=== PATIENT | female | born 1955 | race Caucasian/White ===

== ENCOUNTER 2025-04-04 17:44 | Inpatient (IN) | payer MEDICARE, OTHER, SELFPAY ==
[2025-04-04] VITALS (10 sets, daily range): BP systolic 144–166; BP diastolic 78–83; PULSE 52–61; RESP 11–23; TEMP 35.9–36.6; O2SAT 96–100; BMI 27.8; BMI 21.7
[2025-04-04] MEDS: 0.9% Normal Saline (1000mL) 1,000 ML 999 ML IV (18:05)
--- NOTE | 2025-04-04 18:10 | CT_ITS ---
PROCEDURE: CTA CHEST W/WO CONTRAST 04/04/2025 REASON FOR EXAM: SOB, CHEST PAIN TECHNIQUE: CTA CHEST W/WO CONTRAST Multiplanar Sagittal and Coronal images were obtained. CONTRAST: Isovue 370 VOLUME: 100 mL One or more dose reduction techniques were used (e.g., Automated exposure control, adjustment of the mA and/or kV according to patient size, use of iterative reconstruction technique). RADIATION DOSE SUMMARY: CTDlvol: 17 mGy DLP: 207.40 mGycm FINDINGS: Again, scanning has been performed from inferior to superior which is suboptimal. The thoracic aorta exhibits normal caliber without dissection. Mild coronary artery calcification is seen. Examination of the pulmonary arterial tree demonstrates no filling defects to suggest pulmonary embolism. Imaged portions of the upper abdomen are unremarkable. There is no pericardial fluid or mediastinal mass. Although lung windows were not supplied, there is no consolidation, edema or effusion. CT/CTA Chest W/WO Contrast IMPRESSION: Negative study [facility]
[2025-04-04 18:12] LABS: Hematocrit 40.5 % (37-47); Hemoglobin 14.0 g/dL (12.0-15.0); Immature Granulocytes Count 0.010 X10^3/uL (0.0-0.0); Mean Corp Hgb Conc 34.6 g/dL (32-36); Mean Corpuscular Volume 95.3 fL (81-99); Mean Platelet Vol. 10.7 fl (6.2-12.0); NRBC Flagged by Analyzer 0 % (0-5); Platelet Count 178 K/mm3 (150-450); RBC Distribution Width CV 12.9 % (11.6-14.6); RBC Distribution Width SD 45.3 fl (35.1-43.9); Red Blood Count 4.25 M/mm3 (4.2-5.4); White Blood Count 5.6 K/mm3 (4.4-11.0)
[2025-04-04 18:59] LABS: Anion Gap 13 (5-15); BUN 16 mg/dL (4-19); BUN/Creat Ratio 19.3 RATIO (10-20); Calcium,Total 9.9 mg/dL (7.6-11.0); Carbon Dioxide 23.5 mmol/L (21.0-32.0); Chloride 103 mmol/L (98-108); Estimated Creatinine Clearance 64.67 ml/min (50-250); Glucose 136 mg/dL (70-99); Magnesium 1.9 mg/dL (1.5-2.2); Potassium 3.7 mmol/L (3.3-5.1); Pro- Brain NATRIURETIC PEPTIDE 349 pg/mL (<=900); Troponin T High Sensitivity 9 ng/L (<=14)
[2025-04-04 19:21] LABS: Free T3 3.7 pg/mL (2.18-3.98)
--- NOTE | 2025-04-04 19:23 | ED.VIS.CHEST ---
HPI History of Present Illness Chief Complaint: Chest Pain Narrative Narrative: Patient is a 69-year-old female who presents to the emergency department the chief complaint of chest pain, shortness of breath. Patient states that she March 19, 2025 had a stress test obtained in the outpatient setting and was abnormal she was told. She states that she is having worsening fatigue and shortness of breath with exertion and states that she called articulation officer Dr. Obrien office and they advised her to come here given her abnormal stress test. She states that she is to have an appointment with him in April but they did not feel that this could wait any longer and sent her to the emergency department. Patient denies any travel history denies any history of blood clots. States that she has been getting chest pain that will radiate to her left arm as well and gets better with rest. [facility] Medical History Ruptured ovarian cyst Home Medications ?Medication ?Instructions ?Recorded ?Last Taken ?Type NK 04/04/25 Unknown History Allergy/AdvReac Type Severity Reaction Status Date / Time No Known Allergies Allergy Verified 04/04/25 17:46 Surgical History H/O elbow surgery Social History Smoking Status: Former smoker ROS ROS ED ROS Narrative Constitutional: Denies any fevers, chills, headaches Cardiovascular: Complains of chest pain as noted above as well as palpitations Respiratory: Complains of shortness of breath denies coughing Abdomen: Denies abdominal pain nausea vomit diarrhea : Denies urinary symptoms Neurological: Denies any numbness, wheeze, tingling Musculoskeletal: Denies back pain Skin: Denies any rashes or lesions EXAM Physical Exam Narrative Exam Narrative: General: Patient was lying in bed rest comfortably did not appear to be in acute distress Head: Atraumatic, normocephalic Eyes: PERRL bilaterally, EOMI blood, no conjunctival injection noted Neck: Soft, supple, trachea midline Cardiovascular: Patient is bradycardic with a regular rhythm Respiratory: Clear to auscultation bilaterally Abdomen: No tenderness palpation Extremities: Radial pulses +2/4 in the bilateral extremities, +5/5 strength noted in the bilateral upper and lower extremities Neurological: Patient following commands knew that she was at [facility] year is 2024 Skin: Warm, dry, intact no rashes or lesions noted Const Vital Signs: 04/04/25 17:44 04/04/25 17:56 04/04/25 17:57 Temperature 96.6 F L Temperature Source Oral Pulse Rate 61 Respiratory Rate 18 Respiratory Effort Blood Pressure 157/78 H Blood Pressure Mean 104 Pulse Ox 99 100 97 Oxygen Delivery Method Room Air Room Air Room Air 04/04/25 17:59 04/04/25 18:44 04/04/25 19:00 Temperature Temperature Source Pulse Rate 52 L 56 L Respiratory Rate 23 H 11 L Respiratory Effort Normal Blood Pressure 155/80 H 161/82 H Blood Pressure Mean 105 108 Pulse Ox 100 100 Oxygen Delivery Method Room Air Room Air 04/04/25 20:00 04/04/25 20:58 04/04/25 20:59 Temperature 96.6 F L Temperature Source Pulse Rate 57 L 56 L Respiratory Rate 16 16 Respiratory Effort Blood Pressure 147/82 H 144/79 H 144/79 H Blood Pressure Mean 103 100 100 Pulse Ox 97 96 Oxygen Delivery Method Room Air MDM MDM MDM Narrative Medical decision making narrative: patient is a 69-year-old female who presents to the emergency department chief complaint of worsening chest pain on exertion, fatigue and shortness of breath with worsening fatigue. On the differential diagnose includes but not limited to ACS, dissection, PE. Once workup is obtained reviewed she will be reevaluated. Patient CBC reviewed showed no evidence leukocytosis white blood count 5.6, hemoglobin 14, plate count 178. Patient sodium normal 139, [place] normal 3.7, creatinine normal 0.82. Patient's troponin was 9 delta troponin of 10. Patient proBNP normal at 349, TSH normal at 2.65, free T4 and T3 were 1.40 and 3.7 respectively. Patient EKG reviewed showed sinus rhythm with a rate of 62 bpm. Patient CTA of the chest reviewed and showed no acute processes. Called and discussed case with on-call articulation officer Dr. Medina who is recommending admission for heart catheterization as she had an abnormal outpatient stress test with her symptoms. Will discuss case with hospitalist for admission. Patient given 325 mg aspirin Patient's case discussed with hospitalist Dr. Conti who accept patient for admission. Lab Data Labs: Laboratory Results - last 24 hr 04/04/25 04/04/25 04/04/25 18:02 18:02 18:02 WBC Cancelled 5.6 Corrected WBC Cancelled RBC Cancelled 4.25 Hgb Cancelled Hct MCV MCH MCHC RDW Std Deviation RDW Coeff of Lexus Plt Count MPV Immature Gran % (Auto) Neut % (Auto) Lymph % (Auto) [place] % (Auto) Eos % (Auto) Baso % (Auto) Absolute Neuts (auto) Absolute Lymphs (auto) Total Counted Neutrophils % (Manual) Band Neutrophils % Lymphocytes % (Manual) Monocytes % (Manual) Eosinophils % (Manual) Basophils % (Manual) Metamyelocytes % Myelocytes % Promyelocytes % Blast Cells % Plasma Cell % (Manual) Other Cells % Nucleated RBC % Nucleated RBCs/100 WBC Differential Comment Diff Path Review Hypersegmented Neuts Atypical Lymphocytes Reactive Lymphocytes Smudge Cells Toxic Granulation Toxic Vacuolation Dohle Bodies Corine Rods Platelet Estimate Plt Morphology Comment RBC Morphology Polychromasia Hypochromasia Basophilic Stippling Anisocytosis Microcytosis Macrocytosis Spherocytes Sickle Cells Target Cells Tear Drop Cells Ovalocytes Stomatocytes [place] Bodies Olga Lidia Cells Bite Cells Crenated Cell Acanthocytes (Spur) Rouleaux Schistocytes Sodium Potassium Chloride Carbon Dioxide Anion Gap BUN Creatinine Estim Creat Clear Calc Est GFR (MDRD) Non-Af BUN/Creatinine Ratio Glucose Calcium Magnesium Troponin T High Sens Troponin T Hi Sens 2 Hr NT pro BNP II TSH Free T4 Free T3 pg/dL 04/04/25 04/04/25 04/04/25 18:02 18:02 18:02 WBC Corrected WBC RBC Hgb 14.0 Hct Cancelled 40.5 MCV Cancelled 95.3 MCH Cancelled MCHC RDW Std Deviation RDW Coeff of [place] Plt Count MPV Immature Gran % (Auto) Neut % (Auto) Lymph % (Auto) [place] % (Auto) Eos % (Auto) Baso % (Auto) Absolute Neuts (auto) Absolute Lymphs (auto) Total Counted Neutrophils % (Manual) Band Neutrophils % Lymphocytes % (Manual) Monocytes % (Manual) Eosinophils % (Manual) Basophils % (Manual) Metamyelocytes % Myelocytes % Promyelocytes % Blast Cells % Plasma Cell % (Manual) Other Cells % Nucleated RBC % Nucleated RBCs/100 WBC Differential Comment Diff Path Review Hypersegmented Neuts Atypical Lymphocytes Reactive Lymphocytes Smudge Cells Toxic Granulation Toxic Vacuolation Dohle Bodies Corine Rods Platelet Estimate Plt Morphology Comment RBC Morphology Polychromasia Hypochromasia Basophilic Stippling Anisocytosis Microcytosis Macrocytosis Spherocytes Sickle Cells Target Cells Tear Drop Cells Ovalocytes Stomatocytes [place] Bodies Olga Lidia Cells Bite Cells Crenated Cell Acanthocytes (Spur) Rouleaux Schistocytes Sodium Potassium Chloride Carbon Dioxide Anion Gap BUN Creatinine Estim Creat Clear Calc Est GFR (MDRD) Non-Af BUN/Creatinine Ratio Glucose Calcium Magnesium Troponin T High Sens Troponin T Hi Sens 2 Hr NT pro BNP II TSH Free T4 Free T3 pg/dL 04/04/25 04/04/25 04/04/25 18:02 18:02 18:02 WBC Corrected WBC RBC Hgb Hct MCV MCH 32.9 H MCHC Cancelled 34.6 RDW Std Deviation Cancelled 45.3 H RDW Coeff of [place] Cancelled Plt Count MPV Immature Gran % (Auto) Neut % (Auto) Lymph % (Auto) [place] % (Auto) Eos % (Auto) Baso % (Auto) Absolute Neuts (auto) Absolute Lymphs (auto) Total Counted Neutrophils % (Manual) Band Neutrophils % Lymphocytes % (Manual) Monocytes % (Manual) Eosinophils % (Manual) Basophils % (Manual) Metamyelocytes % Myelocytes % Promyelocytes % Blast Cells % Plasma Cell % (Manual) Other Cells % Nucleated RBC % Nucleated RBCs/100 WBC Differential Comment Diff Path Review Hypersegmented Neuts Atypical Lymphocytes Reactive Lymphocytes Smudge Cells Toxic Granulation Toxic Vacuolation Dohle Bodies Corine Rods Platelet Estimate Plt Morphology Comment RBC Morphology Polychromasia Hypochromasia Basophilic Stippling Anisocytosis Microcytosis Macrocytosis Spherocytes Sickle Cells Target Cells Tear Drop Cells Ovalocytes Stomatocytes [place] Bodies Olga Lidia Cells Bite Cells Crenated Cell Acanthocytes (Spur) Rouleaux Schistocytes Sodium Potassium Chloride Carbon Dioxide Anion Gap BUN Creatinine Estim Creat Clear Calc Est GFR (MDRD) Non-Af BUN/Creatinine Ratio Glucose Calcium Magnesium Troponin T High Sens Troponin T Hi Sens 2 Hr NT pro BNP II TSH Free T4 Free T3 pg/dL 04/04/25 04/04/25 04/04/25 18:02 18:02 18:02 WBC Corrected WBC RBC Hgb Hct MCV MCH MCHC RDW Std Deviation RDW Coeff of Lexus 12.9 Plt Count Cancelled 178 MPV Cancelled 10.7 Immature Gran % (Auto) Cancelled Neut % (Auto) Lymph % (Auto) [place] % (Auto) Eos % (Auto) Baso % (Auto) Absolute Neuts (auto) Absolute Lymphs (auto) Total Counted Neutrophils % (Manual) Band Neutrophils % Lymphocytes % (Manual) Monocytes % (Manual) Eosinophils % (Manual) Basophils % (Manual) Metamyelocytes % Myelocytes % Promyelocytes % Blast Cells % Plasma Cell % (Manual) Other Cells % Nucleated RBC % Nucleated RBCs/100 WBC Differential Comment Diff Path Review Hypersegmented Neuts Atypical Lymphocytes Reactive Lymphocytes Smudge Cells Toxic Granulation Toxic Vacuolation Dohle Bodies Corine Rods Platelet Estimate Plt Morphology Comment RBC Morphology Polychromasia Hypochromasia Basophilic Stippling Anisocytosis Microcytosis Macrocytosis Spherocytes Sickle Cells Target Cells Tear Drop Cells Ovalocytes Stomatocytes [place] Bodies Olga Lidia Cells Bite Cells Crenated Cell Acanthocytes (Spur) Rouleaux Schistocytes Sodium Potassium Chloride Carbon Dioxide Anion Gap BUN Creatinine Estim Creat Clear Calc Est GFR (MDRD) Non-Af BUN/Creatinine Ratio Glucose Calcium Magnesium Troponin T High Sens Troponin T Hi Sens 2 Hr NT pro BNP II TSH Free T4 Free T3 pg/dL 04/04/25 04/04/25 04/04/25 18:02 18:02 18:02 WBC Corrected WBC RBC Hgb Hct MCV MCH MCHC RDW Std Deviation RDW Coeff of [place] Plt Count MPV Immature Gran % (Auto) 0.200 Neut % (Auto) Cancelled 56.0 Lymph % (Auto) Cancelled 33.3 [place] % (Auto) Cancelled Eos % (Auto) Baso % (Auto) Absolute Neuts (auto) Absolute Lymphs (auto) Total Counted Neutrophils % (Manual) Band Neutrophils % Lymphocytes % (Manual) Monocytes % (Manual) Eosinophils % (Manual) Basophils % (Manual) Metamyelocytes % Myelocytes % Promyelocytes % Blast Cells % Plasma Cell % (Manual) Other Cells % Nucleated RBC % Nucleated RBCs/100 WBC Differential Comment Diff Path Review Hypersegmented Neuts Atypical Lymphocytes Reactive Lymphocytes Smudge Cells Toxic Granulation Toxic Vacuolation Dohle Bodies Corine Rods Platelet Estimate Plt Morphology Comment RBC Morphology Polychromasia Hypochromasia Basophilic Stippling Anisocytosis Microcytosis Macrocytosis Spherocytes Sickle Cells Target Cells Tear Drop Cells Ovalocytes Stomatocytes [place] Bodies [place] Cells Bite Cells Crenated Cell Acanthocytes (Spur) Rouleaux Schistocytes Sodium Potassium Chloride Carbon Dioxide Anion Gap BUN Creatinine Estim Creat Clear Calc Est GFR (MDRD) Non-Af BUN/Creatinine Ratio Glucose Calcium Magnesium Troponin T High Sens Troponin T Hi Sens 2 Hr NT pro BNP II TSH Free T4 Free T3 pg/dL 04/04/25 04/04/25 04/04/25 18:02 18:02 18:02 WBC Corrected WBC RBC Hgb Hct MCV MCH MCHC RDW Std Deviation RDW Coeff of [place] Plt Count MPV Immature Gran % (Auto) Neut % (Auto) Lymph % (Auto) [place] % (Auto) 8.0 Eos % (Auto) Cancelled 2.0 Baso % (Auto) Cancelled 0.5 Absolute Neuts (auto) Cancelled Absolute Lymphs (auto) Total Counted Neutrophils % (Manual) Band Neutrophils % Lymphocytes % (Manual) Monocytes % (Manual) Eosinophils % (Manual) Basophils % (Manual) Metamyelocytes % Myelocytes % Promyelocytes % Blast Cells % Plasma Cell % (Manual) Other Cells % Nucleated RBC % Nucleated RBCs/100 WBC Differential Comment Diff Path Review Hypersegmented Neuts Atypical Lymphocytes Reactive Lymphocytes Smudge Cells Toxic Granulation Toxic Vacuolation Dohle Bodies Corine Rods Platelet Estimate Plt Morphology Comment RBC Morphology Polychromasia Hypochromasia Basophilic Stippling Anisocytosis Microcytosis Macrocytosis Spherocytes Sickle Cells Target Cells Tear Drop Cells Ovalocytes Stomatocytes [place] Bodies Olga Lidia Cells Bite Cells Crenated Cell Acanthocytes (Spur) Rouleaux Schistocytes Sodium Potassium Chloride Carbon Dioxide Anion Gap BUN Creatinine Estim Creat Clear Calc Est GFR (MDRD) Non-Af BUN/Creatinine Ratio Glucose Calcium Magnesium Troponin T High Sens Troponin T Hi Sens 2 Hr NT pro BNP II TSH Free T4 Free T3 pg/dL 04/04/25 04/04/25 04/04/25 18:02 18:02 18:02 WBC Corrected WBC RBC Hgb Hct MCV MCH MCHC RDW Std Deviation RDW Coeff of Lexus Plt Count MPV Immature Gran % (Auto) Neut % (Auto) Lymph % (Auto) [place] % (Auto) Eos % (Auto) Baso % (Auto) Absolute Neuts (auto) 3.1 Absolute Lymphs (auto) Cancelled 1.87 Total Counted Cancelled Neutrophils % (Manual) Cancelled Band Neutrophils % Cancelled Lymphocytes % (Manual) Cancelled Monocytes % (Manual) Cancelled Eosinophils % (Manual) Cancelled Basophils % (Manual) Cancelled Metamyelocytes % Cancelled Myelocytes % Cancelled Promyelocytes % Cancelled Blast Cells % Cancelled Plasma Cell % (Manual) Cancelled Other Cells % Cancelled Nucleated RBC % Cancelled 0 Nucleated RBCs/100 WBC Cancelled Differential Comment Cancelled Diff Path Review Cancelled Hypersegmented Neuts Cancelled Atypical Lymphocytes Cancelled Reactive Lymphocytes Cancelled Smudge Cells Cancelled Toxic Granulation Cancelled Toxic Vacuolation Cancelled Dohle Bodies Cancelled [place]ine Rods Cancelled Platelet Estimate Cancelled Plt Morphology Comment Cancelled RBC Morphology Cancelled Polychromasia Hypochromasia Basophilic Stippling Anisocytosis Microcytosis Macrocytosis Spherocytes Sickle Cells Target Cells Tear Drop Cells Ovalocytes Stomatocytes [place] Bodies Olga Lidia Cells Bite Cells Crenated Cell Acanthocytes (Spur) Rouleaux Schistocytes Sodium Potassium Chloride Carbon Dioxide Anion Gap BUN Creatinine Estim Creat Clear Calc Est GFR (MDRD) Non-Af BUN/Creatinine Ratio Glucose Calcium Magnesium Troponin T High Sens Troponin T Hi Sens 2 Hr NT pro BNP II TSH Free T4 Free T3 pg/dL 04/04/25 04/04/25 04/04/25 18:02 18:02 18:02 WBC Corrected WBC RBC Hgb Hct MCV MCH MCHC RDW Std Deviation RDW Coeff of Lexus Plt Count MPV Immature Gran % (Auto) Neut % (Auto) Lymph % (Auto) [place] % (Auto) Eos % (Auto) Baso % (Auto) Absolute Neuts (auto) Absolute Lymphs (auto) Total Counted Neutrophils % (Manual) Band Neutrophils % Lymphocytes % (Manual) Monocytes % (Manual) Eosinophils % (Manual) Basophils % (Manual) Metamyelocytes % Myelocytes % Promyelocytes % Blast Cells % Plasma Cell % (Manual) Other Cells % Nucleated RBC % Nucleated RBCs/100 WBC Differential Comment Diff Path Review Hypersegmented Neuts Atypical Lymphocytes Reactive Lymphocytes Smudge Cells Toxic Granulation Toxic Vacuolation Dohle Bodies Corine Rods Platelet Estimate Plt Morphology Comment RBC Morphology Cancelled Polychromasia Cancelled Hypochromasia Cancelled Basophilic Stippling Cancelled Anisocytosis Cancelled Microcytosis Cancelled Macrocytosis Cancelled Spherocytes Cancelled Sickle Cells Cancelled Target Cells Cancelled Tear Drop Cells Cancelled Ovalocytes Cancelled Stomatocytes Cancelled [place] Bodies Cancelled [place] Cells Cancelled Bite Cells Cancelled Crenated Cell Cancelled Acanthocytes (Spur) Cancelled Rouleaux Cancelled Schistocytes Cancelled Sodium Cancelled 139 Potassium Cancelled 3.7 Chloride Cancelled Carbon Dioxide Anion Gap BUN Creatinine Estim Creat Clear Calc Est GFR (MDRD) Non-Af BUN/Creatinine Ratio Glucose Calcium Magnesium Troponin T High Sens Troponin T Hi Sens 2 Hr NT pro BNP II TSH Free T4 Free T3 pg/dL 04/04/25 04/04/25 04/04/25 18:02 18:02 18:02 WBC Corrected WBC RBC Hgb Hct MCV MCH MCHC RDW Std Deviation RDW Coeff of Lex[place] Plt Count MPV Immature Gran % (Auto) Neut % (Auto) Lymph % (Auto) [place] % (Auto) Eos % (Auto) Baso % (Auto) Absolute Neuts (auto) Absolute Lymphs (auto) Total Counted Neutrophils % (Manual) Band Neutrophils % Lymphocytes % (Manual) Monocytes % (Manual) Eosinophils % (Manual) Basophils % (Manual) Metamyelocytes % Myelocytes % Promyelocytes % Blast Cells % Plasma Cell % (Manual) Other Cells % Nucleated RBC % Nucleated RBCs/100 WBC Differential Comment Diff Path Review Hypersegmented Neuts Atypical Lymphocytes Reactive Lymphocytes Smudge Cells Toxic Granulation Toxic Vacuolation Dohle Bodies Corine Rods Platelet Estimate Plt Morphology Comment RBC Morphology Polychromasia Hypochromasia Basophilic Stippling Anisocytosis Microcytosis Macrocytosis Spherocytes Sickle Cells Target Cells Tear Drop Cells Ovalocytes Stomatocytes [place] Bodies Olga Lidia Cells Bite Cells Crenated Cell Acanthocytes (Spur) Rouleaux Schistocytes Sodium Potassium Chloride 103 Carbon Dioxide Cancelled 23.5 Anion Gap Cancelled 13 BUN Cancelled Creatinine Estim Creat Clear Calc Est GFR (MDRD) Non-Af BUN/Creatinine Ratio Glucose Calcium Magnesium Troponin T High Sens Troponin T Hi Sens 2 Hr NT pro BNP II TSH Free T4 Free T3 pg/dL 04/04/25 04/04/25 04/04/25 18:02 18:02 18:02 WBC Corrected WBC RBC Hgb Hct MCV MCH MCHC RDW Std Deviation RDW Coeff of Lexus Plt Count MPV Immature Gran % (Auto) Neut % (Auto) Lymph % (Auto) [place] % (Auto) Eos % (Auto) Baso % (Auto) Absolute Neuts (auto) Absolute Lymphs (auto) Total Counted Neutrophils % (Manual) Band Neutrophils % Lymphocytes % (Manual) Monocytes % (Manual) Eosinophils % (Manual) Basophils % (Manual) Metamyelocytes % Myelocytes % Promyelocytes % Blast Cells % Plasma Cell % (Manual) Other Cells % Nucleated RBC % Nucleated RBCs/100 WBC Differential Comment Diff Path Review Hypersegmented Neuts Atypical Lymphocytes Reactive Lymphocytes Smudge Cells Toxic Granulation Toxic Vacuolation Dohle Bodies Corine Rods Platelet Estimate Plt Morphology Comment RBC Morphology Polychromasia Hypochromasia Basophilic Stippling Anisocytosis Microcytosis Macrocytosis Spherocytes Sickle Cells Target Cells Tear Drop Cells Ovalocytes Stomatocytes [place] Bodies [place] Cells Bite Cells Crenated Cell Acanthocytes (Spur) Rouleaux Schistocytes Sodium Potassium Chloride Carbon Dioxide Anion Gap BUN 16 Creatinine Cancelled 0.82 Estim Creat Clear Calc 64.67 Est GFR (MDRD) Non-Af Cancelled 77 BUN/Creatinine Ratio Cancelled Glucose Calcium Magnesium Troponin T High Sens Troponin T Hi Sens 2 Hr NT pro BNP II TSH Free T4 Free T3 pg/dL 04/04/25 04/04/25 04/04/25 18:02 18:02 18:02 WBC Corrected WBC RBC Hgb Hct MCV MCH MCHC RDW Std Deviation RDW Coeff of Lex[place] Plt Count MPV Immature Gran % (Auto) Neut % (Auto) Lymph % (Auto) [place] % (Auto) Eos % (Auto) Baso % (Auto) Absolute Neuts (auto) Absolute Lymphs (auto) Total Counted Neutrophils % (Manual) Band Neutrophils % Lymphocytes % (Manual) Monocytes % (Manual) Eosinophils % (Manual) Basophils % (Manual) Metamyelocytes % Myelocytes % Promyelocytes % Blast Cells % Plasma Cell % (Manual) Other Cells % Nucleated RBC % Nucleated RBCs/100 WBC Differential Comment Diff Path Review Hypersegmented Neuts Atypical Lymphocytes Reactive Lymphocytes Smudge Cells Toxic Granulation Toxic Vacuolation Dohle Bodies Corine Rods Platelet Estimate Plt Morphology Comment RBC Morphology Polychromasia Hypochromasia Basophilic Stippling Anisocytosis Microcytosis Macrocytosis Spherocytes Sickle Cells Target Cells Tear Drop Cells Ovalocytes Stomatocytes [place] Bodies [place] Cells Bite Cells Crenated Cell Acanthocytes (Spur) Rouleaux Schistocytes Sodium Potassium Chloride Carbon Dioxide Anion Gap BUN Creatinine Estim Creat Clear Calc Est GFR (MDRD) Non-Af BUN/Creatinine Ratio 19.3 Glucose Cancelled 136 H Calcium Cancelled 9.9 Magnesium 1.9 Troponin T High Sens Cancelled Troponin T Hi Sens 2 Hr NT pro BNP II TSH Free T4 Free T3 pg/dL 04/04/25 04/04/25 18:02 20:00 WBC Corrected WBC RBC Hgb Hct MCV MCH MCHC RDW Std Deviation RDW Coeff of [place] Plt Count MPV Immature Gran % (Auto) Neut % (Auto) Lymph % (Auto) [place] % (Auto) Eos % (Auto) Baso % (Auto) Absolute Neuts (auto) Absolute Lymphs (auto) Total Counted Neutrophils % (Manual) Band Neutrophils % Lymphocytes % (Manual) Monocytes % (Manual) Eosinophils % (Manual) Basophils % (Manual) Metamyelocytes % Myelocytes % Promyelocytes % Blast Cells % Plasma Cell % (Manual) Other Cells % Nucleated RBC % Nucleated RBCs/100 WBC Differential Comment Diff Path Review Hypersegmented Neuts Atypical Lymphocytes Reactive Lymphocytes Smudge Cells Toxic Granulation Toxic Vacuolation Dohle Bodies Corine Rods Platelet Estimate Plt Morphology Comment RBC Morphology Polychromasia Hypochromasia Basophilic Stippling Anisocytosis Microcytosis Macrocytosis Spherocytes Sickle Cells Target Cells Tear Drop Cells Ovalocytes Stomatocytes [place] Bodies [place] Cells Bite Cells Crenated Cell Acanthocytes (Spur) Rouleaux Schistocytes Sodium Potassium Chloride Carbon Dioxide Anion Gap BUN Creatinine Estim Creat Clear Calc Est GFR (MDRD) Non-Af BUN/Creatinine Ratio Glucose Calcium Magnesium Troponin T High Sens 9 Troponin T Hi Sens 2 Hr 10 NT pro BNP II 349 TSH 2.650 Free T4 1.40 Free T3 pg/dL 3.7 Radiography Diagnostic Testing: Clinical Impression(s) from Imaging Studies Chest CTA 04/04/25 18:10 IMPRESSION: Negative study Reading Location: [facility] Discharge Plan Triage Chief Complaint: Chest Pain ED Provider: Miles Boswell Dx/Rx/DC Orders Clinical Impression: Chest pain, Shortness of breath, Fatigue, Abnormal stress test Prescriptions: No Action NK Primary Care Provider: Ga Jensen Referrals: Ga Jensen PA [Primary Care Provider] - Print Language: [place] Disposition Disposition[facility] Acute Care Hospital [facility]
[2025-04-04 20:37] LABS: Troponin T High Sens 2 HR 10 ng/L (<=14)
--- NOTE | 2025-04-04 21:22 | HP.PCM.HOS_ITS ---
HPI - General General Date of Admission: 04/04/25 Date of Service: 04/04/25 Chief Complaint: Chest pain HPI Narrative VIOLETA ELIZABETH, is a 69 F who presented to [facility] ED on 04/04/2025 with chest pain. Patient had a stress treadmill echocardiogram done at [facility] on 03/19 that was reportedly abnormal. I reviewed [facility] records for this. Stress test report was as follows. Resting EKG showed baseline inferolateral ST segment depressions less than 1 mm. Stress EKG demonstrated worsening EKG changes in the inferolateral leads up to 1 mm. EF 66%. Patient did achieve 8.50 METS. Conclusion noted that the worsening EKG changes as above gave her a Luna treadmill score of 1.5 which places her at moderate risk for cardiac disease. Patient was scheduled to see Dr. Obrien with cardiology in the office on April 30. However she has had worsening chest pain/pressure over the past several days so she was advised to come to the ED for further evaluation. In the ED she is hypertensive to the 160s systolic but otherwise hemodynamically stable on room air. EKG showed normal sinus rhythm with no ST changes. CBC and BMP were benign. Troponins negative x 2. NT proBNP normal. CTA chest with no PE, mild coronary artery calcification seen, otherwise no other abnormalities. Case was discussed with Dr. Medina with cardiology who recommended admission for further management. Hospitalist was then contacted for admission. I saw the patient at bedside in the ED. Patient was sitting back comfortably in bed, conversing normally, in no acute distress. She reported ongoing chest pain in the left side of her chest and radiating down her left arm, though she does appear quite comfortable on exam. She denies any shortness of breath. Denies any other acute concerns currently. Will be admitted for further management. [facility] Medical History Ruptured ovarian cyst Home Medications ?Medication ?Instructions ?Recorded ?Last Taken ?Type NK 04/04/25 Unknown History Allergy/AdvReac Type Severity Reaction Status Date / Time No Known Allergies Allergy Verified 04/04/25 17:46 Surgical History H/O elbow surgery Social History Smoking Status: Former smoker ROS Constitutional Constitutional: Denies chills, fatigue, fever(s) or weakness Eyes Eyes: Denies change in vision Cardiovascular Cardiovascular: Reports chest pain and dyspnea on exertion; Denies edema, lightheadedness or palpitations Respiratory/Chest Respiratory/Chest: Denies shortness of breath at rest or wheezing Gastrointestinal Gastrointestinal: Denies abdominal pain Musculoskeletal Musculoskeletal: Denies arthralgias or myalgias Neurologic Neurologic: Denies dizziness, focal weakness or headache(s) Vital Signs Vital Signs Vital Signs: 04/04/25 17:44 04/04/25 17:56 04/04/25 17:57 Temperature 96.6 F L Temperature Source Oral Pulse Rate 61 Respiratory Rate 18 Respiratory Effort Blood Pressure 157/78 H Blood Pressure Mean 104 Pulse Ox 99 100 97 Oxygen Delivery Method Room Air Room Air Room Air 04/04/25 17:59 04/04/25 18:44 04/04/25 19:00 Temperature Temperature Source Pulse Rate 52 L 56 L Respiratory Rate 23 H 11 L Respiratory Effort Normal Blood Pressure 155/80 H 161/82 H Blood Pressure Mean 105 108 Pulse Ox 100 100 Oxygen Delivery Method Room Air Room Air 04/04/25 20:00 04/04/25 20:58 04/04/25 20:59 Temperature 96.6 F L Temperature Source Pulse Rate 57 L 56 L Respiratory Rate 16 16 Respiratory Effort Blood Pressure 147/82 H 144/79 H 144/79 H Blood Pressure Mean 103 100 100 Pulse Ox 97 96 Oxygen Delivery Method Room Air Weight Weight: 77.247 kg Body Mass Index (BMI) 27.8 Physical Exam Const alert, oriented x3, no apparent distress, average body habitus, healthy appearing and well nourished Constitutional Narrative: Elderly female, sitting back comfortably in bed, conversing normally, in no acute distress. General Appearance: cooperative, comfortable, well kempt and well developed HEENT normocephalic, head/scalp atraumatic, hearing grossly normal bilaterally, nasal mucous membranes and turbinates normal and moist oral mucous membranes Eyes PERRL, EOMs intact bilaterally and conjunctivae normal Neck full ROM Chest inspection of chest normal Resp normal respiratory effort, normal air movement, no use of accessory muscles and clear to auscultation bilaterally Cardio regular rate, regular rhythm, no murmurs and peripheral pulses 2+ throughout GI normal to inspection, nondistended, normoactive bowel sounds, soft to palpation, non-tender and non-distended Back/Spine normal ROM Extremity normal to inspection, full ROM and no pedal edema Skin no rashes or lesions noted Psych mental status grossly normal Results Lab / Micro Data 04/04/25 18:02 04/04/25 18:02 Labs: Laboratory Results - last 24 hr 04/04/25 18:02: WBC Cancelled 04/04/25 18:02: WBC 5.6, Corrected WBC Cancelled, RBC Cancelled 04/04/25 18:02: RBC 4.25, Hgb Cancelled 04/04/25 18:02: Hgb 14.0, Hct Cancelled 04/04/25 18:02: Hct 40.5, MCV Cancelled 04/04/25 18:02: MCV 95.3, MCH Cancelled 04/04/25 18:02: MCH 32.9 H, MCHC Cancelled 04/04/25 18:02: MCHC 34.6, RDW Std Deviation Cancelled 04/04/25 18:02: RDW Std Deviation 45.3 H, RDW Coeff of Lexus Cancelled 04/04/25 18:02: RDW Coeff of Lexus 12.9, Plt Count Cancelled 04/04/25 18:02: Plt Count 178, MPV Cancelled 04/04/25 18:02: MPV 10.7, Immature Gran % (Auto) Cancelled 04/04/25 18:02: Immature Gran % (Auto) 0.200, Neut % (Auto) Cancelled 04/04/25 18:02: Neut % (Auto) 56.0, Lymph % (Auto) Cancelled 04/04/25 18:02: Lymph % (Auto) 33.3, [place] % (Auto) Cancelled 04/04/25 18:02: [place] % (Auto) 8.0, Eos % (Auto) Cancelled 04/04/25 18:02: Eos % (Auto) 2.0, Baso % (Auto) Cancelled 04/04/25 18:02: Baso % (Auto) 0.5, Absolute Neuts (auto) Cancelled 04/04/25 18:02: Absolute Neuts (auto) 3.1, Absolute Lymphs (auto) Cancelled 04/04/25 18:02: Absolute Lymphs (auto) 1.87, Total Counted Cancelled, Neutrophils % (Manual) Cancelled, Band Neutrophils % Cancelled, Lymphocytes % (Manual) Cancelled, Monocytes % (Manual) Cancelled, Eosinophils % (Manual) Cancelled, Basophils % (Manual) Cancelled, Metamyelocytes % Cancelled, Myelocytes % Cancelled, Promyelocytes % Cancelled, Blast Cells % Cancelled, Plasma Cell % (Manual) Cancelled, Other Cells % Cancelled, Nucleated RBC % Cancelled 04/04/25 18:02: Nucleated RBC % 0, Nucleated RBCs/100 WBC Cancelled, Differential Comment Cancelled, Diff Path Review Cancelled, Hypersegmented Neuts Cancelled, Atypical Lymphocytes Cancelled, Reactive Lymphocytes Cancelled, Smudge Cells Cancelled, Toxic Granulation Cancelled, Toxic Vacuolation Cancelled, Dohle Bodies Cancelled, Corine Rods Cancelled, Platelet Estimate Cancelled, Plt Morphology Comment Cancelled, RBC Morphology Cancelled 04/04/25 18:02: RBC Morphology Cancelled, Polychromasia Cancelled, Hypochromasia Cancelled, Basophilic Stippling Cancelled, Anisocytosis Cancelled, Microcytosis Cancelled, Macrocytosis Cancelled, Spherocytes Cancelled, Sickle Cells Cancelled, Target Cells Cancelled, Tear Drop Cells Cancelled, Ovalocytes Cancelled, Stomatocytes Cancelled, [place] Bodies Cancelled, [place] L[place] Cells Cancelled, Bite Cells Cancelled, Crenated Cell Cancelled, Acanthocytes (Spur) Cancelled, Rouleaux Cancelled, Schistocytes Cancelled, Sodium Cancelled 04/04/25 18:02: Sodium 139, Potassium Cancelled 04/04/25 18:02: Potassium 3.7, Chloride Cancelled 04/04/25 18:02: Chloride 103, Carbon Dioxide Cancelled 04/04/25 18:02: Carbon Dioxide 23.5, Anion Gap Cancelled 04/04/25 18:02: Anion Gap 13, BUN Cancelled 04/04/25 18:02: BUN 16, Creatinine Cancelled 04/04/25 18:02: Creatinine 0.82, Estim Creat Clear Calc 64.67, Est GFR (MDRD) Non-Af Cancelled 04/04/25 18:02: Est GFR (MDRD) Non-Af 77, BUN/Creatinine Ratio Cancelled 04/04/25 18:02: BUN/Creatinine Ratio 19.3, Glucose Cancelled 04/04/25 18:02: Glucose 136 H, Calcium Cancelled 04/04/25 18:02: Calcium 9.9, Magnesium 1.9, Troponin T High Sens Cancelled 04/04/25 18:02: Troponin T High Sens 9, NT pro BNP II 349, TSH 2.650, Free T4 1.40, Free T3 pg/dL 3.7 04/04/25 20:00: Troponin T Hi Sens 2 Hr 10 Imaging Radiology Impression Chest CTA 04/04/25 18:10 IMPRESSION: Negative study Reading [facility] Assessment & Plan Assessment/Plan (1) Chest pain: (2) Abnormal stress test: PLAN: Plan Patient is a 69-year-old female who presented to [facility] ED on 04/04/2025 with chest pain. 1. Chest pain with recent abnormal stress test ? Admit under inpatient status to PCU. Cardiology consulted. Recent mildly abnormal stress test at [facility], see HPI for further details. Troponins negative x 2, EKG normal sinus rhythm with no ST changes, chest imaging normal on admit here. Patient hemodynamically stable on room air. Lipid panel and A1c ordered. Will keep n.p.o. at midnight with plan for left heart cath tomorrow. Continue cardiac monitoring. 2. Elevated BP readings ? BP elevated to the 160s and 170s systolic on admit. No reported history of hypertension. Will order IV hydralazine as needed for SBP greater than 170 for now. Monitor. DVT prophylaxis: Lovenox CODE STATUS: Full code, verified Expect disposition: Home, TBD Total clinical time spent by myself addressing the patient's medical issues, reviewing all the data, and collaborating with patient's care team: 55 minutes. Charges/Coding Visit Charges Inpatient E&M: 71052 Init Hosp L2
[2025-04-05] VITALS (12 sets, daily range): BP systolic 121–158; BP diastolic 65–78; PULSE 45–64; RESP 14–16; TEMP 36.1–36.6; O2SAT 98–100
[2025-04-05 05:45] LABS: Hematocrit 37.2 % (37-47); Hemoglobin 12.7 g/dL (12.0-15.0); Mean Corp Hgb Conc 34.1 g/dL (32-36); Mean Corpuscular Volume 96.4 fL (81-99); Mean Platelet Vol. 10.9 fl (6.2-12.0); Platelet Count 160 K/mm3 (150-450); RBC Distribution Width CV 12.9 % (11.6-14.6); RBC Distribution Width SD 45.5 fl (35.1-43.9); Red Blood Count 3.86 M/mm3 (4.2-5.4); White Blood Count 4.4 K/mm3 (4.4-11.0)
--- NOTE | 2025-04-05 05:55 | EKG12_ITS ---
Test Reason : Blood Pressure : */* mmHG Vent. Rate : 63 BPM Atrial Rate : 63 BPM P-R Int : 124 ms QRS Dur : 74 ms QT Int : 424 ms P-R-T Axes : 49 41 43 degrees QTcB Int : 433 ms Normal sinus rhythm with sinus arrhythmia Normal ECG When compared with ECG of 05-Apr-2025 05:59, No significant change was found Confirmed by MD ISABEL, SHAKA ([id number]), assignment editor MIAN WOLFF ([id number]) on 04/09/2025 10:59:26 AM Referred By: Confirmed By: SHAKA HALL MD
[2025-04-05 06:06] LABS: Scan Indicated on CBC? Y/N NO
[2025-04-05 06:40] LABS: Anion Gap 9 (5-15); BUN 15 mg/dL (4-19); BUN/Creat Ratio 23.2 RATIO (10-20); Calcium,Total 8.8 mg/dL (7.6-11.0); Carbon Dioxide 23.3 mmol/L (21.0-32.0); Chloride 108 mmol/L (98-108); Estimated Creatinine Clearance 58.04 ml/min (50-250); Glucose 101 mg/dL (70-99); Potassium 3.8 mmol/L (3.3-5.1)
--- NOTE | 2025-04-05 08:09 | PN.HOSP_ITS ---
Reason for Visit Reason for Visit: Diagnoses Chest pain, unspecified (04/04/25) Abnormal result of other cardiovascular function study (04/04/25) Subjective Subjective Seen post catheterization. Objective Data Objective Data Vital Signs: Vital Signs Temp Pulse Resp BP Pulse Ox O2 Del Method 36.6 C 56 L 14 154/76 H 100 Room Air 04/05/25 04:30 04/05/25 04:30 04/05/25 04:30 04/05/25 04:30 04/05/25 04:30 04/05/25 04:30 Oxygen Delivery Method Room Air Weight: 59.4 kg Body Mass Index (BMI) 21.7 Intake & Output: Intake and Output for Last 24 Hours 04/03/25 04/04/25 04/05/25 23:59 23:59 23:59 Intake Total 1000 / 1250 250 / 250 Balance 1000 / 1250 250 / 250 Lab / Micro Data 04/05/25 05:15 04/05/25 05:15 Labs: Laboratory Results - last 24 hr 04/04/25 18:02: WBC Cancelled 04/04/25 18:02: WBC 5.6, Corrected WBC Cancelled, RBC Cancelled 04/04/25 18:02: RBC 4.25, Hgb Cancelled 04/04/25 18:02: Hgb 14.0, Hct Cancelled 04/04/25 18:02: Hct 40.5, MCV Cancelled 04/04/25 18:02: MCV 95.3, MCH Cancelled 04/04/25 18:02: MCH 32.9 H, MCHC Cancelled 04/04/25 18:02: MCHC 34.6, RDW Std Deviation Cancelled 04/04/25 18:02: RDW Std Deviation 45.3 H, RDW Coeff of Lexus Cancelled 04/04/25 18:02: RDW Coeff of Lexus 12.9, Plt Count Cancelled 04/04/25 18:02: Plt Count 178, MPV Cancelled 04/04/25 18:02: MPV 10.7, Immature Gran % (Auto) Cancelled 04/04/25 18:02: Immature Gran % (Auto) 0.200, Neut % (Auto) Cancelled 04/04/25 18:02: Neut % (Auto) 56.0, Lymph % (Auto) Cancelled 04/04/25 18:02: Lymph % (Auto) 33.3, [place] % (Auto) Cancelled 04/04/25 18:02: [place] % (Auto) 8.0, Eos % (Auto) Cancelled 04/04/25 18:02: Eos % (Auto) 2.0, Baso % (Auto) Cancelled 04/04/25 18:02: Baso % (Auto) 0.5, Absolute Neuts (auto) Cancelled 04/04/25 18:02: Absolute Neuts (auto) 3.1, Absolute Lymphs (auto) Cancelled 04/04/25 18:02: Absolute Lymphs (auto) 1.87, Total Counted Cancelled, Neutrophils % (Manual) Cancelled, Band Neutrophils % Cancelled, Lymphocytes % (Manual) Cancelled, Monocytes % (Manual) Cancelled, Eosinophils % (Manual) Cancelled, Basophils % (Manual) Cancelled, Metamyelocytes % Cancelled, Myelocytes % Cancelled, Promyelocytes % Cancelled, Blast Cells % Cancelled, Plasma Cell % (Manual) Cancelled, Other Cells % Cancelled, Nucleated RBC % Cancelled 04/04/25 18:02: Nucleated RBC % 0, Nucleated RBCs/100 WBC Cancelled, Differential Comment Cancelled, Diff Path Review Cancelled, Hypersegmented Neuts Cancelled, Atypical Lymphocytes Cancelled, Reactive Lymphocytes Cancelled, Smudge Cells Cancelled, Toxic Granulation Cancelled, Toxic Vacuolation Cancelled, Dohle Bodies Cancelled, Corine Rods Cancelled, Platelet Estimate Cancelled, Plt Morphology Comment Cancelled, RBC Morphology Cancelled 04/04/25 18:02: RBC Morphology Cancelled, Polychromasia Cancelled, Hypochromasia Cancelled, Basophilic Stippling Cancelled, Anisocytosis Cancelled, Microcytosis Cancelled, Macrocytosis Cancelled, Spherocytes Cancelled, Sickle Cells Cancelled, Target Cells Cancelled, Tear Drop Cells Cancelled, Ovalocytes Cancelled, Stomatocytes Cancelled, Bassett-[place] Bodies Cancelled, [place] Cells Cancelled, Bite Cells Cancelled, Crenated Cell Cancelled, Acanthocytes (Spur) Cancelled, Rouleaux Cancelled, Schistocytes Cancelled, Sodium Cancelled 04/04/25 18:02: Sodium 139, Potassium Cancelled 04/04/25 18:02: Potassium 3.7, Chloride Cancelled 04/04/25 18:02: Chloride 103, Carbon Dioxide Cancelled 04/04/25 18:02: Carbon Dioxide 23.5, Anion Gap Cancelled 04/04/25 18:02: Anion Gap 13, BUN Cancelled 04/04/25 18:02: BUN 16, Creatinine Cancelled 04/04/25 18:02: Creatinine 0.82, Estim Creat Clear Calc 64.67, Est GFR (MDRD) Non-Af Cancelled 04/04/25 18:02: Est GFR (MDRD) Non-Af 77, BUN/Creatinine Ratio Cancelled 04/04/25 18:02: BUN/Creatinine Ratio 19.3, Glucose Cancelled 04/04/25 18:02: Glucose 136 H, Hemoglobin A1c 5.3, Calcium Cancelled 04/04/25 18:02: Calcium 9.9, Magnesium 1.9, Troponin T High Sens Cancelled 04/04/25 18:02: Troponin T High Sens 9, NT pro BNP II 349, TSH 2.650, Free T4 1.40, Free T3 pg/dL 3.7 04/04/25 20:00: Troponin T Hi Sens 2 Hr 10 04/05/25 05:15: WBC 4.4, RBC 3.86 L, Hgb 12.7, Hct 37.2, MCV 96.4, MCH 32.9 H, MCHC 34.1, RDW Std Deviation 45.5 H, RDW Coeff of Lexus 12.9, Plt Count 160, MPV 10.9, Sodium 140, Potassium 3.8, Chloride 108, Carbon Dioxide 23.3, Anion Gap 9, BUN 15, Creatinine 0.64 L, Estim Creat Clear Calc 58.04, Est GFR (MDRD) Non-Af 94, BUN/Creatinine Ratio 23.2 H, Glucose 101 H, Calcium 8.8 Radiography Diagnostic Testing: Radiology Impression Chest CTA 04/04/25 18:10 IMPRESSION: Negative study Reading Location: [facility] Physical Exam Const alert and no apparent distress Constitutional Narrative: Lying flat as patient had a femoral approach for her left heart catheterization. Assessment & Plan Assessment/Plan (1) Chest pain: PLAN: With recent abnormal stress test. Patient did have a CT of the chest that was negative for any pulmonary embolism. Left heart catheterization performed on the was normal. Noncardiac in PE. Patient be discharged with outpatient follow-up with her primary care doctor. PLAN: Plan VTE prophylaxis Lovenox.
--- NOTE | 2025-04-05 08:53 | CON.PCM.CA_ITS ---
Assessment & Plan Assessment/Plan (1) Unstable angina: PLAN: Continue with aspirin 81 mg daily. Start atorvastatin 40 mg daily. Keep n.p.o. for left heart catheterization later on today. (2) HTN (hypertension), benign: PLAN: Start amlodipine 5 mg daily. HPI Consult Data Date of Consult: 04/05/25 HPI Narrative HPI Narrative: 69 F who presented to [facility] ED on 04/04/2025 with chest pain. Patient had a stress treadmill echocardiogram done at [place] on 03/19 , Resting EKG showed baseline inferolateral ST segment depressions less than 1 mm. Stress EKG demonstrated worsening EKG changes in the inferolateral leads up to 1 mm. EF 66%. Patient did achieve 8.50 METS. Conclusion noted that the worsening EKG changes as above gave her a Luna treadmill score of 1.5 which places her at moderate risk for cardiac disease. Patient was scheduled to see Dr. Obrien with cardiology in the office on April 30. However she has had worsening chest pain/pressure over the past several days so she was advised to come to the ED for further evaluation. In the ED she is hypertensive to the 160s EKG showed normal sinus rhythm with no ST changes. CBC and BMP were benign. Troponins negative x 2. NT proBNP normal. CTA chest with no PE, mild coronary artery calcification seen, otherwise no other abnormalities. [facility] Medical History Ruptured ovarian cyst Home Medications ?Medication ?Instructions ?Recorded ?Last Taken ?Type NK 04/04/25 Unknown History Allergy/AdvReac Type Severity Reaction Status Date / Time No Known Allergies Allergy Verified 04/04/25 17:46 Surgical History H/O elbow surgery Social History Smoking Status: Former smoker ROS Constitutional Constitutional: Reports systems reviewed and no addt'l complaints, except as documented Eyes Eyes: Reports systems reviewed and no addt'l complaints, except as documented ENT HEENT: Reports systems reviewed and no addt'l complaints, except as documented Cardiovascular Cardiovascular: Reports systems reviewed and no addt'l complaints, except as documented Respiratory/Chest Respiratory/Chest: Reports systems reviewed and no addt'l complaints, except as documented Gastrointestinal Gastrointestinal: Reports systems reviewed and no addt'l complaints, except as documented Genitourinary Genitourinary: Reports systems reviewed and no addt'l complaints, except as documented Musculoskeletal Musculoskeletal: Reports systems reviewed and no addt'l complaints, except as documented Integumentary Integumentary: Reports systems reviewed and no addt'l complaints, except as documented Neurologic Neurologic: Reports systems reviewed and no addt'l complaints, except as documented Psychiatric Psychiatric: Reports systems reviewed and no addt'l complaints, except as documented Endocrine Endocrinology: Reports systems reviewed and no addt'l complaints, except as documented Hematologic/Lymphatic Hematologic/Lymphatic: Reports systems reviewed and no addt'l complaints, except as documented Allergic/Immunologic Allergic/Immunologic: Reports systems reviewed and no addt'l complaints, except as documented Physical Exam Const alert HEENT normocephalic Eyes PERRL Neck full ROM Chest inspection of chest normal Resp normal respiratory effort Cardio regular rate GI normal to inspection, nondistended, normoactive bowel sounds no CVA tenderness Extremity normal to inspection Psych Attention / Concentration: Negative for attention grossly impaired Risk Stratification Risk Stratification Applicable: Yes Age >/= 65: Yes >/= 3 CAD Risk Factors (HTN, HLD, DM, family hx of CAD, or current smoker): Yes Aspirin Use in the Past 7 Days: No Severe Angina (>/= episodes in 24 hours): Yes EKG ST Changes >/= 0.5mm: No Positive Cardiac Marker: No TAYE Risk Stratification Score: 3 TAYE % Risk: 13% Risk Objective Data Vital Signs: Vital Signs Temp Pulse Resp BP Pulse Ox O2 Del Method 98 F 56 L 14 154/76 H 100 Room Air 04/05/25 04:30 04/05/25 04:30 04/05/25 04:30 04/05/25 04:30 04/05/25 04:30 04/05/25 04:30 Oxygen Delivery Method Room Air Weight: 130 lb 15.273 oz Body Mass Index (BMI) 21.7 Intake & Output: Intake and Output for Last 24 Hours 04/03/25 04/04/25 04/05/25 23:59 23:59 23:59 Intake Total 1000 / 1250 250 / 250 Balance 1000 / 1250 250 / 250 Lab / Micro Data 04/05/25 05:15 04/05/25 05:15 Labs: Laboratory Results - last 24 hr 04/04/25 18:02: WBC Cancelled 04/04/25 18:02: WBC 5.6, Corrected WBC Cancelled, RBC Cancelled 04/04/25 18:02: RBC 4.25, Hgb Cancelled 04/04/25 18:02: Hgb 14.0, Hct Cancelled 04/04/25 18:02: Hct 40.5, MCV Cancelled 04/04/25 18:02: MCV 95.3, MCH Cancelled 04/04/25 18:02: MCH 32.9 H, MCHC Cancelled 04/04/25 18:02: MCHC 34.6, RDW Std Deviation Cancelled 04/04/25 18:02: RDW Std Deviation 45.3 H, RDW Coeff of Lexus Cancelled 04/04/25 18:02: RDW Coeff of Lexus 12.9, Plt Count Cancelled 04/04/25 18:02: Plt Count 178, MPV Cancelled 04/04/25 18:02: MPV 10.7, Immature Gran % (Auto) Cancelled 04/04/25 18:02: Immature Gran % (Auto) 0.200, Neut % (Auto) Cancelled 04/04/25 18:02: Neut % (Auto) 56.0, Lymph % (Auto) Cancelled 04/04/25 18:02: Lymph % (Auto) 33.3, [place] % (Auto) Cancelled 04/04/25 18:02: [place] % (Auto) 8.0, Eos % (Auto) Cancelled 04/04/25 18:02: Eos % (Auto) 2.0, Baso % (Auto) Cancelled 04/04/25 18:02: Baso % (Auto) 0.5, Absolute Neuts (auto) Cancelled 04/04/25 18:02: Absolute Neuts (auto) 3.1, Absolute Lymphs (auto) Cancelled 04/04/25 18:02: Absolute Lymphs (auto) 1.87, Total Counted Cancelled, Neutrophils % (Manual) Cancelled, Band Neutrophils % Cancelled, Lymphocytes % (Manual) Cancelled, Monocytes % (Manual) Cancelled, Eosinophils % (Manual) Cancelled, Basophils % (Manual) Cancelled, Metamyelocytes % Cancelled, Myelocytes % Cancelled, Promyelocytes % Cancelled, Blast Cells % Cancelled, Plasma Cell % (Manual) Cancelled, Other Cells % Cancelled, Nucleated RBC % Cancelled 04/04/25 18:02: Nucleated RBC % 0, Nucleated RBCs/100 WBC Cancelled, Differential Comment Cancelled, Diff Path Review Cancelled, Hypersegmented Neuts Cancelled, Atypical Lymphocytes Cancelled, Reactive Lymphocytes Cancelled, Smudge Cells Cancelled, Toxic Granulation Cancelled, Toxic Vacuolation Cancelled, Dohle Bodies Cancelled, Corine Rods Cancelled, Platelet Estimate Cancelled, Plt Morphology Comment Cancelled, RBC Morphology Cancelled 04/04/25 18:02: RBC Morphology Cancelled, Polychromasia Cancelled, Hypochromasia Cancelled, Basophilic Stippling Cancelled, Anisocytosis Cancelled, Microcytosis Cancelled, Macrocytosis Cancelled, Spherocytes Cancelled, Sickle Cells Cancelled, Target Cells Cancelled, Tear Drop Cells Cancelled, Ovalocytes Cancelled, Stomatocytes Cancelled, [place] Bodies Cancelled, Olga Lidia Cells Cancelled, Bite Cells Cancelled, Crenated Cell Cancelled, Acanthocytes (Spur) Cancelled, Rouleaux Cancelled, Schistocytes Cancelled, Sodium Cancelled 04/04/25 18:02: Sodium 139, Potassium Cancelled 04/04/25 18:02: Potassium 3.7, Chloride Cancelled 04/04/25 18:02: Chloride 103, Carbon Dioxide Cancelled 04/04/25 18:02: Carbon Dioxide 23.5, Anion Gap Cancelled 04/04/25 18:02: Anion Gap 13, BUN Cancelled 04/04/25 18:02: BUN 16, Creatinine Cancelled 04/04/25 18:02: Creatinine 0.82, Estim Creat Clear Calc 64.67, Est GFR (MDRD) Non-Af Cancelled 04/04/25 18:02: Est GFR (MDRD) Non-Af 77, BUN/Creatinine Ratio Cancelled 04/04/25 18:02: BUN/Creatinine Ratio 19.3, Glucose Cancelled 04/04/25 18:02: Glucose 136 H, Hemoglobin A1c 5.3, Calcium Cancelled 04/04/25 18:02: Calcium 9.9, Magnesium 1.9, Troponin T High Sens Cancelled 04/04/25 18:02: Troponin T High Sens 9, NT pro BNP II 349, TSH 2.650, Free T4 1.40, Free T3 pg/dL 3.7 04/04/25 20:00: Troponin T Hi Sens 2 Hr 10 04/05/25 05:15: WBC 4.4, RBC 3.86 L, Hgb 12.7, Hct 37.2, MCV 96.4, MCH 32.9 H, MCHC 34.1, RDW Std Deviation 45.5 H, RDW Coeff of Lexus 12.9, Plt Count 160, MPV 10.9, Sodium 140, Potassium 3.8, Chloride 108, Carbon Dioxide 23.3, Anion Gap 9, BUN 15, Creatinine 0.64 L, Estim Creat Clear Calc 58.04, Est GFR (MDRD) Non-Af 94, BUN/Creatinine Ratio 23.2 H, Glucose 101 H, Calcium 8.8 Cardiology Labs/Tests 04/04/25 18:02: WBC Cancelled 04/04/25 18:02: WBC 5.6, Corrected WBC Cancelled, RBC Cancelled 04/04/25 18:02: RBC 4.25, Hgb Cancelled 04/04/25 18:02: Hgb 14.0, Hct Cancelled 04/04/25 18:02: Hct 40.5, MCV Cancelled 04/04/25 18:02: MCV 95.3, MCH Cancelled 04/04/25 18:02: MCH 32.9 H, MCHC Cancelled 04/04/25 18:02: MCHC 34.6, Plt Count Cancelled 04/04/25 18:02: Plt Count 178, MPV Cancelled 04/04/25 18:02: MPV 10.7, Immature Gran % (Auto) Cancelled 04/04/25 18:02: Immature Gran % (Auto) 0.200, Neut % (Auto) Cancelled 04/04/25 18:02: Neut % (Auto) 56.0, Lymph % (Auto) Cancelled 04/04/25 18:02: Lymph % (Auto) 33.3, [place] % (Auto) Cancelled 04/04/25 18:02: [place] % (Auto) 8.0, Eos % (Auto) Cancelled 04/04/25 18:02: Eos % (Auto) 2.0, Baso % (Auto) Cancelled 04/04/25 18:02: Baso % (Auto) 0.5, Absolute Neuts (auto) Cancelled 04/04/25 18:02: Absolute Neuts (auto) 3.1, Total Counted Cancelled, Neutrophils % (Manual) Cancelled, Band Neutrophils % Cancelled, Lymphocytes % (Manual) Cancelled, Monocytes % (Manual) Cancelled, Eosinophils % (Manual) Cancelled, Basophils % (Manual) Cancelled, Metamyelocytes % Cancelled, Myelocytes % Cancelled, Promyelocytes % Cancelled, Blast Cells % Cancelled, Plasma Cell % (Manual) Cancelled, Other Cells % Cancelled, Nucleated RBC % Cancelled 04/04/25 18:02: Nucleated RBC % 0, Sodium Cancelled 04/04/25 18:02: Sodium 139, Potassium Cancelled 04/04/25 18:02: Potassium 3.7, Chloride Cancelled 04/04/25 18:02: Chloride 103, Carbon Dioxide Cancelled 04/04/25 18:02: Carbon Dioxide 23.5, Anion Gap Cancelled 04/04/25 18:02: Anion Gap 13, BUN Cancelled 04/04/25 18:02: BUN 16, Creatinine Cancelled 04/04/25 18:02: Creatinine 0.82, Est GFR (MDRD) Non-Af Cancelled 04/04/25 18:02: Est GFR (MDRD) Non-Af 77, BUN/Creatinine Ratio Cancelled 04/04/25 18:02: BUN/Creatinine Ratio 19.3, Glucose Cancelled 04/04/25 18:02: Glucose 136 H, Hemoglobin A1c 5.3, Calcium Cancelled 04/04/25 18:02: Calcium 9.9, Magnesium 1.9 04/05/25 05:15: WBC 4.4, RBC 3.86 L, Hgb 12.7, Hct 37.2, MCV 96.4, MCH 32.9 H, MCHC 34.1, Plt Count 160, MPV 10.9, Sodium 140, Potassium 3.8, Chloride 108, Carbon Dioxide 23.3, Anion Gap 9, BUN 15, Creatinine 0.64 L, Est GFR (MDRD) Non- Af 94, BUN/Creatinine Ratio 23.2 H, Glucose 101 H, Calcium 8.8 Rhythm: EKG: ECHO: Stress Test: Cardiac Cath: PCI: CT Surgery: Holter monitor: EPS: PPM: CXR: Chest CT Scan: Radiography Diagnostic Testing: Radiology Impression Chest CTA 04/04/25 18:10 IMPRESSION: Negative study Reading Location: [facility]
[2025-04-05 09:23] LABS: Cholesterol 173 mg/dL (<=200); Low Density Lipoprotein Calc. 83 mg/dL; Triglycerides 107 mg/dL; Very Low Density Lipoprotein 21 mg/dL (5-40); cholesterol:hdl ratio screen 2.52
--- NOTE | 2025-04-05 13:06 | PCIREPORT_ITS ---
PCI Cardiac Cath Report PCI Report: DATE OF PROCEDURE: 04/05/2025 PROCEDURES PERFORMED: 1. Left heart catheterization 2. Coronary angiography, and left INDICATIONS FOR PROCEDURE: Unstable angina IN-SERVICE TIME: 15 minutes DESCRIPTION OF PROCEDURE: After informed consent was obtained, the patient was brought down to the Cardiac Telemarketing Sales Representative in a fasting state. The left and right inguinal areas were draped, prepped, and sterilized in the usual fashion. Moderate sedation was administered for this procedure and the patient was monitored throughout the procedure. Using the modified Seldinger technique, the right femoral artery was then cannulated. A 6-Surinamese sheath was placed. The sheath was then flushed. JL4 and JR4 catheters were then used to engage the left and right coronary artery systems, respectively. Multiple orthogonal images were then taken. The catheters were then taken out with the help of a guidewire. A pigtail catheter was then introduced into the aorta. Aortic pressure was then obtained. The JR4 catheter was then used to cross the aortic valve into the left ventricle. Multiple hemodynamic data was obtained. The sheath was then flushed. Finally a percutaneous arteriotomy closure device was deployed. The patient tolerated the procedure well without any immediate complications. HEMODYNAMICS: LVEDP 12 DESCRIPTION OF CORONARY ANATOMY: The left main originates from the left coronary sinus of Valsalva in the usual fashion. It then bifurcates into the left anterior descending artery and the circumflex artery. There was a good reflux of dye from the vessel into the sinus of valsalva. No ventricularization or dampening of pressure were noted. This vessel has no evidence of coronary artery disease. The left anterior descending artery originates from the bifurcation in the usual fashion. It then courses its way down the anterior interventricular groove giving rise to multiple diagonal arteries. It then wraps around the apex of the heart. This vessel has no evidence of coronary artery disease. The left circumflex artery originates from the bifurcation in the usual fashion. It then courses its way down the lateral atrioventricular groove as it gives off to obtuse marginal arteries. This vessel has no evidence of coronary artery disease. The right coronary artery originates from the right coronary sinus of Valsalva in the usual fashion. It then courses along the atrioventricular groove and then gives off acute marginal artery. It continues into the posterior descending artery as it gives off the posterior lateral artery. This makes a right dominant This vessel has no evidence of coronary artery disease. CONCLUSIONS: RECOMMENDATIONS: Continue age appropriate cardiovascular care, aggressive lifestyle modifications Start betablockers and statin as tolerated Follow up with cardiology 6 weeks after discharge
--- NOTE | 2025-04-05 15:32 | PCM.DC.SUM ---
Providers Date of Admission: 04/04/25 Primary Care Physician: TARIQ Medina Consultations 04/04/25 22:22 Consult: Cardiology Routine Consulting Provider: Louie Medina Reason for Consult: chest pain w/ recent abnormal stress test EMERGENT Consult: No MD Notified: Yes Date Notified: 04/05/25 Time Notified: 07:00 Method of Notification: Verbal Reason For Visit: CHEST PAIN W/RECENT ABNORMAL STRESS TEST Diagnosis Discharge Diagnosis (1) Chest pain: Status: Acute Code(s): R07.9 - Chest pain, unspecified Plan: With recent abnormal stress test. Patient did have a CT of the chest that was negative for any pulmonary embolism. Left heart catheterization performed on the was normal. Noncardiac in PE. Patient be discharged with outpatient follow-up with her primary care doctor. Plan VTE prophylaxis Lovenox. Medications at Discharge Home Medications NK 04/04/25 Hospital Course Operations None Procedures Cardiac catheterization Weight / BMI Weight Weight: 59.4 kg Body Mass Index (BMI) 21.7 ABG / Lab / Microbiology Data 04/05/25 05:15 04/05/25 05:15 Laboratory: Laboratory Results - last 24 hr 04/04/25 18:02: WBC Cancelled 04/04/25 18:02: WBC 5.6, Corrected WBC Cancelled, RBC Cancelled 04/04/25 18:02: RBC 4.25, Hgb Cancelled 04/04/25 18:02: Hgb 14.0, Hct Cancelled 04/04/25 18:02: Hct 40.5, MCV Cancelled 04/04/25 18:02: MCV 95.3, MCH Cancelled 04/04/25 18:02: MCH 32.9 H, MCHC Cancelled 04/04/25 18:02: MCHC 34.6, RDW Std Deviation Cancelled 04/04/25 18:02: RDW Std Deviation 45.3 H, RDW Coeff of Lexus Cancelled 04/04/25 18:02: RDW Coeff of Lexus 12.9, Plt Count Cancelled 04/04/25 18:02: Plt Count 178, MPV Cancelled 04/04/25 18:02: MPV 10.7, Immature Gran % (Auto) Cancelled 04/04/25 18:02: Immature Gran % (Auto) 0.200, Neut % (Auto) Cancelled 04/04/25 18:02: Neut % (Auto) 56.0, Lymph % (Auto) Cancelled 04/04/25 18:02: Lymph % (Auto) 33.3, [place] % (Auto) Cancelled 04/04/25 18:02: [place] % (Auto) 8.0, Eos % (Auto) Cancelled 04/04/25 18:02: Eos % (Auto) 2.0, Baso % (Auto) Cancelled 04/04/25 18:02: Baso % (Auto) 0.5, Absolute Neuts (auto) Cancelled 04/04/25 18:02: Absolute Neuts (auto) 3.1, Absolute Lymphs (auto) Cancelled 04/04/25 18:02: Absolute Lymphs (auto) 1.87, Total Counted Cancelled, Neutrophils % (Manual) Cancelled, Band Neutrophils % Cancelled, Lymphocytes % (Manual) Cancelled, Monocytes % (Manual) Cancelled, Eosinophils % (Manual) Cancelled, Basophils % (Manual) Cancelled, Metamyelocytes % Cancelled, Myelocytes % Cancelled, Promyelocytes % Cancelled, Blast Cells % Cancelled, Plasma Cell % (Manual) Cancelled, Other Cells % Cancelled, Nucleated RBC % Cancelled 04/04/25 18:02: Nucleated RBC % 0, Nucleated RBCs/100 WBC Cancelled, Differential Comment Cancelled, Diff Path Review Cancelled, Hypersegmented Neuts Cancelled, Atypical Lymphocytes Cancelled, Reactive Lymphocytes Cancelled, Smudge Cells Cancelled, Toxic Granulation Cancelled, Toxic Vacuolation Cancelled, Dohle Bodies Cancelled, Corine Rods Cancelled, Platelet Estimate Cancelled, Plt Morphology Comment Cancelled, RBC Morphology Cancelled 04/04/25 18:02: RBC Morphology Cancelled, Polychromasia Cancelled, Hypochromasia Cancelled, Basophilic Stippling Cancelled, Anisocytosis Cancelled, Microcytosis Cancelled, Macrocytosis Cancelled, Spherocytes Cancelled, Sickle Cells Cancelled, Target Cells Cancelled, Tear Drop Cells Cancelled, Ovalocytes Cancelled, Stomatocytes Cancelled, [place] Bodies Cancelled, Paicines Cells Cancelled, Bite Cells Cancelled, Crenated Cell Cancelled, Acanthocytes (Spur) Cancelled, Rouleaux Cancelled, Schistocytes Cancelled, Sodium Cancelled 04/04/25 18:02: Sodium 139, Potassium Cancelled 04/04/25 18:02: Potassium 3.7, Chloride Cancelled 04/04/25 18:02: Chloride 103, Carbon Dioxide Cancelled 04/04/25 18:02: Carbon Dioxide 23.5, Anion Gap Cancelled 04/04/25 18:02: Anion Gap 13, BUN Cancelled 04/04/25 18:02: BUN 16, Creatinine Cancelled 04/04/25 18:02: Creatinine 0.82, Estim Creat Clear Calc 64.67, Est GFR (MDRD) Non-Af Cancelled 04/04/25 18:02: Est GFR (MDRD) Non-Af 77, BUN/Creatinine Ratio Cancelled 04/04/25 18:02: BUN/Creatinine Ratio 19.3, Glucose Cancelled 04/04/25 18:02: Glucose 136 H, Hemoglobin A1c 5.3, Calcium Cancelled 04/04/25 18:02: Calcium 9.9, Magnesium 1.9, Troponin T High Sens Cancelled 04/04/25 18:02: Troponin T High Sens 9, NT pro BNP II 349, TSH 2.650, Free T4 1.40, Free T3 pg/dL 3.7 04/04/25 20:00: Troponin T Hi Sens 2 Hr 10 04/05/25 05:15: WBC 4.4, RBC 3.86 L, Hgb 12.7, Hct 37.2, MCV 96.4, MCH 32.9 H, MCHC 34.1, RDW Std Deviation 45.5 H, RDW Coeff of Lexus 12.9, Plt Count 160, MPV 10.9, Sodium 140, Potassium 3.8, Chloride 108, Carbon Dioxide 23.3, Anion Gap 9, BUN 15, Creatinine 0.64 L, Estim Creat Clear Calc 58.04, Est GFR (MDRD) Non-Af 94, BUN/Creatinine Ratio 23.2 H, Glucose 101 H, Calcium 8.8, Triglycerides 107, Cholesterol 173, LDL Cholesterol, Calc 83, VLDL Cholesterol 21, HDL Cholesterol 69, Cholesterol/HDL Ratio 2.52 Radiography Diagnostic Testing: Radiology Impression Chest CTA 04/04/25 18:10 IMPRESSION: Negative study Reading Location: [facility] D/C Instructions Discharge Diet: No restrictions DC O2, CPAP, BIPAP Needs Home O2 Discharge instructions: No Meaningful Use Info Meaningful Use Meaningful Use Diagnoses (Choose all that apply): None applicable Discharge Plan Admission Admit Date/Time: 04/04/25 21:36 Primary Reason for Your Visit: Chest pain Attending Provider: Matt Boateng Primary Care Provider: Ga Jensen Consulting Providers: Mane Conti; Louie Medina Instructions Additional Instructions / Restrictions: You underwent a workup for chest pain. You had a CAT scan of your chest did not show any pulmonary embolism or any pneumonia. Your heart catheterization showed normal coronaries so this is noncardiac. The source of your chest pain is noncardiac nor any other pulmonary issues. This may be more musculoskeletal. Discharge Orders/Prescriptions Prescriptions: No Action NK Referrals / Follow Up: [facility] [Provider Group] - 04/30/25 3:00 pm Ga Jensen PA [Primary Care Provider] - Within 2 Weeks Disposition Disposition (needs filled in before D/C Order can be placed): Home, Self Care Charges/Coding Visit Charges Inpatient E&M: 88975 Disch Hosp
--- NOTE | 2025-04-05 15:58 | CASEMGMT ---
AGUS CHUA Assessment Face to Face with patient for initial transition planning/care coordination assessment. AGUS CHUA introduced self and role at [facility], pt voices understanding. Pt is A&Ox4 and is resting comfortably in bed and is calm. Care providers, pharmacy, and demographics verified. Admitting dx: IRENE VASQUEZ Strata: 1 PCP: Ga Jensen Specialists: BRITNI Preferred Pharmacy: [facility] Dr Boateng states pt will not have any new rxs Insurance: [employer] A/B, [employer] Prescription Benefit: Yes LNOK: Carlitos (H), Jayro (Daughter) Living Arrangements: Pt lives with her in a split level home with 1 step to enter ADLs/IADLs: Indep. 6-Click score is 24. Denies concerns or needs Transportation: Self, DME: Denies HHC/SNF: denies Pt?s goal: Home Plan: Home, no additional needs identified. Pt has an order for DC placed. Pt states that she feels safe returning home with her today and denies the need for any additional therapy or resources. Pt states that she is scheduled to follow up with the heart group on Apr 30. Pt denies further questions or concerns. Michael Gomez RN, CM
--- NOTE | 2025-04-05 16:26 | CASEMGMT ---
Social Work - Advance Directives SW met with pt and assisted pt in completing living will and health care POA naming her spouse Carlitos as decision maker. Copy placed on chart and original given to pt. CORAZON Ruiz
== END 2025-04-05 18:08 | disposition home or self-care (01) | DRG 287 ==
LOC: ED 21:34 → PCU 21:58
PROVIDERS: Admitting Provider Hospitalist; Emergency Provider Emergency Medicine; PCP Physician Assistant
DX: R07.9 Chest pain, unspecified (principal); I10 Essential (primary) hypertension; R94.39 Abnormal result of other cardiovascular function study; R06.02 Shortness of breath; R53.83 Other fatigue; Z87.891 Personal history of nicotine dependence
CPT/HCPCS: 36415; 71275; 80048; 80061; 83036; 83735; 83880; 84439; 84443; 84481; 84484; 85025; 85027; 93005; 93458; 99152; 99153; 99285; Q9967; A4216

== ENCOUNTER 2025-05-31 09:04 | Day surgery (SDC) | payer MEDICARE, OTHER, SELFPAY ==
[2025-05-31] MEDS: Lidocaine Jelly 2% 20 ML Syringe (URO-JET) 1 APPLIC (09:30)
[2025-05-31 09:52] VITALS: BP 142/70; PULSE 59; TEMP 36.4; O2SAT 100
== END 2025-05-31 09:54 | disposition home or self-care (01) ==
PROVIDERS: PCP Physician Assistant; Referring Provider Physician Assistant; Visit Provider Internal Medicine Gastroenterology
PROC: F00ZJWZ Instrumental Swallowing and Oral Function Assessment using Swallowing Equipment (ICD-10-PCS; CPT 43235; principal; 2025-05-31 08:55)
DX: K22.2 Esophageal obstruction (principal)
CPT/HCPCS: 91010

== ENCOUNTER 2025-06-13 06:49 | Day surgery (SDC) | payer MEDICARE, OTHER, SELFPAY ==
--- NOTE | 2025-06-12 13:34 | PAT.ANE_ITS ---
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 When Was Last Pacemaker Check QUESTION #4 FULL TEXT: You/Your Family Experience fever (hyperthermia) with Anesthesia Last Oral Intake Last Oral intake: Last Oral Intake NPO since Meds taken in AM with sips of water? Meds patient instructed to take am of surgery PONV PONV - proof coins inspector: PONV - proof coins inspector Female Yes 06/12/25 08:44 HX of Motion Sickness Yes 06/12/25 08:44 HX of N/V After Surgery No 06/12/25 08:44 Non-Smoker Yes 06/12/25 08:44 Duration of Surgery greater No 06/12/25 08:44 than 60 minutes Number of Risk Factors 3 06/12/25 08:44 PONV Score Moderate Risk 06/12/25 08:44 Height & Weight Height & Weight: Anesthesia: Height & Weight Height 5 ft 5 in 04/30/25 15:06 Respiratory Assessment Respiratory Assessment - proof coins inspector: Respiratory Tract Infection Hx - proof coins inspector Hx Respiratory Tract Infection No 06/12/25 08:44 STOP Sleep Apnea STOP Sleep Apnea - proof coins inspector: STOP Sleep Apnea - proof coins inspector Hx Hypertension No 06/12/25 08:44 Hx Sleep Apnea No 06/12/25 08:44 CPAP BIPAP Do you snore loudly (louder No 06/12/25 08:44 than talking or can be heard Do you often feel tired/ Yes 06/12/25 08:44 fatigued/ sleepy during daytime? Has anyone observed you stop No 06/12/25 08:44 breathing during sleep? STOP Results Negative 06/12/25 08:44 QUESTION #5 FULL TEXT : Do you snore loudly (louder than talking or can be heard through closed doors)? 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 Specify any problems Hx of Preganancy in last 3 No 06/12/25 08:44 Months Nurse Filling Out Transfusion DSCHRIBER 06/12/25 08:44 & Questions: Date: 06/12/25 06/12/25 08:44 Time: 08:46 06/12/25 08:44 Patient unable to answer at this time (ie. confused, unrespo /Reproduction History /Reproductive History - proof coins inspector: /Reproductive Hx- proof coins inspector Hx Now No 06/12/25 08:44 Gestational Age (in weeks): EDC: Hx Hx Para Hx Section SAB No 06/12/25 08:44 PFSH Medical History (Updated 06/12/25 @ 08:58 by Cleopatra Barajas) Wears contact lenses Post-menopausal Alcohol use History of steroid therapy Bladder disease Arthritis Low iron Back pain Restless legs Scoliosis DDD (degenerative disc disease), lumbar DDD (degenerative disc disease), cervical Syncope Difficulty swallowing PMR (polymyalgia rheumatica) Shortness of breath on exertion Former smoker Leg cramps History of pain when walking History of edema History of pain when walking Cardiology follow-up encounter History of stress test Chest pain Palpitations Home Medications ?Medication ?Instructions ?Recorded ?Last Taken ?Type prednisone 20 mg tablet 40 mg PO QDAY 05/14/25 Unkno wn History ascorbic acid (vitamin C) 1,000 mg 1 g PO DAILY 06/09/25 History tablet (C-1000) cholecalciferol (vitamin D3) 25 25 mcg PO DAILY 06/09/25 History mcg (1,000 unit) capsule (Vitamin D3) multivitamin (Daily Multi-Vitamin 1 tab PO DAILY 06/1206/09/25 History tablet) Allergy/AdvReac Type Severity Reaction Status Date / Time No Known Allergies Allergy Verified 06/12/25 08:39 Family History Father Heart disease CABG Myocardial infarction Mother Heart disease Brother Heart disease CABG Brother Myocardial infarction CVA (cerebral vascular accident) Surgical History (Updated 06/12/25 @ 08:58 by Cleopatra Barajas) History of cardiac catheterization History of esophagogastroduodenoscopy (EGD) History of bunionectomy of left great toe Hx of ovarian cystectomy H/O elbow surgery Social History Smoking Status: Former smoker alcohol intake: never substance use type: does not use caffeine: No Audit: Pertinent Findings Pertinent Findings EKG Perinent findings: EKG 04/05/2025. Normal sinus rhythm with sinus arrhythmia. Normal ECG when compared with ECG of 05 April 2025 no significant changes was found Stress test pertinent findings: Stress test 03/19/2025. The EKG portion of the stress echo showed worsening EKG changes in the inferior lateral leads of Opto 1 mm. Normal thickening and augmentation of myocardial contractility with exercise stress. No evidence of ischemia on stress echo images. Normal left ventricular ejection fraction 66%. Mild MR, mild TR, mild AR, trivial pericardial effusion. Heart catheterization pertinent findings: Heart cath 04/05/2025. Recommendation continue age-appropriate cardiovascular care, aggressive lifestyle modifications. Start beta-blockers and statin as tolerated. Follow-up with cardiology 6 weeks after discharge. Recommendation Anesthesia Recommendation Anesthesia recommendation: OPTIMIZED for anesthesia
[2025-06-13] VITALS (9 sets, daily range): BP systolic 136–149; BP diastolic 75–81; PULSE 57–76; RESP 14–16; TEMP 36.2–36.6; O2SAT 98–100; BMI 20.9
--- OUTSIDE RECORDS SUMMARY | 2025-06-13 06:53 | XMS RPT_ITS | CCD ---
Author Organization [facility] Care Team Providers Care Php Developer Name Role Phone Adrian GANNON, Ga Reddy Unavailable Adrian GANNON, Ga E Unavailable Dipesh DRIVER, Yovana Unavailable Unavailable Franco DRIVER, Janine Unavailable Unavailabl e Dayo KRUGERN, Carson Unavailable Unavailable Mateo BERRY, Codie Unavailable Unavailable Unavailable Unavailable Cody DRIVER, Jumana De La O Unavailable Unavailab le [facility], . Unavailable lEiza DRIVER, Neris Unavailable ENT Provider Unavailable Unavailable [facility] Unavailable Ga Feliz Primary Care Provider Dr. Miles Boswell DO Emergency Provider Dr. Mane Conti DO Admit Provider Dr. Mane Conti DO Attending Provider Ga Feliz Primary Care Provider Dr. Miles Boswell DO Emergency Provider Dr. Mane Conti DO Admit Provider Dr. Mane Conti DO Other Provider Dr. Matt Boateng DO Attending Provider Adam ROBERSON, Dr. Palma Other Provider Unavailable Ga Feliz Primary Care Provider Dr. Matt Boateng DO Other Provider Gastroenterology Provider Unavailable Unavai lable Rheumatolgy Provider Unavailable Unavailable Unavailable Primary Care Provider Unavailabl e Adrian PA-C, Luke E Primary Care Provider Adrian PA, Luke Primary Care Provider Adam ROBERSON, Dr. Palma Attending Provider Unavailab kelly Medina MD, Dr. Palma Referring Provider Unavailab Ga Tomas Referring Provider [phone] Dr. Yannick Obrien MD Attending Provider Dr. King Murillo DO Attending Provider Adrian PA, Luke Referring Provider [phone] ADRIAN, LUKE E Primary Care Unavailable ADRIAN, LUKE E Consulting Unavailable ADRIAN, LUKE E Attending Unavailable ADRIAN, LUKE E Admitting Unavailable PROVIDER, UNKNOWN Consulting Unavailable ADRIAN, LUKE E Primary Care Unavailable ADRIAN, LUKE E Consulting Unavailable ADRIAN, LUKE E Attending Unavailable ADRIAN, LUKE E Admitting Unavailable PROVIDER, UNKNOWN Consulting Unavailable ADRIAN, LUKE E Consulting Unavailable ADRIAN, LUKE E Attending Unavailable ADRIAN, LUKE E Admitting Unavailable ADRIAN, LUKE E Primary Care Unavailable PROVIDER, UNKNOWN Consulting Unavailable ADRIAN, LUKE E Consulting Unavailable ADRIAN, LUKE E Attending Unavailable ADRIAN, LUKE E Admitting Unavailable ADRIAN, LUKE E Primary Care Unavailable PROVIDER, UNKNOWN Consulting Unavailable MIGUEL ANGEL, EMELYN Referring Unavailable ADRIAN, LUKE E Primary Care Unavailable MIGUEL ANGEL, EMELYN Attending Unavailable MIGUEL ANGEL, EMELYN Referring Unavailable MIGUEL ANGEL, EMELYN Referring Unavailable ADRIAN, LUKE E Primary Care Unavailable MANE COLBERT Admitting Unavailable MANE COLBERT Attending Unavailable MIGUEL ANGEL, EMELNY Referring Unavailable MIGUEL ANGEL, EMELYN Attending Unavailable MIGUEL ANGEL, EMELYN Referring Unavailable ADRIAN, LUKE E Primary Care Unavailable SILVIA RUIZ Referring Unavailable ADRIAN, LUKE E Primary Care Unavailable SPOLTER, CLIFF S Referring Unavailable MIGUEL ANGEL, EMELYN Referring Unavailable SPOLTER, CLIFF S Attending Unavailable ADRIAN, LUKE E Primary Care Unavailable SILVIA RUIZ Attending Unavailable ADRIAN, LUKE E Primary Care Unavailable MIGUEL ANGEL, EMELYN Referring Unavailable ADRIAN, LUKE E Primary Care Unavailable MIGUEL ANGEL, EMELYN Referring Unavailable ADRIAN, LUKE E Primary Care Unavailable MIGUEL ANGEL, EMELYN Referring Unavailable ADRIAN, LUKE E Primary Care Unavailable Jabri, Ahmad Referring Unavailable Jabri, Ahmad Attending Unavailable Adrian, Luke Primary Care Unavailable Jabri, Ahmad Referring Unavailable Jabri, Ahmad Attending Unavailable Adrian, Luke Primary Care Unavailable Adrian, Luke Primary Care Unavailable Matt Boateng Attending Unavailable Mane Conti Admitting Unavailable Mane Conti Consulting Unavailable Jabri, Ahmad Consulting Unavailable Matt Boateng Consulting Unavailable Mane Conti Attending Unavailable Friend, King Attending Unavailable Adrian, Luke Primary Care Unavailable Adrian, Luke Referring Unavailable Yannick Obrien Attending Unavailable Adrian, Luke Primary Care Unavailable Adrian, Luke Referring Unavailable Jabri, Ahmad Referring Unavailable Jabri, Ahmad Attending Unavailable Adrian, Luke Primary Care Unavailable Friend, King Attending Unavailable Adrian, Luke Primary Care Unavailable Adrian, Luke Referring Unavailable FriendKing Attending Unavailable Adrian, Luke Primary Care Unavailable Adrian, Luke Referring Unavailable Adrian, Luke Primary Care Unavailable Matt Boateng Attending Unavailable Mane Conti Consulting Unavailable Mane Conti Admitting Unavailable Jabri, Ahmad Consulting Unavailable SILVIA COOLEY Referring Unavailable ADRIAN, LUKE E Primary Care Unavailable Medications Current Medications Medication Drug Class(es) Dates Sig (Normalized) Sig (Original) acetaminophen 325 mg oral tablet (18 sources) Start: take 2 tablets by mouth every six hours as needed acetaminophen (TYLENOL) 325 mg tablet Take 2 tablets by mouth every 6 hours as needed (Mild Pain (1-3)). 0 05/01/2025 Active alendronic acid 70 mg oral tablet (9 sources) Bisphosphonate Start: take 1 tablet by mouth every week alendronate (FOSAMAX) 70 mg tablet TAKE 1 TABLET BY MOUTH ONCE A WEEK. TAKE WITH A FULL GLASS OF WATER. 05/21/2025 Active cefdinir 300 mg oral capsule (8 sources) Cephalosporin Antibacterial Start: take 1 capsule by mouth every twelve hours cefdinir (OMNICEF) 300 mg capsule Take 1 capsule by mouth every 12 hours. 01/09/2025 Active furosemide 40 mg oral tablet (8 sources) Loop Diuretic furosemide (LASI X) 40 mg tablet Oral; Duration: 90 Days Active methylPREDNISolone 4 mg oral tablet (8 sources) Corticosteroid Start: methylPREDNISolone (MEDROL, ANGELIQUE,) 4 mg Dose-Pack Take by mouth. 01/09/2025 Active nystatin 116731 unt/ml oral suspension (6 sources) Polyene Antifungal Start: End: take 4 mL by mouth four times daily nystatin (MYCOSTATIN) 100,000 unit/mL suspension Take 4 mL by mouth four times daily for 14 days. Swish and swallow. 224 mL 05/08/2025 05/23/2025 Active potassium chloride 10 meq extended release oral tablet (8 sources) take 1 tablet by mouth once daily as needed potassium chloride (K-TAB) 10 mEq tablet TAKE 1 TABLET BY MOUTH EVERY DAY NEEDED Oral; Duration: 90 Days Active predniSONE 20 mg oral tablet (20 sources) Start: End: take 2.5 tablets by mouth once daily, then take 2 tablets by mouth once daily, then take 1.5 tablets by mouth once daily, then take 1 tablet by mouth once daily predniSONE (DELTASONE) 20 mg tablet Indications: Giant cell arteritis (HCC) , Polyarthralgia , Elevated antinuclear antibody (BRIDGETTE) level , Elevated sed rate , Elevated C-reactive protein (CRP) Take 2.5 tablets by mouth once daily for 14 days, THEN 2 tablets once daily for 7 days, THEN 1.5 tablets once daily for 7 days, THEN 1 tablet once daily for 7 days. Do not stop suddenly. 67 tablet 05/23/2025 06/27/2025 Active Start: 05-14-2025 Prednisone 20 mg tablet Active 50 mg PO daily May 14, 2025 9:52am Start: 04-26-2025 End: 06-06-2025 take 3 tablets by mouth once daily Prednisone 20 mg tablet Discontinued 60 mg PO daily April 30, 2025 12:00am May 14, 2025 9:52am sulfamethoxazole 800 mg / trimethoprim 160 mg oral tablet (20 sources) Dihydrofolate Reductase Inhibitor Antibacterial, Sulfonamide Antimicrobial Start: 04-30-2025 End: 05-05-2025 take 1 tablet by mouth twice daily sulfamethoxazole-trimethoprim (BACTRIM DS) 800-160 mg per tablet Take 1 tablet by mouth two times a day. X5 days - last dose 05/04/25 04/30/2025 Active Start: 07-30-2024 End: 08-04-2024 sulfamethoxazole 800 mg-trim ethoprim 160 mg tablet ; 1 (one) tablet two times daily for 5 days Quantity: 10 {Tablet} Refills: 0 Ordered: 30-Jul-2024 NEISHA Landon Start: 30-Jul-2024 End: 04-Aug-2024 Status: Inactive Completed/Discontinued Medications Medication Drug Class(es) Dates Sig (Normalized) Sig (Original) acetaminophen 325 mg / HYDROcodone bitartrate 5 mg oral tablet (20 sources) Opioid Agonist Start: 12-03-2024 End: 03-11-2025 take 1 tablet by mouth every six hours HYDROcodone 5 mg-acetaminophen 325 mg tablet ; 1 Tablet every 6 hours;pain for 0 days Quantity: 10 {Tablet} Refills: 0 Ordered: 11-Mar-2025 NEISHA Gamez Start: 03-Dec-2024 End: 11-Mar-2025 Status: Inactive Comments: No OARRS acute treatment Comment on above: No OARRS acute treat ment amoxicillin 875 mg / clavulanate 125 mg oral tablet (20 sources) Penicillin-class Antibacterial Start: 12-03-2024 End: 12-13-2024 amoxicillin 875 mg-potassium clavulanate 125 mg tablet ; 1 (one) tablet two times daily for 10 days Quantity: 20 {Tablet} Refills: 0 Ordered: 03-Dec-2024 TERESSA Campbell Start: 03-Dec-2024 End: 13-Dec-2024 Status: Inactive B-Complex With B-12 2.5 mg-2.5 mg-5 mg-100 mcg tablet (20 sources) B-Complex With B-12 2.5 mg-2.5 mg-5 mg-100 mcg tablet ; 1 daily (2.5 mg-2.5 mg- 5 mg-100 m) Status: Inactive B-Complex With B -12 2.5 mg-2.5 mg-5 mg-100 mcg tablet ; 1 daily (2.5 mg-2.5 mg- 5 mg-100 m) cholecalciferol 0.025 mg oral capsule (20 sources) Vitamin D Vitamin D3 25 mc g (1,000 unit) capsule ; 1 daily (25 mcg (1,000 uni) Status: Inactive doxycycline hyclate 100 mg oral capsule (20 sources) Tetracycline-class Drug Start: 12-18-19 End: 12-25-19 doxycycline hyclate 100 mg capsule ; 1 (one) Cap two times daily for 7 days Quantity: 14 {Capsule} Refills: 0 Ordered: 17-Dec-2024 NEISHA Ross Start: 17-Dec-2024 End: 24-Dec-2024 Status: Inactive fluticasone propionate 0.05 mg/actuat metered dose nasal spray (20 sources) Corticosteroid Start: 04-25-20 End: 04-30-20 take 50 ug nasal route once daily Fluticasone Propionate (Allergy Relief (Fluticasone)) 50 mcg/actuation spray,suspension Discontinued 1 NMA INTRANASAL daily April 25, 2025 12:00am April 30, 2025 3:07pm administer into each nostril Start: 03-11-2025 take 2 spray(s) nasa l route once daily fluticasone (FLONASE) 50 mcg/actuation nasal spray use 2 spray(s) in each nostril once daily 03/11/2025 Active iv contrast (will be provided with radiology test) (2 sources) Start: 05-23-2025 End: 05-24-2025 inject 1 dose intravenously once iv contrast (will be provided with radiology test) Indications: Giant cell arteritis (HCC) CTA CHEST - No IV access, insert saline lock prior to the sedation, infusion, injection for imaging exam. Discontinue saline lock post exam. If Pt. has a central line or IVAD, may access for administration according to line specific nursing protocol. Once exam is complete flush line and de-access according to line specific nursing protocol in the CT contrast administration guidelines link. 1 each 05/23/2025 05/24/2025 Start: 05-23-2025 End: 05-24-2025 inject 1 dose intravenously once iv contrast (will be provided with radiology test) Indications: Giant cell arteritis (HCC) CTA CHEST - No IV access, insert saline lock prior to the sedation, infusion, injection for imaging exam. Discontinue saline lock post exam. If Pt. has a central line or IVAD, may access for administration according to line specific nursing protocol. Once exam is complete flush line and de-access according to line specific nursing protocol in the CT contrast administration guidelines link. 1 each 05/23/2025 05/24/2025 Active naproxen 375 mg oral tablet (20 sources) Nonsteroidal Anti-inflammatory Drug Start: 04-25-2025 End: 04-30-2025 take 1 tablet by mouth once daily as needed Naproxen 375 mg tablet Discontinued 375 mg PO daily as needed April 25, 2025 12:00am April 30, 2025 3:07pm Naproxen 375 mg TbEC Oral; Duration: 90 Days Active Comment on above: Medication taken as needed. pantoprazole 20 mg delayed release oral tablet (20 sources) Proton Pump Inhibitor Start: End: take 1 tablet by mouth once daily Pantoprazole 20 mg tablet,delayed release (DR/EC) Discontinued 20 mg PO daily April 25, 2025 12:00am April 30, 2025 3:07pm Start: 03-11-2025 End: 04-10-2025 pantoprazole 20 mg tablet,de layed release ; 1 (one) tablet daily 30 min before fist meal for 30 days Quantity: 30 {Tablet} Refills: 0 Ordered: 11-Mar-2025 TERESSA Campbell Start: 11-Mar-2025 End: 10-Apr-2025 Status: Inactive Problems Active Problems Problem Classification Problem Date Documented Date Episodic/Chronic Abdominal pain (2 sources) Epigastric pain; Translations: [Epigastric pain] 05-28-2025 Episodic Cardiac dysrhythmias (5 sources) Palpitations; Translations: [Palpitations] Onset: 04-30-2025 04-25-2025 Episodic Coagulation and hemorrhagic disorders (1 source) Thrombocytopenic disorder; Translations: [Thrombocytopenia, unspecified] 05-08-2025 Chronic Coronary atherosclerosis and other heart disease (9 sources) Preinfarction syndrome; Translations: [Unstable angina] Onset: 04-05-2025 04-05-2025 Chronic Disorders of lipid metabolism (20 sources) Dyslipidemia; Translations: [Hyperlipidemia, unspecified] 07-25-2024 Chronic Comment on above: 10 year CV risk = 7. 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] Onset: 05-29-2025 Episodic Essential hypertension (9 sources) Benign hypertension; Translations: [Essential (primary) hypertension] Onset: 04-05-2025 04-05-2025 Chronic Gastroduodenal ulcer (except hemorrhage) (2 sources) Peptic ulcer; Translations: [Peptic ulcer, site unspecified, unspecified as acute or chronic, without hemorrhage or perforation] 05-28-2025 Chronic Genitourinary symptoms and ill-defined conditions (20 sources) Increased frequency of urination; Translations: [Frequency of micturition] 07-25-2024 Episodic Headache; including migraine (20 sources) Headache; Translations: [Headache] 12-03-2024 Episodic Immunity disorders (3 sources) Complement deficiency disease; Translations: [Defects in the complement system] Onset: 05-08-2025 04-29-2025 Chronic Immunizations and screening for infectious disease (20 sources) Tuberculosis screening status; Translations: [Encounter for screening for respiratory tuberculosis] Onset: 04-26-2025 01-12-2024 Episodic Malaise and fatigue (16 sources) Fatigue; Translations: [Other fatigue] Onset: 04-26-2025 04-04-2025 Episodic Mycoses (2 sources) Candidiasis of mouth; Translations: [Candidal stomatitis] Onset: 05-08-2025 05-08-2025 Episodic Nonspecific chest pain (20 sources) Chest pain; Translations: [Chest pain, unspecified] Onset: 04-10-2025 03-11-2025 Episodic Other acquired deformities (1 source) Scoliosis deformity of spine; Translations: [Scoliosis, unspecified] 05-08-2025 Chronic Other aftercare (14 sources) Long-term current use of drug therapy; Translations: [Other chcf (current) drug therapy] 05-03-2025 Episodic Other aftercare (4 sources) Long-term current use of systemic steroid; Translations: [[employer] (current) use of systemic steroids] 05-08-2025 Episodic Other aftercare (2 sources) USP (current) use of systemic steroids; Translations: [[employer] (current) use of systemic steroids] Onset: 05-08-2025 Episodic Other bone disease and musculoskeletal deformities (3 sources) Osteopenia; Translations: [Other specified disorders of bone density and structure, unspecified site] 05-21-2025 Episodic Other bone disease and musculoskeletal deformities (9 sources) Steroid-induced osteopenia; Translations: [Other specified disorders of bone density and structure, unspecified site] Onset: 05-29-2025 05-29-2025 Episodic Other bone disease and musculoskeletal deformities (1 source) Other specified disorders of bone density and structure, unspecified site; 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] Onset: 05-29-2025 Episodic Other connective tissue disease (1 source) Polymyalgia rheumatica; Translations: [Polymyalgia rheumatica] 05-28-2025 Chronic Other connective tissue disease (1 source) Polymyalgia rheumatica; Translations: [Polymyalgia rheumatica (HCC)] Onset: 05-28-2025 Chronic Other connective tissue disease (20 sources) Muscle pain; Translations: [Myalgia, unspecified site] 04-18-2025 Episodic Other hematologic conditions (2 sources) ESR raised; Translations: [Elevated erythrocyte sedimentation rate] 04-25-2025 Episodic Other hematologic conditions (1 source) Elevated erythrocyte sedimentation rate; Translations: [Elevated sed rate] Onset: 04-27-2025 Episodic Other infections; including parasitic (4 sources) Personal history of other infectious and parasitic diseases; Translations: [History of COVID-19] 04-25-2025 Episodic Other inflammatory condition of skin (20 sources) Pityriasis; Translations: [Seborrhea capitis] 11-13-2024 Episodic Other lower respiratory disease (14 sources) Dyspnea; Translations: [Shortness of breath] 04-04-2025 Episodic Other lower respiratory disease (1 source) Shortness of breath; Translations: [Shortness of breath] Onset: 04-26-2025 Episodic Other nervous system disorders (2 sources) Other chronic pain; Translations: [Chronic low back pain, unspecified back pain laterality, unspecified whether sciatica present] Onset: 05-08-2025 Chronic Other nervous system disorders (1 source) Finding related to ability to move; Translations: [Other abnormalities of gait and mobility] 05-10-2025 Episodic Other nervous system disorders (1 source) Other abnormalities of gait and mobility; Translations: [Other abnormalities of gait and mobility] Onset: 05-10-2025 Episodic Other non-traumatic joint disorders (20 sources) Pain in right knee; Translations: [Pain in joint, lower leg] 01-12-2024 Episodic Other non-traumatic joint disorders (15 sources) Multiple joint pain; Translations: [Pain in unspecified joint] 04-25-2025 Episodic Other non-traumatic joint disorders (1 source) Pain in unspecified joint; Translations: [Polyarthralgia] Onset: 04-26-2025 Episodic Other screening for suspected conditions (not mental disorders or infectious disease) (20 sources) Patient encounter status; Translations: [Encounter for screening for cardiovascular disorders] Onset: 04-10-2025 07-04-2024 Episodic Other skin disorders (11 sources) Eruption; Translations: [Rash and other nonspecific skin eruption] 04-25-2025 Episodic Other skin disorders (1 source) Rash and other nonspecific skin eruption; Translations: [Rash and nonspecific skin eruption] Onset: 04-26-2025 Episodic Other upper respiratory disease (20 sources) Feeling of lump in throat; Translations: [Other symptoms involving head and neck] 04-12-2025 Episodic Other upper respiratory infections (20 sources) Sinusitis; Translations: [Chronic sinusitis, unspecified] 12-17-2024 Chronic Other upper respiratory infections (20 sources) Upper respiratory infection; Translations: [Acute upper respiratory infection, unspecified] 12-03-2024 Episodic Residual codes; unclassified (20 sources) Edema of lower extremity; Translations: [Localized edema] 03-11-2025 Episodic Rheumatoid arthritis and related disease (4 sources) Inflammatory polyarthropathy; Translations: [Inflammatory polyarthropathy] 05-15-2025 Chronic Spondylosis; intervertebral disc disorders; other back problems (20 sources) Chronic low back pain; Translations: [Lumbago] Onset: 05-08-2025 01-12-2024 Episodic Systemic lupus erythematosus and connective tissue disorders (7 sources) Giant cell arteritis; Translations: [Other giant cell arteritis] Onset: 05-08-2025 04-29-2025 Chronic Unclassified (20 sources) New patient consult - Patient is new to establish today from [place]. Patient has no concerns or complaints. After reviewing patients BP 148/76 she states this is too high for her and expressed some concern there. 01-12-2024 Unclassified (20 sources) MCR Well Adult - In general the patient feels well with no complaints. The patient has a balanced diet. The patient exercises none (Active) and sleeps 5 hours per night. The patient denies having trouble with bathing, dressing/grooming, toileting, preparing meals and ambulating. The patient denies having trouble with grocery shopping, driving, use of telephone, housework, laundry, preparing/taking medications and finances. The patient does not perform monthly breast self exam. 07-25-2024 Unclassified (20 sources) Number of Children 12-03-2024 Comment on above: 1. Unclassified (5 sources) History of COVID-19 04-25-2025 Unclassified (1 source) Chronic low back pain, unspecified back pain laterality, unspecified whether sciatica present; Translations: [Chronic low back pain, unspecified back pain laterality, unspecified whether sciatica present] Onset: 05-08-2025 Unclassified (1 source) Headaches; Translations: [Headaches] Onset: 05-01-2025 Unclassified (1 source) History of COVID-19; Translations: [History of COVID-19] Onset: 04-26-2025 Urinary tract infections (20 sources) Urinary tract infectious disease; Translations: [Urinary tract infection, site not specified] 07-30-2024 Episodic Viral infection (20 sources) Disease caused by 2019-nCoV; Translations: [COVID-19] 11-13-2024 Episodic Past or Other Problems Problem Classification Problem Date Documented Da te Episodic/Chronic Unclassified (20 sources) Cold Symptoms - Symptoms include nasal congestion, ear pain, sore throat, dry cough, productive cough, wheezing (SOB) and headache, but do not include fever. The onset was 5 day(s) ago. The patient describes this as worsening. The patient is not currently being treated for this problem. Note for Upper respiratory infection: Patient also notes concern for a rash of her back and anterior chest/abdomen which occurred over last night. She states that the rash is extremely pruritic but without pain or swelling. 11-13-2024 Unclassified (20 sources) Cold Symptoms - Symptoms include nasal congestion, ear pain, scratchy throat, productive cough, headache and facial pain, but do not include sore throat. The onset was gradual 3 week(s) ago. The symptoms occur constantly. The patient describes this as mild and unchanged. Current treatment includes acetaminophen and Vit. C . Risk factors do not include child in daycare or smoking. The patient has been exposed to an individual with similar symptoms. Note for Upper respiratory infection: Patient notes that after episodes of coughing she will notice that she feels lightheaded and dizzy. Patient states she has noticed little improvement since onset of symptoms with conservative measures. She is concerned given history of latent TB. 12-03-2024 Unclassified (20 sources) Chest pain - The onset of the pain has been sudden and has been occurring in an intermittent pattern for 3 days. The pain is described as a mild to moderate discomfort, dull ache, pressure sensation and tightness. The pain is described as being located in the right chest and radiates to the jaw ((R) side). There are no precipitating factors. The symptoms have no aggravating factors. The symptoms are relieved by rest. The symptoms have been associated with dyspnea (on exertion), headache and palpitations. There have been no previous evaluations. There is a family history of hypertension. There is a history of use of NSAIDs (naproxen prn). Note for Chest pain: Patient states she had an episode of what she believes to be a potential cardiac event. Patient had (R) sided chest pain, SOB, and palpitations causing her to stay in bed most of the day. Patient states she started to feel better so she tried some yard work but then had to stop due to SOB. Patient states she has not had an episode since but wanted to be checked for peace of mind due to family history. Patient has seen cardiology in the past. 03-11-2025 Unclassified (1 source) Emotional state finding 04-12-2025 Unclassified (16 sources) Difficulty swallowing - The difficulty swallowing has been occurring in a persistent pattern for 3 days. The course has been increasing. The difficulty swallowing is described as being located in the neck and throat. Note for Difficulty swallowing: Patient recently in hospital for CP last week and was discharged in stable condition with normal cardiac and pulmonary workup, told symptoms were likely associated with a muscular source. Patient continues with discomfort and is scheduled to see cardiology in 2 weeks. Patient is having difficulty swallowing saliva, no problem with food. Throat is not sore or scratchy, some tenderness and hoarseness. 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 When Was Last Pacemaker Check QUESTION #4 FULL TEXT: You/Your Family Experience fever (hyperthermia) with Anesthesia Last Oral Intake Last Oral intake: Last Oral Intake NPO since Meds taken in AM with sips of water? 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 cleaner Female Yes 06/12/25 08:44 HX of Motion Sickness Yes 06/12/25 08:44 HX of N/V After Surgery No 06/12/25 08:44 Non-Smoker Yes 06/12/25 08:44 Duration of Surgery greater No 06/12/25 08:44 than 60 minutes Number of Risk Factors 3 06/12/25 08:44 PONV Score Moderate Risk 06/12/25 08:44 Height Weight Height Weight: Anesthesia: Height Weight Height 5 ft 5 in 04/30/25 15:06 Respiratory Assessment Respiratory Assessment - assembly cleaner: Respiratory Tract Infection Hx - assembly cleaner Hx Respiratory Tract Infection No 06/12/25 08:44 STOP Sleep Apnea STOP Sleep Apnea - assembly cleaner: STOP Sleep Apnea - assembly cleaner Hx Hypertension No 06/12/25 08:44 Hx Sleep Apnea No 06/12/25 08:44 CPAP BIPAP Do you snore loudly (louder No 06/12/25 08:44 than talking or can be heard Do you often feel tired/ Yes 06/12/25 08:44 fatigued/ sleepy during daytime? Has anyone observed you stop No 06/12/25 08:44 breathing during sleep? STOP Results Negative 06/12/25 08:44 QUESTION #5 FULL TEXT : Do you snore loudly (louder than talking or can be heard through closed doors)? 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 Specify any problems Hx of Preganancy in last 3 No 06/12/25 08:44 Months Nurse Filling Out Transfusion DSCHRIBER 06/12/25 08:44 Questions: Date: 06/12/25 06/12/25 08:44 Time: 08:46 06/12/25 08:44 Patient unable to answer at this time (ie. confused, unrespo /Reproductio n History /Reproductiv e History - assembly cleaner: /Reproductiv e Hx- assembly cleaner Hx Now No 06/12/25 08:44 Gestational Age (in weeks): EDC: Hx Hx Para Hx Section SAB No 06/12/25 08:44 [facility] Medical History (Updated 06/12/25 @ 08:58 by Cleopatra Barajas) Wears contact lenses Post-menopausal Alcohol use History of steroid therapy Bladder disease Arthritis Low iron Back pain Restless legs Scoliosis DDD (degenerative disc disease), lumbar DDD (degenerative disc disease), cervical Syncope Difficulty swallowing PMR (polymyalgia rheumatica) Shortness of breath on exertion Former smoker Leg cramps History of pain when walking History of edema History of pain when walking Cardiology follow-up encounter History of stress test Chest pain Palpitations Home Medications ???Medication ???Instructions ???Recorded ???Last Taken ???Type prednisone 20 mg tablet 40 mg PO QDAY 05/14/25 Unknown His tory ascorbic acid (vitamin C) 1,000 mg 1 g PO DAILY 06/12/25 06/09/25 H istory tablet (C-1000) cholecalciferol (vitamin D3) 25 25 mc (more content not included)... Normal [facility] CTA CHEST (NONGATED) WO/W IV CONon 06-11-2025 CTA CHEST (NONGATED) WO/W IVCON * * *Final Report* * * DATE OF EXAM: Jun 11 2025 3:00PM FVC 0469 - CTA CHEST (NONGATED) WO/W IVCON / PROCEDURE REASON: Giant cell arteritis (HCC) * * * * Physician Interpretation * * * * CTA Aorta chest Direct Image Comparison: CT 04/04/2025 HISTORY: 69 years old Female with h/o suspected aortic disease head consideration for giant cell arteritis, negative temporal artery biopsy but high clinical suspicion, on prednisone with reported improvement in pain. Persisting elevation ESR. Evaluation for interval change. There is request to define thoracic and aortic anatomy TECHNIQUE: SCANNER: Multi-detector scanner PROTOCOL: ECG-synchronized imaging of the following the intravenous administration of contrast material Scan Range: thoracic inlet to the diaphragm CT Dose-Length Product (DLP): 125 mGy*cm CT Dose Reduction Employed: Automated exposure control (AEC) CONTRAST: IV administration of 90 ml Omnipaque 350 Scan acquisition: uncomplicated Macro Version: [id number] For optimization of anatomic evaluation, advanced 3-D off-line postprocessing was performed on a dedicated workstation by the interpreting physician. STUDY LIMITATIONS: None. RESULT: LINES, TUBES and DEVICES: None CHEST: Chest wall anatomy: unremarkable. LUNGS: Mild biapical scar, as well as basal atelectasis Calcified granuloma RLL. MEDIASTINUM: unremarkable. PERICARDIUM: small pericardial effusion CENTRAL PULMONARY ARTERY: normal dimensions. Assessment is limited due to limited contrast enhancement. CARDIAC CHAMBERS: LEFT VENTRICLE: normal size. RIGHT VENTRICLE: normal size Left Atrium: normal size. Changes at the interatrial septum, consistent with PFO. JEFE: normal. Right Atrium: normal size CENTRAL VENOUS and PULMONARY VENOUS RETURN: normal. Coronary Sinus: normal size MITRAL VALVE: assessment is limited in the current study - no leaflet calcification. No annular calcification TRICUSPID and PULMONIC VALVE: assessment is limited, No leaflet calcification. CORONARY ANATOMY: normal origin of the coronary arteries. Calcified atherosclerotic changes of the coronary arteries. However, the current study is not optimized for coronary assessment. AORTIC VALVE: appears trileaflet. No leaflet calcification AORTA: Pathology: No acute aortic pathology Intervention: None Complications: n/a Aortic Size: Normal size thoracic aorta STJ: maintained. Wall Changes: Mild partially calcified wall changes descending thoracic aorta. Arch Branch Vessels: Patent, normal size proximal segments of the arch branch vessels, with mild partially calcified wall changes. Separate origin of the left vertebral artery. AORTIC DIMENSIONS: AORTIC ROOT: 3.3 cm measured [id number] mid ASCENDING THORACIC AORTA: 2.9 cm mid AORTIC ARCH: 2.7 cm mid DESCENDING THORACIC AORTA: 2.3 cm limited upper ABDOMEN: unremarkable BONES and SOFT TISSUES: unremarkable, within limitations of the current study Teacher Emotionally Impaired (topogram) images: Scoliosis lower thoracic and lumbar spine. IMPRESSION: 1. Normal course and caliber thoracic aorta with mild partially calcified atherosclerotic changes descending segments. No convincing findings of concentric wall thickening of aorta or proximal branch vessels to suggest active arteritis. 2. Mild coronary calcific changes. 3. Small pericardial effusion in the interval. Hose Cementer: REYES Transcribe Date/Time: Jun 12 2025 11:17A Dictated by : YANNICK BARRIOS MD This examination was interpreted and the report reviewed and electronically signed by: YANNICK BARRIOS MD on Jun 12 2025 11:34AM EST [id number] N [facility] NURSING PROGon 06-11-2025 NURSING PROG HNO ID: [id number] Author: EDUARDO DUKES RN Service: Radiology Author Type: Registered Nurse Type: Nursing Progress Note Filed: 06/11/2025 14:26 Note Text: Radiology Service Progress Note DATE OF SERVICE: June 11, 2025 TIME: 2:25 PM PATIENT WEIGHT: 123 LBS PATIENT IDENTITY VERIFICATION COMPLETED USING TWO (2) STANDARD IDENTIFIERS: Name and Date of confirmed by patient verbally and Name and Date of confirmed by identification band. FALL SCREENING: Has the patient had 2 falls in the last year or 1 fall with injury or currently using an Ambulatory Assistive Device (Walker, Cane, Wheelchair, Crutches, etc.)? No PATIENT GENDER DATA: Assigned female at . status: : No status: NO. ALLERGIES: Reviewed and unchanged CONTRAST ALLERGY: No EXAM: CT -CONTRAST INDUCED NEPHROPATHY RISK FACTORS: Patient age > 60 years CREATININE: Creatinine Date Value Ref Range Status 06/03/2025 0.86 0.58 - 0.96 mg/dL Final 04/27/2025 0.65 0.58 - 0.96 mg/dL Final Estimated Glomerular Filtration Rate Date Value Ref Range Status 06/03/2025 72 >=60 mL/min/1.73m? Final Comment: Estimated Glomerular Filtration Rate (eGFR) is calculated using the 2020 CKD-EPI creatinine equation. This equation utilizes serum creatinine, sex, and age as parameters. The creatinine assay has traceable calibration to isotope dilution-mass spectrometry. Refer to KDIGO guidelines for clinical interpretation. In patients with unstable renal function, e.g. those with acute kidney injury, the eGFR may not accurately reflect actual GFR. P.O.C.T. RESULTS: See labs from June 04, 2025 TREATMENT: No Hydration needed. IV SITE: Ambulatory: A peripheral IV was started in the Right antecubital site with a Angio cath/Butterfly: 20 gauge. Diffusics IV SITE APPEARANCE: Clean,Dry and Intact SIGNATURE: Eduardo Dukes RN PATIENT NAME: Violeta Elizabeth DATE: June 11, 2025 TIME: 2:25 PM [facility] CNPNon 06-07-2025 CNPN Telephone (ORQ) SHANNAN ELIZABETHN ([id number]) 1955 F Date Time Provider Department 06/07/25 SILVIA RUIZ During your visit today, we recorded the following information about you: Cleopatra Salmon 06/07/2025 2:55 PM Signed Pt would like a call back from Dr. Ruiz's office to go over lab results done on 06/03/25. Please call her back to go over results. Patient has been identified by name and birthdate. Duration of symptoms: N/A Person calling: self Call patient at: at home [phone] (home) Silvia Reid DO 06/07/2025 4:33 PM Signed See telephone encounter from 06/07 Allergies As of Date: 06/07/2025 (No Known Allergies) Date Reviewed: 05/28/2025 Reviewed by: Demarco Dykes MA - Fully Assessed Reason for Visit: Results [95] Prescriptions as of 06/10/2025 - alendronate (FOSAMAX) 70 mg tablet TAKE 1 TABLET BY MOUTH ONCE A WEEK. TAKE WITH A FULL GLASS OF WATER. - cefdinir (OMNICEF) 300 mg capsule Take 1 capsule by mouth every 12 hours. - fluticasone (FLONASE) 50 mcg/actuation nasal spray use 2 spray(s) in each nostril once daily - furosemide (LASIX) 40 mg tablet Oral; Duration: 90 Days - methylPREDNISolone (MEDROL, ANGELIQUE,) 4 mg Dose-Pack Take by mouth. - Naproxen 375 mg TbEC Oral; Duration: 90 Days - pantoprazole DR (PROTONIX) 20 mg tablet TAKE 1 TABLET BY MOUTH ONCE DAILY 30 MINUTES BEFORE FIRST MEAL OF THE DAY - potassium chloride (K-TAB) 10 mEq tablet TAKE 1 TABLET BY MOUTH EVERY DAY NEEDED Oral; Duration: 90 Days - predniSONE (DELTASONE) 20 mg tablet Take 2.5 tablets by mouth once daily for 14 days, THEN 2 tablets once daily for 7 days, THEN 1.5 tablets once daily for 7 days, THEN 1 tablet once daily for 7 days. Do not stop suddenly. - sulfamethoxazole-trim ethoprim (BACTRIM DS) 800-160 mg per tablet Take 1 tablet by mouth two times a day. X5 days - last dose 05/04/25 - acetaminophen (TYLENOL) 325 mg tablet Take 2 tablets by mouth every 6 hours as needed (Mild Pain (1-3)). 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 Emelyn Michelle PA-C 06/06/2025 10:32 AM Signed Please advise: She wants to compare it to the prior one to see if any changes The new one being ordered is done a little differently than the one done at [facility] and will provide more information specific to [facility] diagnosis. I sent her to Dr. Ruiz for her expertise regarding these matters, so I would recommend she get them done if that is what Dr. Ruiz advises. EmelynTERESSA Martinez Danelle, RN 06/06/2025 12:28 PM Signed Patient called and given the below message. Patient plans to get CTA done. Jenni Curiel RN Allergies As of Date: 06/06/2025 (No Known Allergies) Date Reviewed: 05/28/2025 Reviewed by: Demarco Dykes MA - Fully Assessed Reason for Visit: Patient Update [1234] Prescriptions as of 06/06/2025 - alendronate (FOSAMAX) 70 mg tablet TAKE 1 TABLET BY MOUTH ONCE A WEEK. TAKE WITH A FULL GLASS OF WATER. - cefdinir (OMNICEF) 300 mg capsule Take 1 capsule by mouth every 12 hours. - fluticasone (FLONASE) 50 mcg/actuation nasal spray use 2 spray(s) in each nostril once daily - furosemide (LASIX) 40 mg tablet Oral; Duration: 90 Days - methylPREDNISolone (MEDROL, ANGELIQUE,) 4 mg Dose-Pack Take by mouth. - Naproxen 375 mg TbEC Oral; Duration: 90 Days - pantoprazole DR (PROTONIX) 20 mg tablet TAKE 1 TABLET BY MOUTH ONCE DAILY 30 MINUTES BEFORE FIRST MEAL OF THE DAY - potassium chloride (K-TAB) 10 mEq tablet TAKE 1 TABLET BY MOUTH EVERY DAY NEEDED Oral; Duration: 90 Days - predniSONE (DELTASONE) 20 mg tablet Take 2.5 tablets by mouth once daily for 14 days, THEN 2 tablets once daily for 7 days, THEN 1.5 tablets once daily for 7 days, THEN 1 tablet once daily for 7 days. Do not stop suddenly. - sulfamethoxazole-trim ethoprim (BACTRIM DS) 800-160 mg per tablet Take 1 tablet by mouth two times a day. X5 days - last dose 05/04/25 - acetaminophen (TYLENOL) 325 mg tablet Take 2 tablets by mouth every 6 hours as needed (Mild Pain (1-3)). 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, T38.0X5A] 05/29/2025 Encounter Status:Closed by JENNI CURIEL on 06/06/25 [facility] Telephone (RHWSTR) ELIZABETHVIOLETA ESCOBAR ([id number]) 1955 F Date Time Provider Department 06/06/25 EMELYN MICHELLE [facility] During your visit today, we recorded the following information about you: Emelyn Michelle PA-C 06/06/2025 8:41 AM Signed [facility] Results dated 06/03/25 Findings: No suspicious finding in either breast Dense breasts noted Will send for scanning Allergies As of Date: 06/06/2025 (No Known Allergies) Date Reviewed: 05/28/2025 Reviewed by: Demarco Dykes MA - Fully Assessed Reason for Visit: Recieved Outside medical records [Other] Cmt: [facility] 06/03/25 Prescriptions as of 06/06/2025 - alendronate (FOSAMAX) 70 mg tablet TAKE 1 TABLET BY MOUTH ONCE A WEEK. TAKE WITH A FULL GLASS OF WATER. - cefdinir (OMNICEF) 300 mg capsule Take 1 capsule by mouth every 12 hours. - fluticasone (FLONASE) 50 mcg/actuation nasal spray use 2 spray(s) in each nostril once daily - furosemide (LASIX) 40 mg tablet Oral; Duration: 90 Days - methylPREDNISolone (MEDROL, ANGELIQUE,) 4 mg Dose-Pack Take by mouth. - Naproxen 375 mg TbEC Oral; Duration: 90 Days - pantoprazole DR (PROTONIX) 20 mg tablet TAKE 1 TABLET BY MOUTH ONCE DAILY 30 MINUTES BEFORE FIRST MEAL OF THE DAY - potassium chloride (K-TAB) 10 mEq tablet TAKE 1 TABLET BY MOUTH EVERY DAY NEEDED Oral; Duration: 90 Days - predniSONE (DELTASONE) 20 mg tablet Take 2.5 tablets by mouth once daily for 14 days, THEN 2 tablets once daily for 7 days, THEN 1.5 tablets once daily for 7 days, THEN 1 tablet once daily for 7 days. Do not stop suddenly. - sulfamethoxazole-trim ethoprim (BACTRIM DS) 800-160 mg per tablet Take 1 tablet by mouth two times a day. X5 days - last dose 05/04/25 - acetaminophen (TYLENOL) 325 mg tablet Take 2 tablets by mouth every 6 hours as needed (Mild Pain (1-3)). 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 Sufficiency/Optimal Levels: 31-80 ng/mL Toxicity: > 100 ng/mL. Test performed by chemiluminescent immunoassay. Performed By: #### 5 1775-5, 52919-4, 88567-9, 21598-8, 46819-1, 88433-0, 92474-9, 33177-9 #### [facility] CLIA [id number] [address] [place] [address] [place] 3D MAMM BILAT SCREENon 06-03 3D MAMM BILAT SCREEN [place] [address] Patient: VIOLETA ELIZABETH Phone#: : [phone] Age: 69 Gender: F Pt. Type: Out Account: [id number] Location: Ordering: [facility] Exam Date: 06/03/2025/13:21 Family Phys: EMELYN MICHELLE Charge Code: [id number] Physician: [place] Order #: [id number] Dose#: PROCEDURE: BILATERAL SCREENING BREAST TOMOSYNTHESIS MAMMOGRAM WITH CAD COMPARISON: None. INDICATIONS: SCREENING BREAST COMPOSITION: The breasts are extremely dense, which lowers the sensitivity of mammography FINDINGS: DIAGNOSTIC CATEGORY 1--NEGATIVE: RIGHT BREAST: No significant suspicious finding. LEFT BREAST: No significant suspicious finding. RECOMMENDATIONS: ROUTINE MAMMOGRAM AND CLINICAL EVALUATION IN 12 MONTHS. PLEASE NOTE: A NORMAL MAMMOGRAM DOES NOT EXCLUDE THE POSSIBILITY OF BREAST CANCER. A CLINICALLY SUSPICIOUS PALPABLE LUMP SHOULD BE BIOPSIED. THIS FACILITY UTILIZES A REMINDER SYSTEM TO ENSURE THAT ALL PATIENTS RECEIVE REMINDER LETTERS FOR APPOINTMENTS. THIS INCLUDES REMINDERS FOR ROUTINE MAMMOGRAMS, DIAGNOSITC MAMMOGRAMS, OR OTHER BREAST IMAGING INTERVENTIONS WHEN APPROPRIATE. THIS PATIENT WILL BE PLACED IN THE APPROPRIATE REMINDER SYSTEM. Dictated by: Chrissy Ruiz MD on 06/03/2025 at 14:26 Approved by: Chrissy Ruiz MD on 06/04/2025 at 14:03 Normal [facility] CBC W Auto Differential pane l (Bld)on 06-03-2025 Basophils (Bld) [#/Vol] 0.03 10*3/uL Normal <0.11 [facility] Comment on above: Order Comment: Speci men Type: BLOOD SPECIMEN Ordering Facility: [facility] Address: [address] [place] [address] Performed By: #### 5 7021-8 #### [facility] CLIA [id number] [address] [place] [address] [place] Basophils/100 WBC (Bld) 0.2 % Normal C [facility] Comment on above: Order Comment: Speci men Type: BLOOD SPECIMEN Ordering Facility: [facility] Address: [address] [place] [address] Performed By: #### 5 7021-8 #### [facility] CLIA [id number] [address] [place] [address] [place] Differential cell count method Nom (Bld) Auto Normal [facility] Comment on above: Order Comment: Speci men Type: BLOOD SPECIMEN Ordering Facility: [facility] Address: [address] [place] [address] Performed By: #### 5 7021-8 #### [facility] CLIA [id number] [address] [place] [address] [place] Eosinophils (Bld) [#/Vol] 10*3/uL Normal <0.46 [facility] Comment on above: Order Comment: Speci men Type: BLOOD SPECIMEN Ordering Facility: [facility] Address: [address] [place] [address] Performed By: #### 5 7021-8 #### [facility] CLIA [id number] [address] [place] [address] [place] Eosinophils/100 WBC (Bld) 0.1 % Normal [facility] Comment on above: Order Comment: Speci men Type: BLOOD SPECIMEN Ordering Facility: [facility] Address: [address] [place] [address] Performed By: #### 5 7021-8 #### [facility] CLIA [id number] [address] [place] [address] [place] Erythrocyte distribution width (RBC) [Ratio] 13.9 % Normal 11.5-15.0 [facility] Comment on above: Order Comment: Speci men Type: BLOOD SPECIMEN Ordering Facility: [facility] Address: [address] [place] [address] Performed By: #### 5 7021-8 #### [facility] [id number] [address] [place] [address] [place] Hematocrit (Bld) [Volume fraction] 38.4 % Normal 36.0-46.0 [facility] Comment on above: Order Comment: Speci men Type: BLOOD SPECIMEN Ordering Facility: [facility] Address: [address] [place] [address] Performed By: #### 5 7021-8 #### [facility] CLIA [id number] [address] [place] [address] [place] Hemoglobin (Bld) [Mass/Vol] 12.8 g/dL Normal 11.5-15.5 [facility] Comment on above: Order Comment: Speci men Type: BLOOD SPECIMEN Ordering Facility: [facility] Address: [address] [place] [address] Performed By: #### 5 7021-8 #### [facility] CLIA [id number] [address] [place] [address] [place] Immature granulocytes (Bld) [#/Vol] 0.08 10*3/uL Normal <0.10 [facility] Comment on above: Order Comment: Speci men Type: BLOOD SPECIMEN Ordering Facility: [facility] Address: [address] [place] [address] Performed By: #### 5 7021-8 #### [facility] CLIA [id number] [address] [place] [address] [place] Immature granulocytes/100 WBC (Bld) 0.5 % Normal [facility] Comment on above: Order Comment: Speci men Type: BLOOD SPECIMEN Ordering Facility: [facility] Address: [address] [place] [address] Performed By: #### 5 7021-8 #### [facility] CLIA [id number] [address] [place] [address] [place] Lymphocytes (Bld) [#/Vol] 0.77 10*3/uL Low 1.00-4.00 [facility] Comment on above: Order Comment: Speci men Type: BLOOD SPECIMEN Ordering Facility: [facility] Address: [address] [place] [address] Performed By: #### 5 7021-8 #### [facility] CLIA [id number] [address] [place] [address] [place] Lymphocytes/100 WBC (Bld) 5.0 % Normal [facility] Comment on above: Order Comment: Speci men Type: BLOOD SPECIMEN Ordering Facility: [facility] Address: [address] [place] [address] Performed By: #### 5 7021-8 #### [facility] CLIA [id number] [address] [place] [address] [place] MCH (RBC) [Entitic mass] 31.5 pg Normal 26.0-34.0 [facility] Comment on above: Order Comment: Speci men Type: BLOOD SPECIMEN Ordering Facility: [facility] Address: [address] [place], [place] [address] Performed By: #### 5 7021-8 #### [facility] CLIA [id number] [address] [place] [address] [place] MCHC (RBC) [Mass/Vol] 33.3 g/dL Normal 30.5-36.0 [facility] Comment on above: Order Comment: Speci men Type: BLOOD SPECIMEN Ordering Facility: [facility] Address: [address] [place], [place] [address] Performed By: #### 5 7021-8 #### [facility] [facility] [id number] [address] [place] [address] [place] MCV (RBC) [Entitic vol] 94.6 fL Normal 80.0-100.0 [facility] Comment on above: Order Comment: Speci men Type: BLOOD SPECIMEN Ordering Facility: [facility] Address: [address] [place] [address] Performed By: #### 5 7021-8 #### [facility] CLIA [id number] [address] [place] [address] [place] Monocytes (Bld) [#/Vol] 0.09 10*3/uL Normal <0.87 [facility] Comment on above: Order Comment: Speci men Type: BLOOD SPECIMEN Ordering Facility: [facility] Address: [address] [place] [address] Performed By: #### 5 7021-8 #### [facility] CLIA [id number] [address] [place] [address] [place] Monocytes/100 WBC (Bld) 0.6 % Normal [facility] Comment on above: Order Comment: Speci men Type: BLOOD SPECIMEN Ordering Facility: [facility] Address: [address] [place], [place] [address] Performed By: #### 5 7021-8 #### [facility] CLIA [id number] [address] [place] [address] [place] Neutrophils (Bld) [#/Vol] 14.29 10*3/uL High 1.45-7.50 [facility] Comment on above: Order Comment: Speci men Type: BLOOD SPECIMEN Ordering Facility: [facility] Address: [address] [place] [address] Performed By: #### 5 7021-8 #### [facility] CLIA [id number] [address] [place] [address] [place] Neutrophils/100 WBC (Bld) 93.6 % Normal [facility] Comment on above: Order Comment: Speci men Type: BLOOD SPECIMEN Ordering Facility: [facility] Address: [address] [place] [address] Performed By: #### 5 7021-8 #### [facility] CLIA [id number] [address] [place] [address] [place] Nucleated RBC (Bld) [#/Vol] 10*3/uL Normal <0.01 [facility] Comment on above: Order Comment: Speci men Type: BLOOD SPECIMEN Ordering Facility: [facility] Address: [address] [place] [address] Performed By: #### 5 7021-8 #### [facility] CLIA [id number] [address] [place] [address] [place] Nucleated RBC/100 WBC (Bld) [Ratio] 0.0 /100 WBC Normal [facility] Comment on above: Order Comment: Speci men Type: BLOOD SPECIMEN Ordering Facility: [facility] Address: [address] [place], [place] [address] Performed By: #### 5 7021-8 #### [facility] CLIA [id number] [address] [place] [address] [place] Platelet mean volume (Bld) [Entitic vol] 10.4 fL Normal 9.0-12.7 [facility] Comment on above: Order Comment: Speci men Type: BLOOD SPECIMEN Ordering Facility: [facility] Address: [address] [place], [place] [address] Performed By: #### 5 7021-8 #### [facility] CLIA [id number] [address] [place] [address] [place] Platelets (Bld) [#/Vol] 250 10*3/uL Normal 150-400 [facility] Comment on above: Order Comment: Speci men Type: BLOOD SPECIMEN Ordering Facility: [facility] Address: [address] [place] [address] Performed By: #### 5 7021-8 #### [facility] CLIA [id number] [address] [place] [address] [place] RBC (Bld) [#/Vol] 4.06 10*6/uL Normal 3.90-5.20 [facility] Comment on above: Order Comment: Speci men Type: BLOOD SPECIMEN Ordering Facility: [facility] Address: [address] [place], [place] [address] Performed By: #### 5 7021-8 #### [facility] CLIA [id number] [address] [place] [address] [place] WBC (Bld) [#/Vol] 15.28 10*3/uL High 3.70-11.00 [facility] Comment on above: Order Comment: Speci men Type: BLOOD SPECIMEN Ordering Facility: [facility] Address: [address] [place] [address] Performed By: #### 5 7021-8 #### [facility] CLIA [id number] [address] [place] [address] [place] CRP SerPl-mCncon 06-03-2025 CRP [Mass/Vol] 2.8 mg/dL High <0.9 [facility] Comment on above: Order Comment: Speci men Type: BLOOD SPECIMEN Ordering Facility: [facility] Address: [address] [place] [address] Performed By: #### 5 1775-5, 71952-6, 30722-6, 58137-7, 16460-4, 64797-3, 58257-8, 83018-0 #### [facility] CLIA [id number] [address] [place], [place] [id number] [place] Comprehensive metabolic 2000 panelon 06-03-2025 Albumin [Mass/Vol] 3.8 g/dL Low 3.9-4.9 [facility] Comment on above: Order Comment: Speci men Type: BLOOD SPECIMEN Ordering Facility: [facility] Address: [address] [place] [address] Performed By: #### 5 1775-5, 74987-6, 73609-4, 50531-3, 63101-6, 04627-7, 31697-2, 89724-6 #### [facility] CLIA [id number] [address] [place] [address] [place] ALP [Catalytic activity/Vol] 62 U/L Normal 34-123 [facility] Comment on above: Order Comment: Speci men Type: BLOOD SPECIMEN Ordering Facility: [facility] Address: [address] [place] [address] Performed By: #### 5 1775-5, 66599-1, 68489-0, 11005-4, 71511-7, 27956-1, 53823-5, 79349-3 #### [facility] CLIA [id number] [address] [id number] [address] [place] ALT [Catalytic activity/Vol] 14 U/L Normal 7-38 [facility] Comment on above: Order Comment: Speci men Type: BLOOD SPECIMEN Ordering Facility: [facility] Address: [address] [place] [address] Performed By: #### 5 1775-5, 49078-8, 25347-6, 55514-0, 64948-0, 05169-7, 35070-8, 50781-1 #### [facility] CLIA [id number] [address] [place] [address] [place] Anion gap [Moles/Vol] 13 mmol/L Normal 8-15 [facility] Comment on above: Order Comment: Speci men Type: BLOOD SPECIMEN Ordering Facility: [facility] Address: [address] [place] [address] Performed By: #### 5 1774-5, 02285-3, 84082-5, 25205-5, 88833-0, 25632-4, 92226-1, 05005-8 #### [facility] CLIA [id number] [address] [place] [address] [place] AST [Catalytic activity/Vol] 19 U/L Normal 13-35 [facility] Comment on above: Order Comment: Speci men Type: BLOOD SPECIMEN Ordering Facility: [facility] Address: [address] [place] [address] Performed By: #### 5 1775-5, 22501-9, 68838-9, 06851-9, 42489-2, 94937-8, 00405-7, 19876-1 #### [facility] CLIA [id number] [address] [place] [address] [place] Bilirubin [Mass/Vol] 0.5 mg/dL Normal 0.2-1.3 [facility] Comment on above: Order Comment: Speci men Type: BLOOD SPECIMEN Ordering Facility: [facility] Address: [address] [place] [address] Performed By: #### 5 1775-5, 98426-2, 07092-0, 07830-9, 27819-0, 37440-8, 49442-3, 24258-7 #### [facility] CLIA [id number] [address] [place] [address] [place] Calcium [Mass/Vol] 9.8 mg/dL Normal 8.5-10.2 [facility] Comment on above: Order Comment: Speci men Type: BLOOD SPECIMEN Ordering Facility: [facility] Address: [address] [place] [address] Performed By: #### 5 1775-5, 78227-5, 86943-3, 04173-6, 83071-0, 62913-8, 41263-1, 15136-3 #### [facility] CLIA [id number] [address] [place] [address] [place] Chloride [Moles/Vol] 97 mmol/L Low 98-107 [facility] Comment on above: Order Comment: Speci men Type: BLOOD SPECIMEN Ordering Facility: [facility] Address: [address] [place] [address] Performed By: #### 5 1774-5, 37858-5, 29647-2, 84335-7, 17812-7, 30455-4, 37674-5, 71217-8 #### [facility] CLIA [id number] [address] [place] [address] [place] CO2 [Moles/Vol] 26 mmol/L Normal 22-30 [facility] Comment on above: Order Comment: Speci men Type: BLOOD SPECIMEN Ordering Facility: [facility] Address: [address] [place] [address] Performed By: #### 5 1775-5, 85918-0, 33104-2, 27784-8, 76817-3, 17600-5, 02061-1, 68432-8 #### [facility] CLIA [id number] [address] [address] [place] Creatinine [Mass/Vol] 0.86 mg/dL Normal 0.58-0.96 [facility] Comment on above: Order Comment: Deng mora Type: BLOOD SPECIMEN Ordering Facility: [facility] Address: [address] [place] [address] Performed By: #### 5 1775-5, 32015-8, 66973-7, 46536-5, 98555-7, 33072-7, 07180-5, 37661-3 #### [facility] CLIA [id number] [address] [place] [address] [place] eGFRcr SerPlBld CKD-EPI 2020 72 mL/min/1.73m??? Normal >=60 [facility] Comment on above: Order Comment: Deng mora Type: BLOOD SPECIMEN Ordering Facility: [facility] Address: [address] [place] [address] Result Comment: Meron mated Glomerular Filtration Rate (eGFR) is calculated using the 2020 CKD-EPI creatinine equation. This equation utilizes serum creatinine, sex, and age as parameters. The creatinine assay has traceable calibration to isotope dilution-mass spectrometry. Refer to KDIGO guidelines for clinical interpretation. In patients with unstable renal function, e.g. those with acute kidney injury, the eGFR may not accurately reflect actual GFR. Performed By: #### 5 1775-5, 95050-4, 59333-1, 56807-9, 30282-6, 67594-4, 92476-8, 47882-2 #### [facility] CLIA [id number] [address] [place], [place] [address] [place] Glucose [Mass/Vol] 97 mg/dL Normal 74-99 [facility] Comment on above: Order Comment: Deng mora Type: BLOOD SPECIMEN Ordering Facility: [facility] Address: [address] [place] [address] Result Comment: The [place] Diabetes Association (ADA) provides guidance for cutoff values for fasting glucose and random glucose. The ADA defines fasting as no caloric intake for at least 8 hours. Fasting plasma glucose results between 100 to 125 mg/dL indicate increased risk for diabetes (prediabetes). Fasting plasma glucose results greater than or equal to 126 mg/dL meet the criteria for diagnosis of diabetes. In the absence of unequivocal hyperglycemia, results should be confirmed by repeat testing. In a patient with classic symptoms of hyperglycemia or hyperglycemic crisis, random plasma glucose results greater than or equal to 200 mg/dL meet the criteria for diagnosis of diabetes. Reference: Standards of Medical Care in Diabetes 2016, [place] Diabetes Association. Diabetes Care. 2016.39(Suppl 1). Performed By: #### 5 1775-5, 16595-1, 00707-5, 87028-8, 77136-5, 18801-9, 93526-6, 13437-4 #### [facility] CLIA [id number] [address] [place] [address] [place] Potassium [Moles/Vol] 4.0 mmol/L Normal 3.7-5.1 [facility] Comment on above: Order Comment: Speci men Type: BLOOD SPECIMEN Ordering Facility: [facility] Address: [address] [place] [address] Performed By: #### 5 1775-5, 66891-0, 93734-8, 18684-0, 67112-2, 06446-2, 00860-3, 24557-2 #### [facility] CLIA [id number] [address] [place] [address] [place] Protein [Mass/Vol] 6.9 g/dL Normal 6.3-8.0 [facility] Comment on above: Order Comment: Speedyi men Type: BLOOD SPECIMEN Ordering Facility: [facility] Address: [address] [place] [address] Performed By: #### 5 1775-5, 91000-3, 26882-9, 76049-2, 59571-8, 89662-2, 42611-4, 54905-2 #### [facility] CLIA [id number] [address] [place] [address] [place] Sodium [Moles/Vol] 136 mmol/L Normal 136-144 [facility] Comment on above: Order Comment: Speci men Type: BLOOD SPECIMEN Ordering Facility: [facility] Address: [address] [place] [address] Performed By: #### 5 1775-5, 81075-5, 94833-4, 59406-6, 55535-1, 21093-7, 25637-3, 16648-0 #### [facility] CLIA [id number] [address] [place] [address] [place] Urea nitrogen [Mass/Vol] 25 mg/dL High 7-21 [facility] Comment on above: Order Comment: Speci men Type: BLOOD SPECIMEN Ordering Facility: [facility] Address: [address] [place] [address] Performed By: #### 5 1775-5, 55783-7, 81733-6, 95506-2, 86781-0, 51341-3, 34906-6, 02799-3 #### [facility] CLIA [id number] [address] [place] [address] [place] ESR Westergren method (Bld) [Velocity]on 06-03-2025 ESR (Bld) [Velocity] 60 mm/h High 0-20 [facility] Comment on above: Order Comment: Speci men Type: BLOOD SPECIMEN Ordering Facility: [facility] Address: [address] [place] [address] Performed By: #### 5 1775-5, 26960-6, 94125-5, 81256-3, 12253-2, 04943-2, 12731-4, 67403-7 #### [facility] CLIA [id number] [address] [place] [address] [place] CULTURE, URINE, ROUTINEon CULTURE, URINE, ROUTINE SEE NOTE Normal [facility] Comment on above: Order Comment: FASTI NG: NO Result Comment: CULTURE, URINE, ROUTINE Micro Number: [id number] Test Status: Final Specimen Source: Urine Specimen Quality: Adequate Result: 1,000-9,000 CFU/ML of Non-uropathogenic Gram positive organism May represent colonizers from external and internal genitalia. No further testing (including susceptibility) will be performed. Performed By: #### 3 95 #### [employer] [facility] [address], [address] [place] [address] Manager Print: Teofilo Prather 05-29-2025 [facility] VIOLETA ELIZABETH ([id number]) 1955 F Date Time Provider Department 05/29/25 EMELYN MICHELLE [facility] During your visit today, we recorded the following information about you: Emelyn Michelle PA-C 05/29/2025 11:58 AM Signed Received external BMD Dated 05/14/25 T score lumbar spine -0.7 RHip Femur T-Score -1.8 FRAX: Major fracture 21.7%, Hip Fracture 5.3% Please call We received BMD results. They show osteopenia, with high risk of fracture. That plus her being on steroid suggests she should be on osteoporosis treatment. Her PCP recommended fosamax. Although with GI issues, IV reclast may be better. Risk of all bisphosphonates include risk of osteonecrosis of the jaw and atypical femur fractures with prolonged use, GI upset with oral formulations and flu-like reaction to IV form. If she is agreeable to proceed I can place the order. If she has more questions about the medication, I can see her for a follow up visit to review. TERESSA Enrique Danelle, RN 05/29/2025 1:55 PM Signed Below results given to the patient. Patient states that she is willing to take the IV Reclast. Patient also wanted to update that she noted feeling lightheaded, dizzy, increased fatigue, and increased urination. UA done by PCP today and showed UTI. Culture is pending. Patient also reports noting some weight loss. AGUS Garvin Kaitlyn, PA-C 05/29/2025 4:36 PM Signed Noted. Symptoms mentioned are consistent with UTI. Glad she is being treated by PCP. Will need Vit D level and repeat renal function prior to scheduling Treatment plan populated to start auth. Order placed, can be done with Dr. 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 TAKE WITH A FULL GLASS OF WATER. - cefdinir (OMNICEF) 300 mg capsule Take 1 capsule by mouth every 12 hours. - fluticasone (FLONASE) 50 mcg/actuation nasal spray use 2 spray(s) in each nostril once daily - furosemide (LASIX) 40 mg tablet Oral; Duration: 90 Days - methylPREDNISolone (MEDROL, ANGELIQUE,) 4 mg Dose-Pack Take by mouth. - Naproxen 375 mg TbEC Oral; Duration: 90 Days - pantoprazole DR (PROTONIX) 20 mg tablet TAKE 1 TABLET BY MOUTH ONCE DAILY 30 MINUTES BEFORE FIRST MEAL OF THE DAY - potassium chloride (K-TAB) 10 mEq tablet TAKE 1 TABLET BY MOUTH EVERY DAY NEEDED Oral; Duration: 90 Days - predniSONE (DELTASONE) 20 mg tablet Take 2.5 tablets by mouth once daily for 14 days, THEN 2 tablets once daily for 7 days, THEN 1.5 tablets once daily for 7 days, THEN 1 tablet once daily for 7 days. Do not stop suddenly. - sulfamethoxazole-trim ethoprim (BACTRIM DS) 800-160 mg per tablet Take 1 tablet by mouth two times a day. X5 days - last dose 05/04/25 - acetaminophen (TYLENOL) 325 mg tablet Take 2 tablets by mouth every 6 hours as needed (Mild Pain (1-3)). 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 A negative result cannot exclude myasthenia gravis. Clinical correlation is required. Performed By: #### 5 1775-5, 33766-2, 70481-1, 58612-0, 41153-2, 46977-2, 11040-1, 23419-1 #### [facility] CLIA [id number] [address] [place] [address] [place] Acetylcholine receptor binding Ab (S) [Moles/Vol] 0.23 nmol/L High <0.21 [facility] Comment on above: Order Comment: Deng mora Type: BLOOD SPECIMEN Ordering Facility: [facility] Address: [address] [place] [address] Performed By: #### 5 1775-5, 90060-0, 66782-7, 32321-4, 90078-9, 72262-1, 01347-5, 14064-1 #### [facility] CLIA [id number] [address] [place] [address] [place] CNOVon 05-28-2025 CNOV Office Visit (NNSTFM ) VIOLETA ELIZABETH ([id number]) 1955 F Date Time Provider Department 05/28/25 2:00 PM CLIFF ROSS [facility] During your visit today, we recorded the following information about you: Temperature Pulse Blood pressure Weight 99 degrees 90/minute 103/64 56.2 kg Cliff Ross MD 05/28/2025 2:49 PM Signed Consultation requested by Emelyn Michelle; rheumatology for an opinion regarding generalized weakness. My final recommendations will be communicated back to the requesting physician by way of shared medical record or letter via US mail Referring provider: Emelyn Michelle; rheumatology [address] [facility] [address] Violeta Elizabeth is a 69-year-old female with a history of scoliosis, two herniated discs, and a pinched sciatic nerve, presenting with severe pain and muscle weakness following a COVID-19 infection in October. Violeta reports that her symptoms began after kenzie COVID-19 in October. 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 This pain was rated as 8-10/10 in intensity. She also experienced widespread pain throughout her body, including her chest. A temporal artery biopsy was performed and was negative. She was initially treated with antibiotics and steroids by her primary care physician without improvement. In February, due to the severity of her pain, she was referred to a warehouse insulation worker, who found no cardiac issues and attributed her pain to musculoskeletal causes. She was then started on prednisone 60 mg daily, which took several days to provide relief. The prednisone significantly reduced her pain and improved her muscle weakness, allowing her to perform small tasks at home. However, as the prednisone dose was tapered to 50 mg, her pain and weakness began to return. Violeta reports feeling like she is slipping back and experiencing increased pain and weakness over the past few days. She is currently under the care of a automotive service consultant, who has diagnosed her with giant cell arteritis (GCA) and polymyalgia rheumatica (PMR). However, due to her atypical presentation and persistent pain despite high-dose prednisone, further testing is being conducted. She is scheduled for an upper GI on June 20 to investigate possible gastrointestinal causes of her pain. Violeta reports difficulty sleeping, which she attributes to her pain rather than the prednisone. She experiences pain in her sternum and breast area, which is aggravated by sitting up straight. She also reports pain in her pectoral muscles and teeth. She denies fever, vomiting, or regurgitation. 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 She has a history of scoliosis, two herniated discs, and a pinched sciatic nerve. She also has a family history of heart disease. Two years ago, she was diagnosed with an ulcerated stomach lining after experiencing severe pain following the initiation of baby aspirin. She is concerned that the prednisone may be aggravating her previous ulcer. Violeta reports that her inflammatory markers have not significantly decreased despite high-dose prednisone. She is currently taking prednisone 50 mg daily and is scheduled to see her automotive service consultant on the week of June 03 for further evaluation. Recent rheumatology note: Patient had a severe upper respiratory COVID-19 infection on November 09, 2022, followed by prolonged symptoms including headaches, sinus pressure, and ear pain. Initial treatment included 60 days of antibiotics and 21 days of steroids, with no significant improvement. Two ENT specialists ruled out sinus infection and attributed symptoms to long COVID. Patient notes recent progresive myalgias weakness, Dyspnea on exertion, fatigue, malaise, and significant elevated inflammatory markers at PCP office. 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 Reports stiffness in the morning and weakness, particularly in the shoulders and hips. Symptoms have progressively worsened over the last 60 days. States neck feels heavy, difficult to hold up at times. Differential is broad. Inflammatory myopathy, PMR/GCA, vasculitis (less likely given absence of nasal crusting, hemoptysis) - Ordered EMG to assess for myopathy or muscle inflammation. - Ordered pulmonary function tests to evaluate lung volumes and expiratory function. - Ordered repeat inflammatory markers and additional muscle inflammation tests. - Consider referral to rheumatology and ne (more content not included)... Normal [facility] CNPNon 05-24-2025 CNPN Telephone (RHWSTR) VIOLETA ELIZABETH ([id number]) 1955 F Date Time Provider Department 05/24/25 EMELYN MICHELLE WSTR During your visit today, we recorded the following information about you: Lauren Wilhelm RN 05/24/2025 9:17 AM Signed Patient calls to ask if provider's office has received the results of CTA Scan Chest w and w/o contrast from [facility]. Patient reports it was completed last month and Dr. Ruiz ordered another one but she is not certain if results were ever received. Patient requests a call back at [phone] and patient gave ok to leave voicemail if doesn't answer. Please review and advise, AGUS Coughlin Amy M, MA 05/24/2025 1:31 PM Signed I called and left a message on voicemail that our office can see the CTA that was completed at [facility]. Is is under scanned documents dated 05/08/2025 with her emergency room visit information. Images have been requested from [facility] to be sent to [facility] to be in her chart for comparison/ reference. Melani Harris 05/24/2025 3:44 PM Signed Patient returned call, pt wants to know if she needs another one or not, please call pt back, if you get voicemail, please leave a detailed message. Norman Joyce MA 05/28/2025 10:35 AM Signed Called pt to let Dr Ruiz's message below Pt in agreement Pt said she is been miserable since Tuesday-Tuesday (05/26/25 to 05/28/25) Pt said she has ulcerated stomach lining and wants to know how bad Prednisone affect with pain or if it is causing ulcerated stomach lining. Pt is scheduled on 06/20/25 for manometry in [place] Pt is asking if Emelyn or Dr Ruiz can get her in sooner with upper GI at [facility] she would be greatly appreciate ,due to not feeling well. Pt is currently on Prednisone 50 mg daily Notified pt that will forward the message to both providers :Emelyn and KRISTI Smith Kaitlyn, PA-C 05/28/2025 1:[address] PM [address] place a GI referral she she is welcome to call and see if she can get in sooner with them. I don't have any specific connections for GI at [facility] or getting a sooner EGD. Prednisone can cause ulceration of the stomach lining. If she is not taking anything, she should take a PPI (ex. Omeprazole, or pantoprazole). I believe she saw a local service technician. They should have advised if she should take one and how long/what dose. Dr. Ruiz, please advise if you have anything else to add. Thanks Kendra Mccall RN 06/03/2025 2:32 PM Signed Called patient back and relayed Dr. Ruiz's message regarding repeating the CTA scan. Patient verbalized understanding. She also stated that she is scheduled with a GI doctor (outside of the Clinic) on 06/20/25 for an upper GI procedure and will be wearing a 2-day monitor as well. Allergies As of Date: 05/24/2025 (No Known Allergies) Date Reviewed: 05/23/2025 Reviewed by: Silvia Ruiz DO - Fully Assessed Reason for Visit: Patient Question [1477] Primary Visit Diagnosis:USP current use of systemic steroids [Z79.52] Other Visit Diagnoses:Epigastric pain [R10.13] Peptic ulcer disease [K27.9] Order(s):CONSULT TO GASTROENTEROLOGY [9008] Order #: [id number]: 1 FUTURE Prescriptions as of 06/03/2025 - alendronate (FOSAMAX) 70 mg tablet TAKE 1 TABLET BY MOUTH ONCE A WEEK. TAKE WITH A FULL GLASS OF WATER. - cefdinir (OMNICEF) 300 mg capsule Take 1 capsule by mouth every 12 hours. - fluticasone (FLONASE) 50 mcg/actuation nasal spray use 2 spray(s) in each nostril once daily - furosemide (LASIX) 40 mg tablet Oral; Duration: 90 Days - methylPREDNISolone (MEDROL, ANGELIQUE,) 4 mg Dose-Pack Take by mouth. - Naproxen 375 mg TbEC Oral; Duration: 90 Days - pantoprazole DR (PROTONIX) 20 mg tablet TAKE 1 TABLET BY MOUTH ONCE DAILY 30 MINUTES BEFORE FIRST MEAL OF THE DAY - potassium chloride (K-TAB) 10 mEq tablet TAKE 1 TABLET BY MOUTH EVERY DAY NEEDED Oral; Duration: 90 Days - predniSONE (DELTASONE) 20 mg tablet Take 2.5 tablets by mouth once daily for 14 days, THEN 2 tablets once daily for 7 days, THEN 1.5 tablets once daily for 7 days, THEN 1 tablet once daily for 7 days. Do not stop suddenly. - sulfamethoxazole-trim ethoprim (BACTRIM DS) 800-160 mg per tablet Take 1 tablet by mouth two times a day. X5 days - last dose 05/04/25 - acetaminophen (TYLENOL) 325 mg tablet Take 2 tablets by mouth every 6 hours as needed (Mild Pain (1-3)). Problem List As Of Date: 05/24/2025 (None) Encounter Status:Closed by KENDRA NAVARRO on 06/03/25 [facility] 05-23-2025 [facility] Office Visit (CHAI ) VIOLETA ELIZABETH ([id number]) 1955 F Date Time Provider Department 05/23/25 11:00 AM SILVIA RUIZ During your visit today, we recorded the following information about you: Temperature Pulse Blood pressure Weight 97.2 degrees 56/minute 127/76 56.2 kg Silvia Ruiz DO 05/23/2025 12:23 PM Signed Rheumatology Outpatient Clinic Follow up Note - NEW TO [place] Date of Service: 05/23/2025 Patient: Violeta Elizabeth Medical Record: [id number] Primary Care Physician: Ga Campbell PA-C Last Rheumatology visit: 05/08/2025 (with Emelyn Michelle) Subjective SUBJECTIVE: Violeta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 Diagnosis Date Arthritis of spi (more content not included)... Normal [facility] Yamilka 05-08-2025 [facility] VIOLETA ELIZABETH ([id number]) 1955 F Date Time Provider Department 05/08/25 EMELYN MICHELLE WSTR During your visit today, we recorded the following information about you: Emelyn Michelle PA-C 05/08/2025 4:43 PM Signed Please call patient Advise her after speaking with dr. Ruiz (the rheum doc she will be seeing in 2-3 weeks), we will hold off on Bactrim, and I'll hold off on large vessel imaging until she sees her. Labs all still pending Thanks Jenni Michele RN 05/09/2025 8:37 AM Signed Patient called and given the below message. Patient reports understanding. Jenni Curiel RN Allergies As of Date: 05/08/2025 (No Known Allergies) Date Reviewed: 05/08/2025 Reviewed by: Layne Reed MA - Fully Assessed Prescriptions as of 05/09/2025 - nystatin (MYCOSTATIN) 100,000 unit/mL suspension Take 4 mL by mouth four times daily for 14 days. Swish and swallow. - predniSONE (DELTASONE) 20 mg tablet Take 3 tablets by mouth once daily for 7 days, THEN 2.5 tablets once daily for 7 days, THEN 2 tablets once daily for 7 days, THEN 1.5 tablets once daily for 7 days, THEN 1 tablet once daily for 7 days. Do not stop suddenly.. - sulfamethoxazole-trim ethoprim (BACTRIM DS) 800-160 mg per tablet Take 1 tablet by mouth two times a day. X5 days - last dose 05/04/25 - acetaminophen (TYLENOL) 325 mg tablet Take 2 tablets by mouth every 6 hours as needed (Mild Pain (1-3)). Problem List As Of Date: 05/08/2025 (None) Encounter Status:Closed by JENNI CURIEL on 05/09/25 Normal [facility] CRP SerPl-mCncon 05-08-2025 CRP [Mass/Vol] 1.7 mg/dL High <0.9 [facility] Comment on above: Order Comment: Deng mora Type: BLOOD SPECIMEN Ordering Facility: [facility] Address: [address] [place] [address] Performed By: #### 5 1775-5, 27803-5, 74983-4, 13738-3, 55709-5, 45457-6, 89577-4, 96396-6 #### [facility] CLIA [id number] [address] [place] [address] [place] ESR Westergren method (Bld) [Velocity]on 05-08-2025 ESR (Bld) [Velocity] 75 mm/h High 0-20 [facility] Comment on above: Order Comment: Speci morgan Type: BLOOD SPECIMEN Ordering Facility: [facility] Address: [address] [place] [address] Performed By: #### 5 1775-5, 26709-6, 65733-9, 01008-9, 15268-6, 12893-6, 45241-3, 74724-0 #### [facility] CLIA [id number] [address] [place] [address] [place] HBV core Ab Ser Qlon 025 HBV core Ab Ql (S) Negative Normal Negative [facility] Comment on above: Order Comment: Deng mora Type: BLOOD SPECIMEN Ordering Facility: [facility] Address: [address] [place] [address] Result Comment: No e vidence of current or past infection with Hepatitis B virus. Should recent infection be suspected, repeat testing may be considered 3-4 weeks after this draw. Performed By: #### 5 1775-5, 95341-8, 69489-2, 79355-0, 16904-2, 34304-8, 39273-5, 00605-2 #### [facility] CLIA [id number] [address] [place] [address] [place] HBV surface Ab Ql (S)on 04-26 HBV surface Ab Qn (S) <8.00 Normal [facility] Comment on above: Order Comment: Speci men Type: BLOOD SPECIMEN Ordering Facility: [facility] Address: [address] [place] [address] Result Comment: <8 m IU/mL: No serological evidence of immunity to Hepatitis B Virus. >/= 8 to <12 mIU/mL: No serological evidence of immunity to Hepatitis B Virus. >/= 12 mIU/mL: Consistent with serological evidence of immunity to Hepatitis B Virus. Performed By: #### 5 1775-5, 64995-4, 34880-6, 88699-6, 36017-1, 38772-7, 71874-4, 69166-2 #### [facility] CLIA [id number] [address] [place] [address] [place] HBV surface Ab Ser Qlon 04-26 HBV surface Ab Ql (S) Negative Normal [facility] Comment on above: Order Comment: Speci men Type: BLOOD SPECIMEN Ordering Facility: [facility] Address: [address] [place] [address] Result Comment: No s erological evidence of immunity to Hepatitis B Virus. Performed By: #### 5 1775-5, 89822-4, 12954-9, 80481-4, 26677-2, 44819-0, 68768-7, 73631-4 #### [facility] CLIA [id number] [address] [place] [address] [place] HBV surface Ag Ser Qlon 04-26 HBV surface Ag Ql (S) Negative Normal Negative [facility] Comment on above: Order Comment: Speci men Type: BLOOD SPECIMEN Ordering Facility: [facility] Address: [address] [place] [address] Performed By: #### 5 1775-5, 64002-6, 80970-0, 78817-5, 34201-3, 35431-6, 73757-2, 72456-5 #### [facility] CLIA [id number] [address] [place] [address] [place] HCV Ab Ser Qlon 05-08-2025 HCV Ab Ql (S) Negative Normal Negative [facility] Comment on above: Order Comment: Speci men Type: BLOOD SPECIMEN Ordering Facility: [facility] Address: [address] [place] [address] Result Comment: The result suggests no evidence of infection with Hepatitis C virus. Should recent infection be suspected, repeat testing may be considered 4-6 weeks after this draw. Performed By: #### 5 1775-5, 65646-7, 14119-1, 78043-5, 55643-9, 59577-0, 58679-0, 18375-3 #### [facility] CLIA [id number] [address] [place] [address] [place] XR CERVICAL 2V FLEX/EXTon XR CERVICAL 2V FLEX/EXT * * *Final Repor t* * * DATE OF EXAM: May 08 2025 12:46PM [id number] - XR CERVICAL 2V FLEX/EXT / PROCEDURE REASON: multiple diagnoses * * * * Physician Interpretation * * * * EXAMINATION: XR CERVICAL 2V FLEX/EXT HISTORY: PT STATES NECK PAIN Chronic neck pain Chronic neck pain . TECHNIQUE: XR CERVICAL 2V FLEX/EXT Laterality: NOT APPLICABLE Number of different views (projections): 2 M: XB_1 COMPARISON: 05/08/2025 RESULT: Counting reference: Craniocervical junction. Anatomic Variants: None. Minimal anterior subluxation of C2 on C3 and C3 on C4 and flexion not seen in extension. There is slight increase in moderate anterior subluxation of C4 on C5 and flexion compared with extension. No other subluxation seen. Normal vertebral body heights. Moderate degenerative disc changes at C6-7 and moderate degenerative facet changes throughout. Osteopenia. No acute fracture or dislocation. There are no bony erosions. IMPRESSION: Degenerative changes with alignment as described. Hose Cementer: REYES Transcribe Date/Time: May 15 2025 10:16P Dictated by : YANNICK CAMPBELL MD This examination was interpreted and the report reviewed and electronically signed by: YANNICK CAMPBELL MD on May 15 2025 10:17PM EST [id number] Normal [facility] XR CERVICAL 4V AP/LAT/OBLon 05-08-2025 XR CERVICAL 4V AP/LAT/OBL * * *Final Report* * * DATE OF EXAM: May 08 2025 12:45PM [id number] - XR CERVICAL 4V AP/LAT/OBL / PROCEDURE REASON: multiple diagnoses * * * * Physician Interpretation * * * * PROCEDURE: Cervical and lumbar spines INDICATION: Polyarthralgia Chronic low back pain, unspecified back pain laterality, unspecified whether sciatica present Chronic neck pain.PT STATES HISTORY OF SCOLI AND LOWER BACK PAIN (accession [id number]), PT STATES NECK PAIN (accession [id number]) TECHNIQUE: XR LUMBAR 3V AP/LAT/L5-S1, XR CERVICAL 4V AP/LAT/OBL COMPARISON: None FINDINGS: Cervical spine: Minimal C4-5 anterolisthesis. No fracture. Advanced C6-7 and C7-T1 degenerative disc disease. Bilateral facet arthrosis at all levels, most prominent on the right from C3 through C5. Right-sided bony neural foraminal narrowing at C3-4, C4-5, C6-7 and C7-T1. Left-sided bony neural foraminal narrowing at C6-7. Prevertebral soft tissues are within normal limits. Lumbar spine: Significant dextrorotoscoliosis, centered at L2. Advanced degenerative disc disease at all levels. Facet arthrosis at all levels, most severe from L4 through S1. No pars defects. Sacroiliac joints are unremarkable. Advanced right and moderate left hip osteoarthrosis. IMPRESSION: Degenerative changes Hose Cementer: PSCB Transcribe Date/Time: May 17 2025 3:59P Dictated by : PETR ANDREWS MD This examination was interpreted and the report reviewed and electronically signed by: PETR ANDREWS MD on May 17 2025 4:02PM EST [id number] N Normal [facility] XR LUMBAR 3V AP/LAT/L5-S1on 05-08-2025 XR LUMBAR 3V AP/LAT/L5-S1 * * *Final Report* * * DATE OF EXAM: May 08 2025 12:44PM [id number] - XR LUMBAR 3V AP/LAT/L5-S1 / PROCEDURE REASON: multiple diagnoses * * * * Physician Interpretation * * * * PROCEDURE: Cervical and lumbar spines INDICATION: Polyarthralgia Chronic low back pain, unspecified back pain laterality, unspecified whether sciatica present Chronic neck pain.PT STATES HISTORY OF SCOLI AND LOWER BACK PAIN (accession [id number]), PT STATES NECK PAIN (accession [id number]) TECHNIQUE: XR LUMBAR 3V AP/LAT/L5-S1, XR CERVICAL 4V AP/LAT/OBL COMPARISON: None FINDINGS: Cervical spine: Minimal C4-5 anterolisthesis. No fracture. Advanced C6-7 and C7-T1 degenerative disc disease. Bilateral facet arthrosis at all levels, most prominent on the right from C3 through C5. Right-sided bony neural foraminal narrowing at C3-4, C4-5, C6-7 and C7-T1. Left-sided bony neural foraminal narrowing at C6-7. Prevertebral soft tissues are within normal limits. Lumbar spine: Significant dextrorotoscoliosis, centered at L2. Advanced degenerative disc disease at all levels. Facet arthrosis at all levels, most severe from L4 through S1. No pars defects. Sacroiliac joints are unremarkable. Advanced right and moderate left hip osteoarthrosis. IMPRESSION: Degenerative changes Hose Cementer: REYES Transcribe Date/Time: May 17 2025 3:59P Dictated by : PETR ANDREWS MD This examination was interpreted and the report reviewed and electronically signed by: PETR ANDREWS MD on May 17 2025 4:02PM EST [id number] N Normal [facility] CNPBrianda 05-06-2025 CNPN Telephone [facility] VIOLETA ELIZABETH ([id number]) 1955 F Date Time Provider Department 05/06/25 MANE COLBERT During your visit today, we recorded the following information about you: Luz Maria Mcgovern 05/06/2025 10:[address] Colbert: The patient would like to inquire about the estimated time for the stitches to dissolve and the duration of ointment use following cold compress treatment. [phone] Luz Maria Mcgovern 05/06/2025 10:14 AM Signed left Natty's message on patient's voice mail and to call the office with any questions Allergies As of Date: 05/06/2025 (No Known Allergies) Date Reviewed: 05/01/2025 Reviewed by: Silvia Garcia, AGUS - Fully Assessed Reason for Visit: follow up questions [Other] Prescriptions as of 05/06/2025 - predniSONE (DELTASONE) 20 mg tablet Take 3 tablets by mouth once daily for 7 days, THEN 2.5 tablets once daily for 7 days, THEN 2 tablets once daily for 7 days, THEN 1.5 tablets once daily for 7 days, THEN 1 tablet once daily for 7 days. Do not stop suddenly.. - sulfamethoxazole-trim ethoprim (BACTRIM DS) 800-160 mg per tablet Take 1 tablet by mouth two times a day. X5 days - last dose 05/04/25 - acetaminophen (TYLENOL) 325 mg tablet Take 2 tablets by mouth every 6 hours as needed (Mild Pain (1-3)). Problem List As Of Date: 05/06/2025 (None) Encounter Status:Closed by BILLIELUZ MARIA MENDES on 05/06/25 Normal [facility] CULTURE, URINE, ROUTINEon CULTURE, URINE, ROUTINE SEE NOTE Abnormal Q uest Diagnostics Comment on above: Result Comment: CULTURE, URINE, ROUTINE Micro Number: [id number] Test Status: Final Specimen Source: Urine Specimen Quality: Adequate Result: Greater than 100,000 CFU/mL of Citrobacter freundii C.freundii INT CHLOE AMOX/CLAVULANATE R <=2 CEFAZOLIN R >=32 1 CEFEPIME S <=0.12 CEFTAZIDIME S <=0.5 CEFTRIAXONE S <=0.25 CIPROFLOXACIN S <=0.06 GENTAMICIN S <=1 IMIPENEM S <=0.25 LEVOFLOXACIN S <=0.12 MEROPENEM S <=0.25 NITROFURANTOIN S <=16 PIP/TAZOBACTAM S <=4 TRIMETHOPRIM/SULFA S <=20 S = Susceptible I = Intermediate R = Resistant NS = Not susceptible SDD = Susceptible Dose Dependent * = Not Tested NR = Not Reported NN = See Therapy Comments THERAPY COMMENTS Note 1: For uncomplicated UTI caused by E. coli, K. pneumoniae or P. mirabilis: Cefazolin is susceptible if CHLOE <32 mcg/mL and predicts susceptible to the oral agents cefaclor, cefdinir, cefpodoxime, cefprozil, cefuroxime, cephalexin and loracarbef. Performed By: #### 3 95 #### [facility] [address], [address] [place] [address] Manager Print: Teofilo Prather 05-01-2025 [facility] VIOLETA ELIZABETH ([id number]) 1955 F Date Time Provider Department 05/01/25 EMELYN MICHELLE [facility] During your visit today, we recorded the following information about you: Emelyn Michelle PA-C 05/01/2025 5:01 PM Signed Patient is currently at [facility] for TA biopsy procedure. Tomorrow morning Please call and help schedule patient for follow up with me next week to review her symptoms and hopefully biopsy results. Additionally please confirm whether she was started on antibiotics by her primary care provider for UTI? Please confirm medication and current dose/duration. If on antibiotics, we will continue those for the full duration as prescribed by PCP, then plan to start bactrim prophylaxis Tuesday, Tuesday after she completes the treatment for UTI. Additionally, we should continue prednisone until we have final biopsy results. I sent in additional taper instructions. I sent in anther week of pred 60 mg then taper by 10 mg per week thereafter. Please advise patient that I am out on vacation until Next week but covering provider can help tomorrow/Tuesday if any urgent concerns. Layne Reed MA 05/02/2025 8:51 AM Signed Received a call from Sven at [facility] in [place]. The directions on the prescription repeat and he would like clarification before filling the medication for the patient. Dosage in question is in bold below. Please clarify on how to proceed. Please send new Rx if directions should be changed. Current sig: Take 3 tablets by mouth once daily for 7 days, THEN 2.5 tablets once daily for 7 days, THEN 2 tablets once daily for 7 days, THEN 2 tablets once daily for 7 days, THEN 1.5 tablets once daily for 7 days, THEN 1 tablet once daily for 7 days. Do not stop suddenly. KRISTI Blackman Tiffany M, APRN.GAGANDEEP 05/02/2025 8:56 AM Signed ok to resend, line omitted Patient's request for medication is as follows Requested Prescriptions Signed Prescriptions Disp Refills predniSONE (DELTASONE) 20 mg tablet 70 tablet 0 Sig: Take 3 tablets by mouth once daily for 7 days, THEN 2.5 tablets once daily for 7 days, THEN 2 tablets once daily for 7 days, THEN 1.5 tablets once daily for 7 days, THEN 1 tablet once daily for 7 days. Do not stop suddenly.. Authorizing Provider: SIDRA OSWALD Order entered - please phone pharmacy and notify patient. Sidra Oswald APRN.Jenni Fisher RN 05/02/2025 9:28 AM Signed Patient called. States that she is doing well after her biopsy yesterday and reporting only ear discomfort due to the dressing at this time. Pt scheduled for follow up 05/08/25. Patient states that she is currently taking Bactrim DS 800-160 1 tab PO BID x 5 days. Her last dose will be Tuesday evening. Prophylaxis bactrim explained to the patient and asks to be notified if it is ordered. She is also asking to discuss it at her appointment 05/08/25. Patient notified of Prednisone script and taper instructions. Patient states that her pain has been much better since starting the prednisone. AGUS Garvin Danelle, RN 05/02/2025 9:28 AM Signed Addended by: JENNI CURIEL on: 05/02/2025 09:28 AM Modules accepted: Louise Begum MA 05/03/2025 2:30 PM Signed Patient phoned to inquire about bactrim prophylaxis as discussed. Provider message she does not need bactrim prophylax. at this time as she is only on prednisone and not on a DMARD. Sidra Oswald APRN.JOB SPOTTER was relayed to patient. She reports understanding. Louise Rowland MA Allergies As of Date: 05/01/2025 (No Known Allergies) Date Reviewed: 05/01/2025 Reviewed by: Silvia Garcia RN - Fully Assessed Reason for Visit: Orders [681] Visit Diagnoses:Polyarthral nina [M25.50] Weakness generalized [R53.1] Elevated antinuclear antibody (BRIDGETTE) level [R76.8] Elevated sed rate [R70.0] Elevated C-reactive protein (CRP) [R79.82] Order(s):predniSONE (DELTASONE) 20 mg tabletTake 3 tablets by mouth once daily for 7 days, THEN 2.5 tablets once daily for 7 days, THEN 2 tablets once daily for 7 days, THEN 1.5 tablets once daily for 7 days, THEN 1 tablet once daily for 7 days. Do not stop suddenly..Disp: 70 tabletRfl: 0 Prescriptions as of 05/03/2025 - predniSONE (DELTASONE) 20 mg tablet Take 3 tablets by mouth once daily for 7 days, THEN 2.5 tablets once daily for 7 days, THEN 2 tablets once daily for 7 days, THEN 1.5 tablets once daily for 7 days, THEN 1 tablet once daily for 7 days. Do not stop suddenly.. - sulfamethoxazole-trim ethoprim (BACTRIM DS) 800-160 mg per tablet Take 1 tablet by mouth two times a day. X5 days - last dose 05/04/25 - acetaminophen (TYLENOL) 325 mg tablet Take 2 tablets by mouth every 6 hours as needed (Mild Pain (1-3)). Problem List As Of Date: 05/01/2025 (None) Prescriptions ordered this encounter Disp (more content not included)... Normal [facility] OPERATIVE NOon 05-01-2025 OPERATIVE NO HNO ID: [id number] Author: MANE COLBERT MD Service: Ophthalmology Author Type: Fellow Type: Operative Report Filed: 05/01/2025 15:29 Note Text: PATIENT: Violeta Elizabeth DATE OF : 1955 DATE OF SURGICAL PROCEDURE: 05/01/2025 Preop diagnosis: 1. Headaches Post op diagnosis: same Procedure: 1. left temporal artery biopsy, CPT 40482 Attending Surgeon: Mane Colbert Surgeons: Surgeons and Role: * Mane Colbert MD - Primary Anesthesia: Local infiltration Specimens: 1. Left superficial temporal artery, in formalin EBL: Minimal Complications: none Dispo: stable to home INDICATIONS FOR PROCEDURE: The patient is a 69 year old female patient referred by TERESSA Enrique with concerns of giant cell arteritis in setting of headaches, inflammatory marker elevation. The patient was referred to oculofacial plastics for temporal artery biopsy. The risks and benefits of the procedure were explained to the patient. The patient agreed to go forward with the surgery. DESCRIPTION OF PROCEDURE: The patient came to the operating room and was placed in the supine position on the operating room table. The location of the artery was mapped with palpation and marked with a surgical pen. 2% lidocaine with 1:100,000 epinephrine was injected in the region of the left superficial temporal artery. After anesthesia was obtained, a vertical incision was made behind the hairline, approximately 4 cm in length. This was carried down through the superficial tissues. The branch of the frontal and parietal branches of the superficial temporal artery was located superior to the temporalis fascia. The length of the artery was dissected free from the surrounding tissues using blunt tipped scissors and cotton tipped applicators. Sutures of 4-0 silk were then used to tie the distal and proximal ends of the artery and any branch points. Approximately, 3.0 cm of artery (in aggregate) was then cut from the surrounding tissue with scissors. This was sent for permanent pathology to evaluate for temporal arteritis. Bipolar cautery was used to obtain hemostasis. The wound was then thoroughly irrigated. There was no further bleeding. The wound was then closed in layered fashion using 5-0 vicryl stitches, deep. The skin edges were then reapproximated with 5-0 plain gut stitches. The surgery was then completed. Antibiotic ointment was applied to the wound and a dressing was placed. The patient was then sent to the postanesthesia care unit in stable condition. Dr. Colbert was present and scrubbed for all steps of the surgery. [facility] Pathology biopsy report Sravan (Tiss)on 05-01-2025 AP DISCLAIMER Normal [facility] Comment on above: Order Comment: Deng mora Type: BLOOD SPECIMEN Ordering Facility: [facility] Address: [address] [place] [address] Result Comment: Ethel camejo Developed Test (LDT) Disclaimer: Performance characteristics of immunohistochemical, immunofluorescent, and chromogenic in-situ hybridization tests have been determined by the performing laboratory within [facility]'s [facility] Pathology and Laboratory Medicine Department ([facility], [facility], [facility], [facility], [facility], [facility], or [facility]) in a manner consistent with CLIA requirements. One or more of these tests may not have been cleared or approved by the FDA. RT-PLM is regulated under CLIA as qualified to perform high-complexity testing. These tests are used for clinical purposes. These should not be regarded as investigational or for research. Positive and negative controls stain appropriately. Performed By: #### 5 1775-5, 76649-9, 92468-6, 22114-6, 35048-5, 79692-2, 22040-7, 90956-3 #### [facility] CLIA [id number] [address] [place] [address] [place] CASE REPORT Normal [facility] Comment on above: Order Comment: Deng mora Type: BLOOD SPECIMEN Ordering Facility: [facility] Address: [address] [place] [address] Result Comment: Surg ical Pathology Report Case: [id number] Authorizing Provider: Mane Colbert MD Collected: 05/01/2025 03:30 PM Ordering Location: Ophthalmology Received: 05/01/2025 08:22 PM Pathologist: Wu Gill MD, PhD Specimen: Artery, Temporal, Biopsy, left temporal artery in formalin Performed By: #### 5 1775-5, 55526-7, 55416-2, 61530-4, 04859-4, 39794-9, 48913-5, 26241-6 #### [facility] CLIA [id number] [address] [place] [address] [place] CLINICAL HISTORY concern for giant cell arteritis [facility] Comment on above: Order Comment: Speci men Type: BLOOD SPECIMEN Ordering Facility: [facility] Address: [address] [place] [address] Performed By: #### 5 1775-5, 45152-7, 43476-4, 65422-6, 35111-1, 75098-1, 88299-1, 87079-1 #### [facility] CLIA [id number] [address] [place] [address] DIAGNOSIS COMMENT Normal [facility] Comment on above: Order Comment: Speci men Type: BLOOD SPECIMEN Ordering Facility: [facility] Address: [address] [place] [address] Result Comment: A. A Movat stain was performed to assess the vascular architecture with adequate control. A Movat stain shows a segment of muscular type artery with <10% fragmentation of the internal elastic lamina. There is mild intimal hyperplasia with less than 30% luminal stenosis. There are no inflammatory infiltrates noted in the intima, media, or adventitia. The media shows no evidence of neovascularization or scars. There is no evidence of active or healed arteritis in this biopsy. Performed By: #### 5 1775-5, 10881-9, 58874-4, 75781-9, 68601-2, 44891-1, 32702-5, 65323-7 #### [facility] CLIA [id number] [address] [place], [place] [id number] [facility] OF [place] FINAL DIAGNOSIS [facility] Comment on above: Order Comment: Speci men Type: BLOOD SPECIMEN Ordering Facility: [facility] Address: [address] [place] [address] Result Comment: A. L eft temporal artery, biopsy: - Negative for arteritis. at 1615 EDT Performed By: #### 5 1775-5, 99462-5, 07532-6, 24289-6, 73357-9, 92808-2, 31525-2, 01652-4 #### [facility] CLIA [id number] [address] [place] [address] OF [facility] FINAL PERFORMING LAB Normal [facility] Comment on above: Order Comment: Speci men Type: BLOOD SPECIMEN Ordering Facility: [facility] Address: [address] [place] [address] Result Comment: Diag nostic interpretation performed at: [facility], [address] [place] [address] CLIA# [id number] Cash Management Clerk: Garry Rodriguez MD Performed By: #### 5 1775-5, 06756-3, 81632-5, 60491-7, 29553-6, 60226-6, 58003-9, 87171-8 #### [facility] CLIA [id number] [address] [place] [address] GROSS DESCRIPTION Normal [facility] Comment on above: Order Comment: Speci men Type: BLOOD SPECIMEN Ordering Facility: [facility] Address: [address] [place] [address] Result Comment: A. A rtery, Temporal, Biopsy Received in formalin are two segments of cylindrical tissue aggregating to 1.8 x 0.5 x 0.3 cm, pink-yellow and of a rubbery consistency. Totally submitted in one cassette. Gross examination performed at [facility], [address] [place] [address] FFS 05/02/2025 12:20 AM Performed By: #### 5 1775-5, 75745-4, 07545-9, 99967-2, 78826-5, 84505-2, 28308-8, 05780-2 #### 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 Advised TABx, referred to oculofacial plastics. Treatment with oral prednisone commenced 04/27/25. Additional Work-up: CRP 10, ESR 86 Assessment: Concern for giant cell arteritis - Scenario described above. Will plan for tomorrow afternoon at 2:00 PM (tentative, she is going to see if she can schedule with another surgeon closer to home) - Discussed temporal artery biopsy procedure in detail with patient. Goal is to take a segment of artery (~2cm) for the pathologist to examine for evidence of giant cell arteritis. Incision will be behind hairline or just in front of hairline (depending on artery course) usually 4-5 cm in length. A dressing will be placed and after removal on post-op day 2, bacitracin or erythromycin ointment will be applied 4x daily for 5 days. All sutures dissolve, no need for post op appt with Dr. Colbert. A false negative result is possible and in some cases the referring doctor will subsequently recommend biopsy of the contralateral side in the setting of an initial negative result. This is at the discretion of the referring doctor. Risks of procedure include temporary discomfort or numbness in the area of the surgery. There will be a scar anywhere an incision is made, though behind hairline to make it less obvious. Less likely risks include inadequate specimen, hypertrophic scar, bleeding, hematoma, infection, inflammation, damage to nearby structures (nerve or muscle). Patient understands and would like to proceed. - Steroids will be managed by referring doctor, not Dr. Colbert Plan: Left (or right) temporal artery biopsy Allergies As of Date: 04/30/2025 (No Known Allergies) Date Reviewed: 04/25/2025 Reviewed by: Layne Reed MA - Fully Assessed Primary Visit Diagnosis:Headaches [R51.9] Order(s):SURGICAL REQUEST - ADD ON CASE [[id number]] Order #: [id number]: 1 Prescriptions as of 04/30/2025 - predniSONE (DELTASONE) 20 mg tablet Take 3 tablets by mouth once daily for 5 days. Problem List As Of Date: 04/30/2025 (None) Encounter Status:Closed by MANE COLBERT on 04/30/25 [facility] Cardiology Visit Reporton Cardiology Visit Report [facility] [address] [place] [address] OFFICE VISIT Date of Service: 04/30/25 MR#: [id number] Acct: [id number] Name: VIOLETA ELIZABETH Rep #: [id number] : 1955 Provider: Dr. Yannick castillo MD Age/Sex: 69/F Location: [facility] Status: Signed HPI HPI History of Present Illness Details: Patient is a 69-year-old white female that comes in today following a left heart catheterization done 04/05/2025. The patient is originally scheduled as a new patient visit due to an abnormal stress test. However she called in the office complaining of intensifying chest pains and was sent to the emergency department. She subsequently was evaluated there and underwent left heart catheterization which showed normal coronary arteries. No LV gram was performed. The patient did not have an echocardiogram done on this admission however in December 2022 her echo was normal with an EF of 60% and she had normal LV function on a stress echocardiogram March 19, 2025. The patient's stress test was abnormal because of some worsening baseline EKG changes in the inferior lateral leads. It was noted on the stress report this could be a false positive. The hospital team felt this was musculoskeletal in etiology. The patient subsidy been evaluated and is starting treatment with prednisone through the [facility] rheumatology department. The feeling is that she either has giant cell arteritis or polymyalgia rheumatica. She started prednisone 4 days ago and already feels markedly improved. She is being scheduled for temporal artery biopsy. The patient's chest discomfort has essentially resolved. 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 Yannick Obrien MD) Chest pain Palpitations Abnormal stress test Dyslipidemia HTN (hypertension), benign Ruptured ovarian cyst Surgical History H/O elbow surgery Family History Father Heart disease CABG Myocardial infarction Mother Heart disease Brother Heart disease CABG Brother Myocardial infarction CVA (cerebral vascular accident) Social History Smoking Status: Former smoker alcohol intake: never substance use type: does not use caffeine: No ROS Const Const: Positive for fatigue and weakness ENT ENT: Negative for dizziness or balance problems Cardio Chest Pain: Yes Palpitations: No Edema: None Muscle aches with walking: None Resp Respiratory: Positive for SOB with activity and SOB at rest; Negative for SOB orthopnea SOB lying down GI GI: Negative nausea, vomiting or heartburn Musc Musc: Negative for muscle weakness or balance problems Neuro Neuro: Positive for weakness; Negative for dizziness, lightheadedness, near syncope or syncope Endo Endo: Positive for fatigue Cardiology Exam Const Appearance: cooperative, comfortable, no acute distress and well developed Head Head: normal to inspection Patient is wearing a mask. Eyes General: appearance normal, both eyes and all related structures Neck Neck: normal visual inspection and no JVD Carotids: Negative bruit Chest Chest inspection: normal inspection of the chest Auscultation: Bilateral: Clear to Auscultation Cardio Rate: regular rate Rhythm: regular rhythm Heart sounds: S1 normal and S2 normal; Negative rub, gallop or murmur GI GI: normal to inspection Neuro General: patient alert and patient oriented x3 Extremities Lower Extremity Edema: None: Bilateral Psych Psychological: normal affect Supplemental Info Supplemental Information Labs: HDL Cholesterol 69 mg/dL (40-) Cholesterol 173 mg/dL (<=200) Triglycerides 107 mg/dL (-199) Diagnostics: Electrocardiogram Catheterization Lab Chest CTA Pulmonary: No Data to Display Past Visits: Cardiology Visit 04/30/25 Assessment and Plan Assessment and Plan (1) Chest pain: Status: Acute Qualifiers: Chest pain t (more content not included)... Normal [facility] - Chemistry and C hemistry - challengeon 04-30-2025 Bilirubin Ql (U) Negative [facility]. Ketones Ql (U) Negative Normal [facility] K Spine, SamEnrico. pH (U) 6.0 [pH] Normal [facility] [place]. Specific gravity (U) [Rel density] 1.010 Normal [employer].; [facility]. Urobilinogen Qn (U) 0.2 mg/dL Normal [facility] [employer].; [place]. Laboratory - Hematology and Cell countson 04-30-2025 Hemoglobin Ql (U) trace, hemolyzed Abnormal [facility] [employer].; [place]. Laboratory - Specimen inform ationon 04-30-2025 Appearance (U) Cloudy Abnormal [facility] [employer].; [place]. Color (U) dark Yellow Normal [facility].; [facility]. Laboratory - Urinalysison Glucose Test strip (U) [Mass/Vol] Negative Normal [employer].; [place]. Leukocyte esterase Test strip Ql (U) small Abnormal [employer].; [place]. Nitrite Ql (U) Positive Abnormal [employer].; [place]. Protein Ql (U) Negative Normal [employer].; [place]. No Panel Informationon 04-30 CULTURE, URINE, ROUTINE SEE NOTE Abnormal H [employer].; [place]. CNPNon 04-29-2025 [facility] VIOLETA ELIZABETH ([id number]) 1955 F Date Time Provider Department 04/29/25 [facility] During your visit today, we recorded the following information about you: Layne Reed MA 04/29/2025 2:17 PM Signed Patient calling in today with update. Patient started prednisone on Tuesday. Her pain is somewhat better. Memory is still terrible. She had cold sweats on Tuesday night and had to get up and change sheets and pajamas in the middle of the night. She noticed on Tuesday that her cough was better. Joint and skeletal pain was improved. She was able to do ADL's without laying down or using a chair and was able to work on laundry without a break. Last night was not able to get warm, woke up with chest pain/jaw pain. 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 Today she has not been as active. She is still wearing a back brace. Is questioning why her blood pressure has been so high, but in our office it was normal. Urine is very smelly and has been for the last 6 months. She has scoliosis and feels like it has worsened too. She wants to have an order for a C-collar as she has difficulty holding her head up, a blood pressure cuff to check blood pressure at home and an order for a new back brace as the current one is 8 years old. Please call patient back to review labs and discuss further. [phone]. Vanessa Lewis LPN 04/29/2025 2:12 PM Signed Patient calling back stating she forgot to tell you something and would like a call back. NEISHA Logan Kaitlyn, PA-C 04/29/2025 3:29 PM Signed Called patient: States no bad side effects on prednisone. The severity of her back, neck, shoulder, and arm pain is improving. She does still have the pain though. Probably 90% improved. Low back pain is persistent and severe. Has been present since COVID diagnosis at some point, not originally mentioned at our initial consult. She wants to get back brace. Advised against this given no clear etiology of back pain. Will get Cervical and lumbar XR. 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 Prednisone helped headache some, but it still persists. Left>right. Also cheekbone pain and ear pain persists, but improved. Feels energy from prednisone. Her neck still feels week. She feels she cannot hold up her neck. She wants a c collar. Advised against this without clear etiology of neck weakness. GCA symptoms are often very dramatically responsive to steroids of 60 mg daily within a few days, it is unusual for her to have GCA and not have complete resolution of symptoms. This is all the more reason why we need to see rheumatology Physician. I'm working on getting her in sooner but she will need to travel. I'm going to try to arrange biopsy of temporal artery to confirm diagnosis. Discussed risk of false negative, skip lesion and negative result doesn't rule out condition completely. Positive result does help confirm diagnosis however. Urine is suggestive of an infection. 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 Steroids can cause night sweats - she states they were not present until after starting prednisone. Steroids can increase blood pressure, she should follow up with her primary care provider if BP remains elevated. I don't routinely order BP machine, I'm not sure how to do so. She can order online or get one at a local pharmacy, or call her primary care provider for these issues. Time spent in phone call: 24 minutes Layne Reed MA 04/29/2025 4:03 PM Signed OV notes and lab work faxed to PCP office. Layne Reed MA 04/30/2025 4:09 PM Signed Emelyn Michelle PA-C You; waldemar Mariahmigel Pool29 minutes ago (3:40 PM) Please see if she can come tomorrow at 3:30? Layne Reed MA 04/30/2025 4:10 PM Signed Patient has been contacted and scheduled for tomorrow at 3:30 pm. 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 Normal [facility] ANTI NEUTRO CYTO ABon 2024 INTERPRETATION (ANCA) Equivocal staining seen on the ethanol (indirect immunofluorescence screen) slide but negative results on follow up confirmatory testing. Anti-nuclear antibody test may be considered. Clinical correlation is required. [facility] Comment on above: Order Comment: Speci men Type: BLOOD SPECIMEN Ordering Facility: [facility] Address: [address] [place] [address] Performed By: #### 5 1775-5, 67456-9, 12843-6, 00825-4, 82353-8, 30597-7, 53565-0, 90742-8 #### [facility] CLIA [id number] [address] [place] [address] [place] Myeloperoxidase Ab Qn (S) <0.2 Normal <1.0 [facility] Comment on above: Order Comment: Speci men Type: BLOOD SPECIMEN Ordering Facility: [facility] Address: [address] [place] [address] Performed By: #### 5 5-5, 27169-0, 22089-4, 16518-9, 53709-7, 17590-9, 21346-5, 02095-9 #### [facility] CLIA [id number] [address] [place] [address] [place] Neutrophil cytoplasmic Ab.classic IF Ql (S) Negative Normal Negative [facility] Comment on above: Order Comment: Speci men Type: BLOOD SPECIMEN Ordering Facility: [facility] Address: [address] [place] [address] Performed By: #### 5 5-5, 63305-0, 12758-2, 77031-5, 60419-3, 04823-5, 51384-1, 01519-9 #### [facility] CLIA [id number] [address] [place] [address] [place] Neutrophil cytoplasmic Ab.perinuclear IF Ql (S) Negative Normal Negative [facility] Comment on above: Order Comment: Speci men Type: BLOOD SPECIMEN Ordering Facility: [facility] Address: [address] [place] [address] Performed By: #### 5 1775-5, 40018-8, 35137-1, 19094-9, 55181-5, 56330-5, 16270-9, 63611-2 #### [facility] CLIA [id number] [address] [place] [address] [place] Proteinase 3 Ab Qn (S) 0.2 AI Normal <1.0 [facility] Comment on above: Order Comment: Speci men Type: BLOOD SPECIMEN Ordering Facility: [facility] Address: [address] [place] [address] Performed By: #### 5 1775-5, 17976-4, 17380-1, 37979-7, 33280-1, 05169-8, 94755-2, 87964-4 #### [facility] CLIA [id number] [address] [place] [address] OF [place] STAFF REVIEW (ANCA) Reviewed by Dr. Fina Licea MD [facility] Comment on above: Order Comment: Speci men Type: BLOOD SPECIMEN Ordering Facility: [facility] Address: [address] [place] [address] Performed By: #### 5 1775-5, 46181-4, 19623-1, 55847-9, 41162-8, 10411-6, 68415-0, 71704-5 #### [facility] CLIA [id number] [address] [place] [address] [place] CBC W Auto Differential pane l (Bld)on 04-27-2025 Basophils (Bld) [#/Vol] 0.04 10*3/uL Normal <0.11 [facility] Comment on above: Order Comment: Speci men Type: BLOOD SPECIMEN Ordering Facility: [facility] Address: [address] [place] [address] Performed By: #### 5 1775-5, 76358-3, 86701-5, 79567-0, 31473-3, 97346-2, 34614-6, 42604-3 #### [facility] CLIA [id number] [address] [place] [address] [place] Basophils/100 WBC (Bld) 0.4 % Normal [facility] Comment on above: Order Comment: Speci men Type: BLOOD SPECIMEN Ordering Facility: [facility] Address: [address] [place] [address] Performed By: #### 5 5-5, 18367-5, 80004-0, 92321-0, 16935-1, 80152-9, 86172-7, 24127-7 #### [facility] CLIA [id number] [address] [place] [address] [place] Differential cell count method Nom (Bld) Auto Normal [facility] Comment on above: Order Comment: Speci men Type: BLOOD SPECIMEN Ordering Facility: [facility] Address: [address] [place] [address] Performed By: #### 5 1774-5, 32023-0, 11421-3, 36923-3, 32835-0, 92343-3, 03615-6, 23583-5 #### [facility] CLIA [id number] [address] [place] [address] [place] Eosinophils (Bld) [#/Vol] 0.11 10*3/uL Normal <0.46 [facility] Comment on above: Order Comment: Speci men Type: BLOOD SPECIMEN Ordering Facility: [facility] Address: [address] [place] [address] Performed By: #### 5 1774-5, 68243-4, 22584-3, 11371-4, 21320-0, 54674-3, 68000-6, 47798-2 #### [facility] CLIA [id number] [address] [place] [address] [place] Eosinophils/100 WBC (Bld) 1.1 % Normal [facility] Comment on above: Order Comment: Speci men Type: BLOOD SPECIMEN Ordering Facility: [facility] Address: [address] [place] [address] Performed By: #### 5 5-5, 12799-8, 31888-3, 56472-0, 35881-6, 87305-1, 18005-2, 98409-0 #### [facility] CLIA [id number] [address] [place] [address] [place] Erythrocyte distribution width (RBC) [Ratio] 12.3 % Normal 11.5-15.0 [facility] Comment on above: Order Comment: Speci men Type: BLOOD SPECIMEN Ordering Facility: [facility] Address: [address] [place] [address] Performed By: #### 5 1775-5, 27868-3, 31403-9, 46824-3, 52155-9, 16329-7, 64593-5, 11839-2 #### [facility] CLIA [id number] [address] [place] [address] [place] Hematocrit (Bld) [Volume fraction] 37.3 % Normal 36.0-46.0 [facility] Comment on above: Order Comment: Speci men Type: BLOOD SPECIMEN Ordering Facility: [facility] Address: [address] [place] [address] Performed By: #### 5 1774-5, 11104-3, 67627-8, 53878-6, 26083-3, 56989-2, 21923-3, 13232-7 #### [facility] CLIA [id number] [address] [place], [place] [address] [place] Hemoglobin (Bld) [Mass/Vol] 12.4 g/dL Normal 11.5-15.5 [facility] Comment on above: Order Comment: Speci men Type: BLOOD SPECIMEN Ordering Facility: [facility] Address: [address] [place] [address] Performed By: #### 5 1775-5, 95524-0, 18360-6, 53764-4, 76538-1, 53069-5, 44246-3, 55020-3 #### [facility] CLIA [id number] [address] [place] [address] [place] Immature granulocytes (Bld) [#/Vol] 0.03 10*3/uL Normal <0.10 [facility] Comment on above: Order Comment: Speci men Type: BLOOD SPECIMEN Ordering Facility: [facility] Address: [address] [place] [address] Performed By: #### 5 1775-5, 06795-0, 08851-3, 55484-3, 32059-7, 26231-2, 52716-1, 76217-3 #### [facility] CLIA [id number] [address] [place] [address] [place] Immature granulocytes/100 WBC (Bld) 0.3 % Normal [facility] Comment on above: Order Comment: Speci men Type: BLOOD SPECIMEN Ordering Facility: [facility] Address: [address] [place] [address] Performed By: #### 5 1775-5, 07638-2, 91158-8, 58239-9, 38135-7, 62543-4, 18126-9, 71244-5 #### [facility] CLIA [id number] [address] [place] [address] [place] Lymphocytes (Bld) [#/Vol] 0.97 10*3/uL Low 1.00-4.00 [facility] Comment on above: Order Comment: Speci men Type: BLOOD SPECIMEN Ordering Facility: [facility] Address: [address] [place] [address] Performed By: #### 5 1775-5, 95158-2, 93187-1, 83391-5, 24261-5, 58898-5, 88258-1, 03053-5 #### [facility] CLIA [id number] [address] [place] [address] [place] Lymphocytes/100 WBC (Bld) 9.4 % Normal [facility] Comment on above: Order Comment: Speci men Type: BLOOD SPECIMEN Ordering Facility: [facility] Address: [address] [place] [address] Performed By: #### 5 5-5, 88616-5, 19141-0, 74484-7, 87911-4, 27030-5, 46115-0, 24708-4 #### [facility] CLIA [id number] [address] [place] [address] [place] MCH (RBC) [Entitic mass] 31.4 pg Normal 26.0-34.0 [facility] Comment on above: Order Comment: Speci men Type: BLOOD SPECIMEN Ordering Facility: [facility] Address: [address] [place] [address] Performed By: #### 5 5-5, 03512-6, 95982-3, 13733-1, 96297-7, 22103-6, 61247-6, 52399-5 #### [facility] CLIA [id number] [address] [place] [address] [place] MCHC (RBC) [Mass/Vol] 33.2 g/dL Normal 30.5-36.0 [facility] Comment on above: Order Comment: Speci men Type: BLOOD SPECIMEN Ordering Facility: [facility] Address: [address] [place] [address] Performed By: #### 5 1774-5, 26246-4, 03564-9, 71557-6, 51749-2, 61065-2, 14444-3, 85537-1 #### [facility] CLIA [id number] [address] [place] [address] [place] MCV (RBC) [Entitic vol] 94.4 fL Normal 80.0-100.0 [facility] Comment on above: Order Comment: Speci men Type: BLOOD SPECIMEN Ordering Facility: [facility] Address: [address] [place] [address] Performed By: #### 5 1775-5, 91991-1, 42846-0, 11298-1, 75163-5, 65802-9, 27563-0, 91684-6 #### [facility] CLIA [id number] [address] [place], [place] [address] [place] Monocytes (Bld) [#/Vol] 0.24 10*3/uL Normal <0.87 [facility] Comment on above: Order Comment: Speci men Type: BLOOD SPECIMEN Ordering Facility: [facility] Address: [address] [place] [address] Performed By: #### 5 1775-5, 02340-1, 02351-9, 03042-1, 39489-3, 00467-1, 13637-6, 41225-8 #### [facility] CLIA [id number] [address] [place] [address] [place] Monocytes/100 WBC (Bld) 2.3 % Normal [facility] Comment on above: Order Comment: Speci men Type: BLOOD SPECIMEN Ordering Facility: [facility] Address: [address] [place] [address] Performed By: #### 5 1775-5, 35264-2, 59436-0, 81686-2, 66823-2, 60195-1, 00876-1, 16665-8 #### [facility] CLIA [id number] [address] [place] [address] [place] Neutrophils (Bld) [#/Vol] 8.96 10*3/uL High 1.45-7.50 [facility] Comment on above: Order Comment: Speci men Type: BLOOD SPECIMEN Ordering Facility: [facility] Address: [address] [place] [address] Performed By: #### 5 1775-5, 81911-0, 03026-8, 74238-1, 42860-0, 26917-2, 38462-0, 63785-6 #### [facility] CLIA [id number] [address] [place] [address] [place] Neutrophils/100 WBC (Bld) 86.5 % Normal [facility] Comment on above: Order Comment: Speci men Type: BLOOD SPECIMEN Ordering Facility: [facility] Address: [address] [place] [address] Performed By: #### 5 5-5, 55975-9, 70669-0, 10796-3, 04510-4, 08727-9, 38056-0, 56047-5 #### [facility] CLIA [id number] [address] [place] [address] [place] Nucleated RBC (Bld) [#/Vol] 10*3/uL Normal <0.01 [facility] Comment on above: Order Comment: Speci men Type: BLOOD SPECIMEN Ordering Facility: [facility] Address: [address] [place] [address] Performed By: #### 5 1774-5, 89484-8, 38540-5, 17815-7, 88578-8, 66629-9, 55544-1, 41572-4 #### [facility] CLIA [id number] [address] [place] [address] [place] Nucleated RBC/100 WBC (Bld) [Ratio] 0.0 /100 WBC Normal [facility] Comment on above: Order Comment: Speci men Type: BLOOD SPECIMEN Ordering Facility: [facility] Address: [address] [place] [address] Performed By: #### 5 1774-5, 48138-1, 73492-5, 39703-9, 88991-2, 56140-1, 03433-4, 80835-0 #### [facility] CLIA [id number] [address] [place] [address] [place] Platelet mean volume (Bld) [Entitic vol] 11.0 fL Normal 9.0-12.7 [facility] Comment on above: Order Comment: Speci men Type: BLOOD SPECIMEN Ordering Facility: [facility] Address: [address] [place] [address] Performed By: #### 5 1774-5, 86482-7, 36103-3, 11662-5, 31499-5, 56321-9, 67582-2, 60386-8 #### [facility] CLIA [id number] [address] [place] [address] [place] Platelets (Bld) [#/Vol] 109 10*3/uL Low 150-400 [facility] Comment on above: Order Comment: Speci men Type: BLOOD SPECIMEN Ordering Facility: [facility] Address: [address] [place] [address] Performed By: #### 5 1775-5, 23159-5, 79544-5, 42091-2, 33035-9, 60371-3, 91388-6, 65497-0 #### [facility] CLIA [id number] [address] [place] [address] [place] RBC (Bld) [#/Vol] 3.95 10*6/uL Normal 3.90-5.20 [facility] Comment on above: Order Comment: Speci men Type: BLOOD SPECIMEN Ordering Facility: [facility] Address: [address] [place] [address] Performed By: #### 5 5-5, 54170-8, 60536-3, 57622-3, 08332-6, 02051-9, 08770-2, 83723-5 #### [facility] CLIA [id number] [address] [place] [address] [place] WBC (Bld) [#/Vol] 10.35 10*3/uL Normal 3.70-11.00 [facility] Comment on above: Order Comment: Speci men Type: BLOOD SPECIMEN Ordering Facility: [facility] Address: [address] [place] [address] Performed By: #### 5 1775-5, 01306-6, 19884-0, 09247-0, 28811-3, 77621-2, 34188-5, 89242-3 #### [facility] CLIA [id number] [address] [place], [place] [address] [place] Comprehensive metabolic 2000 panelon 04-27-2025 Albumin [Mass/Vol] 3.6 g/dL Low 3.9-4.9 [facility] Comment on above: Order Comment: Speci men Type: BLOOD SPECIMEN Ordering Facility: [facility] Address: [address] [place] [address] Performed By: #### 5 1775-5, 71801-0, 12356-6, 84169-9, 16417-4, 35544-6, 67573-5, 94208-3 #### [facility] CLIA [id number] [address] [place] [address] [place] ALP [Catalytic activity/Vol] 99 U/L Normal 34-123 [facility] Comment on above: Order Comment: Speci men Type: BLOOD SPECIMEN Ordering Facility: [facility] Address: [address] [place] [address] Performed By: #### 5 1775-5, 97288-0, 82650-9, 96955-4, 71274-7, 20013-3, 55922-8, 09951-0 #### [facility] CLIA [id number] [address] [place] [address] [place] ALT [Catalytic activity/Vol] 21 U/L Normal 7-38 [facility] Comment on above: Order Comment: Speci men Type: BLOOD SPECIMEN Ordering Facility: [facility] Address: [address] [place] [address] Performed By: #### 5 1775-5, 22779-2, 03832-4, 10325-4, 32080-0, 38502-4, 15157-4, 75298-3 #### [facility] CLIA [id number] [address] [place] [address] [place] Anion gap [Moles/Vol] 13 mmol/L Normal 8-15 [facility] Comment on above: Order Comment: Speci men Type: BLOOD SPECIMEN Ordering Facility: [facility] Address: [address] [place] [address] Performed By: #### 5 1775-5, 16608-3, 95454-7, 12230-2, 13774-9, 33349-4, 99230-7, 04877-8 #### [facility] CLIA [id number] [address] [place] [address] [place] AST [Catalytic activity/Vol] 22 U/L Normal 13-35 [facility] Comment on above: Order Comment: Speci men Type: BLOOD SPECIMEN Ordering Facility: [facility] Address: [address] [place] [address] Performed By: #### 5 5-5, 35623-5, 73707-7, 89959-4, 46161-3, 89154-2, 76047-7, 53227-5 #### [facility] CLIA [id number] [address] [place] [address] [place] Bilirubin [Mass/Vol] 0.7 mg/dL Normal 0.2-1.3 [facility] Comment on above: Order Comment: Speci men Type: BLOOD SPECIMEN Ordering Facility: [facility] Address: [address] [place] [address] Performed By: #### 5 5-5, 04357-5, 61627-6, 81033-8, 67428-9, 41771-8, 30593-3, 98951-8 #### [facility] CLIA [id number] [address] [place], [place] [address] [place] Calcium [Mass/Vol] 9.0 mg/dL Normal 8.5-10.2 [facility] Comment on above: Order Comment: Speci men Type: BLOOD SPECIMEN Ordering Facility: [facility] Address: [address] [place] [address] Performed By: #### 5 1775-5, 77114-5, 37404-8, 89106-2, 04089-6, 97206-8, 94778-6, 12704-5 #### [facility] CLIA [id number] [address] [place], [place] [address] [place] Chloride [Moles/Vol] 95 mmol/L Low 98-107 [facility] Comment on above: Order Comment: Speci men Type: BLOOD SPECIMEN Ordering Facility: [facility] Address: [address] [place] [address] Performed By: #### 5 1775-5, 07725-0, 86026-3, 85129-3, 30581-2, 83702-7, 33227-2, 73030-7 #### [facility] CLIA [id number] [address] [place] [address] [place] CO2 [Moles/Vol] 24 mmol/L Normal 22-30 [facility] Comment on above: Order Comment: Speci men Type: BLOOD SPECIMEN Ordering Facility: [facility] Address: [address] [place] [address] Performed By: #### 5 1775-5, 99011-5, 42450-6, 87969-7, 99399-3, 02869-4, 44973-2, 36489-9 #### [facility] CLIA [id number] [address] [place] [address] [place] Creatinine [Mass/Vol] 0.65 mg/dL Normal 0.58-0.96 [facility] Comment on above: Order Comment: Speci men Type: BLOOD SPECIMEN Ordering Facility: [facility] Address: [address] [place] [address] Performed By: #### 5 1775-5, 36632-5, 27107-4, 09087-2, 89740-7, 24709-8, 99599-6, 11675-3 #### [facility] CLIA [id number] [address] [place], [place] [address] [place] eGFRcr SerPlBld CKD-EPI 2020 94 mL/min/1.73m??? Normal >=60 [facility] Comment on above: Order Comment: Speedyanil morgan Type: BLOOD SPECIMEN Ordering Facility: [facility] Address: [address] [place] [address] Result Comment: Meron mated Glomerular Filtration Rate (eGFR) is calculated using the 2020 CKD-EPI creatinine equation. This equation utilizes serum creatinine, sex, and age as parameters. The creatinine assay has traceable calibration to isotope dilution-mass spectrometry. Refer to KDIGO guidelines for clinical interpretation. In patients with unstable renal function, e.g. those with acute kidney injury, the eGFR may not accurately reflect actual GFR. Performed By: #### 5 1775-5, 55453-1, 44319-3, 83066-9, 52786-8, 68125-8, 10707-6, 97752-6 #### [facility] CLIA [id number] [address] [place] [address] [place] Glucose [Mass/Vol] 103 mg/dL High 74-99 [facility] Comment on above: Order Comment: Deng mora Type: BLOOD SPECIMEN Ordering Facility: [facility] Address: [address] [place] [address] Result Comment: The [place] Diabetes Association (ADA) provides guidance for cutoff values for fasting glucose and random glucose. The ADA defines fasting as no caloric intake for at least 8 hours. Fasting plasma glucose results between 100 to 125 mg/dL indicate increased risk for diabetes (prediabetes). Fasting plasma glucose results greater than or equal to 126 mg/dL meet the criteria for diagnosis of diabetes. In the absence of unequivocal hyperglycemia, results should be confirmed by repeat testing. In a patient with classic symptoms of hyperglycemia or hyperglycemic crisis, random plasma glucose results greater than or equal to 200 mg/dL meet the criteria for diagnosis of diabetes. Reference: Standards of Medical Care in Diabetes 2016, [place] [employer] Association. Diabetes Care. 2016.39(Suppl 1). Performed By: #### 5 1775-5, 68535-7, 63964-1, 37461-2, 92340-6, 71608-2, 41439-4, 58954-9 #### [facility] CLIA [id number] [address] [place] [address] [place] Potassium [Moles/Vol] 4.0 mmol/L Normal 3.7-5.1 [facility] Comment on above: Order Comment: Speci men Type: BLOOD SPECIMEN Ordering Facility: [facility] Address: [address] [place] [address] Performed By: #### 5 1775-5, 14130-1, 67465-1, 24608-8, 53925-5, 71870-6, 36638-1, 98491-4 #### [facility] CLIA [id number] [address] [place] [address] [place] Protein [Mass/Vol] 6.9 g/dL Normal 6.3-8.0 [facility] Comment on above: Order Comment: Speci men Type: BLOOD SPECIMEN Ordering Facility: [facility] Address: [address] [place] [address] Performed By: #### 5 5-5, 52884-3, 96057-1, 59447-0, 17916-1, 21403-1, 25238-0, 10007-4 #### [facility] CLIA [id number] [address] [place] [address] [place] Sodium [Moles/Vol] 132 mmol/L Low 136-144 [facility] Comment on above: Order Comment: Speci men Type: BLOOD SPECIMEN Ordering Facility: [facility] Address: [address] [place] [address] Performed By: #### 5 1775-5, 95173-0, 71389-6, 58147-7, 21174-1, 28996-3, 96161-0, 18424-4 #### [facility] CLIA [id number] [address] [place] [address] [place] Urea nitrogen [Mass/Vol] 7 mg/dL Normal 7-21 [facility] Comment on above: Order Comment: Speci men Type: BLOOD SPECIMEN Ordering Facility: [facility] Address: [address] [place] [address] Performed By: #### 5 1775-5, 78146-9, 89391-9, 04190-8, 92882-6, 20045-7, 97276-0, 89628-0 #### [facility] CLIA [id number] [address] [place] [address] [place] Prot/Creat Uron 04-27-2025 Protein/Creatinine (U) [Mass ratio] 0.23 mg/mg High <0.15 [facility] Comment on above: Order Comment: Speci men Type: BLOOD SPECIMEN Ordering Facility: [facility] Address: [address] [place] [address] Result Comment: Adul t Proteinuria Categories: <0.15 mg/mg is considered normal to mildly increased 0.15 - 0.50 mg/mg is considered moderately increased >0.50 mg/mg is considered severely increased KDIGO. (2013). KDIGO 2012 Clinical Practice Guideline for the Evaluation and Management of Chronic Kidney Disease. Official Journal of the International Society of Nephrology, 3(1), 1-150. Performed By: #### 5 1775-5, 00455-9, 92598-3, 81402-6, 71636-8, 18677-2, 46313-9, 86469-6 #### [facility] CLIA [id number] [address] [place] [address] [place] Protein/Creatinine (U) [Mass ratio]on 04-27-2025 Creatinine (U) [Mass/Vol] 55.9 mg/dL Normal 20.0-300.0 [facility] Comment on above: Order Comment: Speci men Type: BLOOD SPECIMEN Ordering Facility: [facility] Address: [address] [place] [address] Performed By: #### 5 1775-5, 64534-2, 83760-3, 71180-6, 78134-3, 00385-6, 99369-6, 26455-2 #### [facility] CLIA [id number] [address] [id number] [address] [place] Protein (U) [Mass/Vol] 13 mg/dL Normal 0-20 Cl [facility] Comment on above: Order Comment: Speci men Type: BLOOD SPECIMEN Ordering Facility: [facility] Address: [address] [place] [address] Performed By: #### 5 1775-5, 08344-9, 37367-6, 43361-9, 75493-0, 15459-3, 90086-1, 60197-7 #### [facility] CLIA [id number] [address] [place] [address] [place] URINALYSIS, REFLEX MICROSCOP ICon 04-27-2025 BACTERIA UL >9821 High Negative [facility] Comment on above: Order Comment: Speci men Type: BLOOD SPECIMEN Ordering Facility: [facility] Address: [address] [place] [address] Performed By: #### 5 5-5, 76488-9, 43706-5, 18898-7, 82757-4, 00067-2, 12016-1, 85489-5 #### [facility] CLIA [id number] [address] [place] [address] [place] Bilirubin Ql (U) Negative Normal Negative [facility] Comment on above: Order Comment: Speci men Type: BLOOD SPECIMEN Ordering Facility: [facility] Address: [address] [place] [address] Performed By: #### 5 1775-5, 24252-5, 88303-4, 62201-0, 99623-1, 87399-4, 86808-5, 07350-7 #### [facility] CLIA [id number] [address] [place], [place] [id number] [place] Clarity (Unsp spec) Clear Normal Clear [facility] Comment on above: Order Comment: Speci men Type: BLOOD SPECIMEN Ordering Facility: [facility] Address: [address] [place] [address] Performed By: #### 5 1775-5, 14469-3, 29717-0, 74567-0, 08740-3, 92817-0, 78653-4, 98082-5 #### [facility] CLIA [id number] [address] [place] [address] [place] Color (U) Yellow Normal Yellow [facility] Comment on above: Order Comment: Speci men Type: BLOOD SPECIMEN Ordering Facility: [facility] Address: [address] [place] [address] Performed By: #### 5 1775-5, 52086-9, 20719-1, 07045-9, 36792-8, 51084-1, 16649-4, 66048-6 #### [facility] CLIA [id number] [address] [place] [address] [place] Epithelial cells LM.HPF (Urine sed) [#/Area] None Seen Normal [facility] Comment on above: Order Comment: Speci men Type: BLOOD SPECIMEN Ordering Facility: [facility] Address: [address] [place] [address] Performed By: #### 5 1775-5, 56270-4, 58400-4, 11213-3, 33039-8, 42690-8, 69805-0, 59252-0 #### [facility] CLIA [id number] [address] [place] [address] [place] Glucose Test strip (U) [Mass/Vol] Negative Normal Negative [facility] Comment on above: Order Comment: Speci men Type: BLOOD SPECIMEN Ordering Facility: [facility] Address: [address] [place] [address] Performed By: #### 5 1775-5, 12931-7, 85514-0, 81695-7, 34457-8, 07773-4, 73944-6, 50592-9 #### [facility] CLIA [id number] [address] [place] [address] [place] Hemoglobin Ql (U) Negative Normal Negative [facility] Comment on above: Order Comment: Speci men Type: BLOOD SPECIMEN Ordering Facility: [facility] Address: [address] [place] [address] Performed By: #### 5 1775-5, 74326-1, 25645-2, 18563-2, 06546-2, 03905-6, 70018-4, 32422-1 #### [facility] CLIA [id number] [address] [place] [address] [place] Hyaline casts (Urine sed) [#/Area] 1-3 /LPF Abnormal 0 /LPF [facility] Comment on above: Order Comment: Speci men Type: BLOOD SPECIMEN Ordering Facility: [facility] Address: [address] [place] [address] Performed By: #### 5 1774-5, 66612-7, 02879-4, 74020-7, 61367-0, 91592-5, 73187-6, 51121-4 #### [facility] CLIA [id number] [address] [place] [address] [place] Ketones Ql (U) Trace Abnormal Negative [facility] Comment on above: Order Comment: Speci men Type: BLOOD SPECIMEN Ordering Facility: [facility] Address: [address] [place] [address] Performed By: #### 5 5-5, 48502-7, 71890-0, 23491-1, 28447-2, 81531-7, 97342-4, 80625-9 #### [facility] CLIA [id number] [address] [place], [place] [address] [place] Leukocyte esterase Test strip Ql (U) 3+ Abnormal Negative [facility] Comment on above: Order Comment: Speci men Type: BLOOD SPECIMEN Ordering Facility: [facility] Address: [address] [place] [address] Performed By: #### 5 1775-5, 40186-1, 85511-2, 37731-3, 74665-4, 37748-7, 67364-4, 81386-5 #### [facility] CLIA [id number] [address] [place] [address] [place] Nitrite Ql (U) Positive Abnormal Negative [facility] Comment on above: Order Comment: Speci men Type: BLOOD SPECIMEN Ordering Facility: [facility] Address: [address] [place] [address] Performed By: #### 5 1775-5, 92426-0, 02547-5, 46955-0, 86829-2, 99930-2, 04720-5, 28292-5 #### [facility] CLIA [id number] [address] [place] [address] [place] pH (U) 6.5 [pH] Normal 5.0-8.0 [facility] Comment on above: Order Comment: Speci men Type: BLOOD SPECIMEN Ordering Facility: [facility] Address: [address] [place] [address] Performed By: #### 5 1775-5, 08481-5, 53216-4, 23934-0, 20631-8, 30180-3, 57947-2, 92123-1 #### [facility] CLIA [id number] [address] [place] [address] [place] Protein (U) [Mass/Vol] Negative Normal Negative [facility] Comment on above: Order Comment: Speci men Type: BLOOD SPECIMEN Ordering Facility: [facility] Address: [address] [place] [address] Performed By: #### 5 1775-5, 42138-3, 57526-6, 96985-6, 88572-9, 42204-1, 47019-2, 06644-7 #### [facility] CLIA [id number] [address] [place] [address] [place] RBC LM.HPF (Urine sed) [#/Area] 0-2 /HPF Normal 0-2 /HPF [facility] Comment on above: Order Comment: Speci men Type: BLOOD SPECIMEN Ordering Facility: [facility] Address: [address] [place] [address] Performed By: #### 5 5-5, 62997-8, 65156-5, 49218-3, 80171-8, 76542-4, 54299-6, 77921-2 #### [facility] CLIA [id number] [address] [place] [address] [place] Specific gravity (U) [Rel density] 1.010 Normal 1.005-1.030 [facility] Comment on above: Order Comment: Speci men Type: BLOOD SPECIMEN Ordering Facility: [facility] Address: [address] [place] [address] Performed By: #### 5 1774-5, 48606-9, 22199-7, 72011-3, 28100-0, 88444-1, 38270-0, 63075-6 #### [facility] CLIA [id number] [address] [place] [address] [place] Urobilinogen Ql (U) 0.2 EU/dL Normal 0.2-1.0 EU/dL [facility] Comment on above: Order Comment: Speci men Type: BLOOD SPECIMEN Ordering Facility: [facility] Address: [address] [place] [address] Performed By: #### 5 1774-5, 69122-5, 01804-4, 01378-8, 27526-6, 13004-6, 36524-4, 32766-7 #### [facility] CLIA [id number] [address] [place] [address] [place] WBC LM.HPF (Urine sed) [#/Area] /[HPF] Abnormal 0-5 /HPF [facility] Comment on above: Order Comment: Speci men Type: BLOOD SPECIMEN Ordering Facility: [facility] Address: [address] [place] [address] Performed By: #### 5 1775-5, 20406-7, 44948-7, 49778-4, 23664-8, 63917-6, 31860-0, 93964-9 #### [facility] CLIA [id number] [address] [place] [address] [place] [facility] CNOVon 04-26-2025 CNOV Office Visit (PLFHCW ) VIOLETA ELIZABETH ([id number]) 1955 F Date Time Provider Department 04/26/25 1:00 PM PULM LAB [facility] PLFHCW During your visit today, we recorded the following information about you: Referring Provider: EMELYN MICHELLE [[id number]] Allergies As of Date: 04/26/2025 (No Known Allergies) Date Reviewed: 04/25/2025 Reviewed by: Layne Reed MA - Fully Assessed Reason for Visit: Spirometry [191] Primary Visit Diagnosis:Shortness of breath [R06.02] Other Visit Diagnoses:Rash and nonspecific skin eruption [R21] History of COVID-19 [Z86.16] Polyarthralgia [M25.50] Elevated antinuclear antibody (BRIDGETTE) level [R76.8] Weakness generalized [R53.1] Order(s):LUNG DIFFUSION CAPACITY (DLCO) [8849618] Order #: [id number]: 1 SPIROMETRY BASELINE ONLY [[id number]] Order #: [id number]: 1 Problem List As Of Date: 04/26/2025 (None) Encounter Status:Closed by GERMAINE MARTINEZ on 04/26/25 Normal [facility] LUNG DIFFUSION CAPACITY (EH O)on 04-26-2025 LUNG DIFFUSION CAPACITY (DLCO) [facility] [place] [address] 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 The two largest FEV1s were repeatable. TGV repeatable x 3. Current ATS/ERS acceptability and repeatability standards for DLCO met with 2 acceptable maneuvers.//LC IMPRESSION: Spirometry indicates mild obstruction. Elevated lung volumes (RV and/or RV/TLC) indicate mild The diffusion capacity (uncorrected for hemoglobin) is normal. air trapping. Electronically Signed On 04-26-2025 16:51:18 EDT by Sylvia Joyner MD ID: [id number] Name: VIOLETA ELIZABETH Race: White Ht: 65.16 in Wt: 128.00 lbs Age: 69 Gender: Female : 1955 Dx: Shortness of breath Smoking Hx: Non-smoker Doctor: EMELYN MICHELLE Test Date: 04/26/2025 Site: Tech: Germaine Martinez PRE-BRONCH POST-BRONCH Teodoro LLN Pred ULN %Pred ZScore Teodoro %Pred %Chg ZScore SPIROMETRY FVC 2.74 2.01 2.85 3.72 96 -0.21 FEV1 1.67 1.53 2.20 2.83 75 -1.32 FEV1/FVC 0.61 0.65 0.78 0.89 77 -2.13 FEFMax 4.44 3.93 5.70 7.48 77 -1.18 FEF50 1.02 1.55 3.16 4.77 32 -2.19 FIF50 2.91 FEF50/FIF50 0.35 90-100 FIVC 2.54 IBS32-38 0.71 0.85 1.86 3.32 38 -1.94 ExpiredTime 10.57 TimeToFEFMax 0.09 JUNE 0.07 VolExtrap% 3 LUNG VOLUMES FRC(Pleth) 3.01 2.08 2.93 3.99 102 0.14 ERV 0.44 0.95 46 RV(Pleth) 2.57 1.23 2.06 3.15 124 0.81 SVC 2.46 2.01 2.85 3.72 86 -0.75 IC 1.96 1.90 102 TLC(Pleth) 4.96 4.08 5.17 6.39 96 -0.29 RV/TLC(Pleth) 52 27 40 53 129 1.46 LUNG DIFFUSION DLCOunc 16.52 14.58 19.43 25.40 85 -0.94 DLCOStdPB 16.29 14.58 19.43 25.40 83 -1.02 VA 4.47 3.77 4.72 5.78 94 -0.43 Kco 3.65 3.11 4.08 5.19 89 -0.71 Comments: The two largest FVCs were not repeatable. The two largest FEV1s were repeatable. TGV repeatable x 3. Current ATS/ERS acceptability and repeatability standards for DLCO met with 2 acceptable maneuvers.//LC Normal [facility] LUNG VOLUMESon 04-26-2025 DLCO (ml/min/mmHg) 16.52 ml/min/mmHg [facility] DLCO LLN (ml/min/mmHg) 14.58 ml/min/mmHg [facility] DLCO PREDICTED (ml/min/mmHg) 19.43 ml/min/mmHg [facility] DLCO ULN (ml/min/mmHg) 25.4 ml/min/mmHg [facility] DLCO/VA (ml/min/mmHg/L) 0.04 ml/m in/mmHg /L [facility] DLCO/VA PREDICTED (ml/min/mmHg/L) 0.04 ml/min/mmHg /L [facility] DLCO/VAcor (ml/min/mmHg/L) 0.04 ml/min/mmHg /L [facility] DLCOcor (ml/min/mmHg) 16.29 ml/min/mmHg Cl [facility] DLCOcor PREDICTED (ml/min/mmHg) 19.43 ml/min/mmHg [facility] ERV BOX (L) 0.44 L [facility] ERV PREDICTED (L) 0.95 L/S [facility] FEF25% PRE (L/S) 2.95 [facility] FKJ93-10% LLN (L/S) 0.85 L/S [facility] HVA26-63% PRE (L/S) 0.71 L/S [facility] DLL86-83% PREDICTED (L/S) 1.86 L/S [facility] FEF75% LLN (L/S) 0.16 L/S [facility] FEF75% PRE (L/S0 0.18 L/S [facility] FEF75% PREDICTED (L/S) 0.45 L/S Cl [facility] FEF75% ULN (L/S) 1.22 L/S [facility] FET PRE (S) 10.57 S [facility] FEV1 LLN (L) 1.53 L [facility] FEV1 PRE (L) 1.67 L [facility] FEV1 PREDICTED (L) 2.2 L [facility] FEV1 ULN (L) 2.83 L [facility] FEV1/FVC LLN (%) 65 % [facility] FEV1/FVC PRE (%) 61 % [facility] FEV1/FVC PREDICTED (%) 78 % [facility] FRC Box (L) 3.01 L [facility] FVC LLN (L) 2.01 L [facility] FVC PRE (L) 2.74 L [facility] FVC PREDICTED (L) 2.85 L [facility] FVC ULN (L) 3.72 L [facility] IC BOX (L) 1.96 L [facility] IC PREDICTED (L) 1.9 L/S [facility] PEF LLN (L/S) 3.93 L/S [facility] PEF PRE (L/S) 4.44 L/S [facility] PEF ULN (L/S) 7.48 L/S [facility] RV Box (L) 2.57 L [facility] RV Box PREDICTED (L) 2.06 L [facility] RV/TLC Box (%) 52 % [facility] RV/TLC Box PREDICTED (%) 40 % [facility] SVC LLN (L) 2.01 L/S [facility] SVC PREDICTED (L) 2.85 L/S [facility] SVC ULN (L) 3.72 L/S [facility] TLC Box (L) 4.96 L [facility] TLC Box PREDICTED (L) 5.17 L [facility] (L) 4.47 L [facility] VA PREDICTED (L) 4.[address] 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 The two largest FEV1s were repeatable. TGV repeatable x 3. Current ATS/ERS acceptability and repeatability standards for DLCO met with 2 acceptable maneuvers.//LC IMPRESSION: Spirometry indicates mild obstruction. Elevated lung volumes (RV and/or RV/TLC) indicate mild The diffusion capacity (uncorrected for hemoglobin) is normal. air trapping. Electronically Signed On 04-26-2025 16:51:18 EDT by Sylvia Joyner MD ID: [id number] Name: VIOLETA ELIZABETH Race: White Ht: 65.16 in Wt: 128.00 lbs Age: 69 Gender: Female : 1955 Dx: Shortness of breath Smoking Hx: Non-smoker Doctor: EMELYN MICHELLE Test Date: 04/26/2025 Site: [facility] Cisneros: Germaine Martinez PRE-BRONCH POST-BRONCH Teodoro LLN Pred ULN %Pred ZScore Teodoro %Pred %Chg ZScore SPIROMETRY FVC 2.74 2.01 2.85 3.72 96 -0.21 FEV1 1.67 1.53 2.20 2.83 75 -1.32 FEV1/FVC 0.61 0.65 0.78 0.89 77 -2.13 FEFMax 4.44 3.93 5.70 7.48 77 -1.18 FEF50 1.02 1.55 3.16 4.77 32 -2.19 FIF50 2.91 FEF50/FIF50 0.35 90-100 FIVC 2.54 GMC09-99 0.71 0.85 1.86 3.32 38 -1.94 ExpiredTime 10.57 TimeToFEFMax 0.09 JUNE 0.07 VolExtrap% 3 LUNG VOLUMES FRC(Pleth) 3.01 2.08 2.93 3.99 102 0.14 ERV 0.44 0.95 46 RV(Pleth) 2.57 1.23 2.06 3.15 124 0.81 SVC 2.46 2.01 2.85 3.72 86 -0.75 IC 1.96 1.90 102 TLC(Pleth) 4.96 4.08 5.17 6.39 96 -0.29 RV/TLC(Pleth) 52 27 40 53 129 1.46 LUNG DIFFUSION DLCOunc 16.52 14.58 19.43 25.40 85 -0.94 DLCOStdPB 16.29 14.58 19.43 25.40 83 -1.02 VA 4.47 3.77 4.72 5.78 94 -0.43 Kco 3.65 3.11 4.08 5.19 89 -0.71 Comments: The two largest FVCs were not repeatable. The two largest FEV1s were repeatable. TGV repeatable x 3. Current ATS/ERS acceptability and repeatability standards for DLCO met with 2 acceptable maneuvers.//LC FVC_PRE (L) : 2.74 L FVC_PRED (L) : 2.85 L FVC_LLN (L) : 2.01 L FVC_ULN (L) : 3.72 L FEV1_PRE (L) : 1.67 L FEV1_PRED (L) : 2.20 L FEV1_LLN (L) : 1.53 L FEV1_ULN (L) : 2.83 L FEV1/FVC_PRE (%) : 61 % FEV1/FVC_PRED (%) : 78 % FEV1/FVC_LLN (%) : 65 % DPU04_CTP (L/S) : 2.95 L/S RHM87_OYC (L/S) : 0.18 L/S YIA71_NUIJ (L/S) : 0.45 L/S SJA74_BFU (L/S) : 0.16 L/S GNZ69_DQG (L/S) : 1.22 L/S LLT31-10%_PRE (L/S) : 0.71 L/S HOU38-70%_PRED (L/S) : 1.86 L/S HFW72-26%_LLN (L/S) : 0.85 L/S PEF_PRE (L/S) : 4.44 L/S PEFMAX_LLN (L/S) : 3.93 L/S PEFMAX_ULN (L/S) : 7.48 L/S VC BOX (L) : 2.46 L SVC_PRED (L) : 2.85 L/S SVC_LLN (L) : 2.01 L/S SVC_ULN (L/S) : 3.72 L/S IC BOX (L) : 1.96 L IC_PRED (L) : 1.90 L/S ERV BOX (L) : 0.44 L ERV_PREDICTED (L) : 0.95 L/S DLCO (ML/MIN/MMHG) : 16.52 ml/min/mmHg DLCO_PRED (ML/MIN/MMHG) : 19.43 ml/min/mmHg DLCO_LLN(ML/MIN/MMHG) : 14.58 ml/min/mmHg DLCO_ULN (ML/MIN/MMHG) : 25.40 ml/min/mmHg FET_PRE (S) : 10.57 S FRC BOX (L) : 3.01 L RV BOX (L) : 2.57 L RV_PLETH_PRED (L) : 2.06 L TLC BOX (L) : 4.96 L TLC_PLETH_PRED (L) : 5.17 L RV/TLC BOX (%) : 52 % RV_TLC_PLETH_PRED (%) : 40 % VA (L) : 4.47 L VA_PRD (L) : 4.72 L DLCO/VA (ML/MIN/MMHG/L) : 0.04 ml/min/mmHg/L DLCO_VA_PRED (L) : 0.04 ml/min/mmHg/L DLCOCOR (ML/MIN/MMHG) : 16.29 ml/min/mmHg DLCOCOR_PRED (ML/MIN/MMHG) : 19.43 ml/min/mmHg DLCO/VACOR (ML/MIN/MMHG/L) : 0.04 ml/min/mmHg/L Normal [facility] No Panel Informationon 04-26 [facility] [place] [address] [place] [address] Test Date: 2025-04-26 Pat Name: VIOLETA ELIZABETH Department: Room: 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 The two largest FEV1s were repeatable. TGV repeatable x 3. Current ATS/ERS acceptability and repeatability standards for DLCO met with 2 acceptable maneuvers.//LC IMPRESSION: Spirometry indicates mild obstruction. Elevated lung volumes (RV and/or RV/TLC) indicate mild The diffusion capacity (uncorrected for hemoglobin) is normal. air trapping. Electronically Signed On 04-26-2025 16:51:18 EDT by Sylvia Joyner MD ID: [id number] Name: VIOLETA ELIZABETH Race: White Ht: 65.16 in Wt: 128.00 lbs Age: 69 Gender: Female : 1955 Dx: Shortness of breath Smoking Hx: Non-smoker Doctor: EMELYN MICHELLE Test Date: 04/26/2025 Site: Tech: Germaine Martinez PRE-BRONCH POST-BRONCH Teodoro LLN Pred ULN %Pred ZScore Teodoro %Pred %Chg ZScore SPIROMETRY FVC 2.74 2.01 2.85 3.72 96 -0.21 FEV1 1.67 1.53 2.20 2.83 75 -1.32 FEV1/FVC 0.61 0.65 0.78 0.89 77 -2.13 FEFMax 4.44 3.93 5.70 7.48 77 -1.18 FEF50 1.02 1.55 3.16 4.77 32 -2.19 FIF50 2.91 FEF50/FIF50 0.35 90-100 FIVC 2.54 GQP92-27 0.71 0.85 1.86 3.32 38 -1.94 ExpiredTime 10.57 TimeToFEFMax 0.09 JUNE 0.07 VolExtrap% 3 LUNG VOLUMES FRC(Pleth) 3.01 2.08 2.93 3.99 102 0.14 ERV 0.44 0.95 46 RV(Pleth) 2.57 1.23 2.06 3.15 124 0.81 SVC 2.46 2.01 2.85 3.72 86 -0.75 IC 1.96 1.90 102 TLC(Pleth) 4.96 4.08 5.17 6.39 96 -0.29 RV/TLC(Pleth) 52 27 40 53 129 1.46 LUNG DIFFUSION DLCOunc 16.52 14.58 19.43 25.40 85 -0.94 DLCOStdPB 16.29 14.58 19.43 25.40 83 -1.02 VA 4.47 3.77 4.72 5.78 94 -0.43 Kco 3.65 3.11 4.08 5.19 89 -0.71 Comments: The two largest FVCs were not repeatable. The two largest FEV1s were repeatable. TGV repeatable x 3. 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 The two largest FEV1s were repeatable. TGV repeatable x 3. Current ATS/ERS acceptability and repeatability standards for DLCO met with 2 acceptable maneuvers.//LC IMPRESSION: Spirometry indicates mild obstruction. Elevated lung volumes (RV and/or RV/TLC) indicate mild The diffusion capacity (uncorrected for hemoglobin) is normal. air trapping. Electronically Signed On 04-26-2025 16:51:18 EDT by Sylvia Joyner MD ID: [id number] Name: CLARA VIOLETA Race: White Ht: 65.16 in Wt: 128.00 lbs Age: 69 Gender: Female : 1955 Dx: Shortness of breath Smoking Hx: Non-smoker Doctor: EMELYN MICHELLE Test Date: 04/26/2025 Site: Tech: Germaine Martinez PRE-BRONCH POST-BRONCH Teodoro LLN Pred ULN %Pred ZScore Teodoro %Pred %Chg ZScore SPIROMETRY FVC 2.74 2.01 2.85 3.72 96 -0.21 FEV1 1.67 1.53 2.20 2.83 75 -1.32 FEV1/FVC 0.61 0.65 0.78 0.89 77 -2.13 FEFMax 4.44 3.93 5.70 7.48 77 -1.18 FEF50 1.02 1.55 3.16 4.77 32 -2.19 FIF50 2.91 FEF50/FIF50 0.35 90-100 FIVC 2.54 QOC06-30 0.71 0.85 1.86 3.32 38 -1.94 ExpiredTime 10.57 TimeToFEFMax 0.09 JUNE 0.07 VolExtrap% 3 LUNG VOLUMES FRC(Pleth) 3.01 2.08 2.93 3.99 102 0.14 ERV 0.44 0.95 46 RV(Pleth) 2.57 1.23 2.06 3.15 124 0.81 SVC 2.46 2.01 2.85 3.72 86 -0.75 IC 1.96 1.90 102 TLC(Pleth) 4.96 4.08 5.17 6.39 96 -0.29 RV/TLC(Pleth) 52 27 40 53 129 1.46 LUNG DIFFUSION DLCOunc 16.52 14.58 19.43 25.40 85 -0.94 DLCOStdPB 16.29 14.58 19.43 25.40 83 -1.02 VA 4.47 3.77 4.72 5.78 94 -0.43 Kco 3.65 3.11 4.08 5.19 89 -0.71 Comments: The two largest FVCs were not repeatable. The two largest FEV1s were repeatable. TGV repeatable x 3. Current ATS/ERS acceptability and repeatability standards for DLCO met with 2 acceptable maneuvers.//LC Normal [facility] BRIDGETTE BY IFA SCREENon 04-25-20 25 Nuclear Ab Ql (S) Negative Normal Negative [facility] Comment on above: Order Comment: Speci men Type: BLOOD SPECIMEN Ordering Facility: [facility] Address: [address] [place] [address] Result Comment: Anti -nuclear antibody test is used as an aid in diagnosis of systemic autoimmune diseases. Where positive and clinically warranted, follow-up using disease-specific testing is recommended. Low positive titers are not uncommon with advanced age, certain chronic infections, and malignancies among others. Test methodology: Indirect fluorescence immunoassay (IFA) using HEp-2 cells. Performed By: #### 5 1774-5, 85471-8, 84598-9, 54868-3, 50119-4, 25839-7, 34691-7, 38232-1 #### [facility] CLIA [id number] [address] [place] [address] [place] ANTINUCLEAR AB, CYTOPLASMIC PATTERN (REFLEX ONLY)on 04-25-2025 CYTOPLASM PATTERN Speckled Abnormal [facility] Comment on above: Order Comment: Speci morgan Type: BLOOD SPECIMEN Ordering Facility: [facility] Address: [address] [place] [address] Result Comment: Perf ormed By: Thomas-Krenn [address] [place] [id number] Cash Management Clerk: Jed Montano MD, PhD CLIA Number: [id number] Performed By: #### 5 1774-5, 72598-6, 81453-3, 53265-0, 41668-9, 15569-9, 44119-7, 79287-9 #### [facility] CLIA [id number] [address] [place] [address] [place] CYTOPLASMIC TITER 1:80 Abnormal [facility] Comment on above: Order Comment: Speedyi morgan Type: BLOOD SPECIMEN Ordering Facility: [facility] Address: [address] [place] [address] Performed By: #### 5 1774-5, 37270-1, 01319-1, 60139-9, 22549-1, 60155-1, 23681-8, 26337-7 #### [facility] CLIA [id number] [address] [place] [address] [place] ANTINUCLEAR AB, SINGLE SANAM GOLDSMITH (REFLEX ONLY)on 04-25-2025 BRIDGETTE PATTERN Speckled Abnormal [facility] Comment on above: Order Comment: Speci men Type: BLOOD SPECIMEN Ordering Facility: [facility] Address: [address] [place] [address] Performed By: #### 5 1775-5, 27126-3, 68297-6, 84316-2, 12380-8, 12543-2, 65490-4, 09380-1 #### [facility] CLIA [id number] [address] [place] [address] [place] BRIDGETTE TITER 1:80 Abnormal [facility] Comment on above: Order Comment: Speci men Type: BLOOD SPECIMEN Ordering Facility: [facility] Address: [address] [place] [address] Result Comment: Perf ormed By: Thomas-Krenn [address] [place] [id number] Cash Management Clerk: Jed Montano MD, PhD [place] Number: [id number] Performed By: #### 5 1775-5, 98852-4, 22865-8, 63741-3, 21223-0, 37686-7, 93162-6, 48069-4 #### [facility] CLIA [id number] [address] [place] [address] [place] Aldolase SerPl-cCncon 2024 Aldolase [Catalytic activity/Vol] 4.6 mU/mL Normal 1.5-8.1 [facility] Comment on above: Order Comment: Speci men Type: BLOOD SPECIMEN Ordering Facility: [facility] Address: [address] [place] [address] Result Comment: This test was developed, and its performance characteristics determined by the [facility] Department of Pathology and Laboratory Medicine. It has not been cleared or approved by the FDA. The [facility] Department of Pathology and Laboratory Medicine is regulated under CLIA as qualified to perform high-complexity testing. This test is used for clinical purposes. It should not be regarded as investigational or for research. Performed By: #### 5 1775-5, 06165-2, 02607-9, 34724-0, 48556-3, 22634-4, 49698-6, 71052-7 #### [facility] CLIA [id number] [address] [place] [address] [place] CK SerPl-cCncon 04-25-2025 CK [Catalytic activity/Vol] 25 U/L Low 42-196 [facility] Comment on above: Order Comment: Speci men Type: BLOOD SPECIMEN Ordering Facility: [facility] Address: [address] [place] [address] Performed By: #### 5 1775-5, 67457-8, 29904-4, 00874-0, 88726-1, 97850-8, 97926-4, 31693-4 #### [facility] CLIA [id number] [address] [place] [address] [place] [facility] CNOVon 04-25-2025 CNOV Office Visit (RHWSTR ) VIOLETA ELIZABETH ([id number]) 1955 F Date Time Provider Department 04/25/25 1:00 PM EMELYN MICHELLE RHWSTR During your visit today, we recorded the following information about you: Pulse Blood pressure Weight Height 85/minute 108/72 57.8 kg 1.651 m Emelyn Michelle PA-C 04/25/2025 6:15 PM Signed Rheumatology CONSULTATION Date of Service: 04/25/2025 Patient: Violeta Elizabeth Medical Record: [id number] Primary Care Physician: No primary care provider on file. Last Rheumatology visit: None at [facility] Referring Provider: Emelyn [address] [facility] [address] Violeta Elizabeth is here today at request of Dr. Ga Campbell PA-C specifically for consultation of my opinion in regards to the chief complaint listed below (diffuse nonspecific myalgia with low positive BRIDGETTE (1:40), elevated CRP/Sed rate). Correspondence will be shared today via the [facility] electronic health record or through regular mail, where applicable. Recording using [employer] software for draft documentation of the visit was discussed with the patient/authorized financial services representative; all questions welcomed and answered. Patient/authorized financial services representative agreed to proceed History of Present Illness Referred by PCP Ga Campbell PA-C for diffuse nonspecific myalgia with low positive BRIDGETTE (1:40), elevated CRP/Sed rate, November 09/2025 had COVID - initial symptoms upper respiratory symptoms as well as bilateral temporal headache, and bilateral sinus issues, bilateral ear ache into the cheek bones. She was initially treated with antibiotics for 60 days of different types. Also was on steroids x 21 days. Nothing worked. Tried flonase and saline washes. Headache and pain kept getting worse. PCP ordered a CT scan of the Sinuses. Which was inconclusive. She went to see an ENT who felt there was no evidence of sinus infection. He felt patient had long COVID. Then got a second opinion from ENT in [place]. She also had an episode of chest pain that radiated down her left arm and in the jaw. Referred to [facility] Dr. Quan who ordered a stress test that was abnormal. She was sent to the Emergency Department [facility]. Was monitored overnight. Had CT of her chest 04/11/25. Had heart catheterization while admitted. NO blockages notes. [place] the chest pain was musculoskeletal. Pain: shooting pain in her head, feels like nerves are on fire in her entire body. Worse in the morning. Pain is in both muscles and joints. Headache, neck, shoulder, back. AM stiffness Hand have osteoarthritis changes, but no new or recent swelling. Has rashes on her torso, legs, back. No itching. No sinus issue. NO nasal crusting. Significant more shortness of breath. No blood clot evaluation NO history of DVT. Brother had stroke 8 years ago. Violeta Elizabeth is a 69-year-old female with a history of scoliosis and arthritis, presenting with multiple symptoms following a COVID-19 infection in October. Violeta reports a significant decline in health since kenzie COVID-19 on 11/09 of this year. Initial symptoms included severe upper respiratory issues, intense cephalalgia described as vice-like pressure, and otalgia radiating to the teeth and cheekbones. She was treated with 60 days of antibiotics and a 21-day course of steroids without improvement. A CT scan of the sinuses showed no infection, and two ENTs diagnosed her with long COVID. Since then, she has experienced progressive, severe, shooting pains throughout her body, particularly in the head, neck, shoulders, and back. The pain is described as nerves on fire and worsens at night. She also reports stiffness in the morning and has noticed a decrease in her ability to sit up straight due to back pain. She denies recent swelling in joints but notes chronic swelling in her fingers. Approximately 60 days ago, she began experiencing severe chest discomfort, left arm pain radiating to the back shoulder, and jawline pain. A stress test showed abnormalities, leading to a cardiac catheterization on 04/11, which revealed no blockages. She continues to experience chest pain, described as sharp but brief with deep inspiration. She reports significant fatigue and weakness, requiring a shower chair and assistance with daily activities. She has lost 5-10 pounds in the last two weeks due to anorexia and lack of energy. She also notes difficulty swallowing, dry mouth, and increased water intake without polyuria. She denies dry eyes, oral or nasal sores, or changes in nails. She has developed a non-pruritic rash on her torso, legs, and back, described as large blotches that appear bruised. She also reports hair loss in long strands. She denies psoriasis. She experiences dyspnea and a dry cough that started 1-2 weeks ago. She de (more content not included)... Normal [facility] CRP SerPl-mCncon 04-25-2025 CRP [Mass/Vol] 10.0 mg/dL High <0.9 [facility] Comment on above: Order Comment: Speci men Type: BLOOD SPECIMEN Ordering Facility: [facility] Address: [address] [place] [address] Performed By: #### 5 1775-5, 77479-9, 21777-2, 09506-5, 59326-9, 66378-1, 31379-5, 98717-6 #### [facility] CLIA [id number] [address] [place] [address] [place] Centromere Ab IF Ql (S)on Centromere Ab Qn (S) <0.2 Normal <1.0 [facility] Comment on above: Order Comment: Speci men Type: BLOOD SPECIMEN Ordering Facility: [facility] Address: [address] [place] [address] Result Comment: Anti -centromere antibody is used as in aid in diagnosis of systemic sclerosis. Clinical correlation is required. Test Methodology: Multiplex flow immunoassay. Performed By: #### 5 1775-5, 29363-7, 25698-2, 79691-8, 87529-0, 01236-0, 00320-7, 62240-3 #### [facility] CLIA [id number] [address] [place] [address] [place] CENTROMERE AB QUAL Negative Normal Negative [facility] Comment on above: Order Comment: Speci men Type: BLOOD SPECIMEN Ordering Facility: [facility] Address: [address] [place] [address] Performed By: #### 5 1775-5, 05579-5, 58618-9, 75436-2, 36395-5, 48608-7, 46787-5, 06083-5 #### [facility] CLIA [id number] [address] [place] [address] [place] Chromatin Ab Qnon 04-25-2025 CHROMATIN AB QUAL Negative Normal Negative [facility] Comment on above: Order Comment: Speci men Type: BLOOD SPECIMEN Ordering Facility: [facility] Address: [address] [place] [address] Performed By: #### 5 1774-5, 35270-5, 68121-5, 41106-3, 50181-9, 66534-9, 42301-6, 13590-7 #### [facility] CLIA [id number] [address] [place] [address] [place] Chromatin Ab SerPl-aCncon Chromatin Ab Qn <0.2 Normal <1.0 [facility] Comment on above: Order Comment: Speci men Type: BLOOD SPECIMEN Ordering Facility: [facility] Address: [address] [place] [address] Result Comment: Test Methodology: Multiplex flow immunoassay. Performed By: #### 5 1774-5, 24677-6, 67022-3, 27209-2, 11011-9, 30878-4, 24605-7, 13423-8 #### [facility] CLIA [id number] [address] [place] [address] [place] DEANA Jo1 Ab Ser-aCncon 2024 Dayana-1 extractable nuclear Ab Qn (S) <0.2 Normal <1.0 [facility] Comment on above: Order Comment: Speci men Type: BLOOD SPECIMEN Ordering Facility: [facility] Address: [address] [place] [address] Performed By: #### 5 1774-5, 63276-3, 61322-6, 53702-4, 83927-5, 80447-7, 47642-1, 08126-8 #### [facility] CLIA [id number] [address] [place] [address] [place] DEANA INTEGRATION AIDE Ab Ser-aCncon 2024 Ribonucleoprotein extractable nuclear Ab Qn (S) <0.2 Normal <1.0 [facility] Comment on above: Order Comment: Speci men Type: BLOOD SPECIMEN Ordering Facility: [facility] Address: [address] [place] [address] Performed By: #### 5 1774-5, 39695-1, 63667-7, 86831-1, 04833-4, 07444-6, 91047-1, 77306-7 #### [facility] CLIA [id number] [address] [place] [address] [place] DEANA SM IgG Ser-aCncon 2024 Baker extractable nuclear IgG Qn (S) <0.2 Normal <1.0 [facility] Comment on above: Order Comment: Speci men Type: BLOOD SPECIMEN Ordering Facility: [facility] Address: [address] [place] [address] Performed By: #### 5 5-5, 41447-7, 79213-0, 34179-1, 11615-1, 58051-5, 51171-8, 59218-8 #### [facility] CLIA [id number] [address] [place] [address] [place] DEANA SS-A Ab Ser-aCncon 04-25 Sjogrens syndrome-A extractable nuclear Ab Qn (S) <0.2 Normal <1.0 [facility] Comment on above: Order Comment: Speci men Type: BLOOD SPECIMEN Ordering Facility: [facility] Address: [address] [place] [address] Result Comment: Test Methodology: Multiplex flow immunoassay. Performed By: #### 5 1775-5, 70814-8, 98587-4, 72518-0, 03921-6, 65602-8, 88873-0, 92756-1 #### [facility] CLIA [id number] [address] [place] [address] [place] DEANA SS-B Ab Ser-aCncon 04-25 Sjogrens syndrome-B extractable nuclear Ab Qn (S) <0.2 Normal <1.0 [facility] Comment on above: Order Comment: Speci men Type: BLOOD SPECIMEN Ordering Facility: [facility] Address: [address] [place] [address] Result Comment: Anti -SSB (anti-La) antibody is used as an aid in diagnosis of a variety of systemic autoimmune diseases, especially for Sjogren's syndrome and systemic lupus erythematosus. Clinical correlation is required. Test Methodology: Multiplex flow immunoassay. Performed By: #### 5 1775-5, 26253-3, 34284-9, 81046-8, 38834-5, 81338-4, 33619-9, 00032-0 #### [facility] CLIA [id number] [address] [place] [address] [place] ESR Westergren method (Bld) [Velocity]on 04-25-2025 ESR (Bld) [Velocity] 86 mm/h High [facility] Interpretation and review of laboratory results Abnormal [facility] ESR (Bld) [Velocity] 86 mm/h High 0-20 [facility] Comment on above: Order Comment: Speci men Type: BLOOD SPECIMEN Ordering Facility: [facility] Address: [address] [place] [address] Performed By: #### 5 1774-5, 37966-7, 97487-5, 48672-5, 33971-0, 90689-7, 02289-8, 50750-5 #### [facility] CLIA [id number] [address] [place] [address] [place] Dayana-1 extractable nuclear Ab Qn (S)on 04-25-2025 DAYANA 1 ANTIBODY QUAL Negative Normal Negative [facility] Comment on above: Order Comment: Speci men Type: BLOOD SPECIMEN Ordering Facility: [facility] Address: [address] [place] [address] Result Comment: Anti -DAYANA-1 antibody is used as an aid in diagnosis of polymyositis and dermatomyositis especially with pulmonary involvement. A negative result cannot rule out polymyositis or dermatomyositis. Clinical correlation is required. Test Methodology: Multiplex flow immunoassay. Performed By: #### 5 1775-5, 10346-3, 13346-4, 34902-2, 25057-4, 21397-2, 18864-4, 72121-8 #### [facility] CLIA [id number] [address] [place] [address] [place] LACTATE DEHYDROGENASEOrdered By: Jonelle Malhotra on 04-25-2025 LDH [Catalytic activity/Vol] 212 U/L 135 - 214 U/L [facility] LDH SerPl-cCncon 04-25-2025 LDH [Catalytic activity/Vol] 212 U/L Normal 135-214 [facility] Comment on above: Order Comment: Deng mora Type: BLOOD SPECIMEN Ordering Facility: [facility] Address: [address] [place] [address] Performed By: #### 5 1775-5, 86352-1, 44855-5, 67997-7, 02011-6, 58107-8, 25566-3, 24667-1 #### [facility] CLIA [id number] [address] [place] [address] [place] LDH [Catalytic activity/Vol] Ordered By: Jonelle Malhotra on 04-25-2025 Interpretation and review of laboratory results Normal [facility] POLYMYOSITIS AND DERMATOMYOS ITIS PANELon 04-25-2025 BRIDGETTE INTERP COMMENT See Note Normal [facility] Comment on above: Order Comment: Dneg mora Type: BLOOD SPECIMEN Ordering Facility: [facility] Address: [address] [place] [address] Result Comment: Clinical Interpretation: Speckled Pattern Clinical associations: SLE, SSc, SjS, DM, PM, MCTD, UCTD. May also be found in healthy individuals Main autoantibodies: Anti-SSA-52 (Ro52), anti-SSA-60 (Ro60), anti-SS-B/LA, anti-Rahul-1 (anti-Scl-70), Baker, anti-U1-INTEGRATION AIDE, anti-U2-INTEGRATION AIDE, anti-Mi-2, anti-p155/140 (TIF1g), anti-Ku, anti-RNA polymerase, anti-DFS70/LEDGF-P75 Cytoplasmic Speckled pattern (includes dense fine speckled and fine speckled patterns) Clinical Associations: anti-synthetase (ARS), SLE, necrotizing myopathy, dermatomyositis Main autoantibodies: EJ, Dayana-1, OJ, PL-7, PL-12, MDA5, ribosomal p, SRP List of Abbreviations Antimitochondrial antibodies (AMA), Antisynthetase syndrome (ARS), chronic active hepatitis (CAH), inflammatory myopathies (IM) [dermatomyositis (DM), polymyositis (PM), necrotizing autoimmune myopathy (NAM)], interstitial lung disease (ILD), juvenile idiopathic arthritis (HALLIE), mixed connective tissue disease (MCTD), primary biliary cholangitis (PBC), rheumatoid arthritis (RA), systemic autoimmune rheumatic diseases (SARD), Sjogren syndrome (SjS), systemic lupus erythematosus (SLE), systemic sclerosis (SSc), undifferentiated connective tissue disease (UCTD). INTERPRETIVE INFORMATION: BRIDGETTE Interpretive Comment Presence of antinuclear antibodies (BRIDGETTE) is a hallmark feature of systemic autoimmune rheumatic diseases (SARD). However, BRIDGETTE lacks diagnostic specificity and is associated with a variety of diseases (cancers, autoimmune, infectious, and inflammatory conditions) and may also occur in healthy individuals in varying prevalence. The lack of diagnostic specificity requires confirmation of positive BRIDGETTE by more specific serologic tests. BRIDGETTE (nuclear reactivity) positive patterns reported include centromere, homogeneous, nuclear dots, nucleolar, or speckled. BRIDGETTE (cytoplasmic reactivity) positive patterns reported include reticular/AMA, discrete/GW body-like, polar/golgi-like, cytoplasmic speckled or rods and rings. All positive patterns are reported to endpoint titers (1:2560). Reported patterns may help guide differential diagnosis, although they may not be specific for individual antibodies or diseases. Mitotic staining patterns not reported. Negative results do not necessarily rule out SARD. Performed By: #### 5 1775-5, 72884-9, 89871-8, 34887-4, 08637-2, 62928-7, 56302-3, 98411-2 #### [facility] CLIA [id number] [address] [place], [place] [address] [address] [place] ANTINUCLEAR ANTIBODY (BRIDGETTE) HEP-2, IGG Detected High <1:80 [facility] Comment on above: Order Comment: Speci men Type: BLOOD SPECIMEN Ordering Facility: [facility] Address: [address] [place] [address] Performed By: #### 5 1775-5, 57466-7, 38188-0, 17358-3, 74362-7, 95470-8, 43272-1, 46478-8 #### [facility] CLIA [id number] [address] [place] [address] [place] EJ (GLYCYL-TRNA SYNTHETASE) ANTIBODY Negative Normal Negative [facility] Comment on above: Order Comment: Speci men Type: BLOOD SPECIMEN Ordering Facility: [facility] Address: [address] [place] [address] Performed By: #### 5 1775-5, 53422-6, 58303-7, 91437-7, 62427-6, 43997-9, 79517-2, 32535-5 #### [facility] CLIA [id number] [address] [place] [address] [place] RICHTER (TYROSYL-TRNA SYNTHETASE) AB Negative Normal Negative [facility] Comment on above: Order Comment: Speci men Type: BLOOD SPECIMEN Ordering Facility: [facility] Address: [address] [place] [address] Result Comment: Clinical Interpretation: Richter antibody negative by line immunoassay. No band corresponding to 65 kDa observed by immunoprecipitation. Performed By: #### 5 1775-5, 38872-1, 61066-8, 90360-3, 12954-6, 66495-7, 46709-0, 81062-0 #### [facility] CLIA [id number] [address] [place] [address] [place] DAYANA-1 (HISTIDYL-TRNA SYNTHETASE) AB, IGG 1 AU/mL Normal 0-40 [facility] Comment on above: Order Comment: Speci men Type: BLOOD SPECIMEN Ordering Facility: [facility] Address: [address] [place] [address] Result Comment: INTE RPRETIVE INFORMATION: Dayana-1 Antibody, IgG 29 AU/mL or less.........Negative 30-40 AU/mL..............Equivocal 41 AU/mL or greater......Positive Presence of Dayana-1 (antihistidyl transfer RNA [t-RNA] synthetase) antibody is associated with polymyositis and may also be seen in patients with dermatomyositis. Dayana-1 antibody is associated with pulmonary involvement (interstitial lung disease), Raynaud phenomenon, arthritis, and electro mechanical designer's hands (implicated in antisynthetase syndrome). Performed By: #### 5 1775-5, 80480-3, 28416-3, 51519-7, 44131-6, 43445-2, 08111-2, 05997-5 #### [facility] CLIA [id number] [address] [place], [place] [id number] [place] KS (ASPARAGINYL-TRNA SYNTHETASE) AB Negative Normal Negative [facility] Comment on above: Order Comment: Speci men Type: BLOOD SPECIMEN Ordering Facility: [facility] Address: [address] [place] [address] Result Comment: Clinical Interpretation: Ks antibody negative by line immunoassay. No band corresponding to 65 kDa observed by immunoprecipitation. Performed By: #### 5 1775-5, 12628-0, 76041-1, 94449-0, 54477-2, 77176-5, 35567-5, 54063-8 #### [facility] CLIA [id number] [address] [place] [address] [place] MDA5 (CADM-140) AB Negative Normal Negative [facility] Comment on above: Order Comment: Speci men Type: BLOOD SPECIMEN Ordering Facility: [facility] Address: [address] [place] [address] Performed By: #### 5 1775-5, 36042-5, 23076-7, 69773-2, 85651-1, 06039-2, 11411-7, 18868-9 #### [facility] CLIA [id number] [address] [place] [address] [place] KS-2 (NUCLEAR HELICASE PROTEIN) ANTIBODY Negative Normal Negative [facility] Comment on above: Order Comment: Speci men Type: BLOOD SPECIMEN Ordering Facility: [facility] Address: [address] [place] [address] Performed By: #### 5 1775-5, 04871-3, 07941-0, 68099-7, 17458-8, 97964-9, 66680-3, 28181-3 #### [facility] CLIA [id number] [address] [place] [address] [place] MYOSITIS INTERPRETIVE INFORMATION See Note Normal [facility] Comment on above: Order Comment: Speci men Type: BLOOD SPECIMEN Ordering Facility: [facility] Address: [address] [place] [address] Result Comment: INTE RPRETIVE INFORMATION: Dermatomyositis and Polymyositis Panel 2 If present, myositis-specific antibodies (MSAs) are specific for myositis, and may be useful in establishing diagnosis as well as prognosis. MSAs are generally regarded as mutually exclusive with rare exceptions; the occurrence of two or more MSAs should be carefully evaluated in the context of patient's clinical presentation. Myositis-associated antibodies (Syed) may be found in patients with CTD, including overlap syndromes, and are generally not specific for myositis. The following table will help in identifying the association of any antibodies found as either MSAs or Syed. Antibody Specificity . . . . . . . . . . . . MSAs . . . . Syed Dayana-1 (histidyl-tRNA synthetase) Ab, IgG . . X PL-12 (alanyl-tRNA synthetase) Antibody . . X PL-7 (threonyl-tRNA synthetase) Antibody . . X EJ (glycyl-tRNA synthetase) Antibody . . . . X OJ (isoleucyl-tRNA synthetase) Antibody . . X SRP (Signal Recognition Particle) Ab . . . . X Mi-2 (nuclear helicase protein) Antibody . . X P155/140 Antibody . . . . . . . . . . . . . X TIF-1 gamma (155 kDA) Ab . . . . . . . . . X SAE1 (SUMO activating enzyme) Ab . . . . . . X MDA5 (CADM-140) Ab . . . . . . . . . . . . . X NXP2 (Nuclear matrix protein-2) Ab . . . . . X Richter (tyrosyl-tRNA synthetase) Ab. . . . . . . X Ks (asparaginyl-tRNA synthetase) Ab . . . . X Zo (phenylalanyl-tRNA synthetase) Ab . . . . X This test was developed and its performance characteristics determined by [facility]. It has not been cleared or approved by the [place] Food and Drug Administration. This test was performed in a CLIA certified laboratory and is intended for clinical purposes. Performed By: #### 5 1775-5, 31829-4, 51547-0, 08477-9, 90606-3, 03522-9, 18755-6, 26717-8 #### [facility] CLIA [id number] [address] [place] [address] [place] NXP2 (NUCLEAR MATRIX PROTEIN-2) AB Negative Normal Negative [facility] Comment on above: Order Comment: Speci men Type: BLOOD SPECIMEN Ordering Facility: [facility] Address: [address] [place] [address] Performed By: #### 5 1775-5, 79610-0, 52718-1, 22589-8, 49277-5, 85135-3, 59278-5, 35189-4 #### [facility] CLIA [id number] [address] [place] [address] [place] OJ (ISOLEUCYL-TRNA SYNTHETASE) ANTIBODY Negative Normal Negative [facility] Comment on above: Order Comment: Speci men Type: BLOOD SPECIMEN Ordering Facility: [facility] Address: [address] [place] [address] Performed By: #### 5 1775-5, 85155-6, 46526-1, 55489-8, 84456-1, 27134-9, 62985-8, 48500-6 #### [facility] CLIA [id number] [address] [place] [address] [place] P155/140 ANTIBODY Negative Normal Negative [facility] Comment on above: Order Comment: Speci men Type: BLOOD SPECIMEN Ordering Facility: [facility] Address: [address] [place] [address] Performed By: #### 5 1775-5, 43466-0, 94498-3, 95130-1, 78846-7, 46329-9, 83455-0, 49182-4 #### [facility] CLIA [id number] [address] [place] [address] [place] PL-12 (ALANYL-TRNA SYNTHETASE) ANTIBODY Negative Normal Negative [facility] Comment on above: Order Comment: Speci men Type: BLOOD SPECIMEN Ordering Facility: [facility] Address: [address] [place] [address] Performed By: #### 5 5-5, 45594-7, 00800-0, 05078-6, 03406-2, 57853-3, 92377-1, 21046-2 #### [facility] CLIA [id number] [address] [place] [address] [place] PL-7 (THREONYL-TRNA SYNTHETASE) ANTIBODY Negative Normal Negative [facility] Comment on above: Order Comment: Speci men Type: BLOOD SPECIMEN Ordering Facility: [facility] Address: [address] [place] [address] Performed By: #### 5 1775-5, 38690-4, 27433-7, 46461-1, 99457-4, 90347-7, 25231-0, 01043-1 #### [facility] CLIA [id number] [address] [place] [address] [place] SAE1 (SUMO ACTIVATING ENZYME) AB Negative Normal Negative [facility] Comment on above: Order Comment: Speci men Type: BLOOD SPECIMEN Ordering Facility: [facility] Address: [address] [place] [address] Performed By: #### 5 1775-5, 85953-1, 77436-8, 16642-7, 64026-1, 72882-2, 38874-2, 49432-4 #### [facility] CLIA [id number] [address] [place] [address] [place] SRP (SIGNAL RECOGNITION PARTICLE) AB Negative Normal Negative [facility] Comment on above: Order Comment: Speci men Type: BLOOD SPECIMEN Ordering Facility: [facility] Address: [address] [place] [address] Performed By: #### 5 1775-5, 88528-2, 14714-2, 55223-5, 00059-1, 92508-4, 07113-3, 35035-6 #### [facility] CLIA [id number] [address] [place] [address] [place] TIF-1 GAMMA (155 KDA) AB Negative Normal Negative [facility] Comment on above: Order Comment: Speci men Type: BLOOD SPECIMEN Ordering Facility: [facility] Address: [address] [place] [address] Performed By: #### 5 5-5, 02904-1, 27477-4, 74607-1, 69853-4, 76134-4, 48952-6, 14716-7 #### [facility] CLIA [id number] [address] [place] [address] [place] ZO (PHENYLALANYL-TRNA SYNTHETASE) AB Negative Normal Negative [facility] Comment on above: Order Comment: Speci men Type: BLOOD SPECIMEN Ordering Facility: [facility] Address: [address] [place] [address] Result Comment: Clinical Interpretation: Zo antibody negative by line immunoassay. No bands corresponding to 68 and 58 kDa observed by immunoprecipitation. Performed By: [facility] [address] [place] [address] Cash Management Clerk: Jed Montano MD, PhD CLIA Number: [id number] Performed By: #### 5 1775-5, 36746-3, 70686-6, 10132-9, 44804-1, 75353-3, 73075-8, 52014-1 #### [facility] CLIA [id number] [address] [place] [address] [place] Ribonucleoprotein extractabl e nuclear Ab Qn (S)on 04-25-2025 ANTI-INTEGRATION AIDE QUAL Negative Normal Negative [facility] Comment on above: Order Comment: Speci men Type: BLOOD SPECIMEN Ordering Facility: [facility] Address: [address] [place] [address] Performed By: #### 5 1775-5, 34259-4, 50297-9, 95336-6, 91069-7, 64477-2, 76330-1, 78957-8 #### [facility] CLIA [id number] [address] [place] [address] [place] RIBOSOMAL INTEGRATION AIDE QUAL Negative Normal Negative [facility] Comment on above: Order Comment: Speci morgan Type: BLOOD SPECIMEN Ordering Facility: [facility] Address: [address] [place] [address] Result Comment: Anti -Ribosomal RNA (Ribosomal P) antibody is used as an aid in diagnosis of systemic autoimmune diseases especially systemic lupus erythematosus and mixed connective tissue disease. Cross-reactivity with Anti-baker antibody is not uncommon. Clinical correlation is required. Test Methodology: Multiplex flow immunoassay. Performed By: #### 5 1775-5, 19421-2, 43003-6, 42748-4, 14304-9, 17732-2, 42654-1, 73158-6 #### [facility] CLIA [id number] [address] [place] [address] [place] SCL-70 extractable nuclear I gG IA Qn (S)on 04-25-2025 SCLERODERMA AB QUAL Negative Normal Negative [facility] Comment on above: Order Comment: Speci men Type: BLOOD SPECIMEN Ordering Facility: [facility] Address: [address] [place] [address] Performed By: #### 5 1775-5, 78805-5, 77129-2, 49086-8, 73747-1, 31977-7, 96372-5, 11880-5 #### [facility] CLIA [id number] [address] [place], [place] [id number] [place] SCLERODERMA IGG AB <0.2 Normal <1.0 [facility] Comment on above: Order Comment: Speci men Type: BLOOD SPECIMEN Ordering Facility: [facility] Address: [address] [place] [address] Result Comment: Scl- 70/Scleroderma antibody test is used as an aid in diagnosis of systemic sclerosis especially the diffuse cutaneous form. A negative result cannot rule out systemic sclerosis. The final interpretation should consider clinical picture and other test results such as anti-centromere antibody. Test Methodology: Multiplex flow immunoassay. Performed By: #### 5 1775-5, 09778-6, 50339-2, 78252-5, 42295-9, 54178-7, 52213-6, 99695-1 #### [facility] CLIA [id number] [address] [place] [address] [place] Sjogrens syndrome-A extracta ble nuclear Ab Qn (S)on 04-25-2025 SSA ANTIBODY QUAL Negative Normal Negative [facility] Comment on above: Order Comment: Speci men Type: BLOOD SPECIMEN Ordering Facility: [facility] Address: [address] [place] [address] Performed By: #### 5 5-5, 67551-4, 56194-8, 46007-8, 25409-6, 02645-1, 17127-3, 57433-1 #### [facility] CLIA [id number] [address] [place] [address] [place] Sjogrens syndrome-B extracta ble nuclear Ab Qn (S)on 04-25-2025 SSB ANTIBODY QUAL Negative Normal Negative [facility] Comment on above: Order Comment: Speci men Type: BLOOD SPECIMEN Ordering Facility: [facility] Address: [address] [place] [address] Performed By: #### 5 1775-5, 25538-2, 27620-4, 59941-1, 46664-2, 34669-9, 61416-1, 21409-1 #### [facility] CLIA [id number] [address] [place] [address] [place] Baker extractable nuclear Ig G Qn (S)on 04-25-2025 SM ANTIBODY QUAL Negative Normal Negative [facility] Comment on above: Order Comment: Speci men Type: BLOOD SPECIMEN Ordering Facility: [facility] Address: [address] [place] [address] Result Comment: Anti -Sm (Baker) antibody is used as an aid in diagnosis of systemic lupus erythematosus and its presence is associated with renal disease. A negative result cannot rule out systemic lupus erythematosus. Clinical correlation is required. Test Methodology: Multiplex flow immunoassay. Performed By: #### 5 1775-5, 13481-3, 66651-8, 73730-3, 75108-4, 16387-4, 01840-7, 16045-3 #### [facility] CLIA [id number] [address] [place] [address] [place] BRIDGETTE SCREEN, IFA, W/REFL TITE R AND PATTERNon 04-22-2025 BRIDGETTE SCREEN, IFA Positive Abnormal NEGATIVE [facility] Comment on above: Result Comment: BRIDGETTE IFA is a first line screen for detecting the presence of up to approximately 150 autoantibodies in various autoimmune diseases. A positive BRIDGETTE IFA result is suggestive of autoimmune disease and reflexes to titer and pattern. Further laboratory testing may be considered if clinically indicated. For additional information, please refer to http://education.AdYapper/faq/AEZ238 (This link is being provided for informational/ educational purposes only.) Performed By: #### 2 49, 809, 374, 4420, 6399, %[id number] #### [facility] [address] [facility], [address] [place] [address] Manager Print: Teofilo Altamirano MD ANTINUCLEAR ANTIBODIES TITER AND PATTERNon 04-22-2025 BRIDGETTE PATTERN Nuclear, Speckled Abnormal [facility] Comment on above: Result Comment: Spec kled pattern is associated with mixed connective tissue disease (MCTD), systemic lupus erythematosus (SLE), Sjogren's syndrome, dermatomyositis, and systemic sclerosis/polymyositis overlap. AC-2,4,5,29: Speckled International Consensus on BRIDGETTE Patterns (https://doi.org/10.1515/kssy-1431-9821) Performed By: #### 2 49, 809, 374, 4420, 6399, %[id number] #### [facility] of [place] [address] Manager Print: Teofilo Altamirano MD BRIDGETTE TITER 1:40 High [facility] Comment on above: Result Comment: A lo w level BRIDGETTE titer may be present in pre-clinical autoimmune diseases and normal individuals. Reference Range <1:40 Negative 1:40-1:80 Low Antibody Level >1:80 Elevated Antibody Level Performed By: #### 2 49, 809, 374, 4420, 6399, %[id number] #### [facility] [place] [address] Manager Print: Teofilo Altamirano MD C-REACTIVE PROTEINon 025 CRP [Mass/Vol] 126.0 mg/L High <8.0 [facility] Comment on above: Performed By: #### 3 95 #### [facility] [place] [address] Manager Print: Teofilo Altamirano MD CBC (INCLUDES DIFF/PLT)on Basophils (Bld) [#/Vol] 0.023 10*3/uL Normal 0-200 [facility] Comment on above: Performed By: #### 2 49, 809, 374, 4420, 6399, %[id number] #### [facility] [place] [address] Manager Print: Teofilo Altamirano MD Basophils/100 WBC (Bld) 0.3 % Normal [facility] Comment on above: Performed By: #### 2 49, 809, 374, 4420, 6399, %[id number] #### [facility] [place] [address] Manager Print: Teofilo Altamirano MD COMMENT(S) Normal [facility] Comment on above: Result Comment: Revi ew of peripheral smear confirms automated results. Performed By: #### 2 49, 809, 374, 4420, 6399, %[id number] #### [facility] of [address], [address] [place] [address] Manager Print: Teofilo Altamirano MD Eosinophils (Bld) [#/Vol] 0.03 10*3/uL Normal 15-500 [facility] Comment on above: Performed By: #### 2 49, 809, 374, 4420, 6399, %[id number] #### [facility] of [address], [address] [place] [address] Manager Print: Teofilo Altamirano MD Eosinophils/100 WBC (Bld) 0.4 % Normal [facility] Comment on above: Performed By: #### 2 49, 809, 374, 4420, 6399, %[id number] #### [facility] of [place] [address] Manager Print: Teofilo Altamirano MD Erythrocyte distribution width (RBC) [Ratio] 13.2 % Normal 11.0-15.0 [facility] Comment on above: Performed By: #### 2 49, 809, 374, 4420, 6399, %19600 #### [facility] of [place] [address] Manager Print: Teofilo Altamirano MD Hematocrit (Bld) [Volume fraction] 48.0 % High 35.0-45.0 [facility] Comment on above: Performed By: #### 2 49, 809, 374, 4420, 6399, %[id number] #### [facility] of [place] [address] Manager Print: Teofilo Altamirano MD Hemoglobin (Bld) [Mass/Vol] 15.7 g/dL High 11.7-15.5 [facility] Comment on above: Performed By: #### 2 49, 809, 374, 4420, 6399, %26776 #### [facility] [place] [address] Manager Print: Teofilo Altamirano MD Lymphocytes (Bld) [#/Vol] 1.223 10*3/uL Normal 850-3900 [facility] Comment on above: Performed By: #### 2 49, 809, 374, 4420, 6399, %[id number] #### [facility] of [address], [address] [place] [address] Manager Print: Teofilo Altamirano MD Lymphocytes/100 WBC (Bld) 16.3 % Normal [facility] Comment on above: Performed By: #### 2 49, 809, 374, 4420, 6399, %20402 #### [facility] of [address], [address] [place] [address] Manager Print: Teofilo Altamirano MD MCH (RBC) [Entitic mass] 32.7 pg Normal 27.0-33.0 [facility] Comment on above: Performed By: #### 2 49, 809, 374, 4420, 6399, %93623 #### [facility] of [address], [address] [place] [address] Manager Print: Teofilo Altamirano MD MCHC (RBC) [Mass/Vol] 32.7 g/dL Normal 32.0-36.[address] [facility] Comment on above: Result Comment: For adults, a slight decrease in the calculated MCHC value (in the range of 30 to 32 g/dL) is most likely not clinically significant; however, it should be interpreted with caution in correlation with other red cell parameters and the patient's clinical condition. Performed By: #### 2 49, 809, 374, 4420, 6399, %[id number] #### [facility] of [address], [address] [place] [address] Manager Print: Teofilo Altamirano MD MCV (RBC) [Entitic vol] 100.0 fL Normal 80.0-100.0 [facility] Comment on above: Performed By: #### 2 49, 809, 374, 4420, 6399, %[id number] #### [facility] of [address], [address] [place] [address] Manager Print: Teofilo Altamirano MD Monocytes (Bld) [#/Vol] 0.278 10*3/uL Normal 200-950 [facility] Comment on above: Performed By: #### 2 49, 809, 374, 4420, 6399, %05789 #### [facility] of [place] [address] Manager Print: Teofilo Altamirano MD Monocytes/100 WBC (Bld) 3.7 % Normal [facility] Comment on above: Performed By: #### 2 49, 809, 374, 4420, 6399, %28857 #### [facility] of [place] [address] Manager Print: Teofilo Altamirano MD Neutrophils (Bld) [#/Vol] 5.948 10*3/uL Normal 0563-6688 [facility] Comment on above: Performed By: #### 2 49, 809, 374, 4420, 6399, %57463 #### [facility] [place] [address] Manager Print: Teofilo Altamirano MD Neutrophils/100 WBC (Bld) 79.3 % Normal [facility] Comment on above: Performed By: #### 2 49, 809, 374, 4420, 6399, %50227 #### [facility] [place] [address] Manager Print: Teofilo Altamirano MD Platelet mean volume (Bld) [Entitic vol] 10.6 fL Normal 7.5-12.5 [facility] Comment on above: Performed By: #### 2 49, 809, 374, 4420, 6399, %42208 #### [facility] of [place] [address] Manager Print: Teofilo Altamirano MD Platelets (Bld) [#/Vol] 174 10*3/uL Normal 140-400 [facility] Comment on above: Performed By: #### 2 49, 809, 374, 4420, 6399, %13012 #### [facility] of [place] [address] Manager Print: Teofilo Altamirano MD RBC (Bld) [#/Vol] 4.80 10*6/uL Normal 3.80-5.10 [facility] Comment on above: Performed By: #### 2 49, 809, 374, 4420, 6399, %67254 #### [facility] of [place] [address] Manager Print: Teofilo Altamirano MD WBC (Bld) [#/Vol] 7.5 10*3/uL Normal 3.8-10.8 [facility] Comment on above: Performed By: #### 2 49, 809, 374, 4420, 6399, %08768 #### [facility] [place] [address] Manager Print: Teofilo Altamirano MD CREATINE KINASE, TOTALon CREATINE KINASE, TOTAL 30 U/L Normal 18-225 [facility] Comment on above: Performed By: #### 2 49, 809, 374, 4420, 6399, %03606 #### [facility] [place] [address] Manager Print: Teofilo Altamirano MD RHEUMATOID FACTORon 04-22-20 25 RHEUMATOID FACTOR 13 IU/mL Normal <14 [facility] Comment on above: Performed By: #### 2 49, 809, 374, 4420, 6399, %44532 #### [facility] of [place] [address] Manager Print: Teofilo Altamirano MD SED RATE BY MODIFIED WESTERG RENon 04-22-2025 SED RATE BY MODIFIED WESTERGREN 50 mm/h High < OR = 30 [facility] Comment on above: Performed By: #### 2 49, 809, 374, 4420, 6399, %72050 #### [facility] of [place] [address] Manager Print: Teofilo Altamirano MD Laboratory - Chemistry and C hemistry - challengeon 04-19-2025 CRP [Mass/Vol] 126.0 mg/L Abnormal [facility], [facility]. Laboratory - Hematology and Cell countson 04-19-2025 Basophils (Bld) [#/Vol] 0.023 10*3/uL Normal 0 - 200 {cells/uL} [facility], [facility].; [facility], [facility] Basophils/100 WBC (Bld) 0.3 % Normal [facility], [facility] Eosinophils (Bld) [#/Vol] 0.03 10*3/uL Normal 15 - 500 {cells/uL} [facility].; [facility] Eosinophils/100 WBC (Bld) 0.4 % Normal [facility]; [place] deltamethod [facility], [facility] Erythrocyte distribution width (RBC) [Ratio] 13.2 % Normal 11.0 - 15.0 % [facility].; [place] deltamethod [facility], [facility] Hematocrit (Bld) [Volume fraction] 48.0 % Abnormal 35.0 - 45.0 % [facility].; [facility] [employer], [facility] Hemoglobin (Bld) [Mass/Vol] 15.7 g/dL Abnormal 11.7 - 15.5 g/dL [facility].; [place] deltamethod [facility], [facility]. Lymphocytes (Bld) [#/Vol] 1.223 10*3/uL Normal 850 - 3900 {cells/uL} [facility].; [facility] [employer] [facility] Lymphocytes/100 WBC (Bld) 16.3 % Normal [facility].; [facility] [employer] [facility], [facility]. MCH (RBC) [Entitic mass] 32.7 pg Normal 27.0 - 33.0 pg [facility].; [facility] [employer] [facility], [facility]. MCHC (RBC) [Mass/Vol] 32.7 g/dL Normal 32.0 - 36.0 g/dL [facility], [facility].; [facility] [employer], [employer]. MCV (RBC) [Entitic vol] 100.0 fL Normal 80.0 - 100.0 fL [facility].; [facility], [facility] Monocytes (Bld) [#/Vol] 0.278 10*3/uL Normal 200 - 950 {cells/uL} [facility].; [facility] Monocytes/100 WBC (Bld) 3.7 % Normal [facility]; [facility], [facility] Neutrophils (Bld) [#/Vol] 5.948 10*3/uL Normal 1500 - 7800 {cells/uL} [facility].; [facility] Neutrophils/100 WBC (Bld) 79.3 % Normal [facility]; [facility] Platelet mean volume (Bld) [Entitic vol] 10.6 fL Normal 7.5 - 12.5 fL [facility]; [facility], [facility] Platelets (Bld) [#/Vol] 174 10*3/uL Normal 140 - 400 [facility]; [facility] RBC (Bld) [#/Vol] 4.80 10*6/uL Normal 3.80 - 5.1 0 {Million/uL } [facility].; [facility]. WBC (Bld) [#/Vol] 7.5 10*3/uL Normal 3.8 - 10.8 [facility]; [facility]tam[facility] No Panel Informationon 04-19 BRIDGETTE PATTERN Nuclear, Speckled Abnormal [facility]; [place] [employer] [facility] Work Phone: BRIDGETTE SCREEN, IFA Positive Abnormal [facility]; [facility] BRIDGETTE TITER 1:40 Abnormal [facility]; [facility] [employer] [facility] Work Phone: COMMENT(S) SEE NOTE Normal [facility].; [facility] [employer] [facility] CREATINE KINASE, TOTAL 30 U/L Normal 18 - 225 U/L [facility].; [facility] [employer] [facility], [facility]. RHEUMATOID FACTOR 13 {IU/mL} Normal [facility].; [facility] deltamethod [facility] SED RATE BY MODIFIED WESTERGREN 50 mm/h Abnormal [facility], [facility]; [facility], [facility]. 12 Lead EKGon 04-05-2025 12 Lead EKG [facility] [address] [place] [address] 12 Lead EKG 04/05/25 1444 MR#: [id number] Acct: [id number] Name: VIOLETA ELIZABETH Rep #: [id number] : 1955 69 From: Shaka White MD Attending Dr: Dr. Matt Boateng DO Status: DIS IN Ordering Dr: Mane Conti DO Date: 04/05/25 Location: [facility] Sex: F C Admitted: 04/04/25 Test Reason : Blood Pressure : */* mmHG Vent. Rate : 63 BPM Atrial Rate : 63 BPM P-R Int : 124 ms QRS Dur : 74 ms QT Int : 424 ms P-R-T Axes : 49 41 43 degrees QTcB Int : 433 ms Normal sinus rhythm with sinus arrhythmia Normal ECG When compared with ECG of 05-Apr-2025 05:59, No significant change was found Confirmed by MD ISABEL, SHAKA ([id number]), editor house organ MIAN WOLFF ([id number]) on 04/09/2025 10:59:26 AM Referred By: Confirmed By: SHAKA WHITE MD 04/09/25 105 Date Shaka White MD CC: Dr. Mane Conti DO; Dr. Matt Boateng DO; TARIQ Medina Signed Normal [facility] Anion gap in Serum or Plasma Ordered By: Mane Conti on 04-05-2025 Anion gap [Moles/Vol] 9 mmol/L 02-07 [facility] BUN/creatinine ratioOrdered By: Mane Conti on 04-05-2025 Urea nitrogen/Creatinine [Mass ratio] 23.2 mg/mg High 07-15 [facility] Basic Metabolic Profile (BMP )on 04-05-2025 BUN/CRE 23.2 RATIO High 07-15 [facility] Comment on above: Performed By: #### L 100.0100, L500.2500, L501.4021, L501.5200, L501.9520, L503.7505 #### [facility] [address] [place], [address] Calcium [Mass/Vol] 8.8 mg/dL Normal 7.6-11.0 [facility] Comment on above: Performed By: #### L 100.0100, L500.2500, L501.4021, L501.5200, L501.9520, L503.7505 #### [facility] [address] [place], [address] Chloride [Moles/Vol] 108 mmol/L Normal 98-[address] [facility] Comment on above: Performed By: #### L 100.0100, L500.2500, L501.4021, L501.5200, L501.9520, L503.7505 #### [facility] [address] [place], [address] CO2 [Moles/Vol] 23.3 mmol/L Normal 21.0-32.0 [facility] Comment on above: Performed By: #### L 100.0100, L500.2500, L501.4021, L501.5200, L501.9520, L503.7505 #### [facility] [address] [place], [address] Creatinine [Mass/Vol] 0.64 mg/dL Low 0.70-1.20 [facility] Comment on above: Performed By: #### L 100.0100, L500.2500, L501.4021, L501.5200, L501.9520, L503.7505 #### [facility] [address] [place], [address] ECRCL 58.04 ml/min Normal 50-250 [facility] Comment on above: Performed By: #### L 100.0100, L500.2500, L501.4021, L501.5200, L501.9520, L503.7505 #### [facility] [address] [place], [address] GAP 9 Normal 5-15 [facility] Comment on above: Performed By: #### L 100.0100, L500.2500, L501.4021, L501.5200, L501.9520, L503.7505 #### [facility] [address] [place], [address] GFR/1.73 sq M.predicted among non-blacks MDRD (S/P/Bld) [Vol rate/Area] 94 mL/min/{1.73_m2} Normal >60 [facility] Comment on above: Result Comment: mL/m in/1.73m2 CKD-EPI Creatinine Equation (2020) Performed By: #### L 100.0100, L500.2500, L501.4021, L501.5200, L501.9520, L503.7505 #### [facility] [address] [place], [address] Glucose [Mass/Vol] 101 mg/dL High 70-99 [facility] Comment on above: Performed By: #### L 100.0100, L500.2500, L501.4021, L501.5200, L501.9520, L503.7505 #### [facility] [address] [place], [address] Potassium [Moles/Vol] 3.8 mmol/L Normal 3.3-5.1 [facility] Comment on above: Result Comment: Hemo lysis present, Results??could be affected. ?? Performed By: #### L 100.0100, L500.2500, L501.4021, L501.5200, L501.9520, L503.7505 #### [facility] [address] [place], [address] Sodium [Moles/Vol] 140 mmol/L Normal 133-145 [facility] Comment on above: Performed By: #### L 100.0100, L500.2500, L501.4021, L501.5200, L501.9520, L503.7505 #### [facility] [address] [place], [address] Urea nitrogen [Mass/Vol] 15 mg/dL Normal 4-19 [facility] Comment on above: Performed By: #### L 100.0100, L500.2500, L501.4021, L501.5200, L501.9520, L503.7505 #### [facility] [address] [place] [place], [address] CBC-Complete Blood Cnt No Di ffon 04-05-2025 Erythrocyte distribution width (RBC) [Ratio] 12.9 % Normal 11.6-14.6 [facility] Comment on above: Performed By: #### L 100.0100, L500.2500, L501.4021, L501.5200, L501.9520, L503.7505 #### [facility] [address] [place] [place], [address] Hematocrit (Bld) [Volume fraction] 37.2 % Normal 37-47 [facility] Comment on above: Performed By: #### L 100.0100, L500.2500, L501.4021, L501.5200, L501.9520, L503.7505 #### [facility] [address] [place], [address] Hemoglobin (Bld) [Mass/Vol] 12.7 g/dL Normal 12.0-15.0 [facility] Comment on above: Performed By: #### L 100.0100, L500.2500, L501.4021, L501.5200, L501.9520, L503.7505 #### [facility] [address] [place], [address] MCH (RBC) [Entitic mass] 32.9 pg High 27.0-32.0 [facility] Comment on above: Performed By: #### L 100.0100, L500.2500, L501.4021, L501.5200, L501.9520, L503.7505 #### [facility] [address] [place], [address] MCHC (RBC) [Mass/Vol] 34.1 g/dL Normal 32-36 [facility] Comment on above: Performed By: #### L 100.0100, L500.2500, L501.4021, L501.5200, L501.9520, L503.7505 #### [facility] [address] [place], [address] MCV (RBC) [Entitic vol] 96.4 fL Normal 81-99 [facility] Comment on above: Performed By: #### L 100.0100, L500.2500, L501.4021, L501.5200, L501.9520, L503.7505 #### [facility] [address] [place], [address] Platelet mean volume (Bld) [Entitic vol] 10.9 fL Normal 6.2-12.0 [facility] Comment on above: Performed By: #### L 100.0100, L500.2500, L501.4021, L501.5200, L501.9520, L503.7505 #### [facility] [address] [place], [address] Platelets (Bld) [#/Vol] 160 10*3/uL Normal 150-450 [facility] Comment on above: Performed By: #### L 100.0100, L500.2500, L501.4021, L501.5200, L501.9520, L503.7505 #### [facility] [address] [place], [address] RBC (Bld) [#/Vol] 3.86 10*6/uL Low 4.2-5.4 [facility] Comment on above: Performed By: #### L 100.0100, L500.2500, L501.4021, L501.5200, L501.9520, L503.7505 #### [facility] [address] [place], [address] RDW SD 45.5 fl High 35.1-43.9 [facility] Comment on above: Performed By: #### L 100.0100, L500.2500, L501.4021, L501.5200, L501.9520, L503.7505 #### [facility] [address] [place], [address] WBC (Bld) [#/Vol] 4.4 10*3/uL Normal 4.4-11.0 [facility] Comment on above: Performed By: #### L 100.0100, L500.2500, L501.4021, L501.5200, L501.9520, L503.7505 #### [facility] [address] [place], [address] CVS/PCIREPORTon 04-05-2025 CVS/PCIREPORT [facility] [address] [place] [address] MR#: [id number] Acct: [id number] Name: VIOLETA ELIZABETH Rep #: [id number] : 1955 69 From: Louie Medina MD Primary Care: TARIQ Medina Status: ADM IN Referring Dr: Sex: F C PCI Cardiac Cath Report PCI Report: DATE OF PROCEDURE: 04/05/2025 PROCEDURES PERFORMED: 1. Left heart catheterization 2. Coronary angiography, and left INDICATIONS FOR PROCEDURE: Unstable angina IN-SERVICE TIME: 15 minutes DESCRIPTION OF PROCEDURE: After informed consent was obtained, the patient was brought down to the Cardiac Ruling Machine Operator in a fasting state. The left and right inguinal areas were draped, prepped, and sterilized in the usual fashion. Moderate sedation was administered for this procedure and the patient was monitored throughout the procedure. Using the modified Seldinger technique, the right femoral artery was then cannulated. A 6-Ugandan sheath was placed. The sheath was then flushed. JL4 and JR4 catheters were then used to engage the left and right coronary artery systems, respectively. Multiple orthogonal images were then taken. The catheters were then taken out with the help of a guidewire. A pigtail catheter was then introduced into the aorta. Aortic pressure was then obtained. The JR4 catheter was then used to cross the aortic valve into the left ventricle. Multiple hemodynamic data was obtained. The sheath was then flushed. Finally a percutaneous arteriotomy closure device was deployed. The patient tolerated the procedure well without any immediate complications. HEMODYNAMICS: LVEDP 12 DESCRIPTION OF CORONARY ANATOMY: The left main originates from the left coronary sinus of Valsalva in the usual fashion. It then bifurcates into the left anterior descending artery and the circumflex artery. There was a good reflux of dye from the vessel into the sinus of valsalva. No ventricularization or dampening of pressure were noted. This vessel has no evidence of coronary artery disease. The left anterior descending artery originates from the bifurcation in the usual fashion. It then courses its way down the anterior interventricular groove giving rise to multiple diagonal arteries. It then wraps around the apex of the heart. This vessel has no evidence of coronary artery disease. The left circumflex artery originates from the bifurcation in the usual fashion. It then courses its way down the lateral atrioventricular groove as it gives off to obtuse marginal arteries. This vessel has no evidence of coronary artery disease. The right coronary artery originates from the right coronary sinus of Valsalva in the usual fashion. It then courses along the atrioventricular groove and then gives off acute marginal artery. It continues into the posterior descending artery as it gives off the posterior lateral artery. This makes a right dominant This vessel has no evidence of coronary artery disease. CONCLUSIONS: RECOMMENDATIONS: Continue age appropriate cardiovascular care, aggressive lifestyle modifications Start betablockers and statin as tolerated Follow up with cardiology 6 weeks after discharge 04/05/25 1334 Date Louie Medina MD CC: Dr. Matt Boateng DO; TARIQ Medina Date Dictated: 04/05/251305 Date Transcribed: 04/05/251305 Hose Cementer: VANITA Signed Normal [facility] Calculated very low density lipoprotein (VLDL) cholesterol measurementOrdered By: Mane Conti on 04-05-2025 Calculated very low density lipoprotein (VLDL) cholesterol measurement 21 mg/dL 5-40 [facility] Carbon dioxide, total [Moles /volume] in Central venous bloodOrdered By: Mane Conti on 04-05-2025 CO2 [Moles/Vol] 23.3 mmol/L 21.0-32.0 [facility] Cardiac catheterization repo rtOrdered By: Louie Medina on 04-05-2025 Cardiac catheterization study [facility] [address] [place] [address] MR#: [id number] Acct: [id number] Name: VIOLETA ELIZABETH Rep #: [id number] : 1955 69 From: Louie Medina MD Primary Care: TARIQ Medina Status : ADM IN Referring Dr: Sex: F C PCI Cardiac Cath Report PCI Report: DATE OF PROCEDURE: 04/05/2025 PROCEDURES PERFORMED: 1. Left heart catheterization 2. Coronary angiography, and left INDICATIONS FOR PROCEDURE: Unstable angina IN-SERVICE TIME: 15 minutes DESCRIPTION OF PROCEDURE: After informed consent was obtained, the patient was brought down to the CardiacCath Lab in a fasting state. The left and right inguinal areas were draped, prepped, and sterilized in the usual fashion. Moderate sedation was administeredfor this procedure and the patient was monitored throughout the procedure. Usingthe modified Seldinger technique, the right femoral artery was then cannulated. A 6-Ugandan sheath was placed. The sheath was then flushed. JL4 and JR4 catheterswere then used to engage the left and right coronary artery systems, respectively. Multiple orthogonal images were then taken. The catheters were then taken out with the help of a guidewire. A pigtail catheter was then introduced into the aorta. Aortic pressure was then obtained. The JR4 catheter was then used to cross the aortic valve into the left ventricle. Multiple hemodynamic data was obtained. The sheath was then flushed. Finally a percutaneous arteriotomy closure device was deployed. The patient tolerated the procedure well without any immediate complications. HEMODYNAMICS: LVEDP 12 DESCRIPTION OF CORONARY ANATOMY: The left main originates from the left coronary sinus of Valsalva in the usual fashion. It then bifurcates into the left anterior descending artery and the circumflex artery. There was a good reflux of dye from the vessel into the sinusof valsalva. No ventricularization or dampening of pressure were noted. This vessel has no evidence of coronary artery disease. The left anterior descending artery originates from the bifurcation in the usualfashion. It then courses its way down the anterior interventricular groove giving rise to multiple diagonal arteries. It then wraps around the apex of the heart. This vessel has no evidence of coronary artery disease. The left circumflex artery originates from the bifurcation in the usual fashion.It then courses its way down the lateral atrioventricular groove as it gives offto obtuse marginal arteries. This vessel has no evidence of coronary artery disease. The right coronary artery originates from the right coronary sinus of Valsalva in the usual fashion. It then courses along the atrioventricular groove and thengives off acute marginal artery. It continues into the posterior descending artery as it gives off the posterior lateral artery. This makes a right dominant This vessel has no evidence of coronary artery disease. CONCLUSIONS: RECOMMENDATIONS: Continue age appropriate cardiovascular care, aggressive lifestyle modifications Start betablockers and statin as tolerated Follow up with cardiology 6 weeks after discharge 04/05/25 1334 Date _ Louie Medina MD CC: Dr. Matt Boateng, DO; TARIQ Medina ~ Date Dictated: 04/05/25 1306 Date Transcribed: 04/05/25 1306 Hose Cementer: VANITA Mckeon [facility] Chloride assayOrdered By: Sang Conti on 04-05-2025 Chloride [Moles/Vol] 108 mmol/L 98-[address] [facility] Consultation - Cardiologyon 04-05-2025 Consultation - Cardiology [facility] Medical Records Department [address] [place] [address] Consultation - Cardiology 04/05/25 0853 MR#: [id number] Acct: [id number] Name: VIOLETA ELIZABETH Rep #: [id number] : 1955 69 From: Louie Medina MD PCP: TARIQ Medina Status:ADM IN Location: [place] [address] Assessment Plan Assessment/Plan (1) Unstable angina: PLAN: Continue with aspirin 81 mg daily. Start atorvastatin 40 mg daily. Keep n.p.o. for left heart catheterization later on today. (2) HTN (hypertension), benign: PLAN: Start amlodipine 5 mg daily. HPI Consult Data Date of Consult: 04/05/25 HPI Narrative HPI Narrative: 69 F who presented to [facility] ED on 04/04/2025 with chest pain. Patient had a stress treadmill echocardiogram done at [place] on 03/19 , Resting EKG showed baseline inferolateral ST segment depressions less than 1 mm. Stress EKG demonstrated worsening EKG changes in the inferolateral leads up to 1 mm. EF 66%. Patient did achieve 8.50 METS. Conclusion noted that the worsening EKG changes as above gave her a Florentino treadmill score of 1.5 which places her at moderate risk for cardiac disease. Patient was scheduled to see Dr. Obrien with cardiology in the office on April 30. However she has had worsening chest pain/pressure over the past several days so she was advised to come to the ED for further evaluation. In the ED she is hypertensive to the 160s EKG showed normal sinus rhythm with no ST changes. CBC and BMP were benign. Troponins negative x 2. NT proBNP normal. CTA chest with no PE, mild coronary artery calcification seen, otherwise no other abnormalities. [facility] Medical History Ruptured ovarian cyst Home Medications ???Medication ???Instructions ???Recorded ???Last Taken ???Type NK 04/04/25 Unknown History Allergy/AdvReac Type Severity Reaction Status Date / Time No Known Allergies Allergy Verified 04/04/25 17:46 Surgical History H/O elbow surgery Social History Smoking Status: Former smoker ROS Constitutional Constitutional: Reports systems reviewed and no addt'l complaints, except as documented Eyes Eyes: Reports systems reviewed and no addt'l complaints, except as documented ENT HEENT: Reports systems reviewed and no addt'l complaints, except as documented Cardiovascular Cardiovascular: Reports systems reviewed and no addt'l complaints, except as documented Respiratory/Chest Respiratory/Chest: Reports systems reviewed and no addt'l complaints, except as documented Gastrointestinal Gastrointestinal: Reports systems reviewed and no addt'l complaints, except as documented Genitourinary Genitourinary: Reports systems reviewed and no addt'l complaints, except as documented Musculoskeletal Musculoskeletal: Reports systems reviewed and no addt'l complaints, except as documented Integumentary Integumentary: Reports systems reviewed and no addt'l complaints, except as documented Neurologic Neurologic: Reports systems reviewed and no addt'l complaints, except as documented Psychiatric Psychiatric: Reports systems reviewed and no addt'l complaints, except as documented Endocrine Endocrinology: Reports systems reviewed and no addt'l complaints, except as documented Hematologic/Lymphatic Hematologic/Lymphatic : Reports systems reviewed and no addt'l complaints, except as documented Allergic/Immunologic Allergic/Immunologic: Reports systems reviewed and no addt'l complaints, except as documented Physical Exam Const alert HEENT normocephalic Eyes PERRL Neck full ROM Chest inspection of chest normal Resp normal respiratory effort Cardio regular rate GI normal to inspection, nondistended, normoactive bowel sounds no CVA tenderness Extremity normal to inspection Psych Attention / Concentration: Negative for attention grossly impaired Risk Stratification Risk Stratification Applicable: Yes Age >/= 65: Yes >/= 3 CAD Risk Factors (HTN, HLD, DM, family hx of CAD, or current smoker): Yes Aspirin Use in the Past 7 Days: No Severe Angina (>/= episodes in 24 hours): Yes EKG ST Changes >/= 0.5mm: No Positive Cardiac Marker: No TAYE Risk Stratification Score: 3 TAYE % Risk: 13% Risk Objective Data Vital Signs: Vital Signs Temp Pulse Resp BP Pulse Ox O2 Del Method 98 F 56 L 14 154/76 H 100 Room Air 04/05/25 04:30 04/05/25 04:30 04/05/25 04:30 04/05/25 04:30 04/05/25 04:30 04/05/25 04:30 Oxygen Delivery Method Room Air Weight: 130 lb 15.273 oz Body Mass Index (BMI) 21.7 Intake Output: Intake and Output for Last 24 Hours 04/03/25 04/04/25 04/05/25 23:59 23:59 23:59 Intake Total 1000 / 1250 250 / (more content not included)... Normal [facility] Erythrocyte distribution wid th ratioOrdered By: Mane Conti on 04-05-2025 Erythrocyte distribution width (RBC) [Ratio] 12.9 % 11.6-14.6 [facility] Erythrocyte distribution wid th standard deviationOrdered By: Mane Conti on 04-05-2025 Erythrocyte distribution width (RBC) [Ratio] 45.5 fl High 35.1-43.9 [facility] Glomerular filtration rate ( GFR) estimation/1.73 sq m using serum, plasma, or whole bOrdered By: Mane Conti on 04-05-2025 GFR/1.73 sq M.predicted among non-blacks MDRD (S/P/Bld) [Vol rate/Area] 94 mL/min/{1.73_m2} >60 [facility] Comment on above: mL/min/1.73m2 CKD-EP I Creatinine Equation (2020) Hematocrit Auto (Bld) [Volum e fraction]Ordered By: Mane Conti on 04-05-2025 Hematocrit (Bld) [Volume fraction] 37.2 % 37-47 [facility] Hemoglobin measurementOrdere d By: Mane Conti on 04-05-2025 Hemoglobin (Bld) [Mass/Vol] 12.7 g/dL 12.0-15.0 [facility] LDL calc ser/plasOrdered By: Mane Conti on 04-05-2025 Cholesterol in LDL [Mass/Vol] 83 mg/dL [facility] Comment on above: Mkxpiolavw=094-788 m g/dL & Higher Yxbf=754 mg/dL or greater Lipid Profileon 04-05-2025 CHOL:HDL 2.52 Normal [facility] Comment on above: Performed By: #### L 100.0100, L500.2500, L501.4021, L501.5200, L501.9520, L503.1355 #### [facility] [address] [place], [address] Cholesterol [Mass/Vol] 173 mg/dL Normal <=200 [facility] Comment on above: Result Comment: Chol esterol level, Desirable <200 mg/dL Borderline high cholesterol 200-239 mg/dL High cholesterol >=240 mg/dL Recommendations of the NCEP Adult Treatment Panel for the following risk-cutoff thresholds for the [place] population. Performed By: #### L 100.0100, L500.2500, L501.4021, L501.5200, L501.9520, L503.7505 #### [facility] [address] [place], [address] Cholesterol in HDL [Mass/Vol] 69 mg/dL Normal [facility] Comment on above: Result Comment: Beth onal Cholesterol Education Program (NCEP) guidelines: <40 mg/dL: Low HDL-cholesterol (major risk factor for CHD) >= 60 mg/dL: High HDL-cholesterol (negative risk factor for CHD) HDL-cholesterol is affected by a number of factors, e.g. smoking, exercise, hormones, sex and age. Performed By: #### L 100.0100, L500.2500, L501.4021, L501.5200, L501.9520, L503.7505 #### [facility] [address] [place], [address] Cholesterol in LDL [Mass/Vol] 83 mg/dL Normal [facility] Comment on above: Result Comment: Bord amvpmg=167-050 mg/dL Higher Ymbe=654 mg/dL or greater Performed By: #### L 100.0100, L500.2500, L501.4021, L501.5200, L501.9520, L503.7505 #### [facility] [address] [place], [address] Cholesterol in VLDL [Mass/Vol] 21 mg/dL Normal 5-40 [facility] Comment on above: Performed By: #### L 100.0100, L500.2500, L501.4021, L501.5200, L501.9520, L503.7505 #### [facility] [address] [place], [address] Triglyceride [Mass/Vol] 107 mg/dL Normal [facility] Comment on above: Result Comment: The drugs N-Acetylcysteine and Metamizole may falsely depress this assay. Normal range: <150 mg/dL Borderline High: 150-199 mg/dL High: 200-499 mg/dL Very High: >500 mg/dL Performed By: #### L 100.0100, L500.2500, L501.4021, L501.5200, L501.9520, L503.7505 #### [facility] [address] [place] [place], [id number] MCV (mean corpuscular volume ) determinationOrdered By: Mane Conti on 04-05-2025 MCV (RBC) [Entitic vol] 96.4 fL 81-99 [facility] Mean corpuscular hemoglobin (MCH) determinationOrdered By: Mane Conti on 04-05-2025 MCH (RBC) [Entitic mass] 32.9 pg High 27.0-32.0 [facility] Mean corpuscular hemoglobin concentration (MCHC) determinationOrdered By: Mane Conti on 04-05-2025 MCHC (RBC) [Mass/Vol] 34.1 g/dL 32-36 [facility] Mean platelet volume determi nationOrdered By: Mane Conti on 04-05-2025 Platelet mean volume (Bld) [Entitic vol] 10.9 fL 6.2-12.0 [facility] Platelet countOrdered By: Sang Conti on 04-05-2025 Platelets (Bld) [#/Vol] 160 10*3/uL 150-450 [facility] Potassium measurement (mass/ volume)Ordered By: Mane Conti on 04-05-2025 Potassium (Unsp spec) [Mass/Vol] 3.8 mmol/L 3.3-5.1 [facility] Comment on above: Hemolysis present, R esults could be affected. RBC Auto (Bld) [#/Vol]Ordere d By: Mane Conti on 04-05-2025 RBC (Bld) [#/Vol] 3.86 10*6/uL Low 4.2-5.4 [facility] Screening total cholesterol/ high density lipoprotein (HDL) cholesterol ratioOrdered By: Mane Conti on 04-05-2025 Cholesterol.total/Chayiot sterol in HDL [Mass ratio] 2.52 {ratio} [facility] Serum creatinine measurement (mass/volume)Ordered By: Mane Conti on 04-05-2025 Creatinine [Mass/Vol] 0.64 mg/dL Low 0.70-1.20 [facility] Serum glucose measurement (m ass/volume)Ordered By: Mane Conti on 04-05-2025 Glucose [Mass/Vol] 101 mg/dL High 70-99 [facility] Serum or plasma calcium teodoro urement (mass/volume)Ordered By: Mane Conti on 04-05-2025 Calcium [Mass/Vol] 8.8 mg/dL 7.6-11.0 [facility] Serum or plasma cholesterol in HDL measurement (mass/volume)Ordered By: Mane Conti on 04-05-2025 Cholesterol in HDL [Mass/Vol] 69 mg/dL >40 [facility] Comment on above: National Cholesterol Education Program (NCEP) guidelines:<40 mg/dL: Low HDL-cholesterol (major risk factor for CHD)>= 60 mg/dL: High HDL-cholesterol (negative risk factor for CHD)HDL-cholesterol is affected by a number of factors, e.g. smoking, exercise, hormones, sex and age. Serum or plasma cholesterol measurement (mass/volume)Ordered By: Mane Conti on 04-05-2025 Cholesterol [Mass/Vol] 173 mg/dL <201 [facility] Comment on above: Cholesterol level, D esirable <200 mg/dLBorderline high cholesterol 200-239 mg/dLHigh cholesterol >=240 mg/dLRecommendations of the NCEP Adult Treatment Panel for the following risk-cutoff thresholds for the [place] population. Serum or plasma urea nitroge n measurement (mass/volume)Ordered By: Mane Conti on 04-05-2025 Urea nitrogen [Mass/Vol] 15 mg/dL 4-19 [facility] Sodium levelOrdered By: Javier Conti on 04-05-2025 Sodium [Moles/Vol] 140 mmol/L 133-145 [facility] Triglycerides measurementOrd ered By: Mane Conti on 04-05-2025 Triglyceride [Mass/Vol] 107 mg/dL <199 [facility] Comment on above: The drugs N-Acetylcy steine and Metamizole may falsely depress this assay. Normal range: <150 mg/dLBorderline High: 150-199 mg/dLHigh: 200-499 mg/dLVery High: >500 mg/dL White blood cell (WBC) count Ordered By: Mane Conti on 04-05-2025 WBC (Bld) [#/Vol] 4.4 10*3/uL 4.4-11.0 [facility] Absolute lymphocyte countOrd ered By: Miles Boswell on 04-04-2025 Lymphocytes Auto (Unsp spec) [#/Vol] 1.87 10*3/uL 0.83-4.51 [facility] Absolute neutrophil countOrd ered By: Miles Boswell on 04-04-2025 Neutrophils (Bld) [#/Vol] 3.1 10*3/uL 2.0-7.7 [facility] Anion gap in Serum or Plasma Ordered By: Miles Boswell on 04-04-2025 Anion gap [Moles/Vol] 13 mmol/L 5-15 [facility] Automated lymphocyte count a s percentage of total leukocytesOrdered By: Miles Boswell on 04-04-2025 Lymphocytes/100 WBC Auto (Unsp spec) 33.3 % - [facility] BUN/creatinine ratioOrdered By: Miles Boswell on 04-04-2025 Urea nitrogen/Creatinine [Mass ratio] 19.3 mg/mg - [facility] Basic Metabolic Profile (BMP )on 04-04-2025 BUN/CRE 19.3 RATIO Normal 07-15 [facility] Comment on above: Performed By: #### L 100.0100, L500.2500, L501.4021, L501.5200, L501.9520, L503.7505 #### [facility] [address] [place], [address] Calcium [Mass/Vol] 9.9 mg/dL Normal 7.6-11.0 [facility] Comment on above: Performed By: #### L 100.0100, L500.2500, L501.4021, L501.5200, L501.9520, L503.7505 #### [facility] [address] [place], [address] Chloride [Moles/Vol] 103 mmol/L Normal 98-[address] [facility] Comment on above: Performed By: #### L 100.0100, L500.2500, L501.4021, L501.5200, L501.9520, L503.7505 #### [facility] [address] [place], [address] CO2 [Moles/Vol] 23.5 mmol/L Normal 21.0-32.0 [facility] Comment on above: Performed By: #### L 100.0100, L500.2500, L501.4021, L501.5200, L501.9520, L503.7505 #### [facility] [address] [place], [address] Creatinine [Mass/Vol] 0.82 mg/dL Normal 0.70-1.20 [facility] Comment on above: Performed By: #### L 100.0100, L500.2500, L501.4021, L501.5200, L501.9520, L503.7505 #### [facility] [address] [place], [address] ECRCL 64.67 ml/min Normal 50-250 [facility] Comment on above: Performed By: #### L 100.0100, L500.2500, L501.4021, L501.5200, L501.9520, L503.7505 #### [facility] [address] [place], [address] GAP 13 Normal 5-15 [facility] Comment on above: Performed By: #### L 100.0100, L500.2500, L501.4021, L501.5200, L501.9520, L503.7505 #### [facility] [address] [place], [address] GFR/1.73 sq M.predicted among non-blacks MDRD (S/P/Bld) [Vol rate/Area] 77 mL/min/{1.73_m2} Normal >60 [facility] Comment on above: Result Comment: mL/m in/1.73m2 CKD-EPI Creatinine Equation (2020) Performed By: #### L 100.0100, L500.2500, L501.4021, L501.5200, L501.9520, L503.7505 #### [facility] [address] [place], [address] Glucose [Mass/Vol] 136 mg/dL High 70-99 [facility] Comment on above: Performed By: #### L 100.0100, L500.2500, L501.4021, L501.5200, L501.9520, L503.7505 #### [facility] [address] [place], [address] Potassium [Moles/Vol] 3.7 mmol/L Normal 3.3-5.1 [facility] Comment on above: Result Comment: Hemo lysis present, Results??could be affected. ?? Performed By: #### L 100.0100, L500.2500, L501.4021, L501.5200, L501.9520, L503.7505 #### [facility] [address] [place], [address] Sodium [Moles/Vol] 139 mmol/L Normal 133-145 [facility] Comment on above: Performed By: #### L 100.0100, L500.2500, L501.4021, L501.5200, L501.9520, L503.7505 #### [facility] [address] [place], [address] Urea nitrogen [Mass/Vol] 16 mg/dL Normal 4-19 [facility] Comment on above: Performed By: #### L 100.0100, L500.2500, L501.4021, L501.5200, L501.9520, L503.7505 #### [facility] [address] [place], [address] Basophil percentageOrdered B y: Milesjayce Boswell on 04-04-2024 Basophils/100 WBC (Bld) 0.5 % 0-1 [facility] CBC W/Diff, Automatedon 03-26 0-2024 Absolute Lymph 1.87 X10 3/uL Normal 0.83-4.51 [facility] Comment on above: Performed By: #### L 100.0100, L500.2500, L501.4021, L501.5200, L501.9520, L503.7505 #### [facility] [address] [place], [address] Absolute Neut 3.1 X10 3/uL Normal 2.0-7.7 [facility] Comment on above: Performed By: #### L 100.0100, L500.2500, L501.4021, L501.5200, L501.9520, L503.7505 #### [facility] [address] [place], [address] Basophils/100 WBC (Bld) 0.5 % Normal 0-1 [facility] Comment on above: Performed By: #### L 100.0100, L500.2500, L501.4021, L501.5200, L501.9520, L503.7505 #### [facility] [address] [place], [address] Eosinophils/100 WBC (Bld) 2.0 % Normal 0-5 [facility] Comment on above: Performed By: #### L 100.0100, L500.2500, L501.4021, L501.5200, L501.9520, L503.7505 #### [facility] [address] [place], [address] Erythrocyte distribution width (RBC) [Ratio] 12.9 % Normal 11.6-14.6 [facility] Comment on above: Performed By: #### L 100.0100, L500.2500, L501.4021, L501.5200, L501.9520, L503.7505 #### [facility] [address] [place], [address] Hematocrit (Bld) [Volume fraction] 40.5 % Normal 37-47 [facility] Comment on above: Performed By: #### L 100.0100, L500.2500, L501.4021, L501.5200, L501.9520, L503.7505 #### [facility] [address] [place], [address] Hemoglobin (Bld) [Mass/Vol] 14.0 g/dL Normal 12.0-15.0 [facility] Comment on above: Performed By: #### L 100.0100, L500.2500, L501.4021, L501.5200, L501.9520, L503.7505 #### [facility] [address] [place], [address] IG% 0.200 Normal 0.0-0.9 [facility] Comment on above: Result Comment: IG% - Immature Granulocytes (promyelocytes, myelocytes and metamyelocytes) > 1% indicates that a LEFT SHIFT is Present. Performed By: #### L 100.0100, L500.2500, L501.4021, L501.5200, L501.9520, L503.7505 #### [facility] [address] [place], [address] Lymphocytes/100 WBC (Bld) 33.3 % Normal 19-41 [facility] Comment on above: Performed By: #### L 100.0100, L500.2500, L501.4021, L501.5200, L501.9520, L503.7505 #### [facility] [address] [place], [address] MCH (RBC) [Entitic mass] 32.9 pg High 27.0-32.0 [facility] Comment on above: Performed By: #### L 100.0100, L500.2500, L501.4021, L501.5200, L501.9520, L503.7505 #### [facility] [address] [place], [address] MCHC (RBC) [Mass/Vol] 34.6 g/dL Normal 32-36 [facility] Comment on above: Performed By: #### L 100.0100, L500.2500, L501.4021, L501.5200, L501.9520, L503.7505 #### [facility] [address] [place], [address] MCV (RBC) [Entitic vol] 95.3 fL Normal 81-99 [facility] Comment on above: Performed By: #### L 100.0100, L500.2500, L501.4021, L501.5200, L501.9520, L503.7505 #### [facility] [address] [place], [address] Monocytes/100 WBC (Bld) 8.0 % Normal 0-10 [facility] Comment on above: Performed By: #### L 100.0100, L500.2500, L501.4021, L501.5200, L501.9520, L503.7505 #### [facility] [address] [place], [address] Neutrophils/100 WBC (Bld) 56.0 % Normal 47-70 [facility] Comment on above: Performed By: #### L 100.0100, L500.2500, L501.4021, L501.5200, L501.9520, L503.7505 #### [facility] [address] [place], [address] Nucleated RBC (Bld) [#/Vol] 0 10*3/uL Normal 0-5 [facility] Comment on above: Performed By: #### L 100.0100, L500.2500, L501.4021, L501.5200, L501.9520, L503.7505 #### [facility] [address] [place], [address] Platelet mean volume (Bld) [Entitic vol] 10.7 fL Normal 6.2-12.0 [facility] Comment on above: Performed By: #### L 100.0100, L500.2500, L501.4021, L501.5200, L501.9520, L503.7505 #### [facility] [address] [place], [address] Platelets (Bld) [#/Vol] 178 10*3/uL Normal 150-450 [facility] Comment on above: Performed By: #### L 100.0100, L500.2500, L501.4021, L501.5200, L501.9520, L503.7505 #### [facility] [address] [place], [address] RBC (Bld) [#/Vol] 4.25 10*6/uL Normal 4.2-5.4 [facility] Comment on above: Performed By: #### L 100.0100, L500.2500, L501.4021, L501.5200, L501.9520, L503.7505 #### [facility] [address] [place], [address] RDW SD 45.3 fl High 35.1-43.9 [facility] Comment on above: Performed By: #### L 100.0100, L500.2500, L501.4021, L501.5200, L501.9520, L503.7505 #### [facility] [address] [place], [address] WBC (Bld) [#/Vol] 5.6 10*3/uL Normal 4.4-11.0 [facility] Comment on above: Performed By: #### L 100.0100, L500.2500, L501.4021, L501.5200, L501.9520, L503.7505 #### [facility] [address] [place], [address] Absolute Neut Normal 2.0-7.7 [facility] Comment on above: Result Comment: DUPL ICATE ORDER Performed By: #### L 501.52894, L506.0400, L100.0100 #### [facility] [address] [place], [address] HCT Normal 37-47 [facility] Comment on above: Result Comment: DUPL ICATE ORDER Performed By: #### L 501.72373, L506.0400, L100.0100 #### [facility] [address] [place], [address] HGB Normal 12.0-15.0 [facility] Comment on above: Result Comment: DUPL ICATE ORDER Performed By: #### L 501.18568, L506.0400, L100.0100 #### [facility] [address] [place], [address] MCH Normal 27.0-32.0 [facility] Comment on above: Result Comment: DUPL ICATE ORDER Performed By: #### L 501.74162, L506.0400, L100.0100 #### [facility] [address] [place], [address] MCHC Normal 32-36 [facility] Comment on above: Result Comment: DUPL ICATE ORDER Performed By: #### L 501.06619, L506.0400, L100.0100 #### [facility] [address] [place], [address] MCV Normal 81-99 [facility] Comment on above: Result Comment: DUPL ICATE ORDER Performed By: #### L 501.09649, L506.0400, L100.0100 #### [facility] [address] [place], [address] NEUT% Normal 47-70 [facility] Comment on above: Result Comment: DUPL ICATE ORDER Performed By: #### L 501.43926, L506.0400, L100.0100 #### [facility] [address] [place], [address] PLT Normal 150-450 [facility] Comment on above: Result Comment: DUPL ICATE ORDER Performed By: #### L 501.89653, L506.0400, L100.0100 #### [facility] [address] [place], [address] RBC Normal 4.2-5.4 [facility] Comment on above: Result Comment: DUPL ICATE ORDER Performed By: #### L 501.93671, L506.0400, L100.0100 #### [facility] [address] [place], [address] RDW CV Normal 11.6-14.6 [facility] Comment on above: Result Comment: DUPL ICATE ORDER Performed By: #### L 501.18988, L506.0400, L100.0100 #### [facility] [address] [place], [address] RDW SD Normal 35.1-43.9 [facility] Comment on above: Result Comment: DUPL ICATE ORDER Performed By: #### L 501.57239, L506.0400, L100.0100 #### [facility] [address] [place], [address] WBC Normal 4.4-11.0 [facility] Comment on above: Result Comment: DUPL ICATE ORDER Performed By: #### L 501.36009, L506.0400, L100.0100 #### [facility] [address] [place], [address] CTA Chest W/WO Contraston CTA Chest W/WO Contrast [facility] [address] [place] [address] CTA Chest W/WO Contrast MR#: [id number] Acct: [id number] Name: VIOLETA ELIZABETH Rep #: [id number] : 1955 F 69 From: Andrea Kumar MD PCP: TARIQ Medina Status: REG ER Study: CTA Chest W/WO Contrast Date of Exam: 04/04/25 Exam# [id number] Ordering Dr: Miles Boswell DO PROCEDURE: CTA CHEST W/WO CONTRAST 04/04/2025 REASON FOR EXAM: SOB, CHEST PAIN TECHNIQUE: CTA CHEST W/WO CONTRAST Multiplanar Sagittal and Coronal images were obtained. CONTRAST: Isovue 370 VOLUME: 100 mL One or more dose reduction techniques were used (e.g., Automated exposure control, adjustment of the mA and/or kV according to patient size, use of iterative reconstruction technique). RADIATION DOSE SUMMARY: CTDlvol: 17 mGy DLP: 207.40 mGycm FINDINGS: Again, scanning has been performed from inferior to superior which is suboptimal. The thoracic aorta exhibits normal caliber without dissection. Mild coronary artery calcification is seen. Examination of the pulmonary arterial tree demonstrates no filling defects to suggest pulmonary embolism. Imaged portions of the upper abdomen are unremarkable. There is no pericardial fluid or mediastinal mass. Although lung windows were not supplied, there is no consolidation, edema or effusion. CT/CTA Chest W/WO Contrast IMPRESSION: Negative study Reading [facility] CC: Dr. 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 Emergency Department Summary on 04-04-2025 Emergency Department Summary [facility] Medical Records Department [address] [place] [address] Emergency Department Summary 04/04/25 MR#: [id number] Acct: [id number] Name: VIOLETA ELIZABETH Rep #: [id number] : 1955 69 From: Miles Boswell DO PCP: TARIQ Medina Status:REG ER Location: ED HPI History of Present Illness Chief Complaint: Chest Pain Narrative Narrative: Patient is a 69-year-old female who presents to the emergency department the chief complaint of chest pain, shortness of breath. Patient states that she March 19, 2025 had a stress test obtained in the outpatient setting and was abnormal she was told. She states that she is having worsening fatigue and shortness of breath with exertion and states that she called warehouse insulation worker Dr. Obrien office and they advised her to come here given her abnormal stress test. She states that she is to have an appointment with him in April but they did not feel that this could wait any longer and sent her to the emergency department. Patient denies any travel history denies any history of blood clots. States that she has been getting chest pain that will radiate to her left arm as well and gets better with rest. [facility] Medical History Ruptured ovarian cyst Home Medications ???Medication ???Instructions ???Recorded ???Last Taken ???Type NK 04/04/25 Unknown History Allergy/AdvReac Type Severity Reaction Status Date / Time No Known Allergies Allergy Verified 04/04/25 17:46 Surgical History H/O elbow surgery Social History Smoking Status: Former smoker ROS ROS ED ROS Narrative Constitutional: Denies any fevers, chills, headaches Cardiovascular: Complains of chest pain as noted above as well as palpitations Respiratory: Complains of shortness of breath denies coughing Abdomen: Denies abdominal pain nausea vomit diarrhea : Denies urinary symptoms Neurological: Denies any numbness, wheeze, tingling Musculoskeletal: Denies back pain Skin: Denies any rashes or lesions EXAM Physical Exam Narrative Exam Narrative: General: Patient was lying in bed rest comfortably did not appear to be in acute distress Head: Atraumatic, normocephalic Eyes: PERRL bilaterally, EOMI blood, no conjunctival injection noted Neck: Soft, supple, trachea midline Cardiovascular: Patient is bradycardic with a regular rhythm Respiratory: Clear to auscultation bilaterally Abdomen: No tenderness palpation Extremities: Radial pulses +2/4 in the bilateral extremities, +5/5 strength noted in the bilateral upper and lower extremities Neurological: Patient following commands knew that she was at [facility] year is 2024 Skin: Warm, dry, intact no rashes or lesions noted Const Vital Signs: 04/04/25 17:44 04/04/25 17:56 04/04/25 17:57 Temperature 96.6 F L Temperature Source Oral Pulse Rate 61 Respiratory Rate 18 Respiratory Effort Blood Pressure 157/78 H Blood Pressure Mean 104 Pulse Ox 99 100 97 Oxygen Delivery Method Room Air Room Air Room Air 04/04/25 17:59 04/04/25 18:44 04/04/25 19:00 Temperature Temperature Source Pulse Rate 52 L 56 L Respiratory Rate 23 H 11 L Respiratory Effort Normal Blood Pressure 155/80 H 161/82 H Blood Pressure Mean 105 108 Pulse Ox 100 100 Oxygen Delivery Method Room Air Room Air 04/04/25 20:00 04/04/25 20:58 04/04/25 20:59 Temperature 96.6 F L Temperature Source Pulse Rate 57 L 56 L Respiratory Rate 16 16 Respiratory Effort Blood Pressure 147/82 H 144/79 H 144/79 H Blood Pressure Mean 103 100 100 Pulse Ox 97 96 Oxygen Delivery Method Room Air MDM MDM MDM Narrative Medical decision making narrative: patient is a 69-year-old female who presents to the emergency department chief complaint of worsening chest pain on exertion, fatigue and shortness of breath with worsening fatigue. On the differential diagnose includes but not limited to ACS, dissection, PE. Once workup is obtained reviewed she will be reevaluated. Patient CBC reviewed showed no evidence leukocytosis white blood count 5.6, hemoglobin 14, plate count 178. Patient sodium normal 139, Tessman normal 3.7, creatinine normal 0.82. Patient's troponin was 9 delta troponin of 10. Patient proBNP normal at 349, TSH normal at 2.65, free T4 and T3 were 1.40 and 3.7 respectively. Patient EKG reviewed showed sinus rhythm with a rate of 62 bpm. Patient CTA of the chest reviewed and showed no acute processes. Called and discussed case with on-call warehouse insulation worker Dr. Medina who is recommending admission for heart catheterization as she had an abnormal outpatient stress test (more content not included)... Normal [facility] Eosinophil percentageOrdered By: Miles Boswell on 04-04-2025 Eosinophils/100 WBC (Bld) 2.0 % 0-5 [facility] Erythrocyte distribution wid th ratioOrdered By: Miles Boswell on 04-04-2025 Erythrocyte distribution width (RBC) [Ratio] 12.9 % 11.6-14.6 [facility] Erythrocyte distribution wid th standard deviationOrdered By: Miles Boswell on 04-04-2025 Erythrocyte distribution width (RBC) [Ratio] 45.3 fl High 35.1-43.9 [facility] Free T3on 04-04-2025 Free T3 [Mass/Vol] 3.7 pg/mL Normal 2.18-3.98 [facility] Comment on above: Performed By: #### L 501.41968, L506.0400, L100.0100 #### [facility] [address] [place], [address] Free [id number] By: Miles ha on 04-04-2025 Free T3 [Mass/Vol] 3.7 pg/mL 2.18-3.98 [facility] Glomerular filtration rate ( GFR) estimation/1.73 sq m using serum, plasma, or whole bOrdered By: Miles Boswell on 04-04-2025 GFR/1.73 sq M.predicted among non-blacks MDRD (S/P/Bld) [Vol rate/Area] 77 mL/min/{1.73_m2} >60 [facility] Comment on above: mL/min/1.73m2 CKD-EP I Creatinine Equation (2020) H AND P Exam - [place] 04-04-2025 H&P Exam - Hospitalist [facility] Medical Records Department [address] [place] [address] H P Exam - Hospitalist 04/04/252121 MR#: [id number] Acct: [id number] Name: VIOLETA ELIZABETH Rep #: [id number] : 1955 69 From: Mane Conti DO PCP: TARIQ Medina Status:ADM IN Location: [facility] [id number] HPI - General General Date of Admission: 04/04/25 Date of Service: 04/04/25 Chief Complaint: Chest pain HPI Narrative VIOLETA ELIZABETH, is a 69 F who presented to [facility] ED on 04/04/2025 with chest pain. Patient had a stress treadmill echocardiogram done at [place] on 03/19 that was reportedly abnormal. [facility]. Stress test report was as follows. Resting EKG showed baseline inferolateral ST segment depressions less than 1 mm. Stress EKG demonstrated worsening EKG changes in the inferolateral leads up to 1 mm. EF 66%. Patient did achieve 8.50 METS. Conclusion noted that the worsening EKG changes as above gave her a Florentino treadmill score of 1.5 which places her at moderate risk for cardiac disease. Patient was scheduled to see Dr. Obrien with cardiology in the office on April 30. However she has had worsening chest pain/pressure over the past several days so she was advised to come to the ED for further evaluation. In the ED she is hypertensive to the 160s systolic but otherwise hemodynamically stable on room air. EKG showed normal sinus rhythm with no ST changes. CBC and BMP were benign. Troponins negative x 2. NT proBNP normal. CTA chest with no PE, mild coronary artery calcification seen, otherwise no other abnormalities. Case was discussed with Dr. Medina with cardiology who recommended admission for further management. Hospitalist was then contacted for admission. I saw the patient at bedside in the ED. Patient was sitting back comfortably in bed, conversing normally, in no acute distress. She reported ongoing chest pain in the left side of her chest and radiating down her left arm, though she does appear quite comfortable on exam. She denies any shortness of breath. Denies any other acute concerns currently. Will be admitted for further management. [facility] Medical History Ruptured ovarian cyst Home Medications ???Medication ???Instructions ???Recorded ???Last Taken ???Type NK 04/04/25 Unknown History Allergy/AdvReac Type Severity Reaction Status Date / Time No Known Allergies Allergy Verified 04/04/25 17:46 Surgical History H/O elbow surgery Social History Smoking Status: Former smoker ROS Constitutional Constitutional: Denies chills, fatigue, fever(s) or weakness Eyes Eyes: Denies change in vision Cardiovascular Cardiovascular: Reports chest pain and dyspnea on exertion; Denies edema, lightheadedness or palpitations Respiratory/Chest Respiratory/Chest: Denies shortness of breath at rest or wheezing Gastrointestinal Gastrointestinal: Denies abdominal pain Musculoskeletal Musculoskeletal: Denies arthralgias or myalgias Neurologic Neurologic: Denies dizziness, focal weakness or headache(s) Vital Signs Vital Signs Vital Signs: 04/04/25 17:44 04/04/25 17:56 04/04/25 17:57 Temperature 96.6 F L Temperature Source Oral Pulse Rate 61 Respiratory Rate 18 Respiratory Effort Blood Pressure 157/78 H Blood Pressure Mean 104 Pulse Ox 99 100 97 Oxygen Delivery Method Room Air Room Air Room Air 04/04/25 17:59 04/04/25 18:44 04/04/25 19:00 Temperature Temperature Source Pulse Rate 52 L 56 L Respiratory Rate 23 H 11 L Respiratory Effort Normal Blood Pressure 155/80 H 161/82 H Blood Pressure Mean 105 108 Pulse Ox 100 100 Oxygen Delivery Method Room Air Room Air 04/04/25 20:00 04/04/25 20:58 04/04/25 20:59 Temperature 96.6 F L Temperature Source Pulse Rate 57 L 56 L Respiratory Rate 16 16 Respiratory Effort Blood Pressure 147/82 H 144/79 H 144/79 H Blood Pressure Mean 103 100 100 Pulse Ox 97 96 Oxygen Delivery Method Room Air Weight Weight: 77.247 kg Body Mass Index (BMI) 27.8 Physical Exam Const alert, oriented x3, no apparent distress, average body habitus, healthy appearing and well nourished Constitutional Narrative: Elderly female, sitting back comfortably in bed, conversing normally, in no acute distress. General Appearance: cooperative, comfortable, well kempt and well developed HEENT normocephalic, head/scalp atraumatic, hearing grossly normal bilaterally, nasal mucous membranes and turbinates normal and moist oral mucous membranes Eyes PERRL, EOMs intact bilaterally and conjunctivae normal Neck full ROM (more content not included)... Normal [facility] Hematocrit Auto (Bld) [Volum e fraction]Ordered By: Miles Boswell on 04-04-2025 Hematocrit (Bld) [Volume fraction] 40.5 % 37-47 [facility] Hemoglobin A1con 04-04-2025 HbA1c (Bld) [Mass fraction] 5.3 % Normal <=5.6 [facility] Comment on above: Result Comment: Norm al < 5.7 % Prediabetic 5.7 - 6.4 % Diabetic >or= 6.5 % Please note range changes. Performed By: #### L 100.0100, L500.2500, L501.4021, L501.5200, L501.9520, L503.7505 #### [facility] [address] [place], [place], [id number] Hemoglobin A1c percentageOrd ered By: Mane Conti on 04-04-2025 HbA1c (Bld) [Mass fraction] 5.3 % <5.7 [facility] [facility] Comment on above: Normal < 5.7 % Predi abetic 5.7 - 6.4 % Diabetic >or= 6.5 % Please note range changes. Hemoglobin measurementOrdere d By: Miles Boswell on 04-04-2025 Hemoglobin (Bld) [Mass/Vol] 14.0 g/dL 12.0-15.0 [facility] Immature granulocytes/100 WB C Auto (Bld)Ordered By: Miles Boswell on 04-04-2025 Immature granulocytes/100 WBC (Bld) 0.200 % 0.0-0.9 [facility] Comment on above: IG% - Immature Granu locytes (promyelocytes, myelocytes and metamyelocytes) > 1% indicates that a LEFT SHIFT is Present. L499.0042on 04-04-2025 Trop T High Sen 10 ng/L Normal <=14 [facility] Comment on above: Performed By: #### L 100.0100, L500.2500, L501.4021, L501.5200, L501.9520, L503.7505 #### [facility] [address] [place], [address] Trop T High Sen Normal <=14 [facility] Comment on above: Result Comment: DUPL ICATE Performed By: #### L 100.0100, L500.2500, L501.4021, L501.5200, L501.9520, L503.7505 #### [facility] [address] [place], [address] L499.0043on 04-04-2025 Trop T High Sen Normal <=14 [facility] Comment on above: Result Comment: Lamont kendall OM: Ordered Performed By: #### L 100.0100, L500.2500, L501.4021, L501.5200, L501.9520, L503.7505 #### [facility] [address] [place], [address] Trop T High Sen Normal <=14 [facility] Comment on above: Result Comment: DUPL ICATE Performed By: #### L 499.0043 #### [facility] [address] [place], [address] L501.4021on 04-04-2025 Trop T High Sen 9 ng/L Normal <=14 [facility] Comment on above: Performed By: #### L 100.0100, L500.2500, L501.4021, L501.5200, L501.9520, L503.7505 #### [facility] [address] [place], [address] L503.7505on 04-04-2025 Natriuretic peptide B (Bld) [Mass/Vol] 349 pg/mL Normal <=900 [facility] Comment on above: Result Comment: Hear t Failure Unlikely: < 300 pg/mL Heart Failure Likely < 50 Years: > 450 pg/mL 50-75 Years: > 900 pg/mL >75 Years: > 1800 pg/mL Performed By: #### L 100.0100, L500.2500, L501.4021, L501.5200, L501.9520, L503.7505 #### [facility] [address] [place], [address] MCV (mean corpuscular volume ) determinationOrdered By: Miles Boswell on 04-04-2025 MCV (RBC) [Entitic vol] 95.3 fL 81-99 [facility] Magnesiumon 04-04-2025 Magnesium [Mass/Vol] 1.9 mg/dL Normal 1.5-2.[address] [facility] Comment on above: Performed By: #### L 100.0100, L500.2500, L501.4021, L501.5200, L501.9520, L503.7505 #### [facility] [address] [place], [address] Magnesium measurement (mass/ volume)Ordered By: Miles Boswell on 04-04-2025 Magnesium (Unsp spec) [Mass/Vol] 1.9 mg/dL 1.5-2.2 [facility] Mean corpuscular hemoglobin (MCH) determinationOrdered By: Miles Boswell on 04-04-2025 MCH (RBC) [Entitic mass] 32.9 pg High 27.0-32.0 [facility] Mean corpuscular hemoglobin concentration (MCHC) determinationOrdered By: Miles Boswell on 04-04-2025 MCHC (RBC) [Mass/Vol] 34.6 g/dL 32-36 [facility] Mean platelet volume determi nationOrdered By: Miles Boswell on 04-04-2025 Platelet mean volume (Bld) [Entitic vol] 10.7 fL 6.2-12.0 [facility] Monocyte percentageOrdered B y: Miles Boswell on 04-04-2025 Monocytes/100 WBC (Bld) 8.0 % 0-10 [facility] Natriuretic peptide.B prohor gabe N-Terminal [Mass/volume] in Serum or PlasmaOrdered By: Miles Boswell on 04-04-2025 Natriuretic peptide.B prohormone N-Terminal [Mass/Vol] 349 pg/mL <900 [facility] Comment on above: Heart Failure Unlike ly: < 300 pg/mLHeart Failure Likely< 50 Years: > 450 pg/mL50-75 Years: > 900 pg/mL>75 Years: > 1800 pg/mL Neutrophil percentageOrdered By: Miles Boswell on 04-04-2025 Neutrophils/100 WBC (Bld) 56.0 % 47-70 [facility] Nucleated red blood cell per centageOrdered By: Miles Boswell on 04-04-2025 Nucleated RBC/100 WBC (Bld) [Ratio] 0 % 0-5 [facility] Platelet countOrdered By: Gutierrez Boswell on 04-04-2025 Platelets (Bld) [#/Vol] 178 10*3/uL 150-450 [facility] Potassium measurement (mass/ volume)Ordered By: Miles Boswell on 04-04-2025 Potassium (Unsp spec) [Mass/Vol] 3.7 mmol/L 3.3-5.1 [facility] Comment on above: Hemolysis present, R esults could be affected. RBC Auto (Bld) [#/Vol]Ordere d By: Miles Boswell on 04-04-2025 RBC (Bld) [#/Vol] 4.25 10*6/uL 4.2-5.4 [facility] Serum creatinine measurement (mass/volume)Ordered By: Miles Boswell on 04-04-2025 Creatinine [Mass/Vol] 0.82 mg/dL 0.70-1.20 [facility] Serum glucose measurement (m ass/volume)Ordered By: Miles Boswell on 04-04-2025 Glucose [Mass/Vol] 136 mg/dL High 70-99 [facility] Serum or plasma calcium teodoro urement (mass/volume)Ordered By: Miles Boswell on 04-04-2025 Calcium [Mass/Vol] 9.9 mg/dL 7.6-11.0 [facility] Serum or plasma urea nitroge n measurement (mass/volume)Ordered By: Miles Boswell on 04-04-2025 Urea nitrogen [Mass/Vol] 16 mg/dL 4-19 [facility] Sodium levelOrdered By: Ino Boswell on 04-04-2025 Sodium [Moles/Vol] 139 mmol/L 133-145 [facility] T4 Free Directon 04-04-2025 T4 FREE DIRECT 1.40 ng/dL Normal 0.76-1.46 [facility] Comment on above: Performed By: #### L 501.82472, L506.0400, L100.0100 #### [facility] [address] [place], [address] T4 freeOrdered By: Miles ha on 04-04-2025 Free T4 [Mass/Vol] 1.40 ng/dL 0.76-1.46 [facility] TSH DL <= 0.005 mIU/L QnOrde red By: Miles Boswell on 04-04-2025 TSH Qn 2.650 uIU/mL 0.300-4.200 [facility] Thyroid Stim Hormone (TSH)on 04-04-2025 TSH 2.650 uIU/mL Normal 0.300-4.200 [facility] Comment on above: Performed By: #### L 100.0100, L500.2500, L501.4021, L501.5200, L501.9520, L503.7505 #### [facility] [address] [place], [address] Troponin T.cardiac [Mass/vol ume] in Serum or Plasma by High sensitivity methodOrdered By: Miles Boswell on 04-04-2025 Troponin T.cardiac High sensitivity method [Mass/Vol] 10 ng/L <14 [facility] Troponin T.cardiac High sensitivity method [Mass/Vol] 9 ng/L <14 [facility] White blood cell (WBC) count Ordered By: Miles Boswell on 04-04-2025 WBC (Bld) [#/Vol] 5.6 10*3/uL 4.4-11.0 [facility] CV STRESS ECHO TREADMILLon 0 03-19-2025 CV STRESS ECHO TREADMILL [address] [address] Patient: VIOLETA ELIZABETH Phone#: : 1955 Age: 69 Gender: F Pt. Type: Out Account: [id number] Location: Ordering: [place] Exam Date: 03/19/2025/6:52 Family Phys: Charge Code: [id number] Physician: [place] Order #: [id number] Dose#: CORRECTION Corrected on: 03/22/2025; PROCEDURE: STRESS TREADMILL ECHOCARDIOGRAM HISTORY: Shortness of breath COMPARISON: None. INDICATIONS: chest pain TECHNIQUE: Two-phase echocardiogram examining and comparing left ventricular wall segments before stress and after stress accomplished by using treadmill exercise. [employer] and RN: SAUMYA/YOAN PATIENT MEASUREMENTS Height (in): 65 Weight (lb): 129 STRESS RESULTS Protocol: Murphy Duration of Stress: 07:00 minutes. Stress Discontinued Due to: Dyspnea Resting Heart Rate: 59 bpm. Target Heart Rate: 127bpm. Resting Blood Pressure: 152/79 mmHg Peak Heart Rate: 146 which is 97 % of maximum predicted heart rate. Peak Blood Pressure: 189/91 occurring at 6:00 into exercise Workload: 8.50 METs. SYMPTOMS WITH STRESS: DYSPNEA RESTING EKG: The resting EKG showed baseline inferolateral ST segment depressions less than 1 mm STRESS EKG: The stress EKG demonstrated worsening EKG changes in the inferolateral leads upto 1 mm Ejection fraction 66% CONCLUSION: 1. The EKG portion of the stress echo showed worsening EKG changes in the inferolateral leads of upto 1 mm. The florentino exercise treadmill stress score is +1.25 medium risk. The EKG changes can be false- positive Continued Report - Page 2 of 2 Patient: VIOLETA ELIZABETH Phone#: : 1955 Age: 69 Gender: F Pt. Type: Out Account: [id number] Location: Ordering: [place] Exam Date: 03/19/2025/6:52 Family Phys: Charge Code: [id number] Physician: Bossier Order #: [id number] Dose#: 2. Normal thickening and augmentation of myocardial contractility with exercise stress. No evidence of ischemia on stress echo images 3. Normal left ventricular ejection fraction of 66%. Mild MR, mild TR, mild ID. Trivial pericardial effusion. Normal IVC size Dictated by: DEEPIKA DIAS on 03/19/2025 at 19:20 Approved by: DEEPIKA DIAS on 03/19/2025 at 19:30 Dictated by: DEEPIKA DIAS on 03/22/2025 at 18:54 Approved by: DEEPIKA DIAS on 03/22/2025 at 18:54 Normal [facility] B TYPE NATRIURETIC PEPTIDE ( BNP)on 03-12-2025 Natriuretic peptide B (Bld) [Mass/Vol] 157 pg/mL High <100 [facility] Comment on above: Result Comment: BNP levels increase with age in the general population with the highest values seen in individuals greater than 75 years of age. Reference: J. Am. Mable. Cardiol. 2002; 40:976-982. Performed By: #### 3 7386 #### [facility] [address] [id number] Manager Print: Teofilo Altamirano MD [facility] 03-12-2025 Albumin [Mass/Vol] 4.8 g/dL Normal 3.6-5.1 [facility] Comment on above: Performed By: #### 3 95 #### [facility] [address] [address] Manager Print: Teofilo Altamirano MD Albumin/Globulin [Mass ratio] 1.8 {ratio} Normal 1.0-2.5 [facility] Comment on above: Performed By: #### 3 95 #### [facility] [place] [address] Manager Print: Teofilo Altamirano MD ALP [Catalytic activity/Vol] 93 U/L Normal 37-153 [facility] Comment on above: Performed By: #### 3 95 #### [facility] of [address], [address] [place] [address] Manager Print: Teofilo Altamirano MD ALT [Catalytic activity/Vol] 13 U/L Normal 6-29 [facility] Comment on above: Performed By: #### 3 95 #### [facility] [place] [address] Manager Print: Teofilo Altamirano MD AST [Catalytic activity/Vol] 22 U/L Normal 10-35 [facility] Comment on above: Performed By: #### 3 95 #### [facility] [place] [address] Manager Print: Teofilo Altamirano MD Bilirubin [Mass/Vol] 0.7 mg/dL Normal 0.2-1.2 [facility] Comment on above: Performed By: #### 3 95 #### [facility] [place] [address] Manager Print: Teofilo Altamirano MD BUN/CREATININE RATIO SEE NOTE: Normal 6-22 [facility] Comment on above: Result Comment: Not Reported: BUN and Creatinine are within reference range. Performed By: #### 3 95 #### [facility] of [address], [address] [place] [address] Manager Print: Teofilo Altamirano MD Calcium [Mass/Vol] 9.8 mg/dL Normal 8.6-10.4 [facility] Comment on above: Performed By: #### 3 95 #### [facility] [place] [address] [place] [address] Manager Print: Teofilo Altamirano MD Chloride [Moles/Vol] 104 mmol/L Normal 98-110 [facility] Comment on above: Performed By: #### 3 95 #### [facility] [place] [address] Manager Print: Teofilo Altamirano MD CO2 [Moles/Vol] 25 mmol/L Normal 20-32 [facility] Comment on above: Performed By: #### 3 95 #### [facility] [place] [address] Manager Print: Teofilo Altamirano MD Creatinine [Mass/Vol] 0.74 mg/dL Normal 0.60-1.[address] [facility] Comment on above: Performed By: #### 3 95 #### [facility] [place] [address] Manager Print: Teofilo Altamirano MD GFR/1.73 sq M.predicted among non-blacks MDRD (S/P/Bld) [Vol rate/Area] 86 mL/min/{1.73_m2} Normal > OR = 60 [facility] Comment on above: Performed By: #### 3 95 #### [facility] [place] [address] Manager Print: Teofilo Altamirano MD Globulin (S) [Mass/Vol] 2.6 g/dL Normal 1.9-3.7 [facility] Comment on above: Performed By: #### 3 95 #### [facility] [place] [address] Manager Print: Teofilo Altamirano MD Glucose [Mass/Vol] 86 mg/dL Normal 65-99 [facility] Comment on above: Result Comment: Fasting reference interval Performed By: #### 3 95 #### [facility] [place] [address] Manager Print: Teofilo Altamirano MD Potassium [Moles/Vol] 4.1 mmol/L Normal 3.5-5.[address] [facility] Comment on above: Performed By: #### 3 95 #### [facility] [place] [address] Manager Print: Teofilo Altamirano MD Protein [Mass/Vol] 7.4 g/dL Normal 6.1-8.1 [facility] Comment on above: Performed By: #### 3 95 #### [facility] [place] [address] Manager Print: Teofilo Altamirano MD Sodium [Moles/Vol] 138 mmol/L Normal 135-146 [facility] Comment on above: Performed By: #### 3 95 #### [facility] [place] [address] Manager Print: Teofilo Altamirano MD Urea nitrogen [Mass/Vol] 24 mg/dL Normal 7-25 [facility] Comment on above: Performed By: #### 3 95 #### [facility] [place] [address] Manager Print: Teofilo Altamirano MD Laboratory - Chemistry and C hemistry - challengeon 03-11-2025 Albumin [Mass/Vol] 4.8 g/dL Normal 3.6 - 5.1 g/dL [facility], [facility].; [facility] Albumin/Globulin [Mass ratio] 1.8 {ratio} Normal 1.0 - 2.5 [facility], [facility].; [email or web address], [facility]. ALP [Catalytic activity/Vol] 93 U/L Normal 37 - 153 U/L [facility], [facility].; [facility], [facility]. ALT [Catalytic activity/Vol] 13 U/L Normal 6 - 29 U/L [facility], [facility].; [email or web address], [facility]. AST [Catalytic activity/Vol] 22 U/L Normal 10 - 35 U/L [facility], [facility].; [email or web address] [employer] Bilirubin [Mass/Vol] 0.7 mg/dL Normal 0.2 - 1 .2 mg/dL [facility], [facility].; [email or web address], [facility]. Calcium [Mass/Vol] 9.8 mg/dL Normal 8.6 - 10. 4 mg/dL [facility]. Chloride [Moles/Vol] 104 mmol/L Normal 98 - 11 0 mmol/L [facility].; [facility], [facility]. CO2 [Moles/Vol] 25 mmol/L Normal 20 - 32 mmol/L [facility].; [facility] Creatinine [Mass/Vol] 0.74 mg/dL Normal 0.60 - 1.00 mg/dL [facility].; [facility]. GFR/1.73 sq M.predicted among non-blacks MDRD (S/P/Bld) [Vol rate/Area] 86 mL/min/{1.73_m2} Normal [facility], [facility] Glucose [Mass/Vol] 86 mg/dL Normal 65 - 99 mg/dL [facility].; [facility]. Natriuretic peptide B (Bld) [Mass/Vol] 157 pg/mL Abnormal [facility].; [facility]. Potassium [Moles/Vol] 4.1 mmol/L Normal 3.5 - 5.3 mmol/L [facility].; [facility], [facility]. Protein [Mass/Vol] 7.4 g/dL Normal 6.1 - 8.1 g/dL [facility].; [facility], [facility]. Sodium [Moles/Vol] 138 mmol/L Normal 135 - 146 mmol/L [facility].; [facility]. Urea nitrogen [Mass/Vol] 24 mg/dL Normal 7 - 25 mg/dL [facility].; [facility]. No Panel Informationon 03-11 BUN/CREATININE RATIO SEE NOTE: Normal 6 - 22 [facility].; [facility], [facility]. GLOBULIN 2.6 Normal 1.9 - 3.7 [facility].; [facility], [facility]. SARS CoV 2 AB (IgG) NUCLEOCA PSID, QLon 01-18-2025 SARS-CoV-2 (COVID-19) Ab IA Ql Positive Abnormal Negative [facility] Comment on above: Performed By: #### 3 95 #### [facility] [place] [address] Manager Print: Teofilo Altamirano MD TEST IN QUESTION- MISC QUEST IONon 01-16-2025 COMMENT Normal [facility] Comment on above: Result Comment: To p revent further delays in testing, please email your resolution to [email or web address] or fax the resolution to [phone]. Please include the Specimen Number and DOC on all communications. Performed By: #### 3 95 #### [facility] [place] [address] Manager Print: Teofilo Altamirano MD CONTACT: SERUM Normal [facility] Comment on above: Performed By: #### 3 95 #### [facility] [place] [address] Manager Print: Teofilo Altamirano MD QUESTION/PROBLEM: Normal [facility] Comment on above: Result Comment: There is a question regarding the following specimen submitted and/or the test requested. Performed By: #### 3 95 #### [facility] [place] [address] Manager Print: Teofilo Altamirano MD QUESTION: Normal [facility] Comment on above: Result Comment: PLEA SE CLARIFY ORDER FOR COVID-19 ANTIBODY TEST Performed By: #### 3 95 #### [facility] [place] [address] Manager Print: Teofilo Altamirano MD Laboratory - Microbiology an d Antimicrobial susceptibilityon 01-14-2025 SARS-CoV-2 (COVID-19) Ab IA Ql Positive Abnormal [facility] No Panel Informationon 01-14 CONTACT: SERUM Normal [facility]; [facility] Work Phone: QUESTION/PROBLEM: SEE NOTE Normal [facility].; [facility] Work Phone: QUESTION: SEE NOTE Normal [facility] Work Phone: CT SINUSES W/O CONTRASTon CT SINUSES W/O CONTRAST [address] [address] Patient: VIOLETA ELIZABETH Phone#: : 1955 Age: 69 Gender: F Pt. Type: Out Account: [id number] Location: Ordering: [place] Exam Date: 01/01/2025/14:35 Family Phys: Charge Code: [id number] Physician: [place] Order #: [id number] Dose#: 22.90 mGy PROCEDURE: CT SINUSES WITHOUT CONTRAST COMPARISON: None. INDICATIONS: Chronic sinusitis. TECHNIQUE: CT images were created without intravenous contrast. All CT scans at this facility use dose modulation, iterative reconstruction, and/or weight based dosing when appropriate to reduce radiation dose to as low as reasonably achievable. IV CONTRAST: No IV contrast used,0.0ml TOTAL DOSE: 22.90 CTDIvol(mGy) FINDINGS: MAXILLARY SINUSES: There is thickening of the right maxillary sinus mucosa. There is a polypoid protrudes into the maxillary sinus beyond the level of the mucosal thickening. The polypoid protrusion measures 0.8 x 0.9 cm, series 9, image 16. There is thickening of the right maxillary sinus wall indicating longstanding process. Infundibula are patent. No anomalous inferior orbital ethmoid (Juan Miguel) air cells. ETHMOID SINUSES: Normal. No significant mucosal thickening or fluid. Fovea ethmoidali and lamina papyracea are symmetric and intact. Bilateral Keros type 2 classification. SPHENOID SINUSES: Normal. No significant mucosal thickening or fluid. Sphenoethmoidal recesses are patent. No bony dehiscence. FRONTAL SINUSES: Normal. No significant mucosal thickening or fluid. Frontal recesses are patent. No anomalous frontal air cells. NASAL FOSSA: Normal. No septal perforation or deviation. No dashawn bullosa or paradoxical turbinates are identified. OTHER: There is a calcification in the right submandibular gland, series 3, image 2, it measures 0.4 cm. CONCLUSION: 1. Chronic right maxillary sinus mucosal thickening Continued Report - Page 2 of 2 Patient: VIOLETA ELIZABETH Phone#: : 1955 Age: 69 Gender: F Pt. Type: Out Account: [id number] Location: Ordering: [place] Exam Date: 01/01/2025/14:35 Family Phys: Charge Code: [id number] Physician: Bossier Order #: [id number] Dose#: 22.90 mGy 2. Polypoid lesion in the right maxillary sinus Dictated by: Samantha Crowley MD on 01/01/2025 at 16:37 Approved by: Samantha Crowley MD on 01/01/2025 at 16:54 Normal [facility] CULTURE, URINE, ROUTINEon CULTURE, URINE, ROUTINE SEE NOTE Abnormal [facility] Comment on above: Result Comment: CULTURE, URINE, ROUTINE Micro Number: [id number] Test Status: Final Specimen Source: Urine Specimen Quality: Adequate Result: Greater than 100,000 CFU/mL of Klebsiella pneumoniae K.pneumoniae INT CHLOE AMOX/CLAVULANATE S <=2 AMPICILLIN R >=32 AMP/SULBACTAM S <=2 CEFAZOLIN NR <=4 2 CEFEPIME S <=1 CEFTAZIDIME S <=1 CEFTRIAXONE S <=1 CIPROFLOXACIN S <=0.25 GENTAMICIN S <=1 IMIPENEM S 1 LEVOFLOXACIN S <=0.12 NITROFURANTOIN I 64 PIP/TAZOBACTAM S <=4 TOBRAMYCIN S <=1 TRIMETHOPRIM/SULFA S <=20 S = Susceptible I = Intermediate R = Resistant NS = Not susceptible SDD = Susceptible Dose Dependent * = Not Tested NR = Not Reported NN = See Therapy Comments THERAPY COMMENTS Note 1: For infections other than uncomplicated UTI caused by E. coli, K. pneumoniae or P. mirabilis: Cefazolin is resistant if CHLOE > or = 8 mcg/mL. (Distinguishing susceptible versus intermediate for isolates with CHLOE < or = 4 mcg/mL requires additional testing.) Note 2: For uncomplicated UTI caused by E. coli, K. pneumoniae or P. mirabilis: Cefazolin is susceptible if CHLOE <32 mcg/mL and predicts susceptible to the oral agents cefaclor, cefdinir, cefpodoxime, cefprozil, cefuroxime, cephalexin and loracarbef. Performed By: #### 3 95 #### [facility] [address], [address] [place] [address] Manager Print: Teofilo Altamirano MD Laboratory - Chemistry and C hemistry - challengeon 07-25-2024 Bilirubin Ql (U) Negative Normal [facility], [facility]. Ketones Ql (U) Negative Normal [facility] [employer] K Sp[facility], [facility]. pH (U) 6.0 [pH] Normal [facility], [facility]. Specific gravity (U) [Rel density] 1.010 Normal [facility].; [facility]. Urobilinogen Qn (U) 0.2 mg/dL Normal [facility] [employer].; [facility], [facility]. Laboratory - Hematology and Cell countson 07-25-2024 Hemoglobin Ql (U) Negative Normal [facility].; [facility], [facility]. Laboratory - Specimen inform ationon 07-25-2024 Appearance (U) cloudy Abnormal [facility] [employer].; [facility], [facility]. Color (U) yellow Normal [facility].; [facility] Laboratory - Urinalysison Glucose Test strip (U) [Mass/Vol] Negative Normal [facility].; [facility], [facility]. Leukocyte esterase Test strip Ql (U) moderate Abnormal [facility].; [facility], [facility]. Nitrite Ql (U) Positive Abnormal [facility] [employer].; [facility], [facility]. Protein Ql (U) Negative Normal [facility], [facility]. No Panel Informationon 07-25 CULTURE, URINE, ROUTINE SEE NOTE Abnormal [facility] [employer].; [employer]. CBC (INCLUDES DIFF/PLT)on Basophils (Bld) [#/Vol] 0.041 10*3/uL Normal 0-200 [facility] Comment on above: Performed By: #### 3 95 #### [facility] [place] [address] Manager Print: Teofilo Altamirano MD Basophils/100 WBC (Bld) 0.9 % Normal [facility] Comment on above: Performed By: #### 3 95 #### [facility] [place] [address] Manager Print: Teofilo Altamirano MD Eosinophils (Bld) [#/Vol] 0.099 10*3/uL Normal 15-500 [facility] Comment on above: Performed By: #### 3 95 #### [facility] [place] [address] Manager Print: Teofilo Altamirano MD Eosinophils/100 WBC (Bld) 2.2 % Normal [facility] Comment on above: Performed By: #### 3 95 #### [facility] [place] [address] Manager Print: Teofilo Altamirano MD Erythrocyte distribution width (RBC) [Ratio] 12.9 % Normal 11.0-15.0 [facility] Comment on above: Performed By: #### 3 95 #### [facility] [place] [address] Manager Print: Teofilo Altamirano MD Hematocrit (Bld) [Volume fraction] 42.5 % Normal 35.0-45.0 [facility] Comment on above: Performed By: #### 3 95 #### [facility] [place] [address] Manager Print: Teofilo Altamirano MD Hemoglobin (Bld) [Mass/Vol] 14.0 g/dL Normal 11.7-15.5 [facility] Comment on above: Performed By: #### 3 95 #### [facility] of [address] [address] Manager Print: Teofilo Altamirano MD Lymphocytes (Bld) [#/Vol] 1.499 10*3/uL Normal 850-3900 [facility] Comment on above: Performed By: #### 3 95 #### [facility] [place] [address] Manager Print: Teofilo Altamirano MD Lymphocytes/100 WBC (Bld) 33.3 % Normal [facility] Comment on above: Performed By: #### 3 95 #### [facility] [place] [address] Manager Print: Teofilo Altamirano MD MCH (RBC) [Entitic mass] 32.6 pg Normal 27.0-33.0 [facility] Comment on above: Performed By: #### 3 95 #### [facility] [place] [address] Manager Print: Teofilo Altamirano MD MCHC (RBC) [Mass/Vol] 32.9 g/dL Normal 32.0-36.[address] [facility] Comment on above: Result Comment: For adults, a slight decrease in the calculated MCHC value (in the range of 30 to 32 g/dL) is most likely not clinically significant; however, it should be interpreted with caution in correlation with other red cell parameters and the patient's clinical condition. Performed By: #### 3 95 #### [facility] [place] [address] Manager Print: Teofilo Altamirano MD MCV (RBC) [Entitic vol] 98.8 fL Normal 80.0-100.0 [facility] Comment on above: Performed By: #### 3 95 #### [facility] [place] [address] Manager Print: Teofilo Altamirano MD Monocytes (Bld) [#/Vol] 0.324 10*3/uL Normal 200-950 [facility] Comment on above: Performed By: #### 3 95 #### [facility] [address] [place] [address] Manager Print: Teofilo Altamirano MD Monocytes/100 WBC (Bld) 7.2 % Normal [facility] Comment on above: Performed By: #### 3 95 #### [facility] [place] [address] Manager Print: Teofilo Altamirano MD Neutrophils (Bld) [#/Vol] 2.538 10*3/uL Normal 3075-2587 [facility] Comment on above: Performed By: #### 3 95 #### [facility] [place] [address] Manager Print: Teofilo Altamirano MD Neutrophils/100 WBC (Bld) 56.4 % Normal [facility] Comment on above: Performed By: #### 3 95 #### [facility] [place] [address] Manager Print: eTofilo Altamirano MD Platelet mean volume (Bld) [Entitic vol] 10.6 fL Normal 7.5-12.5 [facility] Comment on above: Performed By: #### 3 95 #### [facility] [place] [address] Manager Print: Teofilo Altamirano MD Platelets (Bld) [#/Vol] 199 10*3/uL Normal 140-400 [facility] Comment on above: Performed By: #### 3 95 #### [facility] [place] [address] Manager Print: Teofilo Altamirnao MD RBC (Bld) [#/Vol] 4.30 10*6/uL Normal 3.80-5.10 [facility] Comment on above: Performed By: #### 3 95 #### [facility] [place] [address] Manager Print: Teofilo Altamirano MD WBC (Bld) [#/Vol] 4.5 10*3/uL Normal 3.8-10.8 [facility] Comment on above: Performed By: #### 3 95 #### [facility] [place] [address] Manager Print: Teofilo Altamirano MD [facility] 07-19-2024 Albumin [Mass/Vol] 4.7 g/dL Normal 3.6-5.1 [facility] Comment on above: Performed By: #### 3 95 #### [facility] [place] [address] Manager Print: Teofilo Altamirano MD Albumin/Globulin [Mass ratio] 2.0 {ratio} Normal 1.0-2.5 [facility] Comment on above: Performed By: #### 3 95 #### [facility] [place] [address] Manager Print: Teofilo Altamirano MD ALP [Catalytic activity/Vol] 65 U/L Normal 37-153 [facility] Comment on above: Performed By: #### 3 95 #### [facility] [place] [address] Manager Print: Teofilo Altamirano MD ALT [Catalytic activity/Vol] 9 U/L Normal 6-29 [facility] Comment on above: Performed By: #### 3 95 #### [facility] [place] [address] Manager Print: Teofilo Altamirano MD AST [Catalytic activity/Vol] 15 U/L Normal 10-35 [facility] Comment on above: Performed By: #### 3 95 #### [facility] [place] [address] Manager Print: Teofilo Altamirano MD Bilirubin [Mass/Vol] 0.7 mg/dL Normal 0.2-1.2 [facility] Comment on above: Performed By: #### 3 95 #### [facility] [place] [address] Manager Print: Teofilo Altamirano MD BUN/CREATININE RATIO SEE NOTE: Normal 6-22 [facility] Comment on above: Result Comment: Not Reported: BUN and Creatinine are within reference range. Performed By: #### 3 95 #### [facility] [place] [address] Manager Print: Teofilo Altamirano MD Calcium [Mass/Vol] 9.7 mg/dL Normal 8.6-10.4 [facility] Comment on above: Performed By: #### 3 95 #### [facility] [place] [address] Manager Print: Teofilo Altamirano MD Chloride [Moles/Vol] 103 mmol/L Normal 98-110 [facility] Comment on above: Performed By: #### 3 95 #### [facility] [place] [address] Manager Print: Teofilo Altamirano MD CO2 [Moles/Vol] 27 mmol/L Normal 20-32 [facility] Comment on above: Performed By: #### 3 95 #### [facility] [place] [address] Manager Print: Teofilo Altamirano MD Creatinine [Mass/Vol] 0.75 mg/dL Normal 0.60-1.[address] [facility] Comment on above: Performed By: #### 3 95 #### [facility] [place] [address] Manager Print: Teofilo Altamirano MD GFR/1.73 sq M.predicted among non-blacks MDRD (S/P/Bld) [Vol rate/Area] 86 mL/min/{1.73_m2} Normal > OR = 60 [facility] Comment on above: Performed By: #### 3 95 #### [facility] [place] [address] Manager Print: Teofilo Altamirano MD Globulin (S) [Mass/Vol] 2.4 g/dL Normal 1.9-3.7 [facility] Comment on above: Performed By: #### 3 95 #### [facility] of [address] Manager Print: Teofilo Altamirano MD Glucose [Mass/Vol] 97 mg/dL Normal 65-99 [facility] Comment on above: Result Comment: Fasting reference interval Performed By: #### 3 95 #### [facility] [place] [address] Manager Print: Teofilo Altamirano MD Potassium [Moles/Vol] 4.0 mmol/L Normal 3.5-5.[address] [facility] Comment on above: Performed By: #### 3 95 #### [facility] [place] [address] Manager Print: Teofilo Altamirano MD Protein [Mass/Vol] 7.1 g/dL Normal 6.1-8.1 [facility] Comment on above: Performed By: #### 3 95 #### [facility] [place] [address] Manager Print: Teofilo Altamirano MD Sodium [Moles/Vol] 137 mmol/L Normal 135-146 [facility] Comment on above: Performed By: #### 3 95 #### [facility] [place] [address] Manager Print: Teofilo Altamirano MD Urea nitrogen [Mass/Vol] 21 mg/dL Normal 7-25 [facility] Comment on above: Performed By: #### 3 95 #### [facility] [place] [address] Manager Print: Teofilo Altamirano MD LIPID PANEL, [facility] 10-2 Cholesterol [Mass/Vol] 241 mg/dL High <200 [facility] Comment on above: Performed By: #### 3 95 #### [facility] [place] [address] Manager Print: Teofilo Altamirano MD Cholesterol in HDL [Mass/Vol] 87 mg/dL Normal > OR = 50 [facility] Comment on above: Performed By: #### 3 95 #### [facility] of [address] [place] [address] Manager Print: Teofilo Altamirano MD Cholesterol in LDL [Mass/Vol] 136 mg/dL High [facility] Comment on above: Result Comment: Refe rence range: <100 Desirable range <100 mg/dL for primary prevention; <70 mg/dL for patients with CHD or diabetic patients with > or = 2 CHD risk factors. LDL-C is now calculated using the Janak-Keita calculation, which is a validated novel method providing better accuracy than the Friedewald equation in the estimation of LDL-C. Janak FOFANA et al. EVAN. 2013;310(19): 1603-4235 (http://education.Visual.ly.Delectable/faq/PKN597) Performed By: #### 3 95 #### [facility] [place] [address] Manager Print: Teofilo Altamirano MD Cholesterol.total/Chayito sterol in HDL [Mass ratio] 2.8 {ratio} Normal <5.0 [facility] Comment on above: Performed By: #### 3 95 #### [facility] [place] [address] Manager Print: Teofilo Altamirano MD NON HDL CHOLESTEROL 154 mg/dL (calc) High <130 [facility] Comment on above: Result Comment: For patients with diabetes plus 1 major ASCVD risk factor, treating to a non-HDL-C goal of <100 mg/dL (LDL-C of <70 mg/dL) is considered a therapeutic option. Performed By: #### 3 95 #### [facility] [place] [address] Manager Print: Teofilo Altamirano MD Triglyceride [Mass/Vol] 82 mg/dL Normal <150 [facility] Comment on above: Performed By: #### 3 95 #### [facility] [place] [address] Manager Print: eTofilo Altamirano MD Laboratory - Chemistry and C hemistry - challengeon 07-18-2024 Albumin [Mass/Vol] 4.7 g/dL Normal 3.6 - 5.1 g/dL [facility], [facility]. Albumin/Globulin [Mass ratio] 2.0 {ratio} Normal 1.0 - 2.5 [facility].; [facility], [facility]. ALP [Catalytic activity/Vol] 65 U/L Normal 37 - 153 U/L [facility], [facility].; [facility], [facility]. ALT [Catalytic activity/Vol] 9 U/L Normal 6 - 29 U/L [facility].; [facility], [facility]. AST [Catalytic activity/Vol] 15 U/L Normal 10 - 35 U/L [facility], [facility].; [facility], [facility]. Bilirubin [Mass/Vol] 0.7 mg/dL Normal 0.2 - 1 .2 mg/dL [facility], [facility].; [facility], [facility]. Calcium [Mass/Vol] 9.7 mg/dL Normal 8.6 - 10. 4 mg/dL [facility], [facility].; [facility], [facility]. Chloride [Moles/Vol] 103 mmol/L Normal 98 - 11 0 mmol/L [facility].; [facility], [facility]. Cholesterol [Mass/Vol] 241 mg/dL Abnormal [facility].; [facility], [facility]. Cholesterol in HDL [Mass/Vol] 87 mg/dL Normal [facility], [facility].; [facility], [facility]. Cholesterol in LDL [Mass/Vol] 136 mg/dL Abnormal [facility], [facility].; [facility], [facility] CO2 [Moles/Vol] 27 mmol/L Normal 20 - 32 mmol/L [facility].; [facility], [facility]. Creatinine [Mass/Vol] 0.75 mg/dL Normal 0.60 - 1.00 mg/dL [facility], [facility].; [facility], [facility]. GFR/1.73 sq M.predicted among non-blacks MDRD (S/P/Bld) [Vol rate/Area] 86 mL/min/{1.73_m2} Normal [facility], [facility].; [facility] [employer] [facility] Glucose [Mass/Vol] 97 mg/dL Normal 65 - 99 mg/dL [facility].; [facility], [facility]. Potassium [Moles/Vol] 4.0 mmol/L Normal 3.5 - 5.3 mmol/L [facility].; [facility], [facility]. Protein [Mass/Vol] 7.1 g/dL Normal 6.1 - 8.1 g/dL [facility], [facility].; [employer], [facility]. Sodium [Moles/Vol] 137 mmol/L Normal 135 - 146 mmol/L [facility].; [facility], [facility]. Triglyceride [Mass/Vol] 82 mg/dL Normal [facility].; [employer] [facility], [facility]. Urea nitrogen [Mass/Vol] 21 mg/dL Normal 7 - 25 mg/dL [facility].; [employer] [facility], [facility]. Laboratory - Hematology and Cell countson 07-18-2024 Basophils (Bld) [#/Vol] 0.041 10*3/uL Normal 0 - 200 {cells/uL} [facility].; [facility] [employer], [facility]. Basophils/100 WBC (Bld) 0.9 % Normal [facility].; [employer] [facility], [facility]. Eosinophils (Bld) [#/Vol] 0.099 10*3/uL Normal 15 - 500 {cells/uL} [facility].; [employer], [facility]. Eosinophils/100 WBC (Bld) 2.2 % Normal [facility].; [employer], [facility]. Erythrocyte distribution width (RBC) [Ratio] 12.9 % Normal 11.0 - 15.0 % [facility].; [employer], [facility]. Hematocrit (Bld) [Volume fraction] 42.5 % Normal 35.0 - 45.0 % [facility] [employer] [facility], [facility].; [place] [employer], [facility]. Hemoglobin (Bld) [Mass/Vol] 14.0 g/dL Normal 11.7 - 15.5 g/dL [facility].; [employer], [facility]. Lymphocytes (Bld) [#/Vol] 1.499 10*3/uL Normal 850 - 3900 {cells/uL} [facility].; [employer], [facility]. Lymphocytes/100 WBC (Bld) 33.3 % Normal [facility].; [facility] [employer] [facility]. MCH (RBC) [Entitic mass] 32.6 pg Normal 27.0 - 33.0 pg [facility].; [facility], [facility]. MCHC (RBC) [Mass/Vol] 32.9 g/dL Normal 32.0 - 36.0 g/dL [facility].; [facility] [employer], [facility]. MCV (RBC) [Entitic vol] 98.8 fL Normal 80.0 - 100.0 fL [facility].; [facility], [facility]. Monocytes (Bld) [#/Vol] 0.324 10*3/uL Normal 200 - 950 {cells/uL} [facility].; [employer] [facility], [facility]. Monocytes/100 WBC (Bld) 7.2 % Normal [facility].; [employer] [facility], [facility] Neutrophils (Bld) [#/Vol] 2.538 10*3/uL Normal 1500 - 7800 {cells/uL} [facility].; [employer], [employer]. Neutrophils/100 WBC (Bld) 56.4 % Normal [facility].; [employer] [facility], [facility]. Platelet mean volume (Bld) [Entitic vol] 10.6 fL Normal 7.5 - 12.5 fL [facility].; [employer], [facility]. Platelets (Bld) [#/Vol] 199 10*3/uL Normal 140 - 400 [facility].; [employer], [facility]. RBC (Bld) [#/Vol] 4.30 10*6/uL Normal 3.80 - 5.1 0 {Million/uL } [facility].; [employer], [employer]. WBC (Bld) [#/Vol] 4.5 10*3/uL Normal 3.8 - 10.8 [facility].; [place] [employer], [facility]. No Panel Informationon 07-18 BUN/CREATININE RATIO SEE NOTE: Normal 6 - 22 [facility].; [email or web address] CHOL/HDLC RATIO 2.8 Normal [facility].; [facility] GLOBULIN 2.4 Normal 1.9 - 3.7 [facility], [facility].; [facility], [employer]. NON HDL CHOLESTEROL 154 Abnormal [facility].; [facility], [facility]. MA MAMMOGRAM SCREENING BILAT ERAL W/TOMOon 05-19-2021 MA MAMMOGRAM SCREENING BILATERAL W/LALO ORIGINAL FROM: [facility] [address], [place] [address] PROCEDURE FOR: VIOLETA ELIZABETH [address] [place] [address] Home: PID#: [id number] Exam#: [id number] : 1955 Age: 65 TO: LAKESHIA VALENTIN MD [address], [place] [address] Fax: NO FAX EXAMINATION: SCREENING DIGITAL BILATERAL MAMMOGRAM WITH TOMOSYNTHESIS 05/19/2021 11:24 am COMPARISON: 06/01/2019 HISTORY: Screening. TECHNIQUE: Screening mammography of the bilateral breasts was performed with tomosynthesis. 2D standard and 3D tomosynthesis combination imaging performed through both breasts in the MLO and CC projection. Computer aided detection was utilized in the interpretation of this exam. FINDINGS: BREAST DENSITY: Heterogeneously dense There is no dominant mass, suspicious microcalcification, or area of architectural distortion. IMPRESSION: No mammographic evidence of malignancy. BIRADS: MAMMOGRAM BI-RADS: 1: Negative RECALL: 1 year screening RECALL TYPE: mammo LETTER SENT: Normal BI-RADS 1 and 2 Interpreted by: Yannick Martinez Preliminary Report By: Yannick Martinez Electronically signed By Yannick Martinez Dictated Date: 05/26/2021 7:38:39 AM Prelim Date: 05/26/2021 7:45:00 AM Sign Date: 05/26/2021 7:45:00 AM Ordering Provider: LAKESHIA VALENTIN Manager Engagement: VIC ORTIZ RT (R)(M) letter sent: Normal BI-RADS 1 and 2 Mammogram BI-RADS: 1 Negative Normal [facility] ([place] [id number] 05-07-2021 Date of Onset [id number] Invalid Interpretation Code [facility] ([place]) Comment on above: Performed By: #### C OVD19 #### [place] [address] Employed in Healthcare No [facility] [place] Comment on above: Performed By: #### C OVD19 #### [facility] [address] [place] [address] First Test No [facility] ([place] Comment on above: Performed By: #### C OVD19 #### [place] [address] Hospitalized No [facility] ([place] Comment on above: Performed By: #### C OVD19 #### [place] [address] ICU No [facility] ([place] Comment on above: Performed By: #### C OVD19 #### [place] [address] Not [facility] ([place] Comment on above: Performed By: #### C OVD19 #### [place] [address] Resides in Congregate Care Setting No [facility] ([place] Comment on above: Performed By: #### C OVD19 #### [place] [address] SARS-CoV-2 (COVID-19) RNA FRANCIA+probe Ql (Unsp spec) Negative Normal Negative [facility] ([place] Comment on above: Performed By: #### C OVD19 #### [place] [address] SARS-CoV-2 (COVID-19) RNA FRANCIA+probe Ql (Unsp spec) Normal [facility] ([place]) Comment on above: Result Comment: Nega tive results do not preclude SARS-CoV-2 infection and should not be used as the sole basis for patient management decisions. Negative results must be combined with clinical observations, patient history, and epidemiological information. There is a risk of false negative values resulting from improperly collected, transported, or handled specimens. There is a risk of false negative values due to the presence of sequence variants in the pathogen targets of the assay, procedural errors, amplification inhibitors in specimens, or inadequate numbers of organisms for amplification. [facility] SARS-CoV-2 Assay is a Real-Time reverse-transcriptase polymerase chain reaction (RT-PCR) based qualitative in vitro diagnostic test intended for the qualitative detection of nucleic acid from the SARS-CoV-2 in nasopharyngeal swab specimens collected from individuals suspected of COVID-19 by their healthcare provider. Testing is limited to laboratories certified under the Clinical Laboratory Improvement Amendments of 1988 (CLIA), 42 U.S.C. ?263a, to perform moderate and high complexity tests. COVID-19 Int Performed By: #### C OVD19 #### [place] [address] Symptomatic as Defined by [facility] Yes [facility] ([place]) Comment on above: Performed By: #### C OVD19 #### [place] [address] XR SPINE SCOLIOSIS STUDY [facility] 01-29-2021 XR SPINE SCOLIOSIS STUDY STANDING ORIGINAL XR SPINE SCOLIOSIS STUDY STANDING 4 total views CLINICAL STATEMENT: SCOLIOSIS. COMPARISON: None FINDINGS: There is mild diffuse degenerative disc disease. Prominent lower lumbar facet degenerative changes are present. Degenerative disc disease is greatest at L5-S1. The aorta is calcified and I cannot estimate its caliber. There is a rightward convex curvature centered at L1-2 measuring 36 degrees. Interpreted By: Yannick Ricardo MD Preliminary Report By: Yannick Ricardo MD Electronically Signed By: Yannick Ricardo MD Dictated Date: 01/28/2021 10:11:51 PM Prelim Date: 01/28/2021 10:11:51 PM Sign Date: 01/28/2021 10:13:12 PM Ordering Provider:Lakeshia Valentin [facility] ([place]) BD BONE DENSITY DEXA AXIAL S [facility] 01-27-2021 BD BONE DENSITY DEXA AXIAL [facility]IGINAL BONE DENSITOMETRY CLINICAL STATEMENT: Osteoporosis Screening cerner order COMPARISON: Bone density DEXA 05/17/2017 T Score Left Femoral Neck: -2.4 BMD (g/cm2) Left Femoral Neck: 0.578 T Score Left Hip: -0.9 ___BMD (g/cm2) Left Hip: 0.836 T Score Lumbar Spine L1-L4: -0.2 BMD (g/cm2) Lumbar Spine L1-L4: 1.027 CONCLUSION: The patient is considered osteopenic based on the left femoral neck which has a T score of -2.4. BMD Change from previous Hip: -1.1 % BMD Change from previous Lumbar Spine: 3.0 % which is significant *By the World Health Organization standards: Osteopenia is present when the bone mineral density is greater than 1 standard deviation (SD) but less than 2.5 SDs below a young normal sex matched population. Osteoporosis is present when the bone mineral density is equal to or greater than 2.5 SDs below a young normal sex matched population. I have personally reviewed the images of this examination and agree with the resident's findings and interpretation. Interpreted By: Tay Joyce Preliminary Report By: Germaine Glover Electronically Signed By: Tay Joyce Dictated Date: 01/27/2021 1:55:51 PM Prelim Date: 01/27/2021 2:10:00 PM Sign Date: 01/27/2021 2:40:04 PM Ordering Provider:Lakeshia Valentin [facility] ([place]) Vital Signs Date Time Vital Sign Value Performing Clinician Facility 05-31-2025 09:52-0400 Body temperature 97.5 [degF] Ga Campbell PA Work Phone: [facility] 05-31-2025 09:52-0400 Diastolic blood pressure 70 mm[Hg] Ga Campbell PA Work Phone: [facility] 05-31-2025 09:52-0400 Heart rate 59 /min Ga Campbell PA Work Phone: [facility] 05-31-2025 09:52-0400 SaO2% (BldA) [Mass fraction] 100 % Ga Sandovaller PA Work Phone: [facility] 05-31-2025 09:52-0400 Systolic blood pressure 142 mm[Hg] Ga POTTER Work Phone: [facility] 05-28-2025 13:28-0400 Body mass index (BMI) [Ratio] 20.62 kg/m2 Cliff Ross MD Work Phone: [facility] 05-28-2025 13:28-0400 Body temperature 99 [degF] Cliff Ross MD Work Phone: [facility] 05-28-2025 13:28-0400 Body weight 56.2 kg Cliff Ross MD Work Phone: [facility] 05-28-2025 13:28-0400 Diastolic blood pressure 64 mm[Hg] Cliff Ross MD Work Phone: [facility] 05-28-2025 13:28-0400 Heart rate 90 /min Cliff Ross MD Work Phone: [facility] 05-28-2025 13:28-0400 SaO2% (BldA) [Mass fraction] 99 % Cliff Ross MD Work Phone: [facility] 05-28-2025 13:28-0400 Systolic blood pressure 103 mm[Hg] Cliff Ross MD Work Phone: [facility] 05-23-2025 11:04-0400 Body mass index (BMI) [Ratio] 20.63 kg/m2 Silvia Ribelli DO Work Phone: [facility] 05-23-2025 11:04-0400 Body temperature 97.2 [degF] Silvia Ribelli DO Work Phone: [facility] 05-23-2025 11:04-0400 Body weight 56.25 kg Silvia Ribelli DO Work Phone: [facility] 05-23-2025 11:04-0400 Diastolic blood pressure 76 mm[Hg] Silvia Ribelli DO Work Phone: [facility] 05-23-2025 11:04-0400 Heart rate 56 /min Silvia Ribelli DO Work Phone: [facility] 05-23-2025 11:04-0400 Systolic blood pressure 127 mm[Hg] Silvia Ribelli DO Work Phone: [facility] 05-08-2025 10:39-0400 Body mass index (BMI) [Ratio] 21.13 kg/m2 Emelyn Miguel Angel PA-C Work Phone: [facility] 05-08-2025 10:39-0400 Body weight 57.61 kg Emelyn Miguel Angel PA-C Work Phone: [facility] 05-08-2025 10:39-0400 Diastolic blood pressure 71 mm[Hg] Emelyn Miguel Angel PA-C Work Phone: [facility] 05-08-2025 10:39-0400 Heart rate 57 /min Emelyn Miguel Angel PA-C Work Phone: [facility] 05-08-2025 10:39-0400 SaO2% (BldA) [Mass fraction] 100 % Emelyn Miguel Angel PA-C Work Phone: [facility] 05-08-2025 10:39-0400 Systolic blood pressure 123 mm[Hg] Emelyn Miguel Angel PA-C Work Phone: [facility] 04-30-2025 15:06-0400 Body height 165.1 cm Luke Adrian PA Work Phone: [facility] 04-30-2025 15:06-0400 Body mass index (BMI) [Ratio] 21.1 kg/m2 Luke Adrian PA Work Phone: [facility] 04-30-2025 15:06-0400 Body weight 57.6 kg Luke Adrian PA Work Phone: [facility] 04-30-2025 15:06-0400 Diastolic blood pressure 78 mm[Hg] Luke Adrian PA Work Phone: [facility] 04-30-2025 15:06-0400 Heart rate 60 /min Luke Adrian PA Work Phone: [facility] 04-30-2025 15:06-0400 Respiratory rate 18 /min Luke Adrian PA Work Phone: [facility] 04-30-2025 15:06-0400 SaO2% (BldA) [Mass fraction] 98 % Luke Adrian PA Work Phone: [facility] 04-30-2025 15:06-0400 Systolic blood pressure 127 mm[Hg] Luke Adrian PA Work Phone: [facility] 04-25-2025 13:02-0400 Body height 165.1 cm Emelyn Miguel Angel PA-C Work Phone: [facility] 04-25-2025 13:02-0400 Body mass index (BMI) [Ratio] 21.2 kg/m2 Emelyn Miguel Angel PA-C Work Phone: [facility] 04-25-2025 13:02-0400 Body weight 57.79 kg Emelyn Miguel Angel PA-C Work Phone: [facility] 04-25-2025 13:02-0400 Diastolic blood pressure 72 mm[Hg] Emelyn Miguel Angel PA-C Work Phone: [facility] 04-25-2025 13:02-0400 Heart rate 85 /min Emelyn Miguel Angel PA-C Work Phone: [facility] 04-25-2025 13:02-0400 SaO2% (BldA) [Mass fraction] 98 % Emelyn Miguel Angel PA-C Work Phone: [facility] 04-25-2025 13:02-0400 Systolic blood pressure 108 mm[Hg] Emelyn Miguel Angel PA-C Work Phone: [facility] 04-12-2025 09:49-0400 Body height 165.1 cm Carson Oshea LPN [facility], [facility].; [facility]. 04-12-2025 09:49-0400 Body mass index (BMI) [Ratio] 21.63 kg/m2 Carson Oshea LPN [facility], [facility].; [facility] 04-12-2025 09:49-0400 Body surface area Derived from formula 1.65 m2 Carson Oshea LPN [facility], [facility].; [facility], [facility]. 04-12-2025 09:49-0400 Body weight 58.97 kg Carson Oshea LPN [facility], [facility].; [facility], [facility]. 04-12-2025 09:49-0400 Diastolic blood pressure 64 mm[Hg] Carson Oshea LPN [facility].; [facility], [place]. Comment on above: Patient Position: Sitting; Cuff Location : Left Arm; Cuff Size: Standard 04-12-2025 09:49-0400 Heart rate 55 /min Carson Oshea S[employer]IOR REVENUE ACCOUNTANT [facility], [facility].; [employer] [facility], [place]. Comment on above: Pattern: Regular 04-12-2025 09:49-0400 Inhaled oxygen concentration 21 % Carson Oshea [facility], [facility].; [employer] [facility], [facility]. Comment on above: Room air 04-12-2025 09:49-0400 SaO2% (BldA) [Mass fraction] 98 % Carson Oshea S[employer]IOR REVENUE ACCOUNTANT [facility], [facility].; [facility], [facility]. 04-12-2025 09:49-0400 Systolic blood pressure 152 mm[Hg] Carsontrevin Oshea LPN [facility].; [employer] [facility], [place]. Comment on above: Patient Position: Sitting; Cuff Location : Left Arm; Cuff Size: Standard 04-05-2025 18:07-0400 Body temperature 97.6 [degF] Ga POTTER Work Phone: [facility] 04-05-2025 18:07-0400 Diastolic blood pressure 66 mm[Hg] Ga POTTER Work Phone: [facility] 04-05-2025 18:07-0400 Heart rate 64 /min Luke Adrian PA Work Phone: [facility] 04-05-2025 18:07-0400 Respiratory rate 16 /min Luke Adrian PA Work Phone: [facility] 04-05-2025 18:07-0400 SaO2% (BldA) [Mass fraction] 99 % Luke Adrian PA Work Phone: [facility] 04-05-2025 18:07-0400 Systolic blood pressure 121 mm[Hg] Luke Adrian PA Work Phone: [facility] 04-04-2025 22:14-0400 Body height 165.1 cm Luke Adrian PA Work Phone: [facility] 04-04-2025 22:14-0400 Body mass index (BMI) [Ratio] 21.7 kg/m2 Luke Adrian PA Work Phone: [facility] 04-04-2025 22:14-0400 Body weight 59.4 kg Luke Adrian PA Work Phone: [facility] 04-04-2025 20:59-0400 Body temperature 96.6 [degF] Luke Adrian PA Work Phone: [facility] 04-04-2025 20:59-0400 Diastolic blood pressure 79 mm[Hg] Luke Adrian PA Work Phone: [facility] 04-04-2025 20:59-0400 Heart rate 56 /min Luke Adrian PA Work Phone: [facility] 04-04-2025 20:59-0400 Respiratory rate 16 /min Luke Adrian PA Work Phone: [facility] 04-04-2025 20:59-0400 SaO2% (BldA) [Mass fraction] 96 % Luke Adrian PA Work Phone: [facility] 04-04-2025 20:59-0400 Systolic blood pressure 144 mm[Hg] Ga Sandovaller PA Work Phone: [facility] 04-04-2025 17:44-0400 Body height 166.37 cm Ga Valadezetler PA Work Phone: [facility] 04-04-2025 17:44-0400 Body mass index (BMI) [Ratio] 27.8 kg/m2 Luricky LucianoAdrian PA Work Phone: [facility] 04-04-2025 17:44-0400 Body weight 77.24 kg Ga Valadezetler PA Work Phone: [facility] 03-11-2025 14:31-0400 Body height 165.1 cm Janine Gamez LPN [facility], [facility].; [facility], [facility]. 03-11-2025 14:31-0400 Body mass index (BMI) [Ratio] 21.63 kg/m2 Janine Gamez LPN [facility], [facility].; [facility], [facility]. 03-11-2025 14:31-0400 Body surface area Derived from formula 1.65 m2 Janine Gamez LPN [facility], [facility].; [facility], [facility]. 03-11-2025 14:31-0400 Body weight 58.97 kg Janine Gamez [employer]IOR REVENUE ACCOUNTANT [facility], [facility].; [facility], [facility]. 03-11-2025 14:31-0400 Diastolic blood pressure 78 mm[Hg] Janine Gamez LPN [facility], [facility].; [employer] [facility], [facility]. Comment on above: Patient Position: Sitting; Cuff Location : Left Arm; Cuff Size: Standard 03-11-2025 14:31-0400 Heart rate 74 /min Janine Gamez LPN [facility], [facility].; [employer] [facility], [facility]. Comment on above: Pattern: Regular 03-11-2025 14:31-0400 Inhaled oxygen concentration 21 % Janine Gamez LPN [facility], [facility].; [employer] [facility], [facility]. Comment on above: Room air 03-11-2025 14:31-0400 SaO2% (BldA) [Mass fraction] 98 % Janine Gamez SENIOR REVENUE ACCOUNTANT [facility].; [employer] 03-11-2025 14:31-0400 Systolic blood pressure 144 mm[Hg] [facility]ine [facility].; [employer]. Comment on above: Patient Position: Sitting; Cuff Location : Left Arm; Cuff Size: Standard 12-03-2024 10:52-0400 Body height 165.1 cm Codie [facility]indo [facility] [employer]. 12-03-2024 10:52-0400 Body mass index (BMI) [Ratio] 21.72 kg/m2 Codie [facility]indo [facility].; [employer]. 12-03-2024 10:52-0400 Body surface area Derived from formula 1.65 m2 Codie [facility]indo [facility].; [employer]. 12-03-2024 10:52-0400 Body temperature 97.4 [degF] Codie Galindo MA [facility] [facility].; [employer]. 12-03-2024 10:52-0400 Body weight 59.19 kg Codie Galindo MA [facility].; [employer]. 12-03-2024 10:52-0400 Diastolic blood pressure 87 mm[Hg] Codie Galindo MA [facility].; [employer]. Comment on above: Patient Position: Sitting; Cuff Location : Left Arm; Cuff Size: Standard 12-03-2024 10:52-0400 Heart rate 61 /min Codie Galindo MA [facility].; [employer]. Comment on above: Pattern: Regular 12-03-2024 10:52-0400 Inhaled oxygen concentration 21 % Codie Galindo MA [facility].; [employer]. Comment on above: Room air 12-03-2024 10:52-0400 SaO2% (BldA) [Mass fraction] 98 % Codie Galindo MA [facility].; [employer]. 12-03-2024 10:52-0400 Systolic blood pressure 159 mm[Hg] Codie Galindo MA [facility].; [facility]. Comment on above: Patient Position: Sitting; Cuff Location : Left Arm; Cuff Size: Standard 11-13-2024 10:59-0500 Body height 165.1 cm Carson Oshea NEISHA [facility], [facility].; [facility]. 11-13-2024 10:59-0500 Body mass index (BMI) [Ratio] 21.3 kg/m2 Carson Oshea SENIOR REVENUE ACCOUNTANT [facility].; [facility], [facility]. 11-13-2024 10:59-0500 Body surface area Derived from formula 1.64 m2 Carson Oshea SENIOR REVENUE ACCOUNTANT [facility].; [facility], [facility]. 11-13-2024 10:59-0500 Body temperature 96.7 [degF] Carsontrevin Oshea [facility], [facility].; [facility]. 11-13-2024 10:59-0500 Body weight 58.06 kg Carson Oshea SENIOR REVENUE ACCOUNTANT [facility].; [facility]. 11-13-2024 10:59-0500 Diastolic blood pressure 71 mm[Hg] Carson Oshea LPN [facility].; [facility] [employer] [facility]. Comment on above: Patient Position: Sitting; Cuff Location : Left Arm; Cuff Size: Standard 11-13-2024 10:59-0500 Heart rate 69 /min Carson Oshea SENIOR REVENUE ACCOUNTANT [facility].; [facility]. Comment on above: Pattern: Regular 11-13-2024 10:59-0500 Inhaled oxygen concentration 21 % Carson Oshea SENIOR REVENUE ACCOUNTANT [facility], [facility].; [facility] [facility]. Comment on above: Room air 11-13-2024 10:59-0500 SaO2% (BldA) [Mass fraction] 100 % Carsontrevin Oshea SENIOR REVENUE ACCOUNTANT [facility].; [facility] [employer] [facility]. 11-13-2024 10:59-0500 Systolic blood pressure 128 mm[Hg] Carsontrevin Oshea SENIOR REVENUE ACCOUNTANT [facility], [facility].; [facility] [employer] [facility]. Comment on above: Patient Position: Sitting; Cuff Location : Left Arm; Cuff Size: Standard 07-25-2024 11:03-0400 Body height 165.1 cm Carson Oshea SENIOR REVENUE ACCOUNTANT [facility], [facility].; [facility], [facility]. 07-25-2024 11:03-0400 Body mass index (BMI) [Ratio] 21.63 kg/m2 Carson Oshea SENIOR REVENUE ACCOUNTANT [facility], [facility].; [facility]. 07-25-2024 11:03-0400 Body surface area Derived from formula 1.65 m2 Carson Oshea SENIOR REVENUE ACCOUNTANT [facility], [facility].; [facility], [facility]. 07-25-2024 11:030400 Body weight 58.97 kg Carson Oshea [facility], [facility].; [facility], [facility]. 07-25-2024 11:03-0400 Diastolic blood pressure 69 mm[Hg] Carson Oshea SENIOR REVENUE ACCOUNTANT [facility], [facility].; [facility], [facility]. Comment on above: Patient Position: Sitting; Cuff Location : Left Arm; Cuff Size: Standard 07-25-2024 11:03-0400 Heart rate 75 /min Carson Oshea [facility], [facility].; [facility], [facility]. Comment on above: Pattern: Regular 07-25-2024 11:03-0400 Systolic blood pressure 116 mm[Hg] Carson Oshea LPN [facility], [facility].; [facility] Comment on above: Patient Position: Sitting; Cuff Location : Left Arm; Cuff Size: Standard 01-12-2024 16:20-0400 Diastolic blood pressure 72 mm[Hg] Ga Campbell PA-C Work Phone: [facility], [facility].; [employer] [facility], [place]. Comment on above: Patient Position: Sitting; Cuff Location : Left Arm; Cuff Size: Standard 01-12-2024 16:20-0400 Systolic blood pressure 114 mm[Hg] aG Campbell PA-Singh Work Phone: [facility], [facility].; [employer] [facility], [place]. Comment on above: Patient Position: Sitting; Cuff Location : Left Arm; Cuff Size: Standard 01-12-2024 10:29-0400 Body height 165.1 cm Luke E Adrian PA-C Work Phone: [employer]; [employer] 01-12-2024 10:29-0400 Body mass index (BMI) [Ratio] 20.8 kg/m2 Luke E Adrian PA-C Work Phone: [employer]; [employer]. 01-12-2024 10:290400 Body surface area Derived from formula 1.62 m2 Luke E Adrian PA-C Work Phone: [employer]; [employer]. 01-12-2024 10:29040 Body weight 56.7 kg Luke E Adrian PA-C Work Phone: [employer]; [employer]. 01-12-2024 10:290400 Diastolic blood pressure 76 mm[Hg] Luke E Adrian PA-C Work Phone: [employer]; [email or web address]. Comment on above: Patient Position: Sitting; Cuff Location : Left Arm; Cuff Size: Standard 01-12-2024 10:29-0400 Heart rate 56 /min Luke E Adrian PA-C Work Phone: [employer]; [email or web address]. Comment on above: Pattern: Regular 01-12-2024 10:29-0400 Inhaled oxygen concentration 21 % Luke E Adrian PA-C Work Phone: [employer]; [email or web address]. Comment on above: Room air 01-12-2024 10:29-0400 SaO2% (BldA) [Mass fraction] 98 % Luke E Adrian PA-C Work Phone: [employer]; [employer]. 01-12-2024 10:29-0400 Systolic blood pressure 148 mm[Hg] Luke E Adrian PA-C Work Phone: [facility]. Comment on above: Patient Position: Sitting; Cuff Location : Left Arm; Cuff Size: Standard Encounters Encounter Date Encounter Type Care Provider Facility Start: 06-13-2025 ambulatory King Chidi Facility :[facility] Start: 06-11-2025 ambulatory SILVIA COOLEY Facilit y:[facility] Start: 06-11-2025 End: 06-11-2025 Subsequent hospital visit by physician Ct [facility] Radiology Comment on above: Giant cell arteritis (HCC) [M31.6] Start: 06-07-2025 End: 06-07-2025 Follow-up encounter Silvia Ruiz DO Work Phone: Rheumatology Start: 06-07-2025 End: 06-10-2025 Telephone encounter Silvia Ruiz DO Work Phone: [facility] Comment on above: Results Start: 06-06-2025 End: 06-06-2025 Telephone encounter Emelyn Michelle PA-C Work Phone: Rheumatology Comment on above: Recieved Outside med ical records ([facility] 06/03/25) Patient Update Start: 06-03-2025 End: 06-03-2025 ambulatory GA CAMPBELL [facility] Start: 06-03-2025 End: 06-03-2025 ambulatory GA CAMPBELL Facility:[facility] Start: 05-31-2025 End: 05-31-2025 Admission to same day surgery center King[place]ala Murillo DO -Endoscopy Work Phone: Start: 05-31-2025 End: 05-31-2025 ambulatory Ga POTTER Work Phone: -Endoscopy Start: 05-29-2025 End: 05-29-2025 Follow-up encounter Cliff Ross MD Work Phone: Neurology Start: 05-29-2025 End: 05-29-2025 Telephone encounter Emelyn Michelle PA-C Work Phone: Rheumatology Comment on above: [facility] ([facility]A 05/14/25/) Start: 05-28-2025 End: 05-28-2025 ambulatory GA CAMPBELL Facility:[facility] Start: 05-28-2025 End: 05-28-2025 Patient encounter procedure Cliff Ross MD Work Phone: Neurology Comment on above: Polyarthralgia; Weakness generalized; Polymyalgia rheumatica (HCC) Start: 05-28-2025 End: 05-28-2025 ambulatory EMELYN MICHELLE Facility:[facility] Start: 05-24-2025 End: 06-03-2025 Telephone encounter Emelyn POTTER-C Work Phone: Rheumatology Comment on above: Patient Question Start: 05-23-2025 End: 05-28-2025 Telephone encounter Silvia Ruiz DO Work Phone: [facility] Comment on above: Patient Question Start: 05-23-2025 End: 05-23-2025 Office outpatient visit 40 minutes Silvia Ruiz DO Work Phone: Rheumatology Comment on above: Giant cell arteritis (HCC) (Primary Dx); Polyarthralgia; Elevated antinuclear antibody (BRIDGETTE) level; Elevated sed rate; Elevated C-reactive protein (CRP); Other chest pain; [employer] (current) use of systemic steroids Start: 05-23-2025 End: 05-23-2025 ambulatory SILVIA RUIZ Facility:[facility] Start: 05-21-2025 End: 05-21-2025 Medication Ga POTTER-C Work Phone: [facility], [facility]. Start: 05-20-2025 End: 05-21-2025 Telephone encounter Emelyn POTTER-C Work Phone: Rheumatology Comment on above: Patient Question; Pa tient Update Start: 05-15-2025 End: 05-15-2025 Historical Summary Ga Campbell PA-C Work Phone: [facility] Start: 05-14-2025 End: 05-15-2025 Orders Ga Campbell PA-C Work Phone: [facility] Start: 05-14-2025 Review Ga eduardo PA-C Work Phone: [facility] Start: 05-14-2025 End: 05-16-2025 Follow-up encounter Emelyn Reyser PA-C Work Phone: Rheumatology Start: 05-14-2025 End: 05-14-2025 ambulatory GA CAMPBELL [facility] Start: 05-14-2025 End: 05-14-2025 Patient encounter procedure King Murillo DO -[facility] Work Phone: Start: 05-14-2025 End: 05-14-2025 ambulatory Ga Campbell PA Work Phone: -[facility] Start: 05-10-2025 End: 05-10-2025 ambulatory EMELYN MIGUEL ANGEL Neurology Comment on above: EMG Start: 05-10-2025 End: 05-10-2025 Patient encounter procedure Emg 1 Neur Guide Rock Mc (Max Weight: 850) Neurology Start: 05-09-2025 End: 05-09-2025 Orders Ga Valadezetler PA-C Work Phone: [facility] Start: 05-08-2025 End: 05-09-2025 Telephone encounter Emelyn Miguel Angel PA-C Work Phone: Rheumatology Start: 05-08-2025 End: 05-08-2025 Subsequent hospital visit by physician Fitz [facility] Work Phone: Radiology Comment on above: Polyarthralgia [M25. 50] Start: 05-08-2025 End: 05-08-2025 ambulatory EMLEYN MIGUEL ANGEL Facility:[facility] Start: 05-08-2025 End: 05-08-2025 ambulatory GA CAMPBELL Facility:[facility] Start: 05-08-2025 End: 05-08-2025 Patient encounter procedure Emelyn Reyser PA-C Work Phone: Rheumatology Comment on above: Giant cell arteritis (HCC) (Primary Dx); USP current use of systemic steroids; Thrush; Urinary tract infection without hematuria, site unspecified; Scoliosis of thoracolumbar spine, unspecified scoliosis type; Thrombocytopenia Start: 05-06-2025 End: 05-06-2025 Telephone encounter Mane Colbert MD Work Phone: Ophthalmology Comment on above: follow up questions Start: 05-03-2025 End: 05-03-2025 Orders Ga Campbell PA-C Work Phone: [facility] Start: 05-01-2025 End: 05-01-2025 ambulatory GA CAMPBELL Facility:[facility] Start: 05-01-2025 End: 05-01-2025 Historical Summary Ga Campbell PA-C Work Phone: [facility] Start: 04-30-2025 End: 04-30-[address] Yannick Obrien MD -[facility] Work Phone: Start: 04-30-2025 End: 04-30-2025 ambulatory Ga Campbell PA Work Phone: -[facility] Start: 04-30-2025 End: 04-30-2025 Orders Ga Valadezetler PA-C Work Phone: [facility] Start: 04-29-2025 End: 04-29-2025 Telephone encounter Emelyn Reyser PA-C Work Phone: Rheumatology Comment on above: Patient Update Start: 04-27-2025 End: 04-27-2025 ambulatory EMELYN MIGUEL ANGEL Facility:[facility] Start: 04-26-2025 End: 04-26-2025 Patient encounter procedure [facility] Work Phone: [facility] Comment on above: Shortness of breath (Primary Dx); Rash and nonspecific skin eruption; History of COVID-19; Polyarthralgia; Elevated antinuclear antibody (BRIDGETTE) level; Weakness generalized Start: 04-26-2025 End: 04-26-2025 ambulatory [facility] Work Phone: [facility] Comment on above: Spirometry Start: 04-25-2025 End: 04-25-2025 ambulatory EMELYN MICHELLE Facility:[facility] Start: 04-25-2025 End: 04-25-2025 Patient encounter procedure Emelyn Reyser PA-C Work Phone: Rheumatology Comment on above: Polyarthralgia (Prim alta Dx); Weakness generalized; Elevated antinuclear antibody (BRIDGETTE) level; Elevated sed rate; Elevated C-reactive protein (CRP); Rash and nonspecific skin eruption; Shortness of breath; History of COVID-19 Start: 04-25-2025 End: 04-25-2025 ambulatory EMELYN MICHELLE Facility:[facility] Start: 04-23-2025 End: 04-23-2025 Orders Ga Valadezetler PA-C Work Phone: [email or web address] Start: 04-18-2025 End: 04-18-2025 Orders Liyake Adrian PA-C Work Phone: [email or web address]. Start: 04-12-2025 End: 04-12-2025 Office outpatient visit 15 minutes Ga Valadezetler PA-C Work Phone: [email or web address]. Start: 04-12-2025 Review Ga Torres er PA-C Work Phone: [email or web address]. Start: 04-08-2025 End: 04-08-2025 Historical Summary Ga aVladezetler PA-C Work Phone: [employer] Start: 04-05-2025 Non-patient / Non-visit Dr. Matt donovan DO [facility] Work Phone: Start: 04-05-2025 End: 04-05-2025 ambulatory Tupetey Medina Facility:[facility] Start: 04-05-2025 End: 04-05-2025 Non-patient / Non-visit Dr. Louie Medina MD [facility] Work Phone: Start: 04-04-2025 End: 04-04-2025 ambulatory Tupetey Medina Facility:[facility] Start: 04-04-2025 End: 04-04-2025 Non-patient / Non-visit Dr. Louie Medina MD -[facility] Work Phone: Start: 04-04-2025 ambulatory Ga Murphyi ty:[facility] Start: 04-04-2025 End: 04-05-2025 Evaluation and management of inpatient Dr. Mane Conti -[facility] Work Phone: Start: 03-22-2025 End: 03-22-2025 Orders Ga Valadezetler PA-C Work Phone: [employer] Start: 03-19-2025 End: 03-19-2025 ambulatory GA CAMPBELL [facility] Start: 03-11-2025 End: 03-11-2025 Office outpatient visit 25 minutes Luke Adrian PA-C Work Phone: [email or web address] Start: 01-28-2025 End: 01-28-2025 Orders Ga LucianoAdrian PA-C Work Phone: [employer]. Start: 01-14-2025 End: 01-14-2025 Orders Luke Adrian PA-C Work Phone: [employer] Start: 01-11-2025 End: 01-11-2025 Orders Luke Adrian PA-C Work Phone: [employer] Start: 01-02-2025 End: 01-02-2025 Orders Liyake Adrian PA-C Work Phone: [employer] Start: 01-01-2025 End: 01-01-2025 ambulatory GA CAMPBELL [facility] Start: 12-26-2024 End: 12-26-2024 Orders Luke Adrian PA-C Work Phone: [employer] Start: 12-17-2024 End: 12-17-2024 Medication Luke Adrian PA-C Work Phone: [employer] Start: 12-03-2024 End: 12-03-2024 Office outpatient visit 25 minutes Luke Adrian PA-C Work Phone: [employer] Start: 11-13-2024 End: 11-13-2024 Office outpatient visit 15 minutes Luke Adrian PA-C Work Phone: [employer] Start: 08-08-2024 End: 08-08-2024 Orders Luke Adrian PA-C Work Phone: [employer] Start: 07-30-2024 End: 07-30-2024 Medication Luke Adrian PA-C Work Phone: [employer] Start: 07-25-2024 End: 07-25-2024 Patient encounter procedure Ga Lucianostetler PA-C Work Phone: [employer]. Start: 07-18-2024 End: 07-18-2024 Orders Luke Adrian PA-C Work Phone: [employer] Start: 07-04-2024 End: 07-04-2024 Orders Luke Adrian PA-C Work Phone: [employer] Start: 04-12-2024 Review Luke Mustaphastetl er PA-C Work Phone: [employer]. Start: 01-18-2024 Review Luke Hochstetl er PA-C [facility] Start: 01-12-2024 End: 01-12-2024 Office outpatient new 30 minutes Luke Adrian [facility]-C [facility] encounter procedure Luke E Adrian PA-C Work Phone: [facility] Procedures Date Procedure Procedure Detail Performing Clinician Start: 05-31-2025 Esophageal manometry Liya ke Adrian PA Work Phone: Start: 05-10-2025 Nerve conduction shellie dies 5-6 studies Emelyn Miguel Angel PA-C Work Phone: Start: 04-30-2025 End: 04-30-2025 Most Recent Cardio Report Ga Hochstetl er PA-C Work Phone: Start: 04-26-2025 Plethysmography lung volumes w/wo airway resist Emelyn Miguel Angel PA-C Work Phone: Start: 04-07-2025 End: 04-07-2025 Belen Galindo MA Comment on above: Normal. Start: 04-05-2025 Estimated creatinine clearance Luke Adrian PA Work Phone: Start: 04-04-2025 CT angiography of ch est with contrast Ga Adrian PA Work Phone: Start: 04-04-2025 Estimated creatinine clearance Luke Adrian PA Work Phone: Start: 03-11-2025 End: 03-20-2025 Echo tthrc r-t 2d w/wo m-mode complete rest&st Luke E Adrian PA-C Work Phone: Start: 12-26-2024 End: 01-02-2025 Ct maxillofacial w/o contrast material Luke E Adrian PA-C Work Phone: Comment on above: Clinical Indications : Sinusitis, chronic or recurrent Start: 12-03-2024 End: 12-03-2024 No Known Past Surgical History Codie Galindo KRISTI Start: 07-25-2024 End: 07-24-2024 Adv care pln/ no alt dcsn mkr docd or refusal Ga Valadezetler PA-C Work Phone: Start: 07-25-2024 End: 07-24-2024 Depression screening [employer] Maureen Adrian PA-[employer] Work Phone: Start: 07-25-2024 End: 07-24-2024 Falls risk assessment documented [employer] Maureen Adrian PA-[employer] Work Phone: Start: 07-25-2024 End: 04-08-2025 Oncology colorectal screening isabel 10 dna markrs Liyake E Adrian PA-C Work Phone: Start: 07-25-2024 End: 07-24-2024 PPPS, subseq visit Ga Reddy Adrian P A-C Work Phone: Start: 07-25-2024 End: 07-24-2024 Pt falls assess docd w/o fall/injury past year Ga Reddy Adrian PA-[employer] Work Phone: Start: 07-25-2024 End: 07-24-2024 Scr dep neg, no plan reqd [employer] Maureen Valadeze tler PA-[employer] Work Phone: Start: 07-19-2024 End: 07-19-2024 CBC panel - Blood by Automated count Carson Oshea LPN Start: 07-19-2024 End: 07-19-2024 Lab findings surveillance Carson Fraser PN Comment on above: CMP 97 Start: 07-19-2024 End: 07-19-2024 Lipid panel Carson Oshea LPN Comment on above: TC 241, HDL 87, TRI 82, LDL 136 Start: 01-12-2024 End: 01-16-2024 Chest x-ray [employer] Maureen ValadezAdrian P A-C Work Phone: Plan of Treatment Date Care Activity Detail Author Start: 2028 RSV Vaccine (1 - 1-dose 75+ series) RSV Vaccine (1 - 1-dose 75+ series) [facility] Start: 06-03-2028 Diabetes Screening Diabetes Screening [facility] Start: 04-27-2028 Diabetes Screening Diabetes Screening [facility] Start: 04-01-2028 Screening for malignant neoplasm of colon [facility] Start: 07-12-2025 Patient encounter procedure Medical; PHYSICAL - [facility] [employer] Start: 12-Jul-2025 11:00-04:00 TERESSA Campbell Appointment Request [facility] Start: 07-05-2025 Blood count complete auto&auto difrntl wbc CBC, PLATELETS & AUT DIFF (F) (36221) Start: 05-Jul-2025 16:06-04:00 Request [facility]; [facility] Start: 07-05-2025 Lipid panel LIPID PANEL (64552) Start: 05-Jul-2025 16:05-04:00 Request [facility]; [employer] Start: 07-05-2025 Comprehensive metabolic panel CMP w/ GFR* (27059) Start: 05-Jul-2025 16:05-04:00 Request [facility]; [employer] Start: 07-05-2025 Nursing evaluation of patient and report Medical; Nurse visit - AWV. fasting labs [facility] Start: 05-Jul-2025 10:00-04:00 NURSE, FLOAT Appointment Request [facility] Start: 06-12-2025 Patient encounter procedure Medical; EXTENDED RTN - pap only, extra time per rjb ([facility] pt) [facility] Start: 12-Jun-2025 10:30-04:00 TERESSA Mccann Appointment Request [facility] Start: 06-11-2025 End: 06-11-2025 Patient encounter procedure 06/11/2025 2:30 PM EDT Appointment Radiology [address] [place] [address] Giant cell arteritis (HCC) [M31.6] Radiology Comment on above: Giant cell arteritis (HCC) [M31.6] Start: 06-03-2025 End: 09-02-2025 C reactive protein [Mass/volume] in Serum or Plasma C-REACTIVE PROTEIN Lab Routine Giant cell arteritis (HCC) Expected: 06/03/2025, Expires: 09/02/2025 [facility] Comment on above: Expected: 06/03/2025, Expires: Start: 06-03-2025 End: 09-02-2025 CBC W Auto Differential panel - Blood COMPLETE BLOOD COUNT AND DIFFERENTIAL Lab Routine Giant cell arteritis (HCC) Expected: 06/03/2025, Expires: 09/02/2025 [facility] Comment on above: Expected: 06/03/2025, Expires: Start: 06-03-2025 End: 09-02-2025 Comprehensive metabolic 2000 panel - Serum or Plasma COMPREHENSIVE METABOLIC PANEL Lab Routine Giant cell arteritis (HCC) Expected: 06/03/2025, Expires: 09/02/2025 [facility] Comment on above: Expected: 06/03/2025, Expires: Start: 06-03-2025 End: 09-02-2025 Erythrocyte sedimentation rate SEDIMENTATION RATE, WESTERGREN Lab Routine Giant cell arteritis (HCC) Expected: 06/03/2025, Expires: 09/02/2025 [facility] Comment on above: Expected: 06/03/2025, Expires: Start: 05-31-2025 Patient discharge [facility] Start: 05-29-2025 End: 08-28-2025 25-hydroxyvitamin D3 [Mass/volume] in Serum or Plasma VITAMIN D 25 HYDROXY Lab Routine Steroid-induced osteopenia Expected: 05/29/2025, Expires: 08/28/2025 [facility] Work Phone: Comment on above: Expected: 05/29/2025, Expires: Start: 05-28-2025 End: 08-27-2025 ACETYLCHOLINE REC BINDING AB [facility] Work Phone: Comment on above: Expected: 05/28/2025, Expires: Start: 05-28-2025 End: 05-28-2025 Patient encounter procedure 05/28/2025 2:00 PM EDT Office Visit Neurology [address] [facility] [address] [place] [address] Cliff Ross MD [address] [facility] [address] [place] [address] Rash and nonspecific skin eruption [R21] Neurology Comment on above: Rash and nonspecific skin eruption [R21] Start: 05-27-2025 [facility]enza [facility] Start: 05-23-2025 End: 05-23-2025 Patient encounter procedure 05/23/2025 11:00 AM EDT Office Visit Rheumatology [address] [place] [address] Silvia Ruiz DO [address] [place] [address] talked to patient okay with location change 05/01/25 [facility] Rheumatology Comment on above: talked to patient okay with location change 05/01/25 w Start: 05-16-2025 End: 05-16-2025 Patient encounter procedure 05/16/2025 2:30 PM EDT Office Visit Rheumatology [address] [place] [address] 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 Start: 05-10-2025 End: 05-10-2025 ambulatory Neurology Comment on above: Dx: Rash and nonspecific skin eruption [ R21]; Shortness of breath [R06.02]; History of COVID-19 [Z86.16]; Polyarthralgia [M25.50]; Elevated antinuclear antibody (BRIDGETTE) level [R76.8]; Weakness generalized [R53.1] E MYOPATHY r E MYOPATHY Start: 05-09-2025 End: 05-09-2025 Dxa bone density study 1/> sites axial skel [facility] Start: 05-08-2025 End: 08-06-2025 Chronic hepatitis differentiation between hepatitis B and C virus panel - Serum or Plasma [facility] Work Phone: Comment on above: Expected: 05/08/2025, Expires: Start: 05-08-2025 End: 05-08-2025 Patient encounter procedure 05/08/2025 10:30 AM EDT Office Visit Rheumatology [address] [place], [place] [id number] Emelyn Michelle PA-C [address] [place], [place] [address] follow up, biopsy and prednisone taper Rheumatology Comment on above: follow up, biopsy and prednisone taper Start: 04-30-2025 Culture bacterial quanttative colony count urine Urine Culture ([id number]) Start: 30-Apr-2025 10:51-04:00 [facility] Start: 04-30-2025 Evaluation of diagnostic study results [facility] Start: 04-29-2025 End: 07-29-2025 BLOOD TB SCREEN BLOOD TB SCREEN Lab Routine Polyarthralgia Immunocompromised (HCC) Expected: 04/29/2025, Expires: 07/29/2025 [facility] Comment on above: Expected: 04/29/2025, Expires: Start: 04-29-2025 End: 07-29-2025 C reactive protein [Mass/volume] in Serum or Plasma C-REACTIVE PROTEIN Lab Routine Polyarthralgia Chronic low back pain, unspecified back pain laterality, unspecified whether sciatica present Chronic neck pain Expected: 04/29/2025, Expires: 07/29/2025 [facility] Comment on above: Expected: 04/29/2025, Expires: Start: 04-29-2025 End: 07-29-2025 Erythrocyte sedimentation rate SEDIMENTATION RATE, WESTERGREN Lab Routine Polyarthralgia Chronic low back pain, unspecified back pain laterality, unspecified whether sciatica present Chronic neck pain Expected: 04/29/2025, Expires: 07/29/2025 [facility] Comment on above: Expected: 04/29/2025, Expires: Start: 04-26-2025 End: 04-26-2025 ambulatory 04/26/2025 1:30 PM EDT Procedure PULM LAB [facility] WS [address] [place] [place] [address] Wstr, Pulm Lab [facility] [address] [place] [address], [place] [address] Rash and nonspecific skin eruption [R21] PUL LAB [facility] WS Comment on above: Rash and nonspecific skin eruption [R21] Start: 04-26-2025 End: 04-26-2025 Patient encounter procedure 04/26/2025 1:00 PM EDT Office Visit PUL LAB [facility] WSTR [address] [facility] [address] Wstr, Pul Lab [facility] [address] [place] [address] Rash and nonspecific skin eruption [R21] PUL LAB [facility] WS Comment on above: Rash and nonspecific skin eruption [R21] Start: 04-25-2025 End: 07-25-2025 Aldolase [Enzymatic activity/volume] in Serum or Plasma [facility] Comment on above: Expected: 04/25/2025, Expires: Start: 04-25-2025 End: 07-25-2025 BRIDGETTE BY IFA SCREEN [facility] Work Phone: Comment on above: Expected: 04/25/2025, Expires: Start: 04-25-2025 End: 07-25-2025 C reactive protein [Mass/volume] in Serum or Plasma [facility] Comment on above: Expected: 04/25/2025, Expires: Start: 04-25-2025 End: 07-25-2025 Creatine kinase [Enzymatic activity/volume] in Serum or Plasma [facility] Comment on above: Expected: 04/25/2025, Expires: Start: 04-25-2025 End: 07-25-2025 Extractable nuclear Ab panel - Serum [facility] Comment on above: Expected: 04/25/2025, Expires: Start: 04-25-2025 End: 07-25-2025 POLYMYOSITIS AND DERMATOMYOSITIS PANEL [facility] Comment on above: Expected: 04/25/2025, Expires: Start: 04-19-2025 Nursing evaluation of patient and report Medical; Nurse visit - [facility] [email or web address] Start: 19-Apr-2025 11:10-04:00 NURSE, FLOAT Appointment Request [employer] Start: 04-18-2025 Antinuclear antibodies bridgette BRIDGETTE TITER AND PATTERN (79832) Start: 18-Apr-2025 08:01-04:00 Request [employer] Start: 04-18-2025 Rheumatoid factor quantitative RHEUMATOID FACTOR-QUANT (51684) Start: 18-Apr-2025 08:01-04:00 Request [employer] Start: 04-18-2025 C-reactive protein C-REACTIVE PROTEIN (25924) Start: 18-Apr-2025 08:00-04:00 Request [employer] Start: 04-18-2025 Sedimentation rate rbc automated ESR (SED RATE) (24615) Start: 18-Apr-2025 08:00-04:00 Request [employer] [employer] Start: 04-18-2025 Creatine kinase total CREATINE KINASE TOTAL (72307) Start: 18-Apr-2025 08:00-04:00 Request [employer] [employer] Start: 04-18-2025 Blood count complete auto&auto difrntl wbc CBC, PLATELETS & AUT DIFF (F) (62913) Start: 18-Apr-2025 08:00-04:00 Request [employer] Start: 04-05-2025 [facility] Start: 04-05-2025 Patient discharge [facility] Start: 04-04-2025 Following clinical pathway protocol [facility] Start: 04-04-2025 Ambulation without limitation [facility] Start: 04-04-2025 Assessment of risk of venous thromboembolism [facility] Start: 04-04-2025 Insertion of catheter into peripheral vein [facility] Start: 04-04-2025 Measuring intake and output [facility] Start: 04-04-2025 Oxygen therapy [facility] Start: 04-04-2025 Providing care according to standard [facility] Start: 04-04-2025 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 [facility] Start: 04-04-2025 Referral to service [facility] Start: 04-04-2025 [facility] Start: 04-04-2025 Verification routine [facility] Start: 04-04-2025 Admission procedure [facility] Start: 04-04-2025 Hospital admission, emergency, from emergency room, medical nature [facility] Start: 04-04-2025 [facility] Start: 04-04-2025 End: 04-04-2025 [facility] Start: 04-04-2025 Consultation [facility] Start: 03-11-2025 Comprehensive metabolic panel CMP w/ GFR* (86802) Start: 11-Mar-2025 15:32-04:00 Request [facility], [employer], [employer]. Start: 03-11-2025 Natriuretic peptide BNP (62934) Start: 11-Mar-2025 15:32-04:00 Request [email or web address], [email or web address], [employer] Start: 03-11-2025 [facility] r-t 2d w/wo m-mode complete rest&st Stress Echo (67909) Start: 11-Mar-2025 Intent [employer] [facility], [employer]. Start: 01-16-2025 Sars-cov-2 antibody Covid-19 Antibody Test (56502) Start: 16-Jan-2025 Request [employer] [employer] Start: 01-14-2025 Sars-cov-2 antibody Covid-19 Antibody Test (14712) Start: 14-Jan-2025 15:12-04:00 Request [employer] [employer] Start: 01-14-2025 Nursing evaluation of patient and report Medical; Nurse visit - [facility] [employer] Start: 14-Jan-2025 15:00-04:00 NURSE, FLOAT Appointment Request [employer] Start: 12-26-2024 Ct maxillofacial w/o contrast material Sinuses CT W/O Contrast (82841)(ACR 9 )(DSN [id number])(G-Code G1004(KS)) Start: 26-Dec-2024 Intent Comments: Clinical Indications: Sinusitis, chronic or recurrent [employer] [employer] Comment on above: Clinical Indications: Sinusitis, chronic or recurrent Start: 09-26-2024 Advance Directive Discussion Advance Directive Discussion [facility] Start: 08-08-2024 Urnls dip stick/tablet rgnt auto w/o microscopy Urinalysis, Automated w/o micro (in house)* (16841) Start: 08-Aug-2024 16:22-05:00 Request [employer] [employer] Start: 07-25-2024 Oncology colorectal screening isabel 10 dna markrs COLOGUARD COLON CANCER SCREENING USING STOOL DNA AT POINT OF CARE (00229) Start: 25-Jul-2024 Intent [employer] [employer] Start: 07-25-2024 Culture bacterial quanttative colony count urine Urine Culture (80793) Start: 25-Jul-2024 11:44-04:00 Request [employer].; [facility], [employer]. Start: 07-25-2024 Patient encounter procedure Medical; PHYSICAL - AW[facility] [employer] Start: 25-Jul-2024 10:50-04:00 TERESSA Campbell Appointment Request [employer] Start: 07-18-2024 Blood count complete auto&auto difrntl wbc CBC, PLATELETS & AUT DIFF (F) (53661) Start: 18-Jul-2024 Request [facility]; [employer] Start: 07-18-2024 Comprehensive metabolic panel CMP w/ GFR* (03050) Start: 18-Jul-2024 Request [facility]; [employer] Start: 07-18-2024 Lipid panel LIPID PANEL (68173) Start: 18-Jul-2024 Request [employer] [employer] Start: 07-18-2024 Nursing evaluation of patient and report Medical; Nurse visit - [facility] fasting labs [facility] [employer] Start: 18-Jul-2024 11:20-04:00 NURSE, FLOAT Appointment Request [facility] Start: 01-12-2024 Chest x-ray CHEST X-RAY, PA AND LATERAL (29413) Start: 12-Jan-2024 Intent [facility]; [employer] Start: 01-12-2024 Radiologic exam knee complete 4/more views Knee x-ray, Right Complete (63488) Start: 12-Jan-2024 Intent [facility]; [employer] Start: 2018 Screening for osteoporosis Bone Density Screening [facility] Start: 08-26-2018 Medicare Annual Wellness Visit Medicare Annual Wellness Visit [facility] Start: 2003 Pneumococcal Vaccine: 50+ (1 of 1 - PCV) Pneumococcal Vaccine: 50+ (1 of 1 - PCV) [facility] Start: 2003 Shingrix Vaccine (1 of 2) Shingrix Vaccine (1 of 2) [facility] Start: 1998 Diabetes Screening Diabetes Screening [facility] Start: 1998 Lipid panel Lipid Screening [facility] Start: 1998 Screening for malignant neoplasm of colon [facility] Start: 1993 Screening for malignant neoplasm of breast Mammogram Screening [facility] Start: 1972 Urine microalbumin profile DTaP,Tdap,Td Vaccine (1 - Tdap) [facility] Start: 1971 Anxiety Screening Anxiety Screening [facility] Start: 1971 Depression Screening Depression Screening [facility] Start: 1971 Hepatitis C screening Hepatitis C Screening [facility] End: 06-22-2026 CTA Chest vessels WO and W contrast IV CTA CHEST (NONGATED) WO/W IVCON Radiology Routine Giant cell arteritis (HCC) 1 Occurrences starting 05/23/2025 until 06/22/2026 [facility] Work Phone: Comment on above: 1 Occurrences starting 05/23/2025 until 06/22/2026 CTA Chest vessels WO and W contrast IV CTA CHEST (NONGATED) WO/W IVCON Radiology Routine Giant cell arteritis (HCC) 06/11/2025 3:00 PM EDT [facility] Work Phone: End: 04-25-2026 EMG(NEURO/NI) EMG(NEURO/NI) EMG Routine Rash and nonspecific skin eruption Shortness of breath History of COVID-19 Polyarthralgia Elevated antinuclear antibody (BRIDGETTE) level Weakness generalized 1 Occurrences starting 04/25/2025 until 04/25/2026 [facility] Comment on above: 1 Occurrences starting 04/25/2025 until 04/25/2026 Ligation/biopsy temp oral artery LIGATION OR BIOPSY, TEMP ARTERY Cardiology Routine Giant cell arteritis (HCC) Ordered: 04/29/2025 [facility] Comment on above: Ordered: 04/29/2025 End: 05-25-2026 LUNG DIFFUSION CAPACITY (DLCO) LUNG DIFFUSION CAPACITY (DLCO) PFT Routine Rash and nonspecific skin eruption Shortness of breath History of COVID-19 Polyarthralgia Elevated antinuclear antibody (BRIDGETTE) level Weakness generalized 1 Occurrences starting 04/25/2025 until 05/25/2026 [facility] Comment on above: 1 Occurrences starting 04/25/2025 until 05/25/2026 End: 05-25-2026 LUNG VOLUMES LUNG VOLUMES PFT Routine Rash and nonspecific skin eruption Shortness of breath History of COVID-19 Polyarthralgia Elevated antinuclear antibody (BRIDGETTE) level Weakness generalized 1 Occurrences starting 04/25/2025 until 05/25/2026 [facility] Comment on above: 1 Occurrences starting 04/25/2025 until 05/25/2026 End: 05-25-2026 SPIROMETRY BASELINE ONLY SPIROMETRY BASELINE ONLY PFT Routine Rash and nonspecific skin eruption Shortness of breath History of COVID-19 Polyarthralgia Elevated antinuclear antibody (BRIDGETTE) level Weakness generalized 1 Occurrences starting 04/25/2025 until 05/25/2026 [facility] Comment on above: 1 Occurrences starting 04/25/2025 until 05/25/2026 Troponin T.cardiac [Mass/volume] in Serum or Plasma by High sensitivity method [facility] Troponin T.cardiac [Mass/volume] in Serum or Plasma by High sensitivity method [facility] End: 05-29-2026 XR Cervical spine 2 or 3 views and (Views W flexion and W extension) XR CERVICAL 2V FLEX/EXT Radiology Routine Chronic neck pain 1 Occurrences starting 04/29/2025 until 05/29/2026 [facility] Comment on above: 1 Occurrences starting 04/29/2025 until 05/29/2026 XR Cervical spine 2 or 3 views and (Views W flexion and W extension) XR CERVICAL 2V FLEX/EXT Radiology Routine Chronic neck pain 05/08/2025 12:46 PM EDT [facility] End: 05-29-2026 XR Cervical spine AP and Lateral and oblique XR CERV OTHER 4V AP/LAT/OBL Radiology Routine Polyarthralgia Chronic low back pain, unspecified back pain laterality, unspecified whether sciatica present Chronic neck pain 1 Occurrences starting 04/29/2025 until 05/29/2026 [facility] Comment on above: 1 Occurrences starting 04/29/2025 until 05/29/2026 XR Cervical spine AP and Lateral and oblique XR CERV OTHER 4V AP/LAT/OBL Radiology Routine Polyarthralgia Chronic low back pain, unspecified back pain laterality, unspecified whether sciatica present Chronic neck pain 05/08/2025 12:45 PM EDT [facility] End: 05-29-2026 XR Lumbar spine 3 Views XR LUMBAR GENERAL 3V AP/LAT/L5-S1 Radiology Routine Polyarthralgia Chronic low back pain, unspecified back pain laterality, unspecified whether sciatica present Chronic neck pain 1 Occurrences starting 04/29/2025 until 05/29/2026 [facility] Work Phone: Comment on above: 1 Occurrences starting 04/29/2025 until 05/29/2026 XR Lumbar spine 3 Views XR LUMBA R GENERAL 3V AP/LAT/L5-S1 Radiology Routine Polyarthralgia Chronic low back pain, unspecified back pain laterality, unspecified whether sciatica present Chronic neck pain 05/08/2025 12:44 PM EDT [facility] Work Phone: Payers Date Payer Category Payer Self-pay 2020 Private Health Insurance [id number] 2020 Unknown [id number] 2018 Medicare MEDICARE [id number] 2018 Medicare [id number] 1955 Unknown [id number]. 2.651 1955 Unknown [id number] [id number]. 2.651 1955 Unknown [id number] 2.840.1.727868.3.579. 2.651 1955 Unknown [id number] [id number]. 2.651 Unknown Unknown [id number] [id number]. 2.462 Unknown [id number] [id number]. 2.462 Unknown [id number] [id number]. 2.462 Unknown [id number] [id number]. 2.462 Unknown [id number] 2.16.840.1.899461.3.579. 2.462 Unknown [id number] [id number]. 2.462 Unknown [id number] 2.16.840.1.231542.3.579. 2.462 Unknown [id number] 2.16.840.1.747955.3.579. 2.462 Unknown [id number] [id number]. 2.462 Unknown [id number]. 2.462 Social History Date Type Detail Facility Alcohol Use: [facility] Use: ; [facility] [employer] Start: 04-25-2025 End: 05-23-2025 Caffeine Use [facility] [employer] Tobacco Use: Tobacco Use: ; F ormer [facility]. [facility] [employer] Start: 1955 Female [facility] wine [facility] [employer] Work Phone: Start: 04-04-2025 End: 04-25-2025 Ex-smoker [facility] History of tobacco use Current smoker [facility] History of tobacco use Cigarette Smoker [facility] Start: 04-25-2025 Tobacco use and exposure Smokeless tobacco non-user [facility] Start: 04-25-2025 End: 05-23-2025 Alcoholic beverage intake Ex-drinker (finding) [facility] Start: 04-25-2025 End: 05-23-2025 Tobacco use panel [facility] Start: 08-27-2012 National Score (1-10 0), lower number is lower risk 80 [facility] Start: 1955 Sex assigned at Not on file [facility] Goals Date Patient Goal Desired Activity /State Functional Status Date Assessment Result Facility 04-05-2025 Functional status Ambulates [facility] Work Phone: Mental Status Date Assessment Result Facility 05-31-2025 Cognitive function Awake;Alert;A ppropriate;Follow s Commands [facility] Work Phone: 04-05-2025 Cognitive function Appropriate;Cooperativ e [facility] Work Phone: 04-04-2025 Cognitive function Level Of Cons ciousness Awake;Alert;Appropriate;Follow s Commands [facility] Work Phone: Clinical Notes 01-24-2025 to 06-11-2025 Eduardo Dukes RN - 06/11/2025 2:30 PM EDTBEduardo fisher RN - 06/11/2025 2:30 PM EDTTelephone Encounter - Silvia Ruiz DO - 06/07/2025 4:33 PM Cliff Leija MD - 05/28/2025 2:00 PM EDT Note Date & Type Note Facility 06-11-2025 Nurse Note Radiology Service Progress Note DATE OF SERVICE: June 11, 2025 TIME: 2:25 PM PATIENT WEIGHT: 123 LBS PATIENT IDENTITY VERIFICATION COMPLETED USING TWO (2) STANDARD IDENTIFIERS: Name and Date of confirmed by patient verbally and Name and Date of confirmed by identification band. FALL SCREENING: Has the patient had 2 falls in the last year or 1 fall with injury or currently using an Ambulatory Assistive Device (Walker, Cane, Wheelchair, Crutches, etc.)? No PATIENT GENDER DATA: Assigned female at . status: : No status: NO. ALLERGIES: Reviewed and unchanged CONTRAST ALLERGY: No EXAM: CT -CONTRAST INDUCED NEPHROPATHY RISK FACTORS: Patient age > 60 years CREATININE: Creatinine Date Value Ref Range Status 06/03/2025 0.86 0.58 - 0.96 mg/dL Final 04/27/2025 0.65 0.58 - 0.96 mg/dL Final Estimated Glomerular Filtration Rate Date Value Ref Range Status 06/03/2025 72 >=60 mL/min/1.73m Final Comment: Estimated Glomerular Filtration Rate (eGFR) is calculated using the 2020 CKD-EPI creatinine equation. This equation utilizes serum creatinine, sex, and age as parameters. The creatinine assay has traceable calibration to isotope dilution-mass spectrometry. Refer to KDIGO guidelines for clinical interpretation. In patients with unstable renal function, e.g. those with acute kidney injury, the eGFR may not accurately reflect actual GFR. P.O.C.T. RESULTS: See labs from June 04, 2025 TREATMENT: No Hydration needed. IV SITE: Ambulatory: A peripheral IV was started in the Right antecubital site with a Angio cath/Butterfly: 20 gauge. Diffusics IV SITE APPEARANCE: Clean,Dry and Intact SIGNATURE: Eduardo Dukes RN PATIENT NAME: Violeta Elizabeth DATE: June 11, 2025 TIME: 2:25 PM [facility] 06-11-2025 Nurse Note Radiology Service Progress Note DATE OF SERVICE: June 11, 2025 TIME: 2:25 PM PATIENT WEIGHT: 123 LBS PATIENT IDENTITY VERIFICATION COMPLETED USING TWO (2) STANDARD IDENTIFIERS: Name and Date of confirmed by patient verbally and Name and Date of confirmed by identification band. FALL SCREENING: Has the patient had 2 falls in the last year or 1 fall with injury or currently using an Ambulatory Assistive Device (Walker, Cane, Wheelchair, Crutches, etc.)? No PATIENT GENDER DATA: Assigned female at . status: : No status: NO. ALLERGIES: Reviewed and unchanged CONTRAST ALLERGY: No EXAM: CT -CONTRAST INDUCED NEPHROPATHY RISK FACTORS: Patient age > 60 years CREATININE: Creatinine Date Value Ref Range Status 06/03/2025 0.86 0.58 - 0.96 mg/dL Final 04/27/2025 0.65 0.58 - 0.96 mg/dL Final Estimated Glomerular Filtration Rate Date Value Ref Range Status 06/03/2025 72 >=60 mL/min/1.73m Final Comment: Estimated Glomerular Filtration Rate (eGFR) is calculated using the 2020 CKD-EPI creatinine equation. This equation utilizes serum creatinine, sex, and age as parameters. The creatinine assay has traceable calibration to isotope dilution-mass spectrometry. Refer to KDIGO guidelines for clinical interpretation. In patients with unstable renal function, e.g. those with acute kidney injury, the eGFR may not accurately reflect actual GFR. P.O.C.T. RESULTS: See labs from June 04, 2025 TREATMENT: No Hydration needed. IV SITE: Ambulatory: A peripheral IV was started in the Right antecubital site with a Angio cath/Butterfly: 20 gauge. Diffusics IV SITE APPEARANCE: Clean,Dry and Intact SIGNATURE: Eduardo Dukes RN PATIENT NAME: Violeta Elizabeth DATE: June 11, 2025 TIME: 2:25 PM documented in this encounter [facility] 06-07-2025 Telephone encounter Note See telephone encounter from 06/07 [facility] 06-07-2025 Miscellaneous Notes See telephone encounter from 06/07 Pt would like a call back from Dr. Ruiz's office to go over lab results done on 06/03/25. Please call her back to go over results. Patient has been identified by name and birthdate. Duration of symptoms: N/A Person calling: self Call patient at: at home [phone] (home) Cleopatra Salmon documented in this encounter [facility] 06-07-2025 Telephone encounter Note Called patient to discuss results. Patient states that today is a bad day. She has no strength or energy. Everything hurts. Feels like she is leaning to the left. Still getting sharp pains in the sternum intermittently. Yesterday was a good day. Currently on prednisone 50 mg daily. States that it is a totally different world on the 50 mg compared to the 60 mg. Feels much worse on the [address] aspect[address] scan scheduled 06/11. Has GI appointment 06/20. Instructed patient to continue on prednisone 50 mg [facility] 06-07-2025 Miscellaneous Notes Called patient to discuss results. Patient states that today is a bad day. She has no strength or energy. Everything hurts. Feels like she is leaning to the left. Still getting sharp pains in the sternum intermittently. Yesterday was a good day. Currently on prednisone 50 mg daily. States that it is a totally different world on the 50 mg compared to the 60 mg. Feels much worse on the [address] mg [address] aspect[address] scan scheduled 06/11. Has GI appointment 06/20. Instructed patient to continue on prednisone 50 mg documented in this encounter [facility] 06-07-2025 Telephone encounter Note Pt would like a call back from Dr. Ruiz's office to go over lab results done on 06/03/25. Please call her back to go over results. Patient has been identified by name and birthdate. Duration of symptoms: N/A Person calling: self Call patient at: at home [phone] (home) Cleopatra Samlon [facility] 06-06-2025 Telephone encounter Note Patient called and given the below message. Patient plans to get CTA done. Jenni Curiel RN [facility] 06-06-2025 Miscellaneous Notes Patient called and given the below message. Patient plans to get CTA done. Jenni Curiel RN Please advise: She wants to compare it to the prior one to see if any changes The new one being ordered is done a little differently than the one done at [place] and will provide more information specific to GCA diagnosis. I sent her to Dr. Ruiz for her expertise regarding these matters, so I would recommend she get them done if that is what Dr. Ruiz advises. Emelyn Michelle PA-C Patient calling and states she saw Dr Ruiz on 05/23/25 and is recommending she have another CTA.Patient is asking why she she is needing a CTA again when she had one done 2 months ago? documented in this encounter [facility] 06-06-2025 Telephone encounter Note Please advise: She wants to compare it to the prior one to see if any changes The new one being ordered is done a little differently than the one done at [place] and will provide more information specific to GCA diagnosis. I sent her to Dr. Ruiz for her expertise regarding these matters, so I would recommend she get them done if that is what Dr. Ruiz advises. Emelyn Michelle PA-C [facility] 06-06-2025 Telephone encounter Note Patient calling and states she saw Dr Ruiz on 05/23/25 and is recommending she have another CTA.Patient is asking why she she is needing a CTA again when she had one done 2 months ago? [facility] 06-06-2025 Telephone encounter Note [facility] Results dated 06/03/25 Findings: No suspicious finding in either breast Dense breasts noted Will send for scanning [facility] 06-06-2025 Miscellaneous Notes [facility] Results dated 06/03/25 Findings: No suspicious finding in either breast Dense breasts noted Will send for scanning documented in this encounter [facility] 06-03-2025 Telephone encounter Note Called patient back and relayed Dr. Ruiz's message regarding repeating the CTA scan. Patient verbalized understanding. She also stated that she is scheduled with a GI doctor (outside of the Clinic) on 06/20/25 for an upper GI procedure and will be wearing a 2-day monitor as well. [facility] 06-03-2025 Miscellaneous Notes Called patient back and relayed Dr. Ruiz's message regarding repeating the CTA scan. Patient verbalized understanding. She also stated that she is scheduled with a GI doctor (outside of the Clinic) on 06/20/25 for an upper GI procedure and will be wearing a 2-day monitor as well. I can place a GI referral she she is welcome to call and see if she can get in sooner with them. I don't have any specific connections for GI at [facility] or getting a sooner EGD. Prednisone can cause ulceration of the stomach lining. If she is not taking anything, she should take a PPI (ex. Omeprazole, or pantoprazole). I believe she saw a local service technician. They should have advised if she should take one and how long/what dose. Dr. Ruiz, please advise if you have anything else to add. Thanks KG Called pt to let Dr Ruiz's message below Pt in agreement Pt said she is been miserable since Tuesday-Tuesday (05/26/25 to 05/28/25) Pt said she has ulcerated stomach lining and wants to know how bad Prednisone affect with pain or if it is causing ulcerated stomach lining. Pt is scheduled on 06/20/25 for manometry in [place] Pt is asking if Emelyn or Dr Ruiz can get her in sooner with upper GI at [facility] she would be greatly appreciate ,due to not feeling well. Pt is currently on Prednisone 50 mg daily Notified pt that will forward the message to both providers :Emelyn and Dr Joseph Joyce MA Patient returned call, pt wants to know if she needs another one or not, please call pt back, if you get voicemail, please leave a detailed message. I called and left a message on voicemail that our office can see the CTA that was completed at [facility]. Is is under scanned documents dated 05/08/2025 with her emergency room visit information. Images have been requested from [facility] to be sent to [facility] to be in her chart for comparison/ reference. Patient calls to ask if provider's office has received the results of CTA Scan Chest w and w/o contrast from [facility]. Patient reports it was completed last month and Dr. Ruiz ordered another one but she is not certain if results were ever received. Patient requests a call back at [phone] and patient gave ok to leave voicemail if doesn't answer. Please review and advise, Lauren Wilhelm RN documented in this encounter [facility] 05-29-2025 Telephone encounter Note Please let her know that her test result was equivocal (this means the result was borderline) I would consider this a negative test result and I do not believe that she has myasthenia gravis. [facility] Work Phone: 05-29-2025 Miscellaneous Notes Please let her know that her test result was equivocal (this means the result was borderline) I would consider this a negative test result and I do not believe that she has myasthenia gravis. documented in this encounter [facility] 05-29-2025 Telephone encounter Note Noted. Symptoms mentioned are consistent with UTI. Glad she is being treated by PCP. Will need Vit D level and repeat renal function prior to scheduling Treatment plan populated to start auth. Order placed, can be done with Dr. Weston'leora labs [facility] 05-29-2025 Miscellaneous Notes Noted. Symptoms mentioned are consistent with UTI. Glad she is being treated by PCP. Will need Vit D level and repeat renal function prior to scheduling Treatment plan populated to start auth. Order placed, can be done with Dr. Weston'leora labs Below results given to the patient. Patient states that she is willing to take the IV Reclast. Patient also wanted to update that she noted feeling lightheaded, dizzy, increased fatigue, and increased urination. UA done by PCP today and showed UTI. Culture is pending. Patient also reports noting some weight loss. Jenni Curiel RN Received external BMD Dated 05/14/25 T score lumbar spine -0.7 RHip Femur T-Score -1.8 FRAX: Major fracture 21.7%, Hip Fracture 5.3% Please call We received BMD results. They show osteopenia, with high risk of fracture. That plus her being on steroid suggests she should be on osteoporosis treatment. Her PCP recommended fosamax. Although with GI issues, IV reclast may be better. Risk of all bisphosphonates include risk of osteonecrosis of the jaw and atypical femur fractures with prolonged use, GI upset with oral formulations and flu-like reaction to IV form. If she is agreeable to proceed I can place the order. If she has more questions about the medication, I can see her for a follow up visit to review. Emelyn Michelle PA-C documented in this encounter [facility] 05-29-2025 Telephone encounter Note Below results given to the patient. Patient states that she is willing to take the IV Reclast. Patient also wanted to update that she noted feeling lightheaded, dizzy, increased fatigue, and increased urination. UA done by PCP today and showed UTI. Culture is pending. Patient also reports noting some weight loss. Jenni Curiel RN [facility] 05-29-2025 Telephone encounter Note Received external BMD Dated 05/14/25 T score lumbar spine -0.7 RHip Femur T-Score -1.8 FRAX: Major fracture 21.7%, Hip Fracture 5.3% Please call We received BMD results. They show osteopenia, with high risk of fracture. That plus her being on steroid suggests she should be on osteoporosis treatment. Her PCP recommended fosamax. Although with GI issues, IV reclast may be better. Risk of all bisphosphonates include risk of osteonecrosis of the jaw and atypical femur fractures with prolonged use, GI upset with oral formulations and flu-like reaction to IV form. If she is agreeable to proceed I can place the order. If she has more questions about the medication, I can see her for a follow up visit to review. Emelyn Michelle PA-C [facility] 05-28-2025 History of Present illness Narrative Consultation requested by Emelyn Michelle; rheumatology for an opinion regarding generalized weakness. My final recommendations will be communicated back to the requesting physician by way of shared medical record or letter via US mail Referring provider: Emelyn Michelle; rheumatology [address] [facility] [id number] Violeta Elizabeth is a 69-year-old female with a history of scoliosis, two herniated discs, and a pinched sciatic nerve, presenting with severe pain and muscle weakness following a COVID-19 infection in October. Violeta reports that her symptoms began after kenzie COVID-19 in October. 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 This pain was rated as 8-10/10 in intensity. She also experienced widespread pain throughout her body, including her chest. A temporal artery biopsy was performed and was negative. She was initially treated with antibiotics and steroids by her primary care physician without improvement. In February, due to the severity of her pain, she was referred to a warehouse insulation worker, who found no cardiac issues and attributed her pain to musculoskeletal causes. She was then started on prednisone 60 mg daily, which took several days to provide relief. The prednisone significantly reduced her pain and improved her muscle weakness, allowing her to perform small tasks at home. However, as the prednisone dose was tapered to 50 mg, her pain and weakness began to return. Violeta reports feeling like she is slipping back and experiencing increased pain and weakness over the past few days. She is currently under the care of a automotive service consultant, who has diagnosed her with giant cell arteritis (GCA) and polymyalgia rheumatica (PMR). However, due to her atypical presentation and persistent pain despite high-dose prednisone, further testing is being conducted. She is scheduled for an upper GI on June 20 to investigate possible gastrointestinal causes of her pain. Violeta reports difficulty sleeping, which she attributes to her pain rather than the prednisone. She experiences pain in her sternum and breast area, which is aggravated by sitting up straight. She also reports pain in her pectoral muscles and teeth. She denies fever, vomiting, or regurgitation. 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 She has a history of scoliosis, two herniated discs, and a pinched sciatic nerve. She also has a family history of heart disease. Two years ago, she was diagnosed with an ulcerated stomach lining after experiencing severe pain following the initiation of baby aspirin. She is concerned that the prednisone may be aggravating her previous ulcer. Violeta reports that her inflammatory markers have not significantly decreased despite high-dose prednisone. She is currently taking prednisone 50 mg daily and is scheduled to see her automotive service consultant on the week of June 03 for further evaluation. Recent rheumatology note: Patient had a severe upper respiratory COVID-19 infection on November 09, 2022, followed by prolonged symptoms including headaches, sinus pressure, and ear pain. Initial treatment included 60 days of antibiotics and 21 days of steroids, with no significant improvement. Two ENT specialists ruled out sinus infection and attributed symptoms to long COVID. Patient notes recent progresive myalgias weakness, Dyspnea on exertion, fatigue, malaise, and significant elevated inflammatory markers at PCP office. 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 Reports stiffness in the morning and weakness, particularly in the shoulders and hips. Symptoms have progressively worsened over the last 60 days. States neck feels heavy, difficult to hold up at times. Differential is broad. Inflammatory myopathy, PMR/GCA, vasculitis (less likely given absence of nasal crusting, hemoptysis) - Ordered EMG to assess for myopathy or muscle inflammation. - Ordered pulmonary function tests to evaluate lung volumes and expiratory function. - Ordered repeat inflammatory markers and additional muscle inflammation tests. - Consider referral to rheumatology and neurology for further evaluation and management. - Pending results, consider Empiric prednisone and TA biopsy +/- muscle biops - Inflammatory lab panel as ordered below. - Ordered EMG to assess for evidence of inflammatory myopathy - Consider referral to neurology for further evaluation. # Elevated antinuclear antibody (BRIDGETTE) level (R76.8) # Elevated sed rate (R70.0) # Elevated C-reactive protein (CRP) (R79.82) Recent lab work shows a low positive BRIDGETTE titer of 1:40, significantly elevated ESR of 126 mm/hr (normal <8 mm/hr), and elevated CRP. These findings suggest an underlying inflammatory process. - Ordered repeat inflammatory markers to compare with previous results and establish a baseline. - Ordered additional muscle inflammation tests. # Rash and nonspecific skin eruption (R21) Patient presents with non-pruritic, non-tender erythematous patches on the torso, legs, and back, which have recently appeared and are starting to resemble ecchymosis. - Documented and uploaded images of the rash for the medical record. - consider dermatology referral for biopsy of rash. # Shortness of breath (R06.02) Patient reports increased dyspnea, particularly when performing activities of daily living. No pulmonary function tests have been conducted yet. - Ordered pulmonary function tests to assess lung volumes and expiratory function. - Consider pulm referral pending PFT results. Rheumatology fu visit: Due to Elevated ESR/CRP and headache and age, there was concern for GCA. Also polymyositis/vasculitis Pred 60 initiated with great response. Headache mostly resolved, PMR type symptoms improved. Improved mobility. With persistent fatigue, brain fog issues and memmory issues could be related to Long COVID Biopsy performed 05/01/25 ,less than 1 week after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 Performed: EMG Sign In: A Moment of CARE was completed. Personnel directly involved with the procedure wore the appropriate PPE (Personal Protective Equipment). Patient/Surrogate Stated/Verified: Patient name, Date of , Relevant allergies, and The intended procedure Time Out Communication: Intended patient and procedure match the source documents. Correct side/site marked and visible. Sign Out: SIGN OUT (optional for EMERGENT procedures): Post-procedure follow-up management communicated and Plan of Care Visit completed when applicable. MELCHOR Batista DO documented in this encounter [facility] 05-09-2025 Telephone encounter Note Patient called and given the below message. Patient reports understanding. Jenni Curiel RN [facility] 05-09-2025 Miscellaneous Notes Patient called and given the below message. Patient reports understanding. Jenni Curiel RN Please call patient Advise her after speaking with dr. Ruiz (the rheum doc she will be seeing in 2-3 weeks), we will hold off on Bactrim, and I'll hold off on large vessel imaging until she sees her. Labs all still pending Thanks Emelyn documented in this encounter [facility] 05-08-2025 Telephone encounter Note Please call patient Advise her after speaking with dr. Ruiz (the rheum doc she will be seeing in 2-3 weeks), we will hold off on Bactrim, and I'll hold off on large vessel imaging until she sees her. Labs all still pending Thanks Emelyn [facility] 05-08-2025 History of Present illness Narrative Radiology Service Progress Note PATIENT NAME: Violeta Elizabeth DATE OF SERVICE: May 08, 2025 TIME: 1:27 PM PATIENT IDENTITY VERIFICATION COMPLETED USING TWO (2) IDENTIFIERS: Name and Date of confirmed by patient verbally. FALL SCREENING: Has the patient had 2 falls in the last year or 1 fall with injury or currently using an Ambulatory Assistive Device (Walker, Cane, Wheelchair, Crutches, etc.)? No PATIENT GENDER DATA: Assigned female at . status: : No status: NO. PATIENT RELEVANT IMPLANT DATA REVIEWED: Not Applicable PATIENT PRESENTS WITH AN IMPLANTABLE OR ATTACHED TEST AND RESEARCH REACTOR OPERATOR: No RADIOLOGY DEPARTMENT: General X-ray: Exam(s) Completed: Spine X-Ray(s): Cervical AP / LAT / OBL and Lumbar AP / LAT / L5-S1 PERIPHERAL IV DATA: Not applicable SIGNED BY: RT Maryjo(R) May 08, 2025 1:27 PM documented in this encounter [facility] 05-08-2025 Note HNO ID: [id number] Author: EBONI ROBLES RT(R) Service: ? Author Type: Technologist Type: Progress Notes Filed: 05/08/2025 13:28 Note Text: Radiology Service Progress Note PATIENT NAME: Violeta Elizabeth DATE OF SERVICE: May 08, 2025 TIME: 1:27 PM PATIENT IDENTITY VERIFICATION COMPLETED USING TWO (2) IDENTIFIERS: Name and Date of confirmed by patient verbally. FALL SCREENING: Has the patient had 2 falls in the last year or 1 fall with injury or currently using an Ambulatory Assistive Device (Walker, Cane, Wheelchair, Crutches, etc.)? No PATIENT GENDER DATA: Assigned female at . status: : No status: NO. PATIENT RELEVANT IMPLANT DATA REVIEWED: Not Applicable PATIENT PRESENTS WITH AN IMPLANTABLE OR ATTACHED TEST AND RESEARCH REACTOR OPERATOR: No RADIOLOGY DEPARTMENT: General X-ray: Exam(s) Completed: Spine X-Ray(s): Cervical AP / LAT / OBL and Lumbar AP / LAT / L5-S1 PERIPHERAL IV DATA: Not applicable SIGNED BY: RT Maryjo(R) May 08, 2025 1:27 PM [facility] 05-08-2025 Instructions Emelyn Michelle PA-C - 05/08/2025 11:04 AM EDT Continue prednisone taper Keep EMG apt Get labs today Keep follow up in [place] with Dr. Ruiz I'll let you know about which large vessel imaging and Bactrim prophylaxis. documented in this encounter [facility] 05-08-2025 Note HNO ID: [id number] Author: EMELYN MICHELLE PA-C Service: ? Author Type: Physician Floral Decorator Type: Progress Notes Filed: 05/08/2025 13:50 Note Text: Rheumatology FOLLOW UP VISIT Date of Service: 05/08/2025 Patient: Violeta Elizabeth Medical Record: [id number] Primary Care Physician: Ga Campbell PA-C Last Rheumatology visit: 04/25/2025 (with Emelyn Michelle) History of Present Illness Violeta Elizabeth is a 69 year old White female who presents on 05/08/2025 for an in-person visit for evaluation of established patient. She is currently taking prednisone. Violeta reports a current pain level of 2 . She describes the pain as Aching. The pain is Intermittent . Interventions tried include Medication. Her most recent BRIDGETTE was negative (04/25/2025). CURRENT CLINICAL: Since last visit, she is continuing to improve. Since Tuesday, she feels her change is incredible. Doesn't feel she needs neck brace or back brace. Chronic level of neck and back pain similar in severity to before her decline in Februrary Still notes decreased energy. Still has to use compress for biopsy site. Chronic debilitating nerve pain is improved. Occasionally she still gets tightness in left shoulder and Left arm. Going to see chiropractic this Tuesday for this issue. Cough is gone, Able to talk without shortness of breath any more. Dysphagia is improving. Has burning discomfort in her mouth. Admits Decreased energy Brain fog/memory issue persist Walking/gait is still slow and wobbly Sun sensitivity She completed Bactrim for UTI, symptoms resolved. Mild pressure through her eyes, but the vice supervisor glycerin headache is improved. No jaw claudication Occasional jaw sensitivity No vision change or loss - Has follow up this week. Back pain is 4/10 - baseline. HPI PER AI: Violeta reports significant improvement in symptoms since starting prednisone. She notes daily improvement, particularly over the past five days, and no longer feels the need for a back brace, neck brace, or handicap parking permit. However, she still experiences decreased energy, operating at about 25-30% of her usual level, and reports slow and occasionally wobbly gait. She has developed intolerance to heat and sun exposure, preferring air conditioning, which is a change from her previous preferences. She reports complete resolution of chronic debilitating nerve pain but still experiences occasional tightness in the neck and arm. She suspects a pinched nerve and has a chiropractic appointment scheduled. She describes her chronic back pain, arthritis, scoliosis, ruptured discs, and pinched sciatic nerve as returning to baseline levels, rating her current back pain as 4/10. She reports a burning sensation in the throat, particularly when eating, and has noticed a white coating on her tongue, which she attributes to prednisone use. She denies dysphagia, belching, or significant heartburn. She completed a course of Bactrim for a UTI, with symptoms resolved. She reports a slight improvement in headaches, now described as mild pressure rather than severe pain. She denies jaw pain but occasionally feels discomfort from the hairline to the teeth. She denies vision changes or loss and has a follow-up appointment with her sustainability engineer. She reports a loss of taste since starting prednisone and denies previous issues with taste or smell, even during a past COVID-19 infection. She notes improvement in arthritis symptoms, including increased mobility in her fingers and the ability to stand up from the ground more easily. She can now shower and shave without assistance and has removed the shower chair from her bathroom. She reports a resolved rash that worsened before starting prednisone. She has a history of anemia, which has improved, but her platelets remain low at 109. She is currently on a prednisone taper, reducing from 60 mg to 50 mg starting tomorrow. She has upcoming appointments for an EMG and a follow-up with her neurologist. She is scheduled for a bone density scan, with the last one performed in 2022. Pain Evaluation 04/25/2025 05/01/2025 05/01/2025 05/08/2025 Pain Evaluation Pain Score -- 0 0 2 Location -- -- Location Comment all over her body multiple sites Description Other: See comment;Stabbing;Aching Aching Duration (#) 5.5 -- Duration (Timeframe) Weeks Frequency Intermittent Intermittent Intervention Other: See comment Medication Patient-Entered Data N/A Review of Systems See HPI Headache improving No jaw pain No vision changes + oral discomfort and throat discomfort, redness and white plaque Past Medical History PAST MEDICAL HISTORY Diagnosis Date Arthritis of spine Hip arthritis Past Surgical History No past surgical history on file. Family History No family history of RA, SLE, IBD + family history of arthritis Social History SOCIAL HISTORY[1] Current Medications Current Outpati (more content not included)... [facility] 05-08-2025 History of Present illness Narrative Images from the original note were not included. Rheumatology FOLLOW UP VISIT Date of Service: 05/08/2025 Patient: Violeta Elizabeth Medical Record: [id number] Primary Care Physician: Ga Campbell PA-C Last Rheumatology visit: 04/25/2025 (with Emelyn Michelle) History of Present Illness Violeta Elizabeth is a 69 year old White female who presents on 05/08/2025 for an in-person visit for evaluation of established patient. She is currently taking prednisone. Violeta reports a current pain level of 2 . She describes the pain as Aching. The pain is Intermittent . Interventions tried include Medication. Her most recent BRIDGETTE was negative (04/25/2025). CURRENT CLINICAL: Since last visit, she is continuing to improve. Since Tuesday, she feels her change is incredible. Doesn't feel she needs neck brace or back brace. Chronic level of neck and back pain similar in severity to before her decline in Februrary Still notes decreased energy. Still has to use compress for biopsy site. Chronic debilitating nerve pain is improved. Occasionally she still gets tightness in left shoulder and Left arm. Going to see chiropractic this Tuesday for this issue. Cough is gone, Able to talk without shortness of breath any more. Dysphagia is improving. Has burning discomfort in her mouth. Admits Decreased energy Brain fog/memory issue persist Walking/gait is still slow and wobbly Sun sensitivity She completed Bactrim for UTI, symptoms resolved. Mild pressure through her eyes, but the vice supervisor glycerin headache is improved. No jaw claudication Occasional jaw sensitivity No vision change or loss - Has follow up this week. Back pain is 4/10 - baseline. HPI PER AI: Violeta reports significant improvement in symptoms since starting prednisone. She notes daily improvement, particularly over the past five days, and no longer feels the need for a back brace, neck brace, or handicap parking permit. However, she still experiences decreased energy, operating at about 25-30% of her usual level, and reports slow and occasionally wobbly gait. She has developed intolerance to heat and sun exposure, preferring air conditioning, which is a change from her previous preferences. She reports complete resolution of chronic debilitating nerve pain but still experiences occasional tightness in the neck and arm. She suspects a pinched nerve and has a chiropractic appointment scheduled. She describes her chronic back pain, arthritis, scoliosis, ruptured discs, and pinched sciatic nerve as returning to baseline levels, rating her current back pain as 4/10. She reports a burning sensation in the throat, particularly when eating, and has noticed a white coating on her tongue, which she attributes to prednisone use. She denies dysphagia, belching, or significant heartburn. She completed a course of Bactrim for a UTI, with symptoms resolved. She reports a slight improvement in headaches, now described as mild pressure rather than severe pain. She denies jaw pain but occasionally feels discomfort from the hairline to the teeth. She denies vision changes or loss and has a follow-up appointment with her sustainability engineer. She reports a loss of taste since starting prednisone and denies previous issues with taste or smell, even during a past COVID-19 infection. She notes improvement in arthritis symptoms, including increased mobility in her fingers and the ability to stand up from the ground more easily. She can now shower and shave without assistance and has removed the shower chair from her bathroom. She reports a resolved rash that worsened before starting prednisone. She has a history of anemia, which has improved, but her platelets remain low at 109. She is currently on a prednisone taper, reducing from 60 mg to 50 mg starting tomorrow. She has upcoming appointments for an EMG and a follow-up with her neurologist. She is scheduled for a bone density scan, with the last one performed in 2022. Pain Evaluation 04/25/2025 05/01/2025 05/01/2025 05/08/2025 Pain Evaluation Pain Score -- 0 0 2 Location -- -- Location Comment all over her body multiple sites Description Other: See comment;Stabbing;Aching Aching Duration (#) 5.5 -- Duration (Timeframe) Weeks Frequency Intermittent Intermittent Intervention Other: See comment Medication Patient-Entered Data N/A Review of Systems See HPI Headache improving No jaw pain No vision changes + oral discomfort and throat discomfort, redness and white plaque Past Medical History PAST MEDICAL HISTORY Diagnosis Date Arthritis of spine Hip arthritis Past Surgical History No past surgical history on file. Family History No family history of RA, SLE, IBD + family history of arthritis Social History SOCIAL HISTORY[1] Current Medications Current Outpatient Medications Medication Sig predniSONE (DELTASONE) 20 mg tablet Take 3 tablets by mouth once daily for 7 days, THEN 2.5 tablets once daily for 7 days, THEN 2 tablets once daily for 7 days, THEN 1.5 tablets once daily for 7 days, THEN 1 tablet once daily for 7 days. Do not stop suddenly.. acetaminophen (TYLENOL) 325 mg tablet Take 2 tablets by mouth every 6 hours as needed (Mild Pain (1-3)). sulfamethoxazole-trimethoprim (BACTRIM DS) 800-160 mg per tablet Take 1 tablet by mouth two times a day. X5 days - last dose 05/04/25 (Patient not taking: Reported on 05/08/2025) Labs Latest Ref Rng & Units 04/27/2025 CBC WBC 3.70 - 11.00 k/uL 10.35 Hemoglobin 11.5 - 15.5 g/dL 12.4 Hematocrit 36.0 - 46.0 % 37.3 Platelet Count 150 - 400 k/uL 109 Abs Neut (ANC) 1.45 - 7.50 k/uL 8.96 Abs Lymph 1.00 - 4.00 k/uL 0.97 Latest Ref Rng & Units 04/27/2025 CMP Sodium 136 - 144 mmol/L 132 Potassium 3.7 - 5.1 mmol/L 4.0 Chloride 98 - 107 mmol/L 95 CO2 22 - 30 mmol/L 24 Glucose 74 - 99 mg/dL 103 BUN 7 - 21 mg/dL 7 Creatinine 0.58 - 0.96 mg/dL 0.65 Calcium 8.5 - 10.2 mg/dL 9.0 AST 13 - 35 U/L 22 ALT 7 - 38 U/L 21 Alkaline Phosphatase 34 - 123 U/L 99 Latest Ref Rng & Units 04/25/2025 ESR, WSR WSR 0 - 20 mm/hr 86 Latest Ref Rng & Units 04/25/2025 CRP CRP <0.9 mg/dL 10.0 Latest Ref Rng & Units 04/25/2025 CK CK 42 - 196 U/L 25 Latest Ref Rng & Units 04/25/2025 Antibodies BRIDGETTE Negative Negative BRIDGETTE Titer 1:80 BRIDGETTE Pattern Speckled Anti-Sm <1.0 AI <0.2 Sm Antibody Negative Negative Ribosomal INTEGRATION AIDE Ab <1.0 AI <0.2 Ribosomal INTEGRATION AIDE Qualitative Negative Negative Chromatin Ab <1.0 AI <0.2 Chromatin Ab Qual Negative Negative SSA Antibody Qual Negative Negative Anti-SSA <1.0 AI <0.2 Anti-SSB <1.0 AI <0.2 INTEGRATION AIDE Antibody QUAL Negative Negative Scleroderma Ab Qual Negative Negative Scl-70 Abs, EIA <1.0 AI <0.2 Centromere Ab <1.0 AI <0.2 CENTROMERE AB QUAL Negative Negative DAYANA-1 ANTIBODY, IGG <1.0 AI <0.2 DAYANA 1 ANTIBODY QUAL Negative Negative KS-[address] Negative Negative [address] ANTIB[address] Negative Negative PL-12 ANTIBODY Negative Negative P155/140 ANTIBODY Negative Negative EJ ANTIBODY Negative Negative SRP ANTIBODY Negative Negative OJ ANTIBODY Negative Negative SAE1 ANTIBODY Negative Negative NXP-2 ANTIBODY Negative Negative MDA5 ANTIBODY Negative Negative TIF-1 GAMMA ANTIBODY Negative Negative Latest Ref Rng & Units 04/27/2025 ANCA Myeloperoxidase Antibody (MPO) <1.0 AI <0.2 Proteinase-3 Antibody <1.0 AI 0.2 P-ANCA Fluorescence Negative Negative C-ANCA Fluorescence Negative Negative Myeloperoxidase Antibody (MPO) <1.0 AI <0.2 Proteinase-3 Antibody <1.0 AI 0.2 Latest Ref Rng & Units 04/27/2025 Urinalysis Protein, Urine Negative Negative RBC, Urine 0-2 /HPF 0-2 /HPF Protein/Creat Ratio <0.15 mg/mg 0.23 Imaging Last XR Chest - Impression Only No resulted procedures found. Health Maintenance Current Immunizations Never Reviewed No immunizations on file. Physical Exam GENERAL APPEARANCE: Well groomed. Alert and oriented x 3. In no distress. VITAL SIGNS: BP 123/71 Pulse 57 Wt 127 lb (57.6kg) SpO2 100% SKIN: Rash resolved, no present rash visible on skin. EYES: normal conjunctiva HENT: patient reports white plaques on mouth. RESPIRATORY: Normal respiratory effort. Clear to auscultation and percussion. CARDIOVASCULAR: Heart RRR without gallop, murmur, or rub HEAD: Left sided healing temporal artery incision MUSCULOSKELETAL EXAMINATION: Spine: Cervical spine: No visible abnormalities. Full ROM. No tenderness to palpation. MSK: no significant synovitis in hands, wrists, elbows, shoulders. Full overhead ROM of shoulders, good ROM of neck. Impression/Plan Diagnoses: (M31.6) Giant cell arteritis (HCC) (primary encounter diagnosis) (Z79.52) USP current use of systemic steroids (B37.0) Thrush (N39.0) Urinary tract infection without hematuria, site unspecified (M41.9) Scoliosis of thoracolumbar spine, unspecified scoliosis type Brief history: Patient had a severe upper respiratory COVID-19 infection on November 09, 2022, followed by prolonged symptoms including vice supervisor glycerin bilateral temporal headaches, sinus pressure, and ear pain. Initial treatment included 60 days of antibiotics and 21 days of steroids, with no significant improvement. Two ENT specialists ruled out sinus infection and attributed symptoms to long COVID. External CT reportely normal (no record to review). Then Around February/March developed progressive myalgias and weakness. 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 Due to Elevated ESR/CRP and headache and age, there was concern for GCA. Also polymyositis/vasculitis Pred 60 initiated with great response. Headache mostly resolved, PMR type symptoms improved. Improved mobility. With persistent fatigue, brain fog issues and memmory issues could be related to Long COVID Biopsy performed 05/01/25 ,less than 1 week after starting prednisone and was negative PFTs showed mild obstruction and normal DLCO with air trapping. External CTA from [facility] was normal in March. Labs showed positive Bridgette (1:80) Labs showed negative CK, Aldolase, LDH, polymyositis panel Normal renal function reassures against Systemic vasculitis UA abnormal suggestive of infection. Urine PCR elevated, likely from UTI - Treated by PCP Low platelets noted, will monitor #GCA # weakness Temporal artery biopsy returned negative, but this does not rule out the diagnosis due to a 30% false negative rate. Patient has shown significant clinical improvement on prednisone, indicating a likely positive response to treatment for giant cell arteritis. Symptoms such as cough, jaw pain, and severe headaches have resolved. Patient still experiences fatigue, weakness, and mild headaches. No vision changes reported. Follow-up with sustainability engineer Dr. Mosquera scheduled. EMG testing is still scheduled to rule out other causes of muscle weakness. - Continue prednisone taper as prescribed: 60 mg to 50 mg, decreasing by 10 mg per week until reaching 20 mg. - Ordered repeat inflammation markers to assess response to treatment. - Considering large vessel imaging (MRI, CTA, or PET scan) to evaluate for inflammation of large vessels; decision pending lab results. - Keep EMG appointment to rule out other causes of muscle weakness. - Follow-up with neurologist scheduled for May 28. - Discussed potential need for Bactrim prophylaxis to prevent pneumocystis pneumonia; will consult with Dr. Ruiz and follow up with patient. # USP current use of systemic steroids (Z79.52) Patient is currently on a high dose of prednisone (60 mg daily) with a planned taper. Discussed risks of long-term steroid use, including increased risk of infection and potential need for Bactrim prophylaxis. - Continue prednisone taper as prescribed. - Monitor for signs of infection. - Discussed potential need for Bactrim prophylaxis; will consult with Dr. Marino and follow up with patient. - Scheduled bone density scan to monitor for osteoporosis. # Thrush (B37.0) Likely secondary to high-dose prednisone use. Patient reports white coating on tongue and mild burning sensation in throat. - Prescribed Nystatin swish and swallow x 2 weeks, longer if needed - Follow up with PCP if symptoms persist despite Swish and swallow # Urinary tract infection without hematuria, site unspecified (N39.0) Completed course of Bactrim with resolution of symptoms. # Scoliosis of thoracolumbar spine, unspecified scoliosis type (M41.9) Chronic back pain attributed to scoliosis, not evaluated in 10-12 years. Pain level currently at 4/10, but has been severe at times. - Ordered X-rays of the neck and back to evaluate for any bony lesions or changes in scoliosis. - Patient to request copies of X-rays for chiropractor. - Follow-up with chiropractor scheduled. Follow up as scheduled with Dr. Ruiz for MD/DO collaboration I spent a total of 60 minutes on the date of the service which included preparing to see the patient, [id number] patient care, completing clinical documentation, obtaining and/or reviewing separately obtained history, performing a medically appropriate examination, counseling and educating the patient/family/caregiver, ordering medications, tests, or procedures, and communicating results to the patient/family/caregiver. Emelyn Michelle PA-C Rheumatology Date: May 08, 2025 Time: 1:47 PM [1] Social History Tobacco Use Smoking status: Former Types: Cigarettes Smokeless tobacco: Never Vaping Use Vaping status: Never Used Substance Use Topics Alcohol use: Not Currently Drug use: Never documented in this encounter [facility] 05-06-2025 Telephone encounter Note left Natty's message on patient's voice mail and to call the office with any questions [facility] Work Phone: 05-06-2025 Miscellaneous Notes left Natty's message on patient's voice mail and to call the office with any questions Dr. Colbert: The patient would like to inquire about the estimated time for the stitches to dissolve and the duration of ointment use following cold compress treatment. [phone] documented in this encounter [facility] 05-06-[address] Colbert: The patient would like to inquire about the estimated time for the stitches to dissolve and the duration of ointment use following cold compress treatment. [phone] [facility] 04-29-2025 Telephone encounter Note OV notes and lab work faxed to PCP office. [facility] 04-29-2025 Miscellaneous Notes OV notes and lab work faxed to PCP office. Called patient: States no bad side effects on prednisone. The severity of her back, neck, shoulder, and arm pain is improving. She does still have the pain though. Probably 90% improved. Low back pain is persistent and severe. Has been present since COVID diagnosis at some point, not originally mentioned at our initial consult. She wants to get back brace. Advised against this given no clear etiology of back pain. Will get Cervical and lumbar XR. 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 Prednisone helped headache some, but it still persists. Left>right. Also cheekbone pain and ear pain persists, but improved. Feels energy from prednisone. Her neck still feels week. She feels she cannot hold up her neck. She wants a c collar. Advised against this without clear etiology of neck weakness. GCA symptoms are often very dramatically responsive to steroids of 60 mg daily within a few days, it is unusual for her to have GCA and not have complete resolution of symptoms. This is all the more reason why we need to see rheumatology Physician. I'm working on getting her in sooner but she will need to travel. I'm going to try to arrange biopsy of temporal artery to confirm diagnosis. Discussed risk of false negative, skip lesion and negative result doesn't rule out condition completely. Positive result does help confirm diagnosis however. Urine is suggestive of an infection. 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 Steroids can cause night sweats - she states they were not present until after starting prednisone. Steroids can increase blood pressure, she should follow up with her primary care provider if BP remains elevated. I don't routinely order BP machine, I'm not sure how to do so. She can order online or get one at a local pharmacy, or call her primary care provider for these issues. Time spent in phone call: 24 minutes Patient calling back stating she forgot to tell you something and would like a call back. Vanessa Lewis LPN Patient calling in today with update. Patient started prednisone on Tuesday. Her pain is somewhat better. Memory is still terrible. She had cold sweats on Tuesday night and had to get up and change sheets and pajamas in the middle of the night. She noticed on Tuesday that her cough was better. Joint and skeletal pain was improved. She was able to do ADL's without laying down or using a chair and was able to work on laundry without a break. Last night was not able to get warm, woke up with chest pain/jaw pain. 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 Today she has not been as active. She is still wearing a back brace. Is questioning why her blood pressure has been so high, but in our office it was normal. Urine is very smelly and has been for the last 6 months. She has scoliosis and feels like it has worsened too. She wants to have an order for a C-collar as she has difficulty holding her head up, a blood pressure cuff to check blood pressure at home and an order for a new back brace as the current one is 8 years old. Please call patient back to review labs and discuss further. [phone]. documented in this encounter [facility] 04-29-2025 Telephone encounter Note Called patient: States no bad side effects on prednisone. The severity of her back, neck, shoulder, and arm pain is improving. She does still have the pain though. Probably 90% improved. Low back pain is persistent and severe. Has been present since COVID diagnosis at some point, not originally mentioned at our initial consult. She wants to get back brace. Advised against this given no clear etiology of back pain. Will get Cervical and lumbar XR. 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 Prednisone helped headache some, but it still persists. Left>right. Also cheekbone pain and ear pain persists, but improved. Feels energy from prednisone. Her neck still feels week. She feels she cannot hold up her neck. She wants a c collar. Advised against this without clear etiology of neck weakness. GCA symptoms are often very dramatically responsive to steroids of 60 mg daily within a few days, it is unusual for her to have GCA and not have complete resolution of symptoms. This is all the more reason why we need to see rheumatology Physician. I'm working on getting her in sooner but she will need to travel. I'm going to try to arrange biopsy of temporal artery to confirm diagnosis. Discussed risk of false negative, skip lesion and negative result doesn't rule out condition completely. Positive result does help confirm diagnosis however. Urine is suggestive of an infection. 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 Steroids can cause night sweats - she states they were not present until after starting prednisone. Steroids can increase blood pressure, she should follow up with her primary care provider if BP remains elevated. I don't routinely order BP machine, I'm not sure how to do so. She can order online or get one at a local pharmacy, or call her primary care provider for these issues. Time spent in phone call: 24 minutes [facility] 04-29-2025 Telephone encounter Note Patient calling back stating she forgot to tell you something and would like a call back. Vanessa Lewis LPN [facility] 04-29-2025 Telephone encounter Note Patient calling in today with update. Patient started prednisone on Tuesday. Her pain is somewhat better. Memory is still terrible. She had cold sweats on Tuesday night and had to get up and change sheets and pajamas in the middle of the night. She noticed on Tuesday that her cough was better. Joint and skeletal pain was improved. She was able to do ADL's without laying down or using a chair and was able to work on laundry without a break. Last night was not able to get warm, woke up with chest pain/jaw pain. 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 Today she has not been as active. She is still wearing a back brace. Is questioning why her blood pressure has been so high, but in our office it was normal. Urine is very smelly and has been for the last 6 months. She has scoliosis and feels like it has worsened too. She wants to have an order for a C-collar as she has difficulty holding her head up, a blood pressure cuff to check blood pressure at home and an order for a new back brace as the current one is 8 years old. Please call patient back to review labs and discuss further. [phone]. [facility] 04-25-2025 Note HNO ID: [id number] Author: EMELYN MICHELLE PA-C Service: ? Author Type: Physician Floral Decorator Type: Progress Notes Filed: 04/25/2025 18:15 Note Text: Rheumatology CONSULTATION Date of Service: 04/25/2025 Patient: Violeta Elizabeth Medical Record: [id number] Primary Care Physician: No primary care provider on file. Last Rheumatology visit: None at [facility] Referring Provider: Emelyn Michelle [address] [facility] [address] Violeta Elizabeth is here today at request of Dr. Ga Campbell PA-C specifically for consultation of my opinion in regards to the chief complaint listed below (diffuse nonspecific myalgia with low positive BRIDGETTE (1:40), elevated CRP/Sed rate). Correspondence will be shared today via the [facility] electronic health record or through regular mail, where applicable. Recording using [employer] software for draft documentation of the visit was discussed with the patient/authorized financial services representative; all questions welcomed and answered. Patient/authorized financial services representative agreed to proceed History of Present Illness Referred by PCP Ga Campbell PA-C for diffuse nonspecific myalgia with low positive BRIDGETTE (1:40), elevated CRP/Sed rate, November 09/2025 had COVID - initial symptoms upper respiratory symptoms as well as bilateral temporal headache, and bilateral sinus issues, bilateral ear ache into the cheek bones. She was initially treated with antibiotics for 60 days of different types. Also was on steroids x 21 days. Nothing worked. Tried flonase and saline washes. Headache and pain kept getting worse. PCP ordered a CT scan of the Sinuses. Which was inconclusive. She went to see an ENT who felt there was no evidence of sinus infection. He felt patient had long COVID. Then got a second opinion from ENT in [place]. She also had an episode of chest pain that radiated down her left arm and in the jaw. Referred to [facility] Dr. Quan who ordered a stress test that was abnormal. She was sent to the Emergency Department [facility]. Was monitored overnight. Had CT of her chest 04/11/25. Had heart catheterization while admitted. NO blockages notes. [place] the chest pain was musculoskeletal. Pain: shooting pain in her head, feels like nerves are on fire in her entire body. Worse in the morning. Pain is in both muscles and joints. Headache, neck, shoulder, back. AM stiffness Hand have osteoarthritis changes, but no new or recent swelling. Has rashes on her torso, legs, back. No itching. No sinus issue. NO nasal crusting. Significant more shortness of breath. No blood clot evaluation NO history of DVT. Brother had stroke 8 years ago. Violeta Elizabeth is a 69-year-old female with a history of scoliosis and arthritis, presenting with multiple symptoms following a COVID-19 infection in October. Violeta reports a significant decline in health since kenzie COVID-19 on 11/09 of this year. Initial symptoms included severe upper respiratory issues, intense cephalalgia described as vice-like pressure, and otalgia radiating to the teeth and cheekbones. She was treated with 60 days of antibiotics and a 21-day course of steroids without improvement. A CT scan of the sinuses showed no infection, and two ENTs diagnosed her with long COVID. Since then, she has experienced progressive, severe, shooting pains throughout her body, particularly in the head, neck, shoulders, and back. The pain is described as nerves on fire and worsens at night. She also reports stiffness in the morning and has noticed a decrease in her ability to sit up straight due to back pain. She denies recent swelling in joints but notes chronic swelling in her fingers. Approximately 60 days ago, she began experiencing severe chest discomfort, left arm pain radiating to the back shoulder, and jawline pain. A stress test showed abnormalities, leading to a cardiac catheterization on 04/11, which revealed no blockages. She continues to experience chest pain, described as sharp but brief with deep inspiration. She reports significant fatigue and weakness, requiring a shower chair and assistance with daily activities. She has lost 5-10 pounds in the last two weeks due to anorexia and lack of energy. She also notes difficulty swallowing, dry mouth, and increased water intake without polyuria. She denies dry eyes, oral or nasal sores, or changes in nails. She has developed a non-pruritic rash on her torso, legs, and back, described as large blotches that appear bruised. She also reports hair loss in long strands. She denies psoriasis. She experiences dyspnea and a dry cough that started 1-2 weeks ago. She denies hemoptysis, leg swelling, or history of blood clots. She has a family history of stroke in her younger brother. She reports new onset of heartburn since returning from the hospital, describing a burning sensation with wine consumption. She den (more content not included)... [facility] 04-25-2025 History of Present illness Narrative Images from the original note were not included. Rheumatology CONSULTATION Date of Service: 04/25/2025 Patient: Violeta Elizabeth Medical Record: [id number] Primary Care Physician: No primary care provider on file. Last Rheumatology visit: None at [facility] Referring Provider: Emelyn Michelle [address] [facility] [address] Violeta Elizabeth is here today at request of Dr. Ga Campbell PA-C specifically for consultation of my opinion in regards to the chief complaint listed below (diffuse nonspecific myalgia with low positive BRIDGETTE (1:40), elevated CRP/Sed rate). Correspondence will be shared today via the [facility] electronic health record or through regular mail, where applicable. Recording using [employer] software for draft documentation of the visit was discussed with the patient/authorized financial services representative; all questions welcomed and answered. Patient/authorized financial services representative agreed to proceed History of Present Illness Referred by PCP Ga Campbell PA-C for diffuse nonspecific myalgia with low positive BRIDGETTE (1:40), elevated CRP/Sed rate, November 09/2025 had COVID - initial symptoms upper respiratory symptoms as well as bilateral temporal headache, and bilateral sinus issues, bilateral ear ache into the cheek bones. She was initially treated with antibiotics for 60 days of different types. Also was on steroids x 21 days. Nothing worked. Tried flonase and saline washes. Headache and pain kept getting worse. PCP ordered a CT scan of the Sinuses. Which was inconclusive. She went to see an ENT who felt there was no evidence of sinus infection. He felt patient had long COVID. Then got a second opinion from ENT in [place]. She also had an episode of chest pain that radiated down her left arm and in the jaw. Referred to [facility] Dr. Quan who ordered a stress test that was abnormal. She was sent to the Emergency Department [facility]. Was monitored overnight. Had CT of her chest 04/11/25. Had heart catheterization while admitted. NO blockages notes. [place] the chest pain was musculoskeletal. Pain: shooting pain in her head, feels like nerves are on fire in her entire body. Worse in the morning. Pain is in both muscles and joints. Headache, neck, shoulder, back. AM stiffness Hand have osteoarthritis changes, but no new or recent swelling. Has rashes on her torso, legs, back. No itching. No sinus issue. NO nasal crusting. Significant more shortness of breath. No blood clot evaluation NO history of DVT. Brother had stroke 8 years ago. Violeta Elizabeth is a 69-year-old female with a history of scoliosis and arthritis, presenting with multiple symptoms following a COVID-19 infection in October. Violeta reports a significant decline in health since kenzie COVID-19 on 11/09 of this year. Initial symptoms included severe upper respiratory issues, intense cephalalgia described as vice-like pressure, and otalgia radiating to the teeth and cheekbones. She was treated with 60 days of antibiotics and a 21-day course of steroids without improvement. A CT scan of the sinuses showed no infection, and two ENTs diagnosed her with long COVID. Since then, she has experienced progressive, severe, shooting pains throughout her body, particularly in the head, neck, shoulders, and back. The pain is described as nerves on fire and worsens at night. She also reports stiffness in the morning and has noticed a decrease in her ability to sit up straight due to back pain. She denies recent swelling in joints but notes chronic swelling in her fingers. Approximately 60 days ago, she began experiencing severe chest discomfort, left arm pain radiating to the back shoulder, and jawline pain. A stress test showed abnormalities, leading to a cardiac catheterization on 04/11, which revealed no blockages. She continues to experience chest pain, described as sharp but brief with deep inspiration. She reports significant fatigue and weakness, requiring a shower chair and assistance with daily activities. She has lost 5-10 pounds in the last two weeks due to anorexia and lack of energy. She also notes difficulty swallowing, dry mouth, and increased water intake without polyuria. She denies dry eyes, oral or nasal sores, or changes in nails. She has developed a non-pruritic rash on her torso, legs, and back, described as large blotches that appear bruised. She also reports hair loss in long strands. She denies psoriasis. She experiences dyspnea and a dry cough that started 1-2 weeks ago. She denies hemoptysis, leg swelling, or history of blood clots. She has a family history of stroke in her younger brother. She reports new onset of heartburn since returning from the hospital, describing a burning sensation with wine consumption. She denies significant abdominal pain, diarrhea, or hematochezia. She experiences paresthesia in her fingers and has a history of vertigo. She reports memory loss and brain fog, describing difficulty recalling words and feeling brain . She denies Raynaud's phenomenon but notes cold hands and occasional purplish discoloration. She has a history of scoliosis and arthritis in the spine and hips. She denies any chronic medical conditions or long-term medication use prior to her illness. Recent blood work showed a positive BRIDGETTE and significantly elevated inflammatory markers. A CT angiogram of the chest on 04/04 was unremarkable. Pain Evaluation 04/25/2025 Pain Evaluation Pain Score -- Location -- Location Comment all over her body Description Other: See comment;Stabbing;Aching Duration (#) 5.5 Duration (Timeframe) Weeks Frequency Intermittent Intervention Other: See comment Patient-Entered Data N/A Review of Systems Review of Systems CONSTITUTION: Positive for: Recent weight change (5-10 lb in epa few weeks. Admits decreased appetite and decreased energy) Negative for: Fever HEENT: Positive for: Trouble swallowing (woke up one morning and could hardly swallow - improved) and Dry mouth (No poor dentition, dryness started after COVID) Negative for: Nosebleeds and Mouth sores RESPIRATORY: Positive for: Cough (worse over the past week) and Shortness of breath Negative for: Pain with breathing and Coughing up blood GASTROINTESTINAL: Positive for: Heartburn Negative for: Melena, Diarrhea and Abdominal pain MUSCULOSKELETAL: Positive for: Arthralgias, Myalgias, Muscle weakness and Morning Joint Stiffness Negative for: Joint swelling NEUROLOGICAL: Positive for: Headaches, Numbness (fingers, may have been present prior) and Memory loss (Brain fog) SKIN: Positive for: Rash, Sun Sensitive Rash, Skin changes and Hair loss (clumping hair loss) Negative for: Nail changes EYES: Negative for: Eye pain, Eye redness, Eye dryness and visual disturbance CARDIOVASCULAR: Positive for: Chest pain Negative for: Leg swelling GENITOURINARY: Negative for: Hematuria HEMATOLOGIC/LYMPHATIC: RHEUMATOLOGIC REVIEW OF SYSTEMS: No history of blood clots No miscarriages - one healthy + fatigue ? history of Raynaud's - history of fingers turning purple No history of psoriasis + morning stiffness + weight loss + neuropathy All other reviewed and negative other than HPI. Past Medical History PAST MEDICAL HISTORY Diagnosis Date Arthritis of spine Hip arthritis Past Surgical History No past surgical history on file. Family History No family history on file. FMHx - Stroke (brother) - Arthritis (mother) Social History Social History Tobacco Use Smoking status: Former Types: Cigarettes Smokeless tobacco: Never Vaping Use Vaping status: Never Used Substance Use Topics Alcohol use: Not Currently Drug use: Never Current Medications No current outpatient medications on file. Labs Imaging Imaging: (04/11) CTA Chest: Normal caliber thoracic aorta, mild calcification, no filling defects, no consolidation or effusion CT Sinus: No evidence of sinus infection per ENT providers - (No records to review, per patient) Last XR Chest - Impression Only No resulted procedures found. Health Maintenance Current Immunizations Never Reviewed No immunizations on file. Physical Exam VITAL SIGNS: BP 108/72 Pulse 85 Ht 5' 5 (1.65m) Wt 127 lb 6.4 oz (57.8kg) SpO2 98% BMI 21.20 kg/(m^2). Physical Exam GENERAL APPEARANCE: Masked, fatigued, Alert and oriented x 3. In no distress. Forgetful, SKIN: large annular pink flat macules on exam with trace bruising in the middle in bilateral proximal Lower extremities, L>R. See photos. Also with pink macules on abdomen/chest wall. No shawl sign, no gottron's papules, no heliotrope rash EYES: normal conjunctiva HENT: Normal external examination of the ears and nose, lips NECK: No mass or asymmetry. No carotid bruits RESPIRATORY: Normal respiratory effort. Clear to auscultation CARDIOVASCULAR: Heart RRR without gallop, murmur, or rub 2+ radial pulse bilaterally ABDOMEN: BS normal. No bruits, No tenderness NEUROLOGIC: Sensory exam normal. MUSCULOSKELETAL EXAMINATION: Soft tissue tender points: None Motor exam: 4+/5 weakness in shoulder girdle, 4+/5 strength in bilateral thigh Flex/ext. 4/5 Weakness in L knee flexion extremity. Normal bulk and tone. Spine: Cervical spine: No visible abnormalities. No tenderness to palpation. Thoracic spine: No visible abnormalities. No tenderness to palpation. Lumbar spine: No visible abnormalities. No tenderness to palpation SI Joints: No tenderness to palpation. Negative Ayah s Test Upper extremities: Shoulders: Full painful ROM in all [place], + tenderness to palpation bilaterally in neck ans trapezius region. No swelling or effusion. Elbows: Full ROM in flexion and extension. No swelling or effusion. No tenderness to palpation to the joint line, olecranon, medial or lateral epicondyles. Wrists: Full ROM in all [place]. No swelling or synovitis. No tenderness to palpation Hands: Full ROM in flexion and extension. Full supervisor glycerin strength. No swelling or synovitis along the MCPs, PIPs, and DIPs. No tenderness along the MCPs, PIPs, and DIPs. Lower extremities: Hips: Full ROM without pain. + greater trochanter tenderness bilaterallly. Knees: Full ROM in flexion and extension. No swelling or effusion. No tenderness to palpation. Ankles: Full ROM in all [place]. No swelling or effusion. No tenderness to palpation along the joint line, or Achilles Tendon. Feet: Full ROM in toe flexion/extension. No effusion. No tenderness to palpation. No evidence of MTP swelling. There is [facility] Go to the Rheumatology activity and complete the [facility] joint exam. Joint Exam 04/25/2025 No joint exam has been documented for this visit Joint Exam Data (across time) Impression # Polyarthralgia (M25.50) # Weakness generalized (R53.1) # History of COVID-19 (Z86.16) Patient had a severe upper respiratory COVID-19 infection on November 09, 2022, followed by prolonged symptoms including headaches, sinus pressure, and ear pain. Initial treatment included 60 days of antibiotics and 21 days of steroids, with no significant improvement. Two ENT specialists ruled out sinus infection and attributed symptoms to long COVID. Patient notes recent progresive myalgias weakness, Dyspnea on exertion, fatigue, malaise, and significant elevated inflammatory markers at PCP office. 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 Reports stiffness in the morning and weakness, particularly in the shoulders and hips. Symptoms have progressively worsened over the last 60 days. States neck feels heavy, difficult to hold up at times. Differential is broad. Inflammatory myopathy, PMR/GCA, vasculitis (less likely given absence of nasal crusting, hemoptysis) - Ordered EMG to assess for myopathy or muscle inflammation. - Ordered pulmonary function tests to evaluate lung volumes and expiratory function. - Ordered repeat inflammatory markers and additional muscle inflammation tests. - Consider referral to rheumatology and neurology for further evaluation and management. - Pending results, consider Empiric prednisone and TA biopsy +/- muscle biopsy - Inflammatory lab panel as ordered below. - Ordered EMG to assess for evidence of inflammatory myopathy - Consider referral to neurology for further evaluation. # Elevated antinuclear antibody (BRIDGETTE) level (R76.8) # Elevated sed rate (R70.0) # Elevated C-reactive protein (CRP) (R79.82) Recent lab work shows a low positive BRIDGETTE titer of 1:40, significantly elevated ESR of 126 mm/hr (normal <8 mm/hr), and elevated CRP. These findings suggest an underlying inflammatory process. - Ordered repeat inflammatory markers to compare with previous results and establish a baseline. - Ordered additional muscle inflammation tests. # Rash and nonspecific skin eruption (R21) Patient presents with non-pruritic, non-tender erythematous patches on the torso, legs, and back, which have recently appeared and are starting to resemble ecchymosis. - Documented and uploaded images of the rash for the medical record. - consider dermatology referral for biopsy of rash. # Shortness of breath (R06.02) Patient reports increased dyspnea, particularly when performing activities of daily living. No pulmonary function tests have been conducted yet. - Ordered pulmonary function tests to assess lung volumes and expiratory function. - Consider pulm referral pending PFT results. Office Visit on 04/25/25 BRIDGETTE BY IFA SCREEN ANTI DEANA ID ALDOLASE BLD LACTATE DEHYDROGENASE SEDIMENTATION RATE, WESTERGREN C-REACTIVE PROTEIN POLYMYOSITIS AND DERMATOMYOSITIS PANEL CREATINE KINASE/CK CONSULT TO NEUROLOGY EMG(NEURO/NI) LUNG VOLUMES LUNG DIFFUSION CAPACITY (DLCO) SPIROMETRY BASELINE ONLY Follow up to be determined, will try to arrange urgent consult with Rheum MD/DO. - Have blood drawn today for repeat inflammation markers (CRP/ESR) and muscle inflammation tests per the lab orders in your chart. - Schedule and complete an EMG (nerve and muscle study) of your arms to assess for muscle inflammation; you may book this at [facility] or [place] per your preference. - Arrange pulmonary function tests (lung studies) to evaluate your breathing muscles; appointments can be scheduled here or at an available testing center. - Book a neurology consultation to further evaluate your muscle weakness, pain, and neurological symptoms. - Once your lab results are available, we will review them and plan your next steps; we will contact you regarding follow-up. - If you notice any significant changes in your symptoms--such as new fevers, sudden worsening weakness, or trouble swallowing--please call our office promptly. Follow up TBD based on results and will attempt to arrange urgent MD/DO consultation. I spent a total of 75 minutes on the date of the service which included preparing to see the patient, [id number] patient care, completing clinical documentation, obtaining and/or reviewing separately obtained history, performing a medically appropriate examination, counseling and educating the patient/family/caregiver, ordering medications, tests, or procedures, communicating with other HCPs (not separately reported), and communicating results to the patient/family/caregiver. Emelyn Michelle PA-C Rheumatology Date: April 25, 2025 Time: 6:13 PM documented in this encounter [facility] 04-05-2025 Discharge summary Note Date/Time April 05, 2025 3:35pm [facility] Medical Records Department [address] [place] [address] Discharge Summary 04/05/25 1532 MR#: [id number] Acct: [id number] Name: VIOLETA ELIZABETH Rep #:[id number] : [id number] 69 From: Matt Boateng DO PCP: TARIQ Medina Status:ADM I N Location: [place] [address] Providers Date of Admission: 04/04/25 Primary Care Physician: TARIQ Medina Consultations 04/04/25 22:22 Consult: Cardiology Routine Consulting Provider: Louie Medina Reason for Consult: chest pain w/ recent abnormal stress test EMERGENT Consult: No MD Notified: Yes Date Notified: 04/05/25 Time Notified: 07:00 Method of Notification: Verbal Reason For Visit: CHEST PAIN W/RECENT ABNORMAL STRESS TEST Diagnosis Discharge Diagnosis (1) Chest pain: Status: Acute Code(s): R07.9 - Chest pain, unspecified Plan: With recent abnormal stress test. Patient did have a CT of the chest that was negative for any pulmonary embolism. Left heart catheterization performed on the was normal. Noncardiac in PE. Patient be discharged with outpatient follow-up with her primary care doctor. Plan VTE prophylaxis Lovenox. Medications at Discharge Home Medications NK 04/04/25 Hospital Course Operations None Procedures Cardiac catheterization Weight / BMI Weight Weight: 59.4 kg Body Mass Index (BMI) 21.7 ABG / Lab / Microbiology Data 04/05/25 05:15 04/05/25 05:15 Laboratory: Laboratory Results - last 24 hr 04/04/25 18:02: WBC Cancelled 04/04/25 18:02: WBC 5.6, Corrected WBC Cancelled, RBC Cancelled 04/04/25 18:02: RBC 4.25, Hgb Cancelled 04/04/25 18:02: Hgb 14.0, Hct Cancelled 04/04/25 18:02: Hct 40.5, MCV Cancelled 04/04/25 18:02: MCV 95.3, MCH Cancelled 04/04/25 18:02: MCH 32.9 H, MCHC Cancelled 04/04/25 18:02: MCHC 34.6, RDW Std Deviation Cancelled 04/04/25 18:02: RDW Std Deviation 45.3 H, RDW Coeff of Lexus Cancelled 04/04/25 18:02: RDW Coeff of Lexus 12.9, Plt Count Cancelled 04/04/25 18:02: Plt Count 178, MPV Cancelled 04/04/25 18:02: MPV 10.7, Immature Gran % (Auto) Cancelled 04/04/25 18:02: Immature Gran % (Auto) 0.200, Neut % (Auto) Cancelled 04/04/25 18:02: Neut % (Auto) 56.0, Lymph % (Auto) Cancelled 04/04/25 18:02: Lymph % (Auto) 33.3, White % (Auto) Cancelled 04/04/25 18:02: White % (Auto) 8.0, Eos % (Auto) Cancelled 04/04/25 18:02: Eos % (Auto) 2.0, Baso % (Auto) Cancelled 04/04/25 18:02: Baso % (Auto) 0.5, Absolute Neuts (auto) Cancelled 04/04/25 18:02: Absolute Neuts (auto) 3.1, Absolute Lymphs (auto) Cancelled 04/04/25 18:02: Absolute Lymphs (auto) 1.87, Total Counted Cancelled, Neutrophils % (Manual) Cancelled, Band Neutrophils % Cancelled, Lymphocytes % (Manual) Cancelled, Monocytes % (Manual) Cancelled, Eosinophils % (Manual) Cancelled, Basophils % (Manual) Cancelled, Metamyelocytes % Cancelled, Myelocytes % Cancelled, Promyelocytes % Cancelled, Blast Cells % Cancelled, Plasma Cell % (Manual) Cancelled, Other Cells % Cancelled, Nucleated RBC % Cancelled 04/04/25 18:02: Nucleated RBC % 0, Nucleated RBCs/100 WBC Cancelled, Differential Comment Cancelled, Diff Path Review Cancelled, Hypersegmented NeutsCancelled, Atypical Lymphocytes Cancelled, Reactive Lymphocytes Cancelled, Smudge Cells Cancelled, Toxic Granulation Cancelled, Toxic Vacuolation Cancelled, Dohle Bodies Cancelled, Corine Rods Cancelled, Platelet Estimate Cancelled, Plt Morphology Comment Cancelled, RBC Morphology Cancelled 04/04/25 18:02: RBC Morphology Cancelled, Polychromasia Cancelled, HypochromasiaCancelled, Basophilic Stippling Cancelled, Anisocytosis Cancelled, Microcytosis Cancelled, Macrocytosis Cancelled, Spherocytes Cancelled, Sickle Cells Cancelled, Target Cells Cancelled, Tear Drop Cells Cancelled, Ovalocytes Cancelled, Stomatocytes Cancelled, [place] Bodies Cancelled, [place] Cells Cancelled, Bite Cells Cancelled, Crenated Cell Cancelled, Acanthocytes (Spur) Cancelled, Rouleaux Cancelled, Schistocytes Cancelled, Sodium Cancelled 04/04/25 18:02: Sodium 139, Potassium Cancelled 04/04/25 18:02: Potassium 3.7, Chloride Cancelled 04/04/25 18:02: Chloride 103, Carbon Dioxide Cancelled 04/04/25 18:02: Carbon Dioxide 23.5, Anion Gap Cancelled 04/04/25 18:02: Anion Gap 13, BUN Cancelled 04/04/25 18:02: BUN 16, Creatinine Cancelled 04/04/25 18:02: Creatinine 0.82, Estim Creat Clear Calc 64.67, Est GFR (MDRD) Non-Af Cancelled 04/04/25 18:02: Est GFR (MDRD) Non-Af 77, BUN/Creatinine Ratio Cancelled 04/04/25 18:02: BUN/Creatinine Ratio 19.3, Glucose Cancelled 04/04/25 18:02: Glucose 136 H, Hemoglobin A1c 5.3, Calcium Cancelled 04/04/25 18:02: Calcium 9.9, Magnesium 1.9, Troponin T High Sens Cancelled 04/04/25 18:02: Troponin T High Sens 9, NT pro BNP II 349, TSH 2.650, Free T4 1.40, Free T3 pg/dL 3.7 04/04/25 20:00: Troponin T Hi Sens 2 Hr 10 04/05/25 05:15: WBC 4.4, RBC 3.86 L, Hgb 12.7, Hct 37.2, MCV 96.4, MCH 32.9 H, MCHC 34.1, RDW Std Deviation 45.5 H, RDW Coeff of Lexus 12.9, Plt Count 160, MPV 10.9, Sodium 140, Potassium 3.8, Chloride 108, Carbon Dioxide 23.3, Anion Gap 9,BUN 15, Creatinine 0.64 L, Estim Creat Clear Calc 58.04, Est GFR (MDRD) Non-Af 94, BUN/Creatinine Ratio 23.2 H, Glucose 101 H, Calcium 8.8, Triglycerides 107, Cholesterol 173, LDL Cholesterol, Calc 83, VLDL Cholesterol 21, HDL Cholesterol 69, Cholesterol/HDL Ratio 2.52 Radiography Diagnostic Testing: Radiology Impression Chest CTA 04/04/25 18:10 IMPRESSION: Negative study Reading Location: [facility] D/C Instructions Discharge Diet: No restrictions DC O2, CPAP, BIPAP Needs Home O2 Discharge instructions: No Meaningful Use Info Meaningful Use Meaningful Use Diagnoses (Choose all that apply): None applicable Discharge Plan Admission Admit Date/Time: 04/04/25 21:36 Primary Reason for Your Visit: Chest pain Attending Provider: Matt Boateng Primary Care Provider: Ga Campbell Consulting Providers: Mane Conti; Louie Medina Instructions Additional Instructions / Restrictions: You underwent a workup for chest pain. You had a CAT scan of your chest did notshow any pulmonary embolism or any pneumonia. Your heart catheterization showednormal coronaries so this is noncardiac. The source of your chest pain is noncardiac nor any other pulmonary issues. This may be more musculoskeletal. Discharge Orders/Prescriptions Prescriptions: No Action NK Referrals / Follow Up: [facility] [Provider Group] - 04/30/25 3:00 pm Ga Campbell PA [Primary Care Provider] - Within 2 Weeks Disposition Disposition (needs filled in before D/C Order can be placed): Home, Self Care Charges/Coding Visit Charges Inpatient E&M: 20465 Disch Hosp 04/05/25 1535 <Electronically signed by Matt Boateng DO> Cosigner Signature (if applicable): CC: Dr. Matt Boateng DO; TARIQ Medina~ Signed [facility] Work Phone: [phone]) 270-384107-11-2025 Progress note Author Matt Boateng [facility] Note Date/Time April 05, 2025 3:32 pm [facility] Medical Records Department [address] [place] [address] Progress Note - Hospitalist 04/05/25808 MR#: [id number] Acct: [id number] Name: VIOLETA ELIZABETH Rep #:[id number] : 1955 69 From: Mtat Boateng DO PCP: Luke Adrian, PA Status:ADM I N Location: [facility] [id number] Reason for Visit Reason for Visit: Diagnoses Chest pain, unspecified (04/04/25) Abnormal result of other cardiovascular function study (04/04/25) Subjective Subjective Seen post catheterization. Objective Data Objective Data Vital Signs: Vital Signs Temp Pulse Resp BP Pulse Ox O2 Del Method 36.6 C 56 L 14 154/76 H 100 Room Air 04/05/25 04:30 04/05/25 04:30 04/05/25 04:30 04/05/25 04:30 04/05/25 04:30 04/05/25 04:30 Oxygen Delivery Method Room Air Weight: 59.4 kg Body Mass Index (BMI) 21.7 Intake & Output: Intake and Output for Last 24 Hours 04/03/25 04/04/25 04/05/25 23:59 23:59 23:59 Intake Total 1000 / 1250 250 / 250 Balance 1000 / 1250 250 / 250 Lab / Micro Data 04/05/25 05:15 04/05/25 05:15 Labs: Laboratory Results - last 24 hr 04/04/25 18:02: WBC Cancelled 04/04/25 18:02: WBC 5.6, Corrected WBC Cancelled, RBC Cancelled 04/04/25 18:02: RBC 4.25, Hgb Cancelled 04/04/25 18:02: Hgb 14.0, Hct Cancelled 04/04/25 18:02: Hct 40.5, MCV Cancelled 04/04/25 18:02: MCV 95.3, MCH Cancelled 04/04/25 18:02: MCH 32.9 H, MCHC Cancelled 04/04/25 18:02: MCHC 34.6, RDW Std Deviation Cancelled 04/04/25 18:02: RDW Std Deviation 45.3 H, RDW Coeff of Lexus Cancelled 04/04/25 18:02: RDW Coeff of Lexus 12.9, Plt Count Cancelled 04/04/25 18:02: Plt Count 178, MPV Cancelled 04/04/25 18:02: MPV 10.7, Immature Gran % (Auto) Cancelled 04/04/25 18:02: Immature Gran % (Auto) 0.200, Neut % (Auto) Cancelled 04/04/25 18:02: Neut % (Auto) 56.0, Lymph % (Auto) Cancelled 04/04/25 18:02: Lymph % (Auto) 33.3, White % (Auto) Cancelled 04/04/25 18:02: White % (Auto) 8.0, Eos % (Auto) Cancelled 04/04/25 18:02: Eos % (Auto) 2.0, Baso % (Auto) Cancelled 04/04/25 18:02: Baso % (Auto) 0.5, Absolute Neuts (auto) Cancelled 04/04/25 18:02: Absolute Neuts (auto) 3.1, Absolute Lymphs (auto) Cancelled 04/04/25 18:02: Absolute Lymphs (auto) 1.87, Total Counted Cancelled, Neutrophils % (Manual) Cancelled, Band Neutrophils % Cancelled, Lymphocytes % (Manual) Cancelled, Monocytes % (Manual) Cancelled, Eosinophils % (Manual) Cancelled, Basophils % (Manual) Cancelled, Metamyelocytes % Cancelled, Myelocytes % Cancelled, Promyelocytes % Cancelled, Blast Cells % Cancelled, Plasma Cell % (Manual) Cancelled, Other Cells % Cancelled, Nucleated RBC % Cancelled 04/04/25 18:02: Nucleated RBC % 0, Nucleated RBCs/100 WBC Cancelled, Differential Comment Cancelled, Diff Path Review Cancelled, Hypersegmented NeutsCancelled, Atypical Lymphocytes Cancelled, Reactive Lymphocytes Cancelled, Smudge Cells Cancelled, Toxic Granulation Cancelled, Toxic Vacuolation Cancelled, Dohle Bodies Cancelled, Corine Rods Cancelled, Platelet Estimate Cancelled, Plt Morphology Comment Cancelled, RBC Morphology Cancelled 04/04/25 18:02: RBC Morphology Cancelled, Polychromasia Cancelled, HypochromasiaCancelled, Basophilic Stippling Cancelled, Anisocytosis Cancelled, Microcytosis Cancelled, Macrocytosis Cancelled, Spherocytes Cancelled, Sickle Cells Cancelled, Target Cells Cancelled, Tear Drop Cells Cancelled, Ovalocytes Cancelled, Stomatocytes Cancelled, [place] Bodies Cancelled, [place]itting[place] Cells Cancelled, Bite Cells Cancelled, Crenated Cell Cancelled, Acanthocytes (Spur) Cancelled, Rouleaux Cancelled, Schistocytes Cancelled, Sodium Cancelled 04/04/25 18:02: Sodium 139, Potassium Cancelled 04/04/25 18:02: Potassium 3.7, Chloride Cancelled 04/04/25 18:02: Chloride 103, Carbon Dioxide Cancelled 04/04/25 18:02: Carbon Dioxide 23.5, Anion Gap Cancelled 04/04/25 18:02: Anion Gap 13, BUN Cancelled 04/04/25 18:02: BUN 16, Creatinine Cancelled 04/04/25 18:02: Creatinine 0.82, Estim Creat Clear Calc 64.67, Est GFR (MDRD) Non-Af Cancelled 04/04/25 18:02: Est GFR (MDRD) Non-Af 77, BUN/Creatinine Ratio Cancelled 04/04/25 18:02: BUN/Creatinine Ratio 19.3, Glucose Cancelled 04/04/25 18:02: Glucose 136 H, Hemoglobin A1c 5.3, Calcium Cancelled 04/04/25 18:02: Calcium 9.9, Magnesium 1.9, Troponin T High Sens Cancelled 04/04/25 18:02: Troponin T High Sens 9, NT pro BNP II 349, TSH 2.650, Free T4 1.40, Free T3 pg/dL 3.7 04/04/25 20:00: Troponin T Hi Sens 2 Hr 10 04/05/25 05:15: WBC 4.4, RBC 3.86 L, Hgb 12.7, Hct 37.2, MCV 96.4, MCH 32.9 H, MCHC 34.1, RDW Std Deviation 45.5 H, RDW Coeff of Lexus 12.9, Plt Count 160, MPV 10.9, Sodium 140, Potassium 3.8, Chloride 108, Carbon Dioxide 23.3, Anion Gap 9,BUN 15, Creatinine 0.64 L, Estim Creat Clear Calc 58.04, Est GFR (MDRD) Non-Af 94, BUN/Creatinine Ratio 23.2 H, Glucose 101 H, Calcium 8.8 Radiography Diagnostic Testing: Radiology Impression Chest CTA 04/04/25 18:10 IMPRESSION: Negative study Reading Location: [facility] Physical Exam Const alert and no apparent distress Constitutional Narrative: Lying flat as patient had a femoral approach for her left heart catheterization. Assessment & Plan Assessment/Plan (1) Chest pain: PLAN: With recent abnormal stress test. Patient did have a CT of the chest thatwas negative for any pulmonary embolism. Left heart catheterization performed on the was normal. Noncardiac in PE. Patient be discharged with outpatient follow-up with her primary care doctor. PLAN: Plan VTE prophylaxis Lovenox. 04/05/25 1532 <Electronically signed by Matt Boateng DO> Cosigner Signature (if applicable): CC: ~ Signed [facility] Work Phone: [phone] 828-494907-11-2025 Discharge summary [facility] Medical Records Department [address] [place] [address] Discharge Summary 04/05/25 1532 MR#: [id number] Acct: [id number] Name: VIOLETA ELIZABETH Rep #:[id number] : 1955 69 From: Matt Boateng DO PCP: TARIQ Medina Status:ADM I N Location: [place] [address] Providers Date of Admission: 04/04/25 Primary Care Physician: TARIQ Medina Consultations 04/04/25 22:22 Consult: Cardiology Routine Consulting Provider: Louie Medina Reason for Consult: chest pain w/ recent abnormal stress test EMERGENT Consult: No MD Notified: Yes Date Notified: 04/05/25 Time Notified: 07:00 Method of Notification: Verbal Reason For Visit: CHEST PAIN W/RECENT ABNORMAL STRESS TEST Diagnosis Discharge Diagnosis (1) Chest pain: Status: Acute Code(s): R07.9 - Chest pain, unspecified Plan: With recent abnormal stress test. Patient did have a CT of the chest that was negative for any pulmonary embolism. Left heart catheterization performed on the was normal. Noncardiac in PE. Patient be discharged with outpatient follow-up with her primary care doctor. Plan VTE prophylaxis Lovenox. Medications at Discharge Home Medications NK 04/04/25 Hospital Course Operations None Procedures Cardiac catheterization Weight / BMI Weight Weight: 59.4 kg Body Mass Index (BMI) 21.7 ABG / Lab / Microbiology Data 04/05/25 05:15 04/05/25 05:15 Laboratory: Laboratory Results - last 24 hr 04/04/25 18:02: WBC Cancelled 04/04/25 18:02: WBC 5.6, Corrected WBC Cancelled, RBC Cancelled 04/04/25 18:02: RBC 4.25, Hgb Cancelled 04/04/25 18:02: Hgb 14.0, Hct Cancelled 04/04/25 18:02: Hct 40.5, MCV Cancelled 04/04/25 18:02: MCV 95.3, MCH Cancelled 04/04/25 18:02: MCH 32.9 H, MCHC Cancelled 04/04/25 18:02: MCHC 34.6, RDW Std Deviation Cancelled 04/04/25 18:02: RDW Std Deviation 45.3 H, RDW Coeff of Lexus Cancelled 04/04/25 18:02: RDW Coeff of Lexus 12.9, Plt Count Cancelled 04/04/25 18:02: Plt Count 178, MPV Cancelled 04/04/25 18:02: MPV 10.7, Immature Gran % (Auto) Cancelled 04/04/25 18:02: Immature Gran % (Auto) 0.200, Neut % (Auto) Cancelled 04/04/25 18:02: Neut % (Auto) 56.0, Lymph % (Auto) Cancelled 04/04/25 18:02: Lymph % (Auto) 33.3, White % (Auto) Cancelled 04/04/25 18:02: White % (Auto) 8.0, Eos % (Auto) Cancelled 04/04/25 18:02: Eos % (Auto) 2.0, Baso % (Auto) Cancelled 04/04/25 18:02: Baso % (Auto) 0.5, Absolute Neuts (auto) Cancelled 04/04/25 18:02: Absolute Neuts (auto) 3.1, Absolute Lymphs (auto) Cancelled 04/04/25 18:02: Absolute Lymphs (auto) 1.87, Total Counted Cancelled, Neutrophils % (Manual) Cancelled, Band Neutrophils % Cancelled, Lymphocytes % (Manual) Cancelled, Monocytes % (Manual) Cancelled,Eosinophils % (Manual) Cancelled, Basophils % (Manual) Cancelled, Metamyelocytes % Cancelled, Myeloc ytes % Cancelled, Promyelocytes % Cancelled, Blast Cells % Cancelled, Plasma Cell % (Manual) Cancelled, Other Cells % Cancelled, Nucleated RBC % Cancelled 04/04/25 18:02: Nucleated RBC % 0, Nucleated RBCs/100 WBC Cancelled, Differential Comment Cancelled, Diff Path Review Cancelled, Hypersegmented NeutsCancelled, Atypical Lymphocytes Cancelled, Reactive Lymphocytes Cancelled, Smudge Cells Cancelled, Toxic Granulation Cancelled, Toxic Vacuolation Cance lled, Dohle Bodies Cancelled, Corine Rods Cancelled, Platelet Estimate Cancelled, Plt Morphology Comment Cancelled, RBC Morphology Cancelled 04/04/25 18:02: RBC Morphology Cancelled, Polychromasia Cancelled, HypochromasiaCancelled, Basophilic Stippling Cancelled, Anisocytosis Cancelled, Microcytosis Cancelled, Macrocytosis Cancelled, Spherocytes Cancelled, Sickle Cells Cancelled, Target Cells Cancelled, Tear Drop Cells Cancelled, Ovalocytes Cancelled, Stomatocytes Cancelled, [place] Bodies Cancelled, Olga Lidia Cells Cancelled, Bite Cells Cancelled, Crenated Cell Cancelled, Acanthocytes (Spur) Cancelled, Rouleaux Cancelled, Schistocytes Cancelled, Sodium Cancelled 04/04/25 18:02: Sodium 139, Potassium Cancelled 04/04/25 18:02: Potassium 3.7, Chloride Cancelled 04/04/25 18:02: Chloride 103, Carbon Dioxide Cancelled 04/04/25 18:02: Carbon Dioxide 23.5, Anion Gap Cancelled 04/04/25 18:02: Anion Gap 13, BUN Cancelled 04/04/25 18:02: BUN 16, Creatinine Cancelled 04/04/25 18:02: Creatinine 0.82, Estim Creat Clear Calc 64.67, Est GFR (MDRD) Non-Af Cancelled 04/04/25 18:02: Est GFR (MDRD) Non-Af 77, BUN/Creatinine Ratio Cancelled 04/04/25 18:02: BUN/Creatinine Ratio 19.3, Glucose Cancelled 04/04/25 18:02: Glucose 136 H, Hemoglobin A1c 5.3, Calcium Cancelled 04/04/25 18:02: Calcium 9.9, Magnesium 1.9, Troponin T High Sens Cancelled 04/04/25 18:02: Troponin T High Sens 9, NT pro BNP II 349, TSH 2.650, Free T4 1.40, Free T3 pg/dL 3.7 04/04/25 20:00: Troponin T Hi Sens 2 Hr 10 04/05/25 05:15: WBC 4.4, RBC 3.86 L, Hgb 12.7, Hct 37.2, MCV 96.4, MCH 32.9 H, MCHC 34.1, RDW Std Deviation 45.5 H, RDW Coeff of Lexus 12.9, Plt Count 160, MPV 10.9, Sodium 140, Potassium 3.8, [id number], Carbon Dioxide 23.3, Anion Gap 9,BUN 15, Creatinine 0.64 L, Estim Creat Clear Calc 58.04, Est GFR (MDRD) Non-Af 94, BUN/Creatinine Ratio 23.2 H, Glucose 101 H, Calcium 8.8, Triglycerides 107, Cholesterol 173, LDL Cholesterol, Calc 83, VLDL Cholesterol 21, HDL Cholesterol 69, Cholesterol/HDL Ratio 2.52 Radiography Diagnostic Testing: Radiology Impression Chest CTA 04/04/25 18:10 IMPRESSION: Negative study Reading Location: [facility] D/C Instructions Discharge Diet: No restrictions DC O2, CPAP, BIPAP Needs Home O2 Discharge instructions: No Meaningful Use Info Meaningful Use Meaningful Use Diagnoses (Choose all that apply): None applicable Discharge Plan Admission Admit Date/Time: 04/04/25 21:36 Primary Reason for Your Visit: Chest pain Attending Provider: Matt Boateng Primary Care Provider: Ga Campbell Consulting Providers: Mane Conti; Louie Medina Instructions Additional Instructions / Restrictions: You underwent a workup for chest pain. You had a CAT scan of your chest did notshow any pulmonary embolism or any pneumonia. Your heart catheterization showednormal coronaries so this is noncardiac. The source of your chest pain is noncardiac nor any other pulmonary issues. This may be more musculoskeletal. Discharge Orders/Prescriptions Prescriptions: No Action NK Referrals / Follow Up: [facility] [Provider Group] - 04/30/25 3:00 pm Ga Campbell PA [Primary Care Provider] - Within 2 Weeks Disposition Disposition (needs filled in before D/C Order can be placed): Home, Self Care Charges/Coding Visit Charges Inpatient E&M: 77431 Disch Hosp 04/05/25 1535 Cosigner Signature (if applicable): CC: Dr. Matt Boateng DO; TARIQ Medina~ Signed [facility]07-11-2025 [facility] Medical Records Department [address] [place] [address] Discharge Summary 04/05/25 1532 MR#: [id number] Acct: [id number] Name: VIOLETA ELIZABETH Rep #: [id number] : 1955 69 From: Matt Boateng DO PCP: TARIQ Medina Status:ADM IN Location: [place] [id number] Providers Date of Admission: 04/04/25 Primary Care Physician: TARIQ Medina Consultations 04/04/25 22:22 Consult: Cardiology Routine Consulting Provider: Louie Medina Reason for Consult: chest pain w/ recent abnormal stress test EMERGENT Consult: No MD Notified: Yes Date Notified: 04/05/25 Time Notified: 07:00 Method of Notification: Verbal Reason For Visit: CHEST PAIN W/RECENT ABNORMAL STRESS TEST Diagnosis Discharge Diagnosis (1) Chest pain: Status: Acute Code(s): R07.9 - Chest pain, unspecified Plan: With recent abnormal stress test. Patient did have a CT of the chest that was negative for any pulmonary embolism. Left heart catheterization performed on the was normal. Noncardiac in PE. Patient be discharged with outpatient follow-up with her primary care doctor. Plan VTE prophylaxis Lovenox. Medications at Discharge Home Medications NK 04/04/25 Hospital Course Operations None Procedures Cardiac catheterization Weight / BMI Weight Weight: 59.4 kg Body Mass Index (BMI) 21.7 ABG / Lab / Microbiology Data 04/05/25 05:15 04/05/25 05:15 Laboratory: Laboratory Results - last 24 hr 04/04/25 18:02: WBC Cancelled 04/04/25 18:02: WBC 5.6, Corrected WBC Cancelled, RBC Cancelled 04/04/25 18:02: RBC 4.25, Hgb Cancelled 04/04/25 18:02: Hgb 14.0, Hct Cancelled 04/04/25 18:02: Hct 40.5, MCV Cancelled 04/04/25 18:02: MCV 95.3, MCH Cancelled 04/04/25 18:02: MCH 32.9 H, MCHC Cancelled 04/04/25 18:02: MCHC 34.6, RDW Std Deviation Cancelled 04/04/25 18:02: RDW Std Deviation 45.3 H, RDW Coeff of Lexus Cancelled 04/04/25 18:02: RDW Coeff of Lexus 12.9, Plt Count Cancelled 04/04/25 18:02: Plt Count 178, MPV Cancelled 04/04/25 18:02: MPV 10.7, Immature Gran % (Auto) Cancelled 04/04/25 18:02: Immature Gran % (Auto) 0.200, Neut % (Auto) Cancelled 04/04/25 18:02: Neut % (Auto) 56.0, Lymph % (Auto) Cancelled 04/04/25 18:02: Lymph % (Auto) 33.3, White % (Auto) Cancelled 04/04/25 18:02: White % (Auto) 8.0, Eos % (Auto) Cancelled 04/04/25 18:02: Eos % (Auto) 2.0, Baso % (Auto) Cancelled 04/04/25 18:02: Baso % (Auto) 0.5, Absolute Neuts (auto) Cancelled 04/04/25 18:02: Absolute Neuts (auto) 3.1, Absolute Lymphs (auto) Cancelled 04/04/25 18:02: Absolute Lymphs (auto) 1.87, Total Counted Cancelled, Neutrophils % (Manual) Cancelled, Band Neutrophils % Cancelled, Lymphocytes % (Manual) Cancelled, Monocytes % (Manual) Cancelled, Eosinophils % (Manual) Cancelled, Basophils % (Manual) Cancelled, Metamyelocytes % Cancelled, Myelocytes % Cancelled, Promyelocytes % Cancelled, Blast Cells % Cancelled, Plasma Cell % (Manual) Cancelled, Other Cells % Cancelled, Nucleated RBC % Cancelled 04/04/25 18:02: Nucleated RBC % 0, Nucleated RBCs/100 WBC Cancelled, Differential Comment Cancelled, Diff Path Review Cancelled, Hypersegmented Neuts Cancelled, Atypical Lymphocytes Cancelled, Reactive Lymphocytes Cancelled, Smudge Cells Cancelled, Toxic Granulation Cancelled, Toxic Vacuolation Cancelled, Dohle Bodies Cancelled, Corine Rods Cancelled, Platelet Estimate Cancelled, Plt Morphology Comment Cancelled, RBC Morphology Cancelled 04/04/25 18:02: RBC Morphology Cancelled, Polychromasia Cancelled, Hypochromasia Cancelled, Basophilic Stippling Cancelled, Anisocytosis Cancelled, Microcytosis Cancelled, Macrocytosis Cancelled, Spherocytes Cancelled, Sickle Cells Cancelled, Target Cells Cancelled, Tear Drop Cells Cancelled, Ovalocytes Cancelled, Stomatocytes Cancelled, [place] Bodies Cancelled, Olga Lidia Cells Cancelled, Bite Cells Cancelled, Crenated Cell Cancelled, Acanthocytes (Spur) Cancelled, Rouleaux Cancelled, Schistocytes Cancelled, Sodium Cancelled 04/04/25 18:02: Sodium 139, Potassium Cancelled 04/04/25 18:02: Potassium 3.7, Chloride Cancelled 04/04/25 18:02: Chloride 103, Carbon Dioxide Cancelled 04/04/25 18:02: Carbon Dioxide 23.5, Anion Gap Cancelled 04/04/25 18:02: Anion Gap 13, BUN Cancelled 04/04/25 18:02: BUN 16, Creatinine Cancelled 04/04/25 18:02: Creatinine 0.82, Estim Creat Clear Calc 64.67, Est GFR (MDRD) Non-Af Cancelled 04/04/25 18:02: Est GFR (MDRD) Non-Af 77, BUN/Creatinine Ratio Cancelled 04/04/25 18:02: BUN/Creatinine Ratio 19.3, Glucose Cancelled 04/04/25 18:02: Glucose 136 H, Hemoglobin A1c 5.3, Calcium Cancelled 04/04/25 18:02: Calcium 9.9, Magnesium 1.9, Troponin T High Sens Cancelled 04/04/25 18:02: Troponin T High Sens 9, NT pro BNP II 349, TSH 2.650, Free T4 1.40, Free T3 pg/dL 3.7 04/04/25 20:00: Troponin T Hi Sens 2 Hr 10 04/05/25 05:15: WBC 4 (more content not included)...[facility] 04-05-2025 Progress note [facility] Medical Records Department [address] [place] [address] Progress Note - Hospitalist 04/05/25 0809 MR#: [id number] Acct: [id number] Name: VIOLETA ELIZABETH Rep #:[id number] : 1955 69 From: Matt Boateng DO PCP: TARIQ Medina Status:ADM I N Location: [place] [address] Reason for Visit Reason for Visit: Diagnoses Chest pain, unspecified (04/04/25) Abnormal result of other cardiovascular function study (04/04/25) Subjective Subjective Seen post catheterization. Objective Data Objective Data Vital Signs: Vital Signs Temp Pulse Resp BP Pulse Ox O2 Del Method 36.6 C 56 L 14 154/76 H 100 Room Air 04/05/25 04:30 04/05/25 04:30 04/05/25 04:30 04/05/25 04:30 04/05/25 04:30 04/05/25 04:30 Oxygen Delivery Method Room Air Weight: 59.4 kg Body Mass Index (BMI) 21.7 Intake & Output: Intake and Output for Last 24 Hours 04/03/25 04/04/25 04/05/25 23:59 23:59 23:59 Intake Total 1000 / 1250 250 / 250 Balance 1000 / 1250 250 / 250 Lab / Micro Data 04/05/25 05:15 04/05/25 05:15 Labs: Laboratory Results - last 24 hr 04/04/25 18:02: WBC Cancelled 04/04/25 18:02: WBC 5.6, Corrected WBC Cancelled, RBC Cancelled 04/04/25 18:02: RBC 4.25, Hgb Cancelled 04/04/25 18:02: Hgb 14.0, Hct Cancelled 04/04/25 18:02: Hct 40.5, MCV Cancelled 04/04/25 18:02: MCV 95.3, MCH Cancelled 04/04/25 18:02: MCH 32.9 H, MCHC Cancelled 04/04/25 18:02: MCHC 34.6, RDW Std Deviation Cancelled 04/04/25 18:02: RDW Std Deviation 45.3 H, RDW Coeff of Lexus Cancelled 04/04/25 18:02: RDW Coeff of Lexus 12.9, Plt Count Cancelled 04/04/25 18:02: Plt Count 178, MPV Cancelled 04/04/25 18:02: MPV 10.7, Immature Gran % (Auto) Cancelled 04/04/25 18:02: Immature Gran % (Auto) 0.200, Neut % (Auto) Cancelled 04/04/25 18:02: Neut % (Auto) 56.0, Lymph % (Auto) Cancelled 04/04/25 18:02: Lymph % (Auto) 33.3, White % (Auto) Cancelled 04/04/25 18:02: White % (Auto) 8.0, Eos % (Auto) Cancelled 04/04/25 18:02: Eos % (Auto) 2.0, Baso % (Auto) Cancelled 04/04/25 18:02: Baso % (Auto) 0.5, Absolute Neuts (auto) Cancelled 04/04/25 18:02: Absolute Neuts (auto) 3.1, Absolute Lymphs (auto) Cancelled 04/04/25 18:02: Absolute Lymphs (auto) 1.87, Total Counted Cancelled, Neutrophils % (Manual) Cancelled, Band Neutrophils % Cancelled, Lymphocytes % (Manual) Cancelled, Monocytes % (Manual) Cancelled,Eosinophils % (Manual) Cancelled, Basophils % (Manual) Cancelled, Metamyelocytes % Cancelled, Myeloc ytes % Cancelled, Promyelocytes % Cancelled, Blast Cells % Cancelled, Plasma Cell % (Manual) Cancelled, Other Cells % Cancelled, Nucleated RBC % Cancelled 04/04/25 18:02: Nucleated RBC % 0, Nucleated RBCs/100 WBC Cancelled, Differential Comment Cancelled, Diff Path Review Cancelled, Hypersegmented NeutsCancelled, Atypical Lymphocytes Cancelled, Reactive Lymphocytes Cancelled, Smudge Cells Cancelled, Toxic Granulation Cancelled, Toxic Vacuolation Cance lled, Dohle Bodies Cancelled, Corine Rods Cancelled, Platelet Estimate Cancelled, Plt Morphology Comment Cancelled, RBC Morphology Cancelled 04/04/25 18:02: RBC Morphology Cancelled, Polychromasia Cancelled, HypochromasiaCancelled, Basophilic Stippling Cancelled, Anisocytosis Cancelled, Microcytosis Cancelled, Macrocytosis Cancelled, Spherocytes Cancelled, Sickle Cells Cancelled, Target Cells Cancelled, Tear Drop Cells Cancelled, Ovalocytes Cancelled, Stomatocytes Cancelled, [place] Bodies Cancelled, [place] Cells Cancelled, Bite Cells Cancelled, Crenated Cell Cancelled, Acanthocytes (Spur) Cancelled, Rouleaux Cancelled, Schistocytes Cancelled, Sodium Cancelled 04/04/25 18:02: Sodium 139, Potassium Cancelled 04/04/25 18:02: Potassium 3.7, Chloride Cancelled 04/04/25 18:02: Chloride 103, Carbon Dioxide Cancelled 04/04/25 18:02: Carbon Dioxide 23.5, Anion Gap Cancelled 04/04/25 18:02: Anion Gap 13, BUN Cancelled 04/04/25 18:02: BUN 16, Creatinine Cancelled 04/04/25 18:02: Creatinine 0.82, Estim Creat Clear Calc 64.67, Est GFR (MDRD) Non-Af Cancelled 04/04/25 18:02: Est GFR (MDRD) Non-Af 77, BUN/Creatinine Ratio Cancelled 04/04/25 18:02: BUN/Creatinine Ratio 19.3, Glucose Cancelled 04/04/25 18:02: Glucose 136 H, Hemoglobin A1c 5.3, Calcium Cancelled 04/04/25 18:02: Calcium 9.9, Magnesium 1.9, Troponin T High Sens Cancelled 04/04/25 18:02: Troponin T High Sens 9, NT pro BNP II 349, TSH 2.650, Free T4 1.40, Free T3 pg/dL 3.7 04/04/25 20:00: Troponin T Hi Sens 2 Hr 10 04/05/25 05:15: WBC 4.4, RBC 3.86 L, Hgb 12.7, Hct 37.2, MCV 96.4, MCH 32.9 H, MCHC 34.1, RDW Std Deviation 45.5 H, RDW Coeff of Lexus 12.9, Plt Count 160, MPV 10.9, Sodium 140, Potassium 3.8, [id number], Carbon Dioxide 23.3, Anion Gap 9,BUN 15, Creatinine 0.64 L, Estim Creat Clear Calc 58.04, Est GFR (MDRD) Non-Af 94, BUN/Creatinine Ratio 23.2 H, Glucose 101 H, Calcium 8.8 Radiography Diagnostic Testing: Radiology Impression Chest CTA 04/04/25 18:10 IMPRESSION: Negative study Reading Location: [facility] Physical Exam Const alert and no apparent distress Constitutional Narrative: Lying flat as patient had a femoral approach for her left heart catheterization. Assessment & Plan Assessment/Plan (1) Chest pain: PLAN: With recent abnormal stress test. Patient did have a CT of the chest thatwas negative for anypulmonary embolism. Left heart catheterization performed on the was normal. Noncardiac in PE. Patient be discharged with outpatient follow-up with her primary care doctor. PLAN: Plan VTE prophylaxis Lovenox. 04/05/25 1532 Cosigner Signature (if applicable): CC: ~ Signed [facility]07-11-2025 Consult note Author Louie Medina [facility] Note Date/Time April 05, 2025 9:30 am [facility] Medical Records Department [address] [place] [id number] Consultation - Cardiology 04/05/25 0853 MR#: [id number] Acct: [id number] Name: VIOLETA ELIZABETH Rep #:[id number] : 1955 69 From: Louie Medina MD PCP: TARIQ Medina Status:ADM I N Location: [place] [address] Assessment & Plan Assessment/Plan (1) Unstable angina: PLAN: Continue with aspirin 81 mg daily. Start atorvastatin 40 mg daily. Keep n.p.o. for left heart catheterization later on today. (2) HTN (hypertension), benign: PLAN: Start amlodipine 5 mg daily. HPI Consult Data Date of Consult: 04/05/25 HPI Narrative HPI Narrative: 69 F who presented to [facility] ED on 04/04/2025 with chest pain. Patient had a stress treadmill echocardiogram done at [facility] on 03/19 , Resting EKG showed baseline inferolateral ST segment depressions less than 1 mm. Stress EKG demonstrated worsening EKG changes in the inferolateral leads up to 1 mm. EF 66%. Patient did achieve 8.50 METS. Conclusion noted that the worsening EKG changes as above gave her a Florentino treadmill score of 1.5 which places her at moderate risk for cardiac disease. Patient was scheduled to see Dr. Obrien with cardiology in the office on April 30. However she has had worsening chest pain/pressure over the past several days so she was advised to come to the ED for further evaluation. In the ED she is hypertensive to the 160s EKG showed normal sinus rhythm with no ST changes. CBC and BMP were benign. Troponins negative x 2. NT proBNP normal. CTA chest with no PE, mild coronary artery calcification seen, otherwise no other abnormalities. [facility] Medical History Ruptured ovarian cyst Home Medications ?Medication ?Instructions ?Recorded ?Last Taken ?Type NK 04/04/25 Unknown History Allergy/AdvReac Type Severity Reaction Status Date / Time No Known Allergies Allergy Verified 04/04/25 17:46 Surgical History H/O elbow surgery Social History Smoking Status: Former smoker ROS Constitutional Constitutional: Reports systems reviewed and no addt'l complaints, except as documented Eyes Eyes: Reports systems reviewed and no addt'l complaints, except as documented ENT HEENT: Reports systems reviewed and no addt'l complaints, except as documented Cardiovascular Cardiovascular: Reports systems reviewed and no addt'l complaints, except as documented Respiratory/Chest Respiratory/Chest: Reports systems reviewed and no addt'l complaints, except as documented Gastrointestinal Gastrointestinal: Reports systems reviewed and no addt'l complaints, except as documented Genitourinary Genitourinary: Reports systems reviewed and no addt'l complaints, except as documented Musculoskeletal Musculoskeletal: Reports systems reviewed and no addt'l complaints, except as documented Integumentary Integumentary: Reports systems reviewed and no addt'l complaints, except as documented Neurologic Neurologic: Reports systems reviewed and no addt'l complaints, except as documented Psychiatric Psychiatric: Reports systems reviewed and no addt'l complaints, except as documented Endocrine Endocrinology: Reports systems reviewed and no addt'l complaints, except as documented Hematologic/Lymphatic Hematologic/Lymphatic: Reports systems reviewed and no addt'l complaints, exceptas documented Allergic/Immunologic Allergic/Immunologic: Reports systems reviewed and no addt'l complaints, except as documented Physical Exam Const alert HEENT normocephalic Eyes PERRL Neck full ROM Chest inspection of chest normal Resp normal respiratory effort Cardio regular rate GI normal to inspection, nondistended, normoactive bowel sounds no CVA tenderness Extremity normal to inspection Psych Attention / Concentration: Negative for attention grossly impaired Risk Stratification Risk Stratification Applicable: Yes Age >/= 65: Yes >/= 3 CAD Risk Factors (HTN, HLD, DM, family hx of CAD, or current smoker): Yes Aspirin Use in the Past 7 Days: No Severe Angina (>/= episodes in 24 hours): Yes EKG ST Changes >/= 0.5mm: No Positive Cardiac Marker: No TAYE Risk Stratification Score: 3 TAYE % Risk: 13% Risk Objective Data Vital Signs: Vital Signs Temp Pulse Resp BP Pulse Ox O2 Del Method 98 F 56 L 14 154/76 H 100 Room Air 04/05/25 04:30 04/05/25 04:30 04/05/25 04:30 04/05/25 04:30 04/05/25 04:30 04/05/25 04:30 Oxygen Delivery Method Room Air Weight: 130 lb 15.273 oz Body Mass Index (BMI) 21.7 Intake & Output: Intake and Output for Last 24 Hours 04/03/25 04/04/25 04/05/25 23:59 23:59 23:59 Intake Total 1000 / 1250 250 / 250 Balance 1000 / 1250 250 / 250 Lab / Micro Data 04/05/25 05:15 04/05/25 05:15 Labs: Laboratory Results - last 24 hr 04/04/25 18:02: WBC Cancelled 04/04/25 18:02: WBC 5.6, Corrected WBC Cancelled, RBC Cancelled 04/04/25 18:02: RBC 4.25, Hgb Cancelled 04/04/25 18:02: Hgb 14.0, Hct Cancelled 04/04/25 18:02: Hct 40.5, MCV Cancelled 04/04/25 18:02: MCV 95.3, MCH Cancelled 04/04/25 18:02: MCH 32.9 H, MCHC Cancelled 04/04/25 18:02: MCHC 34.6, RDW Std Deviation Cancelled 04/04/25 18:02: RDW Std Deviation 45.3 H, RDW Coeff of Lexus Cancelled 04/04/25 18:02: RDW Coeff of Lexus 12.9, Plt Count Cancelled 04/04/25 18:02: Plt Count 178, MPV Cancelled 04/04/25 18:02: MPV 10.7, Immature Gran % (Auto) Cancelled 04/04/25 18:02: Immature Gran % (Auto) 0.200, Neut % (Auto) Cancelled 04/04/25 18:02: Neut % (Auto) 56.0, Lymph % (Auto) Cancelled 04/04/25 18:02: Lymph % (Auto) 33.3, White % (Auto) Cancelled 04/04/25 18:02: White % (Auto) 8.0, Eos % (Auto) Cancelled 04/04/25 18:02: Eos % (Auto) 2.0, Baso % (Auto) Cancelled 04/04/25 18:02: Baso % (Auto) 0.5, Absolute Neuts (auto) Cancelled 04/04/25 18:02: Absolute Neuts (auto) 3.1, Absolute Lymphs (auto) Cancelled 04/04/25 18:02: Absolute Lymphs (auto) 1.87, Total Counted Cancelled, Neutrophils % (Manual) Cancelled, Band Neutrophils % Cancelled, Lymphocytes % (Manual) Cancelled, Monocytes % (Manual) Cancelled, Eosinophils % (Manual) Cancelled, Basophils % (Manual) Cancelled, Metamyelocytes % Cancelled, Myelocytes % Cancelled, Promyelocytes % Cancelled, Blast Cells % Cancelled, Plasma Cell % (Manual) Cancelled, Other Cells % Cancelled, Nucleated RBC % Cancelled 04/04/25 18:02: Nucleated RBC % 0, Nucleated RBCs/100 WBC Cancelled, Differential Comment Cancelled, Diff Path Review Cancelled, Hypersegmented NeutsCancelled, Atypical Lymphocytes Cancelled, Reactive Lymphocytes Cancelled, Smudge Cells Cancelled, Toxic Granulation Cancelled, Toxic Vacuolation Cancelled, Dohle Bodies Cancelled, Corine Rods Cancelled, Platelet Estimate Cancelled, Plt Morphology Comment Cancelled, RBC Morphology Cancelled 04/04/25 18:02: RBC Morphology Cancelled, Polychromasia Cancelled, HypochromasiaCancelled, Basophilic Stippling Cancelled, Anisocytosis Cancelled, Microcytosis Cancelled, Macrocytosis Cancelled, Spherocytes Cancelled, Sickle Cells Cancelled, Target Cells Cancelled, Tear Drop Cells Cancelled, Ovalocytes Cancelled, Stomatocytes Cancelled, [place] Bodies Cancelled, Olga Lidia Cells Cancelled, Bite Cells Cancelled, Crenated Cell Cancelled, Acanthocytes (Spur) Cancelled, Rouleaux Cancelled, Schistocytes Cancelled, Sodium Cancelled 04/04/25 18:02: Sodium 139, Potassium Cancelled 04/04/25 18:02: Potassium 3.7, Chloride Cancelled 04/04/25 18:02: Chloride 103, Carbon Dioxide Cancelled 04/04/25 18:02: Carbon Dioxide 23.5, Anion Gap Cancelled 04/04/25 18:02: Anion Gap 13, BUN Cancelled 04/04/25 18:02: BUN 16, Creatinine Cancelled 04/04/25 18:02: Creatinine 0.82, Estim Creat Clear Calc 64.67, Est GFR (MDRD) Non-Af Cancelled 04/04/25 18:02: Est GFR (MDRD) Non-Af 77, BUN/Creatinine Ratio Cancelled 04/04/25 18:02: BUN/Creatinine Ratio 19.3, Glucose Cancelled 04/04/25 18:02: Glucose 136 H, Hemoglobin A1c 5.3, Calcium Cancelled 04/04/25 18:02: Calcium 9.9, Magnesium 1.9, Troponin T High Sens Cancelled 04/04/25 18:02: Troponin T High Sens 9, NT pro BNP II 349, TSH 2.650, Free T4 1.40, Free T3 pg/dL 3.7 04/04/25 20:00: Troponin T Hi Sens 2 Hr 10 04/05/25 05:15: WBC 4.4, RBC 3.86 L, Hgb 12.7, Hct 37.2, MCV 96.4, MCH 32.9 H, MCHC 34.1, RDW Std Deviation 45.5 H, RDW Coeff of Lexus 12.9, Plt Count 160, MPV 10.9, Sodium 140, Potassium 3.8, Chloride 108, Carbon Dioxide 23.3, Anion Gap 9,BUN 15, Creatinine 0.64 L, Estim Creat Clear Calc 58.04, Est GFR (MDRD) Non-Af 94, BUN/Creatinine Ratio 23.2 H, Glucose 101 H, Calcium 8.8 Cardiology Labs/Tests 04/04/25 18:02: WBC Cancelled 04/04/25 18:02: WBC 5.6, Corrected WBC Cancelled, RBC Cancelled 04/04/25 18:02: RBC 4.25, Hgb Cancelled 04/04/25 18:02: Hgb 14.0, Hct Cancelled 04/04/25 18:02: Hct 40.5, MCV Cancelled 04/04/25 18:02: MCV 95.3, MCH Cancelled 04/04/25 18:02: MCH 32.9 H, MCHC Cancelled 04/04/25 18:02: MCHC 34.6, Plt Count Cancelled 04/04/25 18:02: Plt Count 178, MPV Cancelled 04/04/25 18:02: MPV 10.7, Immature Gran % (Auto) Cancelled 04/04/25 18:02: Immature Gran % (Auto) 0.200, Neut % (Auto) Cancelled 04/04/25 18:02: Neut % (Auto) 56.0, Lymph % (Auto) Cancelled 04/04/25 18:02: Lymph % (Auto) 33.3, White % (Auto) Cancelled 04/04/25 18:02: White % (Auto) 8.0, Eos % (Auto) Cancelled 04/04/25 18:02: Eos % (Auto) 2.0, Baso % (Auto) Cancelled 04/04/25 18:02: Baso % (Auto) 0.5, Absolute Neuts (auto) Cancelled 04/04/25 18:02: Absolute Neuts (auto) 3.1, Total Counted Cancelled, Neutrophils % (Manual) Cancelled, Band Neutrophils % Cancelled, Lymphocytes % (Manual) Cancelled, Monocytes % (Manual) Cancelled, Eosinophils % (Manual) Cancelled, Basophils % (Manual) Cancelled, Metamyelocytes % Cancelled, Myelocytes % Cancelled, Promyelocytes % Cancelled, Blast Cells % Cancelled, Plasma Cell % (Manual) Cancelled, Other Cells % Cancelled, Nucleated RBC % Cancelled 04/04/25 18:02: Nucleated RBC % 0, Sodium Cancelled 04/04/25 18:02: Sodium 139, Potassium Cancelled 04/04/25 18:02: Potassium 3.7, Chloride Cancelled 04/04/25 18:02: Chloride 103, Carbon Dioxide Cancelled 04/04/25 18:02: Carbon Dioxide 23.5, Anion Gap Cancelled 04/04/25 18:02: Anion Gap 13, BUN Cancelled 04/04/25 18:02: BUN 16, Creatinine Cancelled 04/04/25 18:02: Creatinine 0.82, Est GFR (MDRD) Non-Af Cancelled 04/04/25 18:02: Est GFR (MDRD) Non-Af 77, BUN/Creatinine Ratio Cancelled 04/04/25 18:02: BUN/Creatinine Ratio 19.3, Glucose Cancelled 04/04/25 18:02: Glucose 136 H, Hemoglobin A1c 5.3, Calcium Cancelled 04/04/25 18:02: Calcium 9.9, Magnesium 1.9 04/05/25 05:15: WBC 4.4, RBC 3.86 L, Hgb 12.7, Hct 37.2, MCV 96.4, MCH 32.9 H, MCHC 34.1, Plt Count 160, MPV 10.9, Sodium 140, Potassium 3.8, Chloride 108, Carbon Dioxide 23.3, Anion Gap 9, BUN 15, Creatinine 0.64 L, Est GFR (MDRD) Non-Af 94, BUN/Creatinine Ratio 23.2 H, Glucose 101 H, Calcium 8.8 Rhythm: EKG: ECHO: Stress Test: Cardiac Cath: PCI: CT Surgery: Holter monitor: EPS: PPM: CXR: Chest CT Scan: Radiography Diagnostic Testing: Radiology Impression Chest CTA 04/04/25 18:10 IMPRESSION: Negative study Reading [facility] 04/05/25 7224 <Electronically signed by Louie Medina MD> Cosigner Signature (if applicable): CC: TARIQ Medina~ Signed [facility] Work Phone: [phone] Consult note [facility] Medical Records Department [address] [place] [address] Consultation - Cardiology 04/05/25 0853 MR#: [id number] Acct: [id number] Name: VIOLETA ELIZABETH Rep #:[id number] : 1955 69 From: Louie Medina MD PCP: TARIQ Medina Status:ADM I N Location: [place] [address] Assessment & Plan Assessment/Plan (1) Unstable angina: PLAN: Continue with aspirin 81 mg daily. Start atorvastatin 40 mg daily. Keep n.p.o. for left heart catheterization later on today. (2) HTN (hypertension), benign: PLAN: Start amlodipine 5 mg daily. HPI Consult Data Date of Consult: 04/05/25 HPI Narrative HPI Narrative: 69 F who presented to [facility] ED on 04/04/2025 with chest pain. Patient had a stress treadmill echocardiogram done at [facility] on 03/19 , Resting EKG showed baseline inferolateral STsegment depressions less than 1 mm. Stress EKG demonstrated worsening EKG changes in the inferolateral leads up to 1 mm. EF 66%. Patient did achieve 8.50 METS. Conclusion noted that the worsening EKGchanges as above gave her a Florentino treadmill score of 1.5 which places her at moderate risk for cardiac disease. Patient was scheduled to see Dr. Obrien with cardiology in the office on April 30. However she has had worsening chest pain/pressure over the past several days so she was advised to come to the ED for further evaluation. In the ED she is hypertensive to the 160s EKG showed normal sinus rhythm with no ST changes. CBC and BMP were benign. Troponins negative x 2. NT proBNP normal. CTA chest with no PE, mild coronary artery calcification seen, otherwise no other abnormalities. [facility] Medical History Ruptured ovarian cyst Home Medications ?Medication ?Instructions ?Recorded ?Last Taken ?Type NK 04/04/25 Unknown History Allergy/AdvReac Type Severity Reaction Status Date / Time No Known Allergies Allergy Verified 04/04/25 17:46 Surgical History H/O elbow surgery Social History Smoking Status: Former smoker ROS Constitutional Constitutional: Reports systems reviewed and no addt'l complaints, except as documented Eyes Eyes: Reports systems reviewed and no addt'l complaints, except as documented ENT HEENT: Reports systems reviewed and no addt'l complaints, except as documented Cardiovascular Cardiovascular: Reports systems reviewed and no addt'l complaints, except as documented Respiratory/Chest Respiratory/Chest: Reports systems reviewed and no addt'l complaints, except as documented Gastrointestinal Gastrointestinal: Reports systems reviewed and no addt'l complaints, except as documented Genitourinary Genitourinary: Reports systems reviewed and no addt'l complaints, except as documented Musculoskeletal Musculoskeletal: Reports systems reviewed and no addt'l complaints, except as documented Integumentary Integumentary: Reports systems reviewed and no addt'l complaints, except as documented Neurologic Neurologic: Reports systems reviewed and no addt'l complaints, except as documented Psychiatric Psychiatric: Reports systems reviewed and no addt'l complaints, except as documented Endocrine Endocrinology: Reports systems reviewed and no addt'l complaints, except as documented Hematologic/Lymphatic Hematologic/Lymphatic: Reports systems reviewed and no addt'l complaints, exceptas documented Allergic/Immunologic Allergic/Immunologic: Reports systems reviewed and no addt'l complaints, except as documented Physical Exam Const alert HEENT normocephalic Eyes PERRL Neck full ROM Chest inspection of chest normal Resp normal respiratory effort Cardio regular rate GI normal to inspection, nondistended, normoactive bowel sounds no CVA tenderness Extremity normal to inspection Psych Attention / Concentration: Negative for attention grossly impaired Risk Stratification Risk Stratification Applicable: Yes Age >/= 65: Yes >/= 3 CAD Risk Factors (HTN, HLD, DM, family hx of CAD, or current smoker): Yes Aspirin Use in the Past 7 Days: No Severe Angina (>/= episodes in 24 hours): Yes EKG ST Changes >/= 0.5mm: No Positive Cardiac Marker: No TAYE Risk Stratification Score: 3 TAYE % Risk: 13% Risk Objective Data Vital Signs: Vital Signs Temp Pulse Resp BP Pulse Ox O2 Del Method 98 F 56 L 14 154/76 H 100 Room Air 04/05/25 04:30 04/05/25 04:30 04/05/25 04:30 04/05/25 04:30 04/05/25 04:30 04/05/25 04:30 Oxygen Delivery Method Room Air Weight: 130 lb 15.273 oz Body Mass Index (BMI) 21.7 Intake & Output: Intake and Output for Last 24 Hours 04/03/25 04/04/25 04/05/25 23:59 23:59 23:59 Intake Total 1000 / 1250 250 / 250 Balance 1000 / 1250 250 / 250 Lab / Micro Data 04/05/25 05:15 04/05/25 05:15 Labs: Laboratory Results - last 24 hr 04/04/25 18:02: WBC Cancelled 04/04/25 18:02: WBC 5.6, Corrected WBC Cancelled, RBC Cancelled 04/04/25 18:02: RBC 4.25, Hgb Cancelled 04/04/25 18:02: Hgb 14.0, Hct Cancelled 04/04/25 18:02: Hct 40.5, MCV Cancelled 04/04/25 18:02: MCV 95.3, MCH Cancelled 04/04/25 18:02: MCH 32.9 H, MCHC Cancelled 04/04/25 18:02: MCHC 34.6, RDW Std Deviation Cancelled 04/04/25 18:02: RDW Std Deviation 45.3 H, RDW Coeff of Leuxs Cancelled 04/04/25 18:02: RDW Coeff of Lexus 12.9, Plt Count Cancelled 04/04/25 18:02: Plt Count 178, MPV Cancelled 04/04/25 18:02: MPV 10.7, Immature Gran % (Auto) Cancelled 04/04/25 18:02: Immature Gran % (Auto) 0.200, Neut % (Auto) Cancelled 04/04/25 18:02: Neut % (Auto) 56.0, Lymph % (Auto) Cancelled 04/04/25 18:02: Lymph % (Auto) 33.3, White % (Auto) Cancelled 04/04/25 18:02: White % (Auto) 8.0, Eos % (Auto) Cancelled 04/04/25 18:02: Eos % (Auto) 2.0, Baso % (Auto) Cancelled 04/04/25 18:02: Baso % (Auto) 0.5, Absolute Neuts (auto) Cancelled 04/04/25 18:02: Absolute Neuts (auto) 3.1, Absolute Lymphs (auto) Cancelled 04/04/25 18:02: Absolute Lymphs (auto) 1.87, Total Counted Cancelled, Neutrophils % (Manual) Cancelled, Band Neutrophils % Cancelled, Lymphocytes % (Manual) Cancelled, Monocytes % (Manual) Cancelled,Eosinophils % (Manual) Cancelled, Basophils % (Manual) Cancelled, Metamyelocytes % Cancelled, Myeloc ytes % Cancelled, Promyelocytes % Cancelled, Blast Cells % Cancelled, Plasma Cell % (Manual) Cancelled, Other Cells % Cancelled, Nucleated RBC % Cancelled 04/04/25 18:02: Nucleated RBC % 0, Nucleated RBCs/100 WBC Cancelled, Differential Comment Cancelled, Diff Path Review Cancelled, Hypersegmented NeutsCancelled, Atypical Lymphocytes Cancelled, Reactive Lymphocytes Cancelled, Smudge Cells Cancelled, Toxic Granulation Cancelled, Toxic Vacuolation Cance lled, Dohle Bodies Cancelled, Corine Rods Cancelled, Platelet Estimate Cancelled, Plt Morphology Comment Cancelled, RBC Morphology Cancelled 04/04/25 18:02: RBC Morphology Cancelled, Polychromasia Cancelled, HypochromasiaCancelled, Basophilic Stippling Cancelled, Anisocytosis Cancelled, Microcytosis Cancelled, Macrocytosis Cancelled, Spherocytes Cancelled, Sickle Cells Cancelled, Target Cells Cancelled, Tear Drop Cells Cancelled, Ovalocytes Cancelled, Stomatocytes Cancelled, Bass[place] Bodies Cancelled, Olga Lidia Cells Cancelled, Bite Cells Cancelled, Crenated Cell Cancelled, Acanthocytes (Spur) Cancelled, Rouleaux Cancelled, Schistocytes Cancelled, Sodium Cancelled 04/04/25 18:02: Sodium 139, Potassium Cancelled 04/04/25 18:02: Potassium 3.7, Chloride Cancelled 04/04/25 18:02: Chloride 103, Carbon Dioxide Cancelled 04/04/25 18:02: Carbon Dioxide 23.5, Anion Gap Cancelled 04/04/25 18:02: Anion Gap 13, BUN Cancelled 04/04/25 18:02: BUN 16, Creatinine Cancelled 04/04/25 18:02: Creatinine 0.82, Estim Creat Clear Calc 64.67, Est GFR (MDRD) Non-Af Cancelled 04/04/25 18:02: Est GFR (MDRD) Non-Af 77, BUN/Creatinine Ratio Cancelled 04/04/25 18:02: BUN/Creatinine Ratio 19.3, Glucose Cancelled 04/04/25 18:02: Glucose 136 H, Hemoglobin A1c 5.3, Calcium Cancelled 04/04/25 18:02: Calcium 9.9, Magnesium 1.9, Troponin T High Sens Cancelled 04/04/25 18:02: Troponin T High Sens 9, NT pro BNP II 349, TSH 2.650, Free T4 1.40, Free T3 pg/dL 3.7 04/04/25 20:00: Troponin T Hi Sens 2 Hr 04/05/25 05:15: WBC 4.4, RBC 3.86 L, Hgb 12.7, Hct 37.2, MCV 96.4, MCH 32.9 H, MCHC 34.1, RDW Std Deviation 45.5 H, RDW Coeff of Lexus 12.9, Plt Count 160, MPV 10.9, Sodium 140, Potassium 3.8, [id number], Carbon Dioxide 23.3, Anion Gap 9,BUN 15, Creatinine 0.64 L, Estim Creat Clear Calc 58.04, Est GFR (MDRD) Non-Af 94, BUN/Creatinine Ratio 23.2 H, Glucose 101 H, Calcium 8.8 Cardiology Labs/Tests 04/04/25 18:02: WBC Cancelled 04/04/25 18:02: WBC 5.6, Corrected WBC Cancelled, RBC Cancelled 04/04/25 18:02: RBC 4.25, Hgb Cancelled 04/04/25 18:02: Hgb 14.0, Hct Cancelled 04/04/25 18:02: Hct 40.5, MCV Cancelled 04/04/25 18:02: MCV 95.3, MCH Cancelled 04/04/25 18:02: MCH 32.9 H, MCHC Cancelled 04/04/25 18:02: MCHC 34.6, Plt Count Cancelled 04/04/25 18:02: Plt Count 178, MPV Cancelled 04/04/25 18:02: MPV 10.7, Immature Gran % (Auto) Cancelled 04/04/25 18:02: Immature Gran % (Auto) 0.200, Neut % (Auto) Cancelled 04/04/25 18:02: Neut % (Auto) 56.0, Lymph % (Auto) Cancelled 04/04/25 18:02: Lymph % (Auto) 33.3, White % (Auto) Cancelled 04/04/25 18:02: White % (Auto) 8.0, Eos % (Auto) Cancelled 04/04/25 18:02: Eos % (Auto) 2.0, Baso % (Auto) Cancelled 04/04/25 18:02: Baso % (Auto) 0.5, Absolute Neuts (auto) Cancelled 04/04/25 18:02: Absolute Neuts (auto) 3.1, Total Counted Cancelled, Neutrophils % (Manual) Cancelled, Band Neutrophils % Cancelled, Lymphocytes % (Manual) Cancelled, Monocytes % (Manual) Cancelled, Eosinophils % (Manual) Cancelled, Basophils % (Manual) Cancelled, Metamyelocytes % Cancelled, Myelocytes % Cancelled, Promyelocytes % Cancelled, Blast Cells % Cancelled, Plasma Cell % (Manual) Cancelled, Other Cells % Cancelled, Nucleated RBC % Cancelled 04/04/25 18:02: Nucleated RBC % 0, Sodium Cancelled 04/04/25 18:02: Sodium 139, Potassium Cancelled 04/04/25 18:02: Potassium 3.7, Chloride Cancelled 04/04/25 18:02: Chloride 103, Carbon Dioxide Cancelled 04/04/25 18:02: Carbon Dioxide 23.5, Anion Gap Cancelled 04/04/25 18:02: Anion Gap 13, BUN Cancelled 04/04/25 18:02: BUN 16, Creatinine Cancelled 04/04/25 18:02: Creatinine 0.82, Est GFR (MDRD) Non-Af Cancelled 04/04/25 18:02: Est GFR (MDRD) Non-Af 77, BUN/Creatinine Ratio Cancelled 04/04/25 18:02: BUN/Creatinine Ratio 19.3, Glucose Cancelled 04/04/25 18:02: Glucose 136 H, Hemoglobin A1c 5.3, Calcium Cancelled 04/04/25 18:02: Calcium 9.9, Magnesium 1.9 04/05/25 05:15: WBC 4.4, RBC 3.86 L, Hgb 12.7, Hct 37.2, MCV 96.4, MCH 32.9 H, MCHC 34.1, Plt [id number], MPV 10.9, Sodium 140, Potassium 3.8, Chloride 108, Carbon Dioxide 23.3, Anion Gap 9, BUN 15, Creatinine 0.64 L, Est GFR (MDRD) Non- Af 94, BUN/Creatinine Ratio 23.2 H, Glucose 101 H, Calcium 8.8 Rhythm: EKG: ECHO: Stress Test: Cardiac Cath: PCI: CT Surgery: Holter monitor: EPS: PPM: CXR: Chest CT Scan: Radiography Diagnostic Testing: Radiology Impression Chest CTA 04/04/25 18:10 IMPRESSION: Negative study Reading Location: [facility] 04/05/25 0930 Cosigner Signature (if applicable): CC: TARIQ Medina~ Signed [facility]07-11-2025 History and physical note Author [facility] Note Date/Time April 04, 2025 10:3 1pm [facility] Medical Records Department [address] [place] [address] H&P Exam - Hospitalist 04/04/252121 MR#: [id number] Acct: [id number] Name: VIOLETA ELIZABETH Rep #:[id number] : 1955 69 From: Mane Chappell jayce CAMACHO PCP: TARIQ Medina Status:ADM I N Location: [facility] [id number] HPI - General General Date of Admission: 04/04/25 Date of Service: 04/04/25 Chief Complaint: Chest pain HPI Narrative VIOLETA ELIZABETH, is a 69 F who presented to [facility] ED on 04/04/2025 with chest pain. Patient had a stress treadmill echocardiogram done at [facility] on 03/19 that was reportedly abnormal. I reviewed [facility] records for this. Stress test report was as follows. Resting EKG showed baseline inferolateral ST segment depressions less than 1 mm. Stress EKG demonstrated worsening EKG changes in the inferolateral leads up to 1 mm. EF 66%. Patient did achieve 8.50 METS. Conclusion noted that the worsening EKG changes as abovegave her a Florentino treadmill score of 1.5 which places her at moderate risk for cardiac disease. [facility] However she has had worsening chest pain/pressure over the past several days so she was advised to come to the ED for further evaluation. In the ED she is hypertensive to the 160s systolic but otherwise hemodynamicallystable on room air. EKG showed normal sinus rhythm with no ST changes. CBC andBMP were benign. Troponins negative x 2. NT proBNP normal. CTA chest with no PE, mild coronary artery calcification seen, otherwise no other abnormalities. Case was discussed with Dr. Medina with cardiology who recommended admission for further management. Hospitalist was then contacted for admission. I saw the patient at bedside in the ED. Patient was sitting back comfortably in bed, conversing normally, in no acute distress. She reported ongoing chest pain in the left side of her chest and radiating down her left arm, though she does appear quite comfortable on exam. She denies any shortness of breath. Denies any other acute concerns currently. Will be admitted for further management. [facility] Medical History Ruptured ovarian cyst Home Medications ?Medication ?Instructions ?Recorded ?Last Taken ?Type NK 04/04/25 Unknown History Allergy/AdvReac Type Severity Reaction Status Date / Time No Known Allergies Allergy Verified 04/04/25 17:46 Surgical History H/O elbow surgery Social History Smoking Status: Former smoker ROS Constitutional Constitutional: Denies chills, fatigue, fever(s) or weakness Eyes Eyes: Denies change in vision Cardiovascular Cardiovascular: Reports chest pain and dyspnea on exertion; Denies edema, lightheadedness or palpitations Respiratory/Chest Respiratory/Chest: Denies shortness of breath at rest or wheezing Gastrointestinal Gastrointestinal: Denies abdominal pain Musculoskeletal Musculoskeletal: Denies arthralgias or myalgias Neurologic Neurologic: Denies dizziness, focal weakness or headache(s) Vital Signs Vital Signs Vital Signs: 04/04/25 17:44 04/04/25 17:56 04/04/25 17:57 Temperature 96.6 F L Temperature Source Oral Pulse Rate 61 Respiratory Rate 18 Respiratory Effort Blood Pressure 157/78 H Blood Pressure Mean 104 Pulse Ox 99 100 97 Oxygen Delivery Method Room Air Room Air Room Air 04/04/25 17:59 04/04/25 18:44 04/04/25 19:00 Temperature Temperature Source Pulse Rate 52 L 56 L Respiratory Rate 23 H 11 L Respiratory Effort Normal Blood Pressure 155/80 H 161/82 H Blood Pressure Mean 105 108 Pulse Ox 100 100 Oxygen Delivery Method Room Air Room Air 04/04/25 20:00 04/04/25 20:58 04/04/25 20:59 Temperature 96.6 F L Temperature Source Pulse Rate 57 L 56 L Respiratory Rate 16 16 Respiratory Effort Blood Pressure 147/82 H 144/79 H 144/79 H Blood Pressure Mean 103 100 100 Pulse Ox 97 96 Oxygen Delivery Method Room Air Weight Weight: 77.247 kg Body Mass Index (BMI) 27.8 Physical Exam Const alert, oriented x3, no apparent distress, average body habitus, healthy appearing and well nourished Constitutional Narrative: Elderly female, sitting back comfortably in bed, conversing normally, in no acute distress. General Appearance: cooperative, comfortable, well kempt and well developed HEENT normocephalic, head/scalp atraumatic, hearing grossly normal bilaterally, nasal mucous membranes and turbinates normal and moist oral mucous membranes Eyes PERRL, EOMs intact bilaterally and conjunctivae normal Neck full ROM Chest inspection of chest normal Resp normal respiratory effort, normal air movement, no use of accessory muscles and clear to auscultation bilaterally Cardio regular rate, regular rhythm, no murmurs and peripheral pulses 2+ throughout GI normal to inspection, nondistended, normoactive bowel sounds, soft to palpation,non-tender and non-distended Back/Spine normal ROM Extremity normal to inspection, full ROM and no pedal edema Skin no rashes or lesions noted Psych mental status grossly normal Results Lab / Micro Data 04/04/25 18:02 04/04/25 18:02 Labs: Laboratory Results - last 24 hr 04/04/25 18:02: WBC Cancelled 04/04/25 18:02: WBC 5.6, Corrected WBC Cancelled, RBC Cancelled 04/04/25 18:02: RBC 4.25, Hgb Cancelled 04/04/25 18:02: Hgb 14.0, Hct Cancelled 04/04/25 18:02: Hct 40.5, MCV Cancelled 04/04/25 18:02: MCV 95.3, MCH Cancelled 04/04/25 18:02: MCH 32.9 H, MCHC Cancelled 04/04/25 18:02: MCHC 34.6, RDW Std Deviation Cancelled 04/04/25 18:02: RDW Std Deviation 45.3 H, RDW Coeff of Lexus Cancelled 04/04/25 18:02: RDW Coeff of Lexus 12.9, Plt Count Cancelled 04/04/25 18:02: Plt Count 178, MPV Cancelled 04/04/25 18:02: MPV 10.7, Immature Gran % (Auto) Cancelled 04/04/25 18:02: Immature Gran % (Auto) 0.200, Neut % (Auto) Cancelled 04/04/25 18:02: Neut % (Auto) 56.0, Lymph % (Auto) Cancelled 04/04/25 18:02: Lymph % (Auto) 33.3, White % (Auto) Cancelled 04/04/25 18:02: White % (Auto) 8.0, Eos % (Auto) Cancelled 04/04/25 18:02: Eos % (Auto) 2.0, Baso % (Auto) Cancelled 04/04/25 18:02: Baso % (Auto) 0.5, Absolute Neuts (auto) Cancelled 04/04/25 18:02: Absolute Neuts (auto) 3.1, Absolute Lymphs (auto) Cancelled 04/04/25 18:02: Absolute Lymphs (auto) 1.87, Total Counted Cancelled, Neutrophils % (Manual) Cancelled, Band Neutrophils % Cancelled, Lymphocytes % (Manual) Cancelled, Monocytes % (Manual) Cancelled, Eosinophils % (Manual) Cancelled, Basophils % (Manual) Cancelled, Metamyelocytes % Cancelled, Myelocytes % Cancelled, Promyelocytes % Cancelled, Blast Cells % Cancelled, Plasma Cell % (Manual) Cancelled, Other Cells % Cancelled, Nucleated RBC % Cancelled 04/04/25 18:02: Nucleated RBC % 0, Nucleated RBCs/100 WBC Cancelled, Differential Comment Cancelled, Diff Path Review Cancelled, Hypersegmented NeutsCancelled, Atypical Lymphocytes Cancelled, Reactive Lymphocytes Cancelled, Smudge Cells Cancelled, Toxic Granulation Cancelled, Toxic Vacuolation Cancelled, Dohle Bodies Cancelled, Corine Rods Cancelled, Platelet Estimate Cancelled, Plt Morphology Comment Cancelled, RBC Morphology Cancelled 04/04/25 18:02: RBC Morphology Cancelled, Polychromasia Cancelled, HypochromasiaCancelled, Basophilic Stippling Cancelled, Anisocytosis Cancelled, Microcytosis Cancelled, Macrocytosis Cancelled, Spherocytes Cancelled, Sickle Cells Cancelled, Target Cells Cancelled, Tear Drop Cells Cancelled, Ovalocytes Cancelled, Stomatocytes Cancelled, Bass[place] Bodies Cancelled, Whitting[place] Cells Cancelled, Bite Cells Cancelled, Crenated Cell Cancelled, Acanthocytes (Spur) Cancelled, Rouleaux Cancelled, Schistocytes Cancelled, Sodium Cancelled 04/04/25 18:02: Sodium 139, Potassium Cancelled 04/04/25 18:02: Potassium 3.7, Chloride Cancelled 04/04/25 18:02: Chloride 103, Carbon Dioxide Cancelled 04/04/25 18:02: Carbon Dioxide 23.5, Anion Gap Cancelled 04/04/25 18:02: Anion Gap 13, BUN Cancelled 04/04/25 18:02: BUN 16, Creatinine Cancelled 04/04/25 18:02: Creatinine 0.82, Estim Creat Clear Calc 64.67, Est GFR (MDRD) Non-Af Cancelled 04/04/25 18:02: Est GFR (MDRD) Non-Af 77, BUN/Creatinine Ratio Cancelled 04/04/25 18:02: BUN/Creatinine Ratio 19.3, Glucose Cancelled 04/04/25 18:02: Glucose 136 H, Calcium Cancelled 04/04/25 18:02: Calcium 9.9, Magnesium 1.9, Troponin T High Sens Cancelled 04/04/25 18:02: Troponin T High Sens 9, NT pro BNP II 349, TSH 2.650, Free T4 1.40, Free T3 pg/dL 3.7 04/04/25 20:00: Troponin T Hi Sens 2 Hr 10 Imaging Radiology Impression Chest CTA 04/04/25 18:10 IMPRESSION: Negative study Reading Location: [facility] Assessment & Plan Assessment/Plan (1) Chest pain: (2) Abnormal stress test: PLAN: Plan Patient is a 69-year-old female who presented to [facility] ED on 04/04/2025 with chest pain. 1. Chest pain with recent abnormal stress test ? Admit under inpatient status to PCU. Cardiology consulted. Recent mildly abnormal stress test at [facility], see HPI for further details. Troponins negative x 2, EKG normal sinus rhythm with no ST changes, chest imaging normal on admit here. Patient hemodynamically stable on room air. Lipid panel and [id number]. Will keep n.p.o. at midnight with plan for left heart cath tomorrow. Continue cardiac monitoring. 2. Elevated BP readings ? BP elevated to the 160s and 170s systolic on admit. No reported history of hypertension. Will order IV hydralazine as needed for SBP greater than 170 for now. Monitor. DVT prophylaxis: Lovenox CODE STATUS: Full code, verified Expect disposition: Home, TBD Total clinical time spent by myself addressing the patient's medical issues, reviewing all the data, and collaborating with patient's care team: 55 minutes. Charges/Coding Visit Charges Inpatient E&M: 36731 Init Hosp L2 04/04/25 2231 <Electronically signed by Mane Conti DO> Cosigner Signature (if applicable): CC: Dr. Mane Conti DO; TARIQ Medina~ Signed [facility] Work Phone: [phone]) 453-590907-10-2025 Evaluation note* Diagnosis Onset Date Resolution Status Admit Date Abnormal stress test acute April 04, 2025 9:36pm Chest pain acute April 04 9:36pm HTN (hypertension), benign acute April 04, 2025 9:36pm Unstable angina acute March 9:36pm [facility] Work Phone: [phone]) 664-910907-10-2025 Evaluation note* Diagnosis Onset Date Resolution Status Admit Date Abnormal stress test resolved April 04, 2025 9:36pm Chest pain resolved April 04 9:36pm Unstable angina resolved March 9:36pm HTN (hypertension), benign inactive April 04, 2025 9:36pm [facility] Work Phone: [phone]) 132-410207-10-2025 Evaluation note* Diagnosis Onset Date Resolution Status Admit Date Chest pain acute April 04 9:36pm Abnormal stress test resolved April 04, 2025 9:36pm Unstable angina resolved March 9:36pm HTN (hypertension), benign inactive April 04, 2025 9:36pm Chest pain acute April 30 3:00pm Dyslipidemia acute April 30, 2025 3:00pm [facility] Work Phone: [phone]) 899-818807-10-2025 Evaluation note* Diagnosis Onset Date Resolution Status Admit Date Chest pain acute April 04 9:36pm Abnormal stress test resolved April 04, 2025 9:36pm Unstable angina resolved March 9:36pm HTN (hypertension), benign inactive April 04, 2025 9:36pm Chest pain acute April 30 3:00pm Dyslipidemia acute April 30, 2025 3:00pm Chest pain acute May 14, 2 025 9:25am Palpitations acute May 14, 2025 9:25am [facility] Work Phone: [phone] 328-954607-10-2025 Discharge summary Author Miles Boswell [facility] Note Date/Time April 04, 2025 9:34 pm [facility] Medical Records Department [address] [place] [address] Emergency Department Summary 04/04/25 MR#: [id number] Acct: [id number] Name: VIOLETA ELIZABETH Rep #:[id number] : 1955 69 From: Miles Boswell DO PCP: TARIQ Medina Status:REG E R Location: ED HPI History of Present Illness Chief Complaint: Chest Pain Narrative Narrative: Patient is a 69-year-old female who presents to the emergency department the chief complaint of chest pain, shortness of breath. Patient states that she March 19, 2025 had a stress test obtained in the outpatient setting and was abnormal she was told. She states that she is having worsening fatigue and shortness of breath with exertion and states that she called warehouse insulation worker Dr. Obrien office and they advised her to come here given her abnormal stress test. She states that she is to have an appointment with him in April but they did not feel that this could wait any longer and sent her to the emergency department. Patient denies any travel history denies any history of blood clots. States that she has been getting chest pain that will radiate to her left arm aswell and gets better with rest. [facility] Medical History Ruptured ovarian cyst Home Medications ?Medication ?Instructions ?Recorded ?Last Taken ?Type NK 04/04/25 Unknown History Allergy/AdvReac Type Severity Reaction Status Date / Time No Known Allergies Allergy Verified 04/04/25 17:46 Surgical History H/O elbow surgery Social History Smoking Status: Former smoker ROS ROS ED ROS Narrative Constitutional: Denies any fevers, chills, headaches Cardiovascular: Complains of chest pain as noted above as well as palpitations Respiratory: Complains of shortness of breath denies coughing Abdomen: Denies abdominal pain nausea vomit diarrhea : Denies urinary symptoms Neurological: Denies any numbness, wheeze, tingling Musculoskeletal: Denies back pain Skin: Denies any rashes or lesions EXAM Physical Exam Narrative Exam Narrative: General: Patient was lying in bed rest comfortably did not appear to be in acutedistress Head: Atraumatic, normocephalic Eyes: PERRL bilaterally, EOMI blood, no conjunctival injection noted Neck: Soft, supple, trachea midline Cardiovascular: Patient is bradycardic with a regular rhythm Respiratory: Clear to auscultation bilaterally Abdomen: No tenderness palpation Extremities: Radial pulses +2/4 in the bilateral extremities, +5/5 strength noted in the bilateral upper and lower extremities Neurological: Patient following commands knew that she was at [facility] year is 2024 Skin: Warm, dry, intact no rashes or lesions noted Const Vital Signs: 04/04/25 17:44 04/04/25 17:56 04/04/25 17:57 Temperature 96.6 F L Temperature Source Oral Pulse Rate 61 Respiratory Rate 18 Respiratory Effort Blood Pressure 157/78 H Blood Pressure Mean 104 Pulse Ox 99 100 97 Oxygen Delivery Method Room Air Room Air Room Air 04/04/25 17:59 04/04/25 18:44 04/04/25 19:00 Temperature Temperature Source Pulse Rate 52 L 56 L Respiratory Rate 23 H 11 L Respiratory Effort Normal Blood Pressure 155/80 H 161/82 H Blood Pressure Mean 105 108 Pulse Ox 100 100 Oxygen Delivery Method Room Air Room Air 04/04/25 20:00 04/04/25 20:58 04/04/25 20:59 Temperature 96.6 F L Temperature Source Pulse Rate 57 L 56 L Respiratory Rate 16 16 Respiratory Effort Blood Pressure 147/82 H 144/79 H 144/79 H Blood Pressure Mean 103 100 100 Pulse Ox 97 96 Oxygen Delivery Method Room Air MDM MDM MDM Narrative Medical decision making narrative: patient is a 69-year-old female who presents to the emergency department chief complaint of worsening chest pain on exertion, fatigue and shortness of breath with worsening fatigue. On the differential diagnose includes but not limited to ACS, dissection, PE. Once workup is obtained reviewed she will be reevaluated. Patient CBC reviewed showed no evidence leukocytosis white blood count 5.6, hemoglobin 14, plate count 178. Patient sodium normal 139, Tessman normal 3.7, creatinine normal 0.82. Patient's troponin was 9 delta troponin of 10. PatientproBNP normal at 349, TSH normal at 2.65, free T4 and T3 were 1.40 and 3.7 respectively. Patient EKG reviewed showed sinus rhythm with a rate of 62 bpm. Patient CTA of the chest reviewed and showed no acute processes. Called and discussed case with on-call warehouse insulation worker Dr. Medina who is recommending admission for heart catheterization as she had an abnormal outpatient stress test with her symptoms. Will discuss case with hospitalist for admission. Patient given 325 mg aspirin Patient's case discussed with hospitalist Dr. Conti who accept patient for admission. Lab Data Labs: Laboratory Results - last 24 hr 04/04/25 04/04/25 04/04/25 18:02 18:02 18:02 WBC Cancelled 5.6 Corrected WBC Cancelled RBC Cancelled 4.25 Hgb Cancelled Hct MCV MCH MCHC RDW Std Deviation RDW Coeff of Lexus Plt Count MPV Immature Gran % (Auto) Neut % (Auto) Lymph % (Auto) White % (Auto) Eos % (Auto) Baso % (Auto) Absolute Neuts (auto) Absolute Lymphs (auto) Total Counted Neutrophils % (Manual) Band Neutrophils % Lymphocytes % (Manual) Monocytes % (Manual) Eosinophils % (Manual) Basophils % (Manual) Metamyelocytes % Myelocytes % Promyelocytes % Blast Cells % Plasma Cell % (Manual) Other Cells % Nucleated RBC % Nucleated RBCs/100 WBC Differential Comment Diff Path Review Hypersegmented Neuts Atypical Lymphocytes Reactive Lymphocytes Smudge Cells Toxic Granulation Toxic Vacuolation Dohle Bodies Corine Rods Platelet Estimate Plt Morphology Comment RBC Morphology Polychromasia Hypochromasia Basophilic Stippling Anisocytosis Microcytosis Macrocytosis Spherocytes Sickle Cells Target Cells Tear Drop Cells Ovalocytes Stomatocytes [place] Bodies Whittington Cells Bite Cells Crenated Cell Acanthocytes (Spur) Rouleaux Schistocytes Sodium Potassium Chloride Carbon Dioxide Anion Gap BUN Creatinine Estim Creat Clear Calc Est GFR (MDRD) Non-Af BUN/Creatinine Ratio Glucose Calcium Magnesium Troponin T High Sens Troponin T Hi Sens 2 Hr NT pro BNP II TSH Free T4 Free T3 pg/dL 04/04/25 04/04/25 04/04/25 18:02 18:02 18:02 WBC Corrected WBC RBC Hgb 14.0 Hct Cancelled 40.5 MCV Cancelled 95.3 MCH Cancelled MCHC RDW Std Deviation RDW Coeff of Lexus Plt Count MPV Immature Gran % (Auto) Neut % (Auto) Lymph % (Auto) White % (Auto) Eos % (Auto) Baso % (Auto) Absolute Neuts (auto) Absolute Lymphs (auto) Total Counted Neutrophils % (Manual) Band Neutrophils % Lymphocytes % (Manual) Monocytes % (Manual) Eosinophils % (Manual) Basophils % (Manual) Metamyelocytes % Myelocytes % Promyelocytes % Blast Cells % Plasma Cell % (Manual) Other Cells % Nucleated RBC % Nucleated RBCs/100 WBC Differential Comment Diff Path Review Hypersegmented Neuts Atypical Lymphocytes Reactive Lymphocytes Smudge Cells Toxic Granulation Toxic Vacuolation Dohle Bodies Corine Rods Platelet Estimate Plt Morphology Comment RBC Morphology Polychromasia Hypochromasia Basophilic Stippling Anisocytosis Microcytosis Macrocytosis Spherocytes Sickle Cells Target Cells Tear Drop Cells Ovalocytes Stomatocytes [place] Bodies [place] Cells Bite Cells Crenated Cell Acanthocytes (Spur) Rouleaux Schistocytes Sodium Potassium Chloride Carbon Dioxide Anion Gap BUN Creatinine Estim Creat Clear Calc Est GFR (MDRD) Non-Af BUN/Creatinine Ratio Glucose Calcium Magnesium Troponin T High Sens Troponin T Hi Sens 2 Hr NT pro BNP II TSH Free T4 Free T3 pg/dL 04/04/25 04/04/25 04/04/25 18:02 18:02 18:02 WBC Corrected WBC RBC Hgb Hct MCV MCH 32.9 H MCHC Cancelled 34.6 RDW Std Deviation Cancelled 45.3 H RDW Coeff of Lexus Cancelled Plt Count MPV Immature Gran % (Auto) Neut % (Auto) Lymph % (Auto) White % (Auto) Eos % (Auto) Baso % (Auto) Absolute Neuts (auto) Absolute Lymphs (auto) Total Counted Neutrophils % (Manual) Band Neutrophils % Lymphocytes % (Manual) Monocytes % (Manual) Eosinophils % (Manual) Basophils % (Manual) Metamyelocytes % Myelocytes % Promyelocytes % Blast Cells % Plasma Cell % (Manual) Other Cells % Nucleated RBC % Nucleated RBCs/100 WBC Differential Comment Diff Path Review Hypersegmented Neuts Atypical Lymphocytes Reactive Lymphocytes Smudge Cells Toxic Granulation Toxic Vacuolation Dohle Bodies Corine Rods Platelet Estimate Plt Morphology Comment RBC Morphology Polychromasia Hypochromasia Basophilic Stippling Anisocytosis Microcytosis Macrocytosis Spherocytes Sickle Cells Target Cells Tear Drop Cells Ovalocytes Stomatocytes [place] Bodies [place] Cells Bite Cells Crenated Cell Acanthocytes (Spur) Rouleaux Schistocytes Sodium Potassium Chloride Carbon Dioxide Anion Gap BUN Creatinine Estim Creat Clear Calc Est GFR (MDRD) Non-Af BUN/Creatinine Ratio Glucose Calcium Magnesium Troponin T High Sens Troponin T Hi Sens 2 Hr NT pro BNP II TSH Free T4 Free T3 pg/dL 04/04/25 04/04/25 04/04/25 18:02 18:02 18:02 WBC Corrected WBC RBC Hgb Hct MCV MCH MCHC RDW Std Deviation RDW Coeff of Lexus 12.9 Plt Count Cancelled 178 MPV Cancelled 10.7 Immature Gran % (Auto) Cancelled Neut % (Auto) Lymph % (Auto) White % (Auto) Eos % (Auto) Baso % (Auto) Absolute Neuts (auto) Absolute Lymphs (auto) Total Counted Neutrophils % (Manual) Band Neutrophils % Lymphocytes % (Manual) Monocytes % (Manual) Eosinophils % (Manual) Basophils % (Manual) Metamyelocytes % Myelocytes % Promyelocytes % Blast Cells % Plasma Cell % (Manual) Other Cells % Nucleated RBC % Nucleated RBCs/100 WBC Differential Comment Diff Path Review Hypersegmented Neuts Atypical Lymphocytes Reactive Lymphocytes Smudge Cells Toxic Granulation Toxic Vacuolation Dohle Bodies Corine Rods Platelet Estimate Plt Morphology Comment RBC Morphology Polychromasia Hypochromasia Basophilic Stippling Anisocytosis Microcytosis Macrocytosis Spherocytes Sickle Cells Target Cells Tear Drop Cells Ovalocytes Stomatocytes [place] Bodies [place] Cells Bite Cells Crenated Cell Acanthocytes (Spur) Rouleaux Schistocytes Sodium Potassium Chloride Carbon Dioxide Anion Gap BUN Creatinine Estim Creat Clear Calc Est GFR (MDRD) Non-Af BUN/Creatinine Ratio Glucose Calcium Magnesium Troponin T High Sens Troponin T Hi Sens 2 Hr NT pro BNP II TSH Free T4 Free T3 pg/dL 04/04/25 04/04/25 04/04/25 18:02 18:02 18:02 WBC Corrected WBC RBC Hgb Hct MCV MCH MCHC RDW Std Deviation RDW Coeff of Lexus Plt Count MPV Immature Gran % (Auto) 0.200 Neut % (Auto) Cancelled 56.0 Lymph % (Auto) Cancelled 33.3 White % (Auto) Cancelled Eos % (Auto) Baso % (Auto) Absolute Neuts (auto) Absolute Lymphs (auto) Total Counted Neutrophils % (Manual) Band Neutrophils % Lymphocytes % (Manual) Monocytes % (Manual) Eosinophils % (Manual) Basophils % (Manual) Metamyelocytes % Myelocytes % Promyelocytes % Blast Cells % Plasma Cell % (Manual) Other Cells % Nucleated RBC % Nucleated RBCs/100 WBC Differential Comment Diff Path Review Hypersegmented Neuts Atypical Lymphocytes Reactive Lymphocytes Smudge Cells Toxic Granulation Toxic Vacuolation Dohle Bodies Corine Rods Platelet Estimate Plt Morphology Comment RBC Morphology Polychromasia Hypochromasia Basophilic Stippling Anisocytosis Microcytosis Macrocytosis Spherocytes Sickle Cells Target Cells Tear Drop Cells Ovalocytes Stomatocytes [place] Bodies [place] Cells Bite Cells Crenated Cell Acanthocytes (Spur) Rouleaux Schistocytes Sodium Potassium Chloride Carbon Dioxide Anion Gap BUN Creatinine Estim Creat Clear Calc Est GFR (MDRD) Non-Af BUN/Creatinine Ratio Glucose Calcium Magnesium Troponin T High Sens Troponin T Hi Sens 2 Hr NT pro BNP II TSH Free T4 Free T3 pg/dL 04/04/25 04/04/25 04/04/25 18:02 18:02 18:02 WBC Corrected WBC RBC Hgb Hct MCV MCH MCHC RDW Std Deviation RDW Coeff of Lexus Plt Count MPV Immature Gran % (Auto) Neut % (Auto) Lymph % (Auto) White % (Auto) 8.0 Eos % (Auto) Cancelled 2.0 Baso % (Auto) Cancelled 0.5 Absolute Neuts (auto) Cancelled Absolute Lymphs (auto) Total Counted Neutrophils % (Manual) Band Neutrophils % Lymphocytes % (Manual) Monocytes % (Manual) Eosinophils % (Manual) Basophils % (Manual) Metamyelocytes % Myelocytes % Promyelocytes % Blast Cells % Plasma Cell % (Manual) Other Cells % Nucleated RBC % Nucleated RBCs/100 WBC Differential Comment Diff Path Review Hypersegmented Neuts Atypical Lymphocytes Reactive Lymphocytes Smudge Cells Toxic Granulation Toxic Vacuolation Dohle Bodies Corine Rods Platelet Estimate Plt Morphology Comment RBC Morphology Polychromasia Hypochromasia Basophilic Stippling Anisocytosis Microcytosis Macrocytosis Spherocytes Sickle Cells Target Cells Tear Drop Cells Ovalocytes Stomatocytes [place] Bodies [place] Cells Bite Cells Crenated Cell Acanthocytes (Spur) Rouleaux Schistocytes Sodium Potassium Chloride Carbon Dioxide Anion Gap BUN Creatinine Estim Creat Clear Calc Est GFR (MDRD) Non-Af BUN/Creatinine Ratio Glucose Calcium Magnesium Troponin T High Sens Troponin T Hi Sens 2 Hr NT pro BNP II TSH Free T4 Free T3 pg/dL 04/04/25 04/04/25 04/04/25 18:02 18:02 18:02 WBC Corrected WBC RBC Hgb Hct MCV MCH MCHC RDW Std Deviation RDW Coeff of Lexus Plt Count MPV Immature Gran % (Auto) Neut % (Auto) Lymph % (Auto) White % (Auto) Eos % (Auto) Baso % (Auto) Absolute Neuts (auto) 3.1 Absolute Lymphs (auto) Cancelled 1.87 Total Counted Cancelled Neutrophils % (Manual) Cancelled Band Neutrophils % Cancelled Lymphocytes % (Manual) Cancelled Monocytes % (Manual) Cancelled Eosinophils % (Manual) Cancelled Basophils % (Manual) Cancelled Metamyelocytes % Cancelled Myelocytes % Cancelled Promyelocytes % Cancelled Blast Cells % Cancelled Plasma Cell % (Manual) Cancelled Other Cells % Cancelled Nucleated RBC % Cancelled 0 Nucleated RBCs/100 WBC Cancelled Differential Comment Cancelled Diff Path Review Cancelled Hypersegmented Neuts Cancelled Atypical Lymphocytes Cancelled Reactive Lymphocytes Cancelled Smudge Cells Cancelled Toxic Granulation Cancelled Toxic Vacuolation Cancelled Dohle Bodies Cancelled Corine Rods Cancelled Platelet Estimate Cancelled Plt Morphology Comment Cancelled RBC Morphology Cancelled Polychromasia Hypochromasia Basophilic Stippling Anisocytosis Microcytosis Macrocytosis Spherocytes Sickle Cells Target Cells Tear Drop Cells Ovalocytes Stomatocytes [place] Bodies [place] Cells Bite Cells Crenated Cell Acanthocytes (Spur) Rouleaux Schistocytes Sodium Potassium Chloride Carbon Dioxide Anion Gap BUN Creatinine Estim Creat Clear Calc Est GFR (MDRD) Non-Af BUN/Creatinine Ratio Glucose Calcium Magnesium Troponin T High Sens Troponin T Hi Sens 2 Hr NT pro BNP II TSH Free T4 Free T3 pg/dL 04/04/25 04/04/25 04/04/25 18:02 18:02 18:02 WBC Corrected WBC RBC Hgb Hct MCV MCH MCHC RDW Std Deviation RDW Coeff of Lexus Plt Count MPV Immature Gran % (Auto) Neut % (Auto) Lymph % (Auto) White % (Auto) Eos % (Auto) Baso % (Auto) Absolute Neuts (auto) Absolute Lymphs (auto) Total Counted Neutrophils % (Manual) Band Neutrophils % Lymphocytes % (Manual) Monocytes % (Manual) Eosinophils % (Manual) Basophils % (Manual) Metamyelocytes % Myelocytes % Promyelocytes % Blast Cells % Plasma Cell % (Manual) Other Cells % Nucleated RBC % Nucleated RBCs/100 WBC Differential Comment Diff Path Review Hypersegmented Neuts Atypical Lymphocytes Reactive Lymphocytes Smudge Cells Toxic Granulation Toxic Vacuolation Dohle Bodies Corine Rods Platelet Estimate Plt Morphology Comment RBC Morphology Cancelled Polychromasia Cancelled Hypochromasia Cancelled Basophilic Stippling Cancelled Anisocytosis Cancelled Microcytosis Cancelled Macrocytosis Cancelled Spherocytes Cancelled Sickle Cells Cancelled Target Cells Cancelled Tear Drop Cells Cancelled Ovalocytes Cancelled Stomatocytes Cancelled [place] Bodies Cancelled [place] Cells Cancelled Bite Cells Cancelled Crenated Cell Cancelled Acanthocytes (Spur) Cancelled Rouleaux Cancelled Schistocytes Cancelled Sodium Cancelled 139 Potassium Cancelled 3.7 Chloride Cancelled Carbon Dioxide Anion Gap BUN Creatinine Estim Creat Clear Calc Est GFR (MDRD) Non-Af BUN/Creatinine Ratio Glucose Calcium Magnesium Troponin T High Sens Troponin T Hi Sens 2 Hr NT pro BNP II TSH Free T4 Free T3 pg/dL 04/04/25 04/04/25 04/04/25 18:02 18:02 18:02 WBC Corrected WBC RBC Hgb Hct MCV MCH MCHC RDW Std Deviation RDW Coeff of Lexus Plt Count MPV Immature Gran % (Auto) Neut % (Auto) Lymph % (Auto) White % (Auto) Eos % (Auto) Baso % (Auto) Absolute Neuts (auto) Absolute Lymphs (auto) Total Counted Neutrophils % (Manual) Band Neutrophils % Lymphocytes % (Manual) Monocytes % (Manual) Eosinophils % (Manual) Basophils % (Manual) Metamyelocytes % Myelocytes % Promyelocytes % Blast Cells % Plasma Cell % (Manual) Other Cells % Nucleated RBC % Nucleated RBCs/100 WBC Differential Comment Diff Path Review Hypersegmented Neuts Atypical Lymphocytes Reactive Lymphocytes Smudge Cells Toxic Granulation Toxic Vacuolation Dohle Bodies Corine Rods Platelet Estimate Plt Morphology Comment RBC Morphology Polychromasia Hypochromasia Basophilic Stippling Anisocytosis Microcytosis Macrocytosis Spherocytes Sickle Cells Target Cells Tear Drop Cells Ovalocytes Stomatocytes [place] Bodies Olga Lidia Cells Bite Cells Crenated Cell Acanthocytes (Spur) Rouleaux Schistocytes Sodium Potassium Chloride 103 Carbon Dioxide Cancelled 23.5 Anion Gap Cancelled 13 BUN Cancelled Creatinine Estim Creat Clear Calc Est GFR (MDRD) Non-Af BUN/Creatinine Ratio Glucose Calcium Magnesium Troponin T High Sens Troponin T Hi Sens 2 Hr NT pro BNP II TSH Free T4 Free T3 pg/dL 04/04/25 04/04/25 04/04/25 18:02 18:02 18:02 WBC Corrected WBC RBC Hgb Hct MCV MCH MCHC RDW Std Deviation RDW Coeff of Lexus Plt Count MPV Immature Gran % (Auto) Neut % (Auto) Lymph % (Auto) White % (Auto) Eos % (Auto) Baso % (Auto) Absolute Neuts (auto) Absolute Lymphs (auto) Total Counted Neutrophils % (Manual) Band Neutrophils % Lymphocytes % (Manual) Monocytes % (Manual) Eosinophils % (Manual) Basophils % (Manual) Metamyelocytes % Myelocytes % Promyelocytes % Blast Cells % Plasma Cell % (Manual) Other Cells % Nucleated RBC % Nucleated RBCs/100 WBC Differential Comment Diff Path Review Hypersegmented Neuts Atypical Lymphocytes Reactive Lymphocytes Smudge Cells Toxic Granulation Toxic Vacuolation Dohle Bodies Corine Rods Platelet Estimate Plt Morphology Comment RBC Morphology Polychromasia Hypochromasia Basophilic Stippling Anisocytosis Microcytosis Macrocytosis Spherocytes Sickle Cells Target Cells Tear Drop Cells Ovalocytes Stomatocytes [place] Bodies [place] Cells Bite Cells Crenated Cell Acanthocytes (Spur) Rouleaux Schistocytes Sodium Potassium Chloride Carbon Dioxide Anion Gap BUN 16 Creatinine Cancelled 0.82 Estim Creat Clear Calc 64.67 Est GFR (MDRD) Non-Af Cancelled 77 BUN/Creatinine Ratio Cancelled Glucose Calcium Magnesium Troponin T High Sens Troponin T Hi Sens 2 Hr NT pro BNP II TSH Free T4 Free T3 pg/dL 04/04/25 04/04/25 04/04/25 18:02 18:02 18:02 WBC Corrected WBC RBC Hgb Hct MCV MCH MCHC RDW Std Deviation RDW Coeff of Lexus Plt Count MPV Immature Gran % (Auto) Neut % (Auto) Lymph % (Auto) White % (Auto) Eos % (Auto) Baso % (Auto) Absolute Neuts (auto) Absolute Lymphs (auto) Total Counted Neutrophils % (Manual) Band Neutrophils % Lymphocytes % (Manual) Monocytes % (Manual) Eosinophils % (Manual) Basophils % (Manual) Metamyelocytes % Myelocytes % Promyelocytes % Blast Cells % Plasma Cell % (Manual) Other Cells % Nucleated RBC % Nucleated RBCs/100 WBC Differential Comment Diff Path Review Hypersegmented Neuts Atypical Lymphocytes Reactive Lymphocytes Smudge Cells Toxic Granulation Toxic Vacuolation Dohle Bodies Corine Rods Platelet Estimate Plt Morphology Comment RBC Morphology Polychromasia Hypochromasia Basophilic Stippling Anisocytosis Microcytosis Macrocytosis Spherocytes Sickle Cells Target Cells Tear Drop Cells Ovalocytes Stomatocytes [place] Bodies [place] Cells Bite Cells Crenated Cell Acanthocytes (Spur) Rouleaux Schistocytes Sodium Potassium Chloride Carbon Dioxide Anion Gap BUN Creatinine Estim Creat Clear Calc Est GFR (MDRD) Non-Af BUN/Creatinine Ratio 19.3 Glucose Cancelled 136 H Calcium Cancelled 9.9 Magnesium 1.9 Troponin T High Sens Cancelled Troponin T Hi Sens 2 Hr NT pro BNP II TSH Free T4 Free T3 pg/dL 04/04/25 04/04/25 18:02 20:00 WBC Corrected WBC RBC Hgb Hct MCV MCH MCHC RDW Std Deviation RDW Coeff of Lexus Plt Count MPV Immature Gran % (Auto) Neut % (Auto) Lymph % (Auto) White % (Auto) Eos % (Auto) Baso % (Auto) Absolute Neuts (auto) Absolute Lymphs (auto) Total Counted Neutrophils % (Manual) Band Neutrophils % Lymphocytes % (Manual) Monocytes % (Manual) Eosinophils % (Manual) Basophils % (Manual) Metamyelocytes % Myelocytes % Promyelocytes % Blast Cells % Plasma Cell % (Manual) Other Cells % Nucleated RBC % Nucleated RBCs/100 WBC Differential Comment Diff Path Review Hypersegmented Neuts Atypical Lymphocytes Reactive Lymphocytes Smudge Cells Toxic Granulation Toxic Vacuolation Dohle Bodies Corine Rods Platelet Estimate Plt Morphology Comment RBC Morphology Polychromasia Hypochromasia Basophilic Stippling Anisocytosis Microcytosis Macrocytosis Spherocytes Sickle Cells Target Cells Tear Drop Cells Ovalocytes Stomatocytes [place] Bodies Olga Lidia Cells Bite Cells Crenated Cell Acanthocytes (Spur) Rouleaux Schistocytes Sodium Potassium Chloride Carbon Dioxide Anion Gap BUN Creatinine Estim Creat Clear Calc Est GFR (MDRD) Non-Af BUN/Creatinine Ratio Glucose Calcium Magnesium Troponin T High Sens 9 Troponin T Hi Sens 2 Hr 10 NT pro BNP II 349 TSH 2.650 Free T4 1.40 Free T3 pg/dL 3.7 Radiography Diagnostic Testing: Clinical Impression(s) from Imaging Studies Chest CTA 04/04/25 18:10 IMPRESSION: Negative study Reading Location: [facility] Discharge Plan Triage Chief Complaint: Chest Pain ED Provider: Miles Boswell Dx/Rx/DC Orders Clinical Impression: Chest pain, Shortness of breath, Fatigue, Abnormal stress test Prescriptions: No Action NK Primary Care Provider: Ga Campbell Referrals: Ga Campbell PA [Primary Care Provider] - Print Language: Maldivian Disposition Disposition: Acute Care Hospital [facility] What to do if you have Problems For any increased pain, shortness of breath, bleeding, nausea or vomiting, chestpain, or any unexpected problems, contact your Primary Care Provider. Call [facility] ([phone]) or report to the closest Emergency Room. Call 911 if necessary. 04/04/252133 <Electronically signed by Miles Boswell DO> Cosigner Signature (if applicable): CC: TARIQ Medina ~ Signed [facility] Work Phone: [phone] History and physical note [facility] Medical Records Department [address] [place] [address] H&P Exam - Hospitalist 04/04/252121 MR#: [id number] Acct: [id number] Name: VIOLETA ELIZABETH Rep #:[id number] : 1955 69 From: Mane garcia DO PCP: TARIQ Medina Status:ADM I N Location: [address] HPI - General General Date of Admission: 04/04/25 Date of Service: 04/04/25 Chief Complaint: Chest pain HPI Narrative VIOLETA ELIZABETH, is a 69 F who presented to [facility] ED on 04/04/2025 with chest pain. Patient had a stress treadmill echocardiogram done at [place] on 03/19 that was reportedly abnormal. [facility]. Stress test report was as follows. Resting EKG showed baseline inferolateral ST segment depressions less than 1 mm. Stress EKG demonstrated worsening EKG changes in the inferolateral leads up to 1 mm. EF 66%. Patient did achieve 8.50 METS. Conclusion notedthat the worsening EKG changes as abovegave her a Florentino treadmill score of 1.5 which places her at moderate risk for cardiac disease. [facility] However she has had worsening chest pain/pressure over the past several days so she was advised to come to the ED for further evaluation. In the ED she is hypertensive to the 160s systolic but otherwise hemodynamicallystable on room air. EKG showed normal sinus rhythm with no ST changes. CBC andBMP were benign. Troponins negative x 2. NT proBNP normal. CTA chest with no PE, mild cor onary artery calcification seen, otherwise no other abnormalities. Case was discussed with Dr. Medina with cardiology who recommended admission for further management. Hospitalist was then contacted for admission. I saw the patient at bedside in the ED. Patient was sitting back comfortably in bed, conversing normally, in no acute distress. She reported ongoing chest pain in the left side of her chest and radiating down her left arm, though she does appear quite comfortable on exam. She denies any shortness of breath. Denies any other acute concerns currently. Will be admitted for further management. [facility] Medical History Ruptured ovarian cyst Home Medications ?Medication ?Instructions ?Recorded ?Last Taken ?Type NK 04/04/25 Unknown History Allergy/AdvReac Type Severity Reaction Status Date / Time No Known Allergies Allergy Verified 04/04/25 17:46 Surgical History H/O elbow surgery Social History Smoking Status: Former smoker ROS Constitutional Constitutional: Denies chills, fatigue, fever(s) or weakness Eyes Eyes: Denies change in vision Cardiovascular Cardiovascular: Reports chest pain and dyspnea on exertion; Denies edema, lightheadedness or palpitations Respiratory/Chest Respiratory/Chest: Denies shortness of breath at rest or wheezing Gastrointestinal Gastrointestinal: Denies abdominal pain Musculoskeletal Musculoskeletal: Denies arthralgias or myalgias Neurologic Neurologic: Denies dizziness, focal weakness or headache(s) Vital Signs Vital Signs Vital Signs: 04/04/25 17:44 04/04/25 17:56 04/04/25 17:57 Temperature 96.6 F L Temperature Source Oral Pulse Rate 61 Respiratory Rate 18 Respiratory Effort Blood Pressure 157/78 H Blood Pressure Mean 104 Pulse Ox 99 100 97 Oxygen Delivery Method Room Air Room Air Room Air 04/04/25 17:59 04/04/25 18:44 04/04/25 19:00 Temperature Temperature Source Pulse Rate 52 L 56 L Respiratory Rate 23 H 11 L Respiratory Effort Normal Blood Pressure 155/80 H 161/82 H Blood Pressure Mean 105 108 Pulse Ox 100 100 Oxygen Delivery Method Room Air Room Air 04/04/25 20:00 04/04/25 20:58 04/04/25 20:59 Temperature 96.6 F L Temperature Source Pulse Rate 57 L 56 L Respiratory Rate 16 16 Respiratory Effort Blood Pressure 147/82 H 144/79 H 144/79 H Blood Pressure Mean 103 100 100 Pulse Ox 97 96 Oxygen Delivery Method Room Air Weight Weight: 77.247 kg Body Mass Index (BMI) 27.8 Physical Exam Const alert, oriented x3, no apparent distress, average body habitus, healthy appearing and well nourished Constitutional Narrative: Elderly female, sitting back comfortably in bed, conversing normally, in no acute distress. General Appearance: cooperative, comfortable, well kempt and well developed HEENT normocephalic, head/scalp atraumatic, hearing grossly normal bilaterally, nasal mucous membranes and turbinates normal and moist oral mucous membranes Eyes PERRL, EOMs intact bilaterally and conjunctivae normal Neck full ROM Chest inspection of chest normal Resp normal respiratory effort, normal air movement, no use of accessory muscles and clear to auscultation bilaterally Cardio regular rate, regular rhythm, no murmurs and peripheral pulses 2+ throughout GI normal to inspection, nondistended, normoactive bowel sounds, soft to palpation,non-tender and non-distended Back/Spine normal ROM Extremity normal to inspection, full ROM and no pedal edema Skin no rashes or lesions noted Psych mental status grossly normal Results Lab / Micro Data 04/04/25 18:02 04/04/25 18:02 Labs: Laboratory Results - last 24 hr 04/04/25 18:02: WBC Cancelled 04/04/25 18:02: WBC 5.6, Corrected WBC Cancelled, RBC Cancelled 04/04/25 18:02: RBC 4.25, Hgb Cancelled 04/04/25 18:02: Hgb 14.0, Hct Cancelled 04/04/25 18:02: Hct 40.5, MCV Cancelled 04/04/25 18:02: MCV 95.3, MCH Cancelled 04/04/25 18:02: MCH 32.9 H, MCHC Cancelled 04/04/25 18:02: MCHC 34.6, RDW Std Deviation Cancelled 04/04/25 18:02: RDW Std Deviation 45.3 H, RDW Coeff of Lexus Cancelled 04/04/25 18:02: RDW Coeff of Lexus 12.9, Plt Count Cancelled 04/04/25 18:02: Plt Count 178, MPV Cancelled 04/04/25 18:02: MPV 10.7, Immature Gran % (Auto) Cancelled 04/04/25 18:02: Immature Gran % (Auto) 0.200, Neut % (Auto) Cancelled 04/04/25 18:02: Neut % (Auto) 56.0, Lymph % (Auto) Cancelled 04/04/25 18:02: Lymph % (Auto) 33.3, White % (Auto) Cancelled 04/04/25 18:02: White % (Auto) 8.0, Eos % (Auto) Cancelled 04/04/25 18:02: Eos % (Auto) 2.0, Baso % (Auto) Cancelled 04/04/25 18:02: Baso % (Auto) 0.5, Absolute Neuts (auto) Cancelled 04/04/25 18:02: Absolute Neuts (auto) 3.1, Absolute Lymphs (auto) Cancelled 04/04/25 18:02: Absolute Lymphs (auto) 1.87, Total Counted Cancelled, Neutrophils % (Manual) Cancelled, Band Neutrophils % Cancelled, Lymphocytes % (Manual) Cancelled, Monocytes % (Manual) Cancelled,Eosinophils % (Manual) Cancelled, Basophils % (Manual) Cancelled, Metamyelocytes % Cancelled, Myeloc ytes % Cancelled, Promyelocytes % Cancelled, Blast Cells % Cancelled, Plasma Cell % (Manual) Cancelled, Other Cells % Cancelled, Nucleated RBC % Cancelled 04/04/25 18:02: Nucleated RBC % 0, Nucleated RBCs/100 WBC Cancelled, Differential Comment Cancelled, Diff Path Review Cancelled, Hypersegmented NeutsCancelled, Atypical Lymphocytes Cancelled, Reactive Lymphocytes Cancelled, Smudge Cells Cancelled, Toxic Granulation Cancelled, Toxic Vacuolation Cance lled, Dohle Bodies Cancelled, Corine Rods Cancelled, Platelet Estimate Cancelled, Plt Morphology Comment Cancelled, RBC Morphology Cancelled 04/04/25 18:02: RBC Morphology Cancelled, Polychromasia Cancelled, HypochromasiaCancelled, Basophilic Stippling Cancelled, Anisocytosis Cancelled, Microcytosis Cancelled, Macrocytosis Cancelled, Spherocytes Cancelled, Sickle Cells Cancelled, Target Cells Cancelled, Tear Drop Cells Cancelled, Ovalocytes Cancelled, Stomatocytes Cancelled, [place] Bodies Cancelled, [place] Cells Cancelled, Bite Cells Cancelled, Crenated Cell Cancelled, Acanthocytes (Spur) Cancelled, Rouleaux Cancelled, Schistocytes Cancelled, Sodium Cancelled 04/04/25 18:02: Sodium 139, Potassium Cancelled 04/04/25 18:02: Potassium 3.7, Chloride Cancelled 04/04/25 18:02: Chloride 103, Carbon Dioxide Cancelled 04/04/25 18:02: Carbon Dioxide 23.5, Anion Gap Cancelled 04/04/25 18:02: Anion Gap 13, BUN Cancelled 04/04/25 18:02: BUN 16, Creatinine Cancelled 04/04/25 18:02: Creatinine 0.82, Estim Creat Clear Calc 64.67, Est GFR (MDRD) Non-Af Cancelled 04/04/25 18:02: Est GFR (MDRD) Non-Af 77, BUN/Creatinine Ratio Cancelled 04/04/25 18:02: BUN/Creatinine Ratio 19.3, Glucose Cancelled 04/04/25 18:02: Glucose 136 H, Calcium Cancelled 04/04/25 18:02: Calcium 9.9, Magnesium 1.9, Troponin T High Sens Cancelled 04/04/25 18:02: Troponin T High Sens 9, NT pro BNP II 349, TSH 2.650, Free T4 1.40, Free T3 pg/dL 3.7 04/04/25 20:00: Troponin T Hi Sens 2 Hr 10 Imaging Radiology Impression Chest CTA 04/04/25 18:10 IMPRESSION: Negative study Reading [facility] Assessment & Plan Assessment/Plan (1) Chest pain: (2) Abnormal stress test: PLAN: Plan Patient is a 69-year-old female who presented to [facility] ED on 04/04/2025 with chest pain. 1. Chest pain with recent abnormal stress test ? Admit under inpatient status to PCU. Cardiology consulted. Recent mildly abnormal stress test at [place], see HPI for further details. Troponins negative x 2, EKG normal sinus rhythm with no ST changes, chest imaging normal on admit here. Patient hemodynamically stable on room air. Lipid panel and [id number]. Will keep n.p.o. at midnight with plan for left heart cath tomorrow. Continue cardiacmonitoring. 2. Elevated BP readings ? BP elevated to the 160s and 170s systolic on admit. No reported history of hypertension. Will order IV hydralazine as needed for SBP greater than 170 for now. Monitor. DVT prophylaxis: Lovenox CODE STATUS: Full code, verified Expect disposition: Home, TBD Total clinical time spent by myself addressing the patient's medical issues, reviewing all the data, and collaborating with patient's care team: 55 minutes. Charges/Coding Visit Charges Inpatient E&M: 44434 Init Hosp L2 04/04/25 2231 Cosigner Signature (if applicable): CC: Dr. Mane Conti DO; TARIQ Medina~ Signed [facility]07-10-2025 Discharge summary [facility] Medical Records Department [address] [place] [address] Emergency Department Summary 04/04/25 MR#: [id number] Acct: [id number] Name: VIOLETA ELIZABETH Rep #:[id number] : 1955 69 From: Miles Boswell DO PCP: TARIQ Medina Status:REG E R Location: ED HPI History of Present Illness Chief Complaint: Chest Pain Narrative Narrative: Patient is a 69-year-old female who presents to the emergency department the chief complaint of chest pain, shortness of breath. Patient states that she March 19, 2025 had a stress test obtained in the outpatient setting and was abnormal she was told. She states that she is having worsening fatigue and shortness of breath with exertion and states that she called warehouse insulation worker Dr. Obrien office and they advised her to come here given her abnormal stress test. She states that she is to have an appointment with him in April but they did not feel that this could wait any longer and sent her to theemergency department. Patient denies any travel history denies any history of blood clots. States that she has been getting chest pain that will radiate to her left arm aswell and gets better with rest. [facility] Medical History Ruptured ovarian cyst Home Medications ?Medication ?Instructions ?Recorded ?Last Taken ?Type NK 04/04/25 Unknown History Allergy/AdvReac Type Severity Reaction Status Date / Time No Known Allergies Allergy Verified 04/04/25 17:46 Surgical History H/O elbow surgery Social History Smoking Status: Former smoker ROS ROS ED ROS Narrative Constitutional: Denies any fevers, chills, headaches Cardiovascular: Complains of chest pain as noted above as well as palpitations Respiratory: Complains of shortness of breath denies coughing Abdomen: Denies abdominal pain nausea vomit diarrhea : Denies urinary symptoms Neurological: Denies any numbness, wheeze, tingling Musculoskeletal: Denies back pain Skin: Denies any rashes or lesions EXAM Physical Exam Narrative Exam Narrative: General: Patient was lying in bed rest comfortably did not appear to be in acutedistress Head: Atraumatic, normocephalic Eyes: PERRL bilaterally, EOMI blood, no conjunctival injection noted Neck: Soft, supple, trachea midline Cardiovascular: Patient is bradycardic with a regular rhythm Respiratory: Clear to auscultation bilaterally Abdomen: No tenderness palpation Extremities: Radial pulses +2/4 in the bilateral extremities, +5/5 strength noted in the bilateral upper and lower extremities Neurological: Patient following commands knew that she was at [facility] year is 2024 Skin: Warm, dry, intact no rashes or lesions noted Const Vital Signs: 04/04/25 17:44 04/04/25 17:56 04/04/25 17:57 Temperature 96.6 F L Temperature Source Oral Pulse Rate 61 Respiratory Rate 18 Respiratory Effort Blood Pressure 157/78 H Blood Pressure Mean 104 Pulse Ox 99 100 97 Oxygen Delivery Method Room Air Room Air Room Air 04/04/25 17:59 04/04/25 18:44 04/04/25 19:00 Temperature Temperature Source Pulse Rate 52 L 56 L Respiratory Rate 23 H 11 L Respiratory Effort Normal Blood Pressure 155/80 H 161/82 H Blood Pressure Mean 105 108 Pulse Ox 100 100 Oxygen Delivery Method Room Air Room Air 04/04/25 20:00 04/04/25 20:58 04/04/25 20:59 Temperature 96.6 F L Temperature Source Pulse Rate 57 L 56 L Respiratory Rate 16 16 Respiratory Effort Blood Pressure 147/82 H 144/79 H 144/79 H Blood Pressure Mean 103 100 100 Pulse Ox 97 96 Oxygen Delivery Method Room Air MDM MDM MDM Narrative Medical decision making narrative: patient is a 69-year-old female who presents to the emergency department chief complaint of worsening chest pain on exertion, fatigue and shortness of breath with worsening fatigue. On the differential diagnose includes but not limited to ACS, dissection, PE. Once workup is obtained reviewed she will be reevaluated. Patient CBC reviewed showed no evidence leukocytosis white blood count 5.6, hemoglobin 14, plate count 178. Patient sodium normal 139, Tessman normal 3.7, creatinine normal 0.82. Patient's troponin was 9 delta troponin of 10. PatientproBNP normal at 349, TSH normal at 2.65, free T4 and T3 were 1.40and 3.7 respectively. Patient EKG reviewed showed sinus rhythm with a rate of 62 bpm. Patient CTA of the chest reviewed and showed no acute processes. Called and discussed case with on-call warehouse insulation worker Dr. Medina who is recommending admission for heart catheterization as she had an abnormal outpatient stress test with her symptoms. Will discuss case with hospitalist for admission. Patient given 325 mg aspirin Patient's case discussed with hospitalist Dr. Conti who accept patient for admission. Lab Data Labs: Laboratory Results - last 24 hr 04/04/25 04/04/25 04/04/25 18:02 18:02 18:02 WBC Cancelled 5.6 Corrected WBC Cancelled RBC Cancelled 4.25 Hgb Cancelled Hct MCV MCH MCHC RDW Std Deviation RDW Coeff of Lexus Plt Count MPV Immature Gran % (Auto) Neut % (Auto) Lymph % (Auto) White % (Auto) Eos % (Auto) Baso % (Auto) Absolute Neuts (auto) Absolute Lymphs (auto) Total Counted Neutrophils % (Manual) Band Neutrophils % Lymphocytes % (Manual) Monocytes % (Manual) Eosinophils % (Manual) Basophils % (Manual) Metamyelocytes % Myelocytes % Promyelocytes % Blast Cells % Plasma Cell % (Manual) Other Cells % Nucleated RBC % Nucleated RBCs/100 WBC Differential Comment Diff Path Review Hypersegmented Neuts Atypical Lymphocytes Reactive Lymphocytes Smudge Cells Toxic Granulation Toxic Vacuolation Dohle Bodies Corine Rods Platelet Estimate Plt Morphology Comment RBC Morphology Polychromasia Hypochromasia Basophilic Stippling Anisocytosis Microcytosis Macrocytosis Spherocytes Sickle Cells Target Cells Tear Drop Cells Ovalocytes Stomatocytes [place] Bodies [place] Cells Bite Cells Crenated Cell Acanthocytes (Spur) Rouleaux Schistocytes Sodium Potassium Chloride Carbon Dioxide Anion Gap BUN Creatinine Estim Creat Clear Calc Est GFR (MDRD) Non-Af BUN/Creatinine Ratio Glucose Calcium Magnesium Troponin T High Sens Troponin T Hi Sens 2 Hr NT pro BNP II TSH Free T4 Free T3 pg/dL 04/04/25 04/04/25 04/04/25 18:02 18:02 18:02 WBC Corrected WBC RBC Hgb 14.0 Hct Cancelled 40.5 MCV Cancelled 95.3 MCH Cancelled MCHC RDW Std Deviation RDW Coeff of Lexus Plt Count MPV Immature Gran % (Auto) Neut % (Auto) Lymph % (Auto) White % (Auto) Eos % (Auto) Baso % (Auto) Absolute Neuts (auto) Absolute Lymphs (auto) Total Counted Neutrophils % (Manual) Band Neutrophils % Lymphocytes % (Manual) Monocytes % (Manual) Eosinophils % (Manual) Basophils % (Manual) Metamyelocytes % Myelocytes % Promyelocytes % Blast Cells % Plasma Cell % (Manual) Other Cells % Nucleated RBC % Nucleated RBCs/100 WBC Differential Comment Diff Path Review Hypersegmented Neuts Atypical Lymphocytes Reactive Lymphocytes Smudge Cells Toxic Granulation Toxic Vacuolation Dohle Bodies Corine Rods Platelet Estimate Plt Morphology Comment RBC Morphology Polychromasia Hypochromasia Basophilic Stippling Anisocytosis Microcytosis Macrocytosis Spherocytes Sickle Cells Target Cells Tear Drop Cells Ovalocytes Stomatocytes [place] Bodies [place] Cells Bite Cells Crenated Cell Acanthocytes (Spur) Rouleaux Schistocytes Sodium Potassium Chloride Carbon Dioxide Anion Gap BUN Creatinine Estim Creat Clear Calc Est GFR (MDRD) Non-Af BUN/Creatinine Ratio Glucose Calcium Magnesium Troponin T High Sens Troponin T Hi Sens 2 Hr NT pro BNP II TSH Free T4 Free T3 pg/dL 04/04/25 04/04/25 04/04/25 18:02 18:02 18:02 WBC Corrected WBC RBC Hgb Hct MCV MCH 32.9 H MCHC Cancelled 34.6 RDW Std Deviation Cancelled 45.3 H RDW Coeff of Lexus Cancelled Plt Count MPV Immature Gran % (Auto) Neut % (Auto) Lymph % (Auto) White % (Auto) Eos % (Auto) Baso % (Auto) Absolute Neuts (auto) Absolute Lymphs (auto) Total Counted Neutrophils % (Manual) Band Neutrophils % Lymphocytes % (Manual) Monocytes % (Manual) Eosinophils % (Manual) Basophils % (Manual) Metamyelocytes % Myelocytes % Promyelocytes % Blast Cells % Plasma Cell % (Manual) Other Cells % Nucleated RBC % Nucleated RBCs/100 WBC Differential Comment Diff Path Review Hypersegmented Neuts Atypical Lymphocytes Reactive Lymphocytes Smudge Cells Toxic Granulation Toxic Vacuolation Dohle Bodies Corine Rods Platelet Estimate Plt Morphology Comment RBC Morphology Polychromasia Hypochromasia Basophilic Stippling Anisocytosis Microcytosis Macrocytosis Spherocytes Sickle Cells Target Cells Tear Drop Cells Ovalocytes Stomatocytes [place] Bodies [place] Cells Bite Cells Crenated Cell Acanthocytes (Spur) Rouleaux Schistocytes Sodium Potassium Chloride Carbon Dioxide Anion Gap BUN Creatinine Estim Creat Clear Calc Est GFR (MDRD) Non-Af BUN/Creatinine Ratio Glucose Calcium Magnesium Troponin T High Sens Troponin T Hi Sens 2 Hr NT pro BNP II TSH Free T4 Free T3 pg/dL 04/04/25 04/04/25 04/04/25 18:02 18:02 18:02 WBC Corrected WBC RBC Hgb Hct MCV MCH MCHC RDW Std Deviation RDW Coeff of Lexus 12.9 Plt Count Cancelled 178 MPV Cancelled 10.7 Immature Gran % (Auto) Cancelled Neut % (Auto) Lymph % (Auto) White % (Auto) Eos % (Auto) Baso % (Auto) Absolute Neuts (auto) Absolute Lymphs (auto) Total Counted Neutrophils % (Manual) Band Neutrophils % Lymphocytes % (Manual) Monocytes % (Manual) Eosinophils % (Manual) Basophils % (Manual) Metamyelocytes % Myelocytes % Promyelocytes % Blast Cells % Plasma Cell % (Manual) Other Cells % Nucleated RBC % Nucleated RBCs/100 WBC Differential Comment Diff Path Review Hypersegmented Neuts Atypical Lymphocytes Reactive Lymphocytes Smudge Cells Toxic Granulation Toxic Vacuolation Dohle Bodies Corine Rods Platelet Estimate Plt Morphology Comment RBC Morphology Polychromasia Hypochromasia Basophilic Stippling Anisocytosis Microcytosis Macrocytosis Spherocytes Sickle Cells Target Cells Tear Drop Cells Ovalocytes Stomatocytes [place] Bodies Olga Lidia Cells Bite Cells Crenated Cell Acanthocytes (Spur) Rouleaux Schistocytes Sodium Potassium Chloride Carbon Dioxide Anion Gap BUN Creatinine Estim Creat Clear Calc Est GFR (MDRD) Non-Af BUN/Creatinine Ratio Glucose Calcium Magnesium Troponin T High Sens Troponin T Hi Sens 2 Hr NT pro BNP II TSH Free T4 Free T3 pg/dL 04/04/25 04/04/25 04/04/25 18:02 18:02 18:02 WBC Corrected WBC RBC Hgb Hct MCV MCH MCHC RDW Std Deviation RDW Coeff of Lexus Plt Count MPV Immature Gran % (Auto) 0.200 Neut % (Auto) Cancelled 56.0 Lymph % (Auto) Cancelled 33.3 White % (Auto) Cancelled Eos % (Auto) Baso % (Auto) Absolute Neuts (auto) Absolute Lymphs (auto) Total Counted Neutrophils % (Manual) Band Neutrophils % Lymphocytes % (Manual) Monocytes % (Manual) Eosinophils % (Manual) Basophils % (Manual) Metamyelocytes % Myelocytes % Promyelocytes % Blast Cells % Plasma Cell % (Manual) Other Cells % Nucleated RBC % Nucleated RBCs/100 WBC Differential Comment Diff Path Review Hypersegmented Neuts Atypical Lymphocytes Reactive Lymphocytes Smudge Cells Toxic Granulation Toxic Vacuolation Dohle Bodies Corine Rods Platelet Estimate Plt Morphology Comment RBC Morphology Polychromasia Hypochromasia Basophilic Stippling Anisocytosis Microcytosis Macrocytosis Spherocytes Sickle Cells Target Cells Tear Drop Cells Ovalocytes Stomatocytes [place] Bodies Olga Lidia Cells Bite Cells Crenated Cell Acanthocytes (Spur) Rouleaux Schistocytes Sodium Potassium Chloride Carbon Dioxide Anion Gap BUN Creatinine Estim Creat Clear Calc Est GFR (MDRD) Non-Af BUN/Creatinine Ratio Glucose Calcium Magnesium Troponin T High Sens Troponin T Hi Sens 2 Hr NT pro BNP II TSH Free T4 Free T3 pg/dL 04/04/25 04/04/25 04/04/25 18:02 18:02 18:02 WBC Corrected WBC RBC Hgb Hct MCV MCH MCHC RDW Std Deviation RDW Coeff of Lexus Plt Count MPV Immature Gran % (Auto) Neut % (Auto) Lymph % (Auto) White % (Auto) 8.0 Eos % (Auto) Cancelled 2.0 Baso % (Auto) Cancelled 0.5 Absolute Neuts (auto) Cancelled Absolute Lymphs (auto) Total Counted Neutrophils % (Manual) Band Neutrophils % Lymphocytes % (Manual) Monocytes % (Manual) Eosinophils % (Manual) Basophils % (Manual) Metamyelocytes % Myelocytes % Promyelocytes % Blast Cells % Plasma Cell % (Manual) Other Cells % Nucleated RBC % Nucleated RBCs/100 WBC Differential Comment Diff Path Review Hypersegmented Neuts Atypical Lymphocytes Reactive Lymphocytes Smudge Cells Toxic Granulation Toxic Vacuolation Dohle Bodies Corine Rods Platelet Estimate Plt Morphology Comment RBC Morphology Polychromasia Hypochromasia Basophilic Stippling Anisocytosis Microcytosis Macrocytosis Spherocytes Sickle Cells Target Cells Tear Drop Cells Ovalocytes Stomatocytes [place] Bodies [place] Cells Bite Cells Crenated Cell Acanthocytes (Spur) Rouleaux Schistocytes Sodium Potassium Chloride Carbon Dioxide Anion Gap BUN Creatinine Estim Creat Clear Calc Est GFR (MDRD) Non-Af BUN/Creatinine Ratio Glucose Calcium Magnesium Troponin T High Sens Troponin T Hi Sens 2 Hr NT pro BNP II TSH Free T4 Free T3 pg/dL 04/04/25 04/04/25 04/04/25 18:02 18:02 18:02 WBC Corrected WBC RBC Hgb Hct MCV MCH MCHC RDW Std Deviation RDW Coeff of Lexus Plt Count MPV Immature Gran % (Auto) Neut % (Auto) Lymph % (Auto) White % (Auto) Eos % (Auto) Baso % (Auto) Absolute Neuts (auto) 3.1 Absolute Lymphs (auto) Cancelled 1.87 Total Counted Cancelled Neutrophils % (Manual) Cancelled Band Neutrophils % Cancelled Lymphocytes % (Manual) Cancelled Monocytes % (Manual) Cancelled Eosinophils % (Manual) Cancelled Basophils % (Manual) Cancelled Metamyelocytes % Cancelled Myelocytes % Cancelled Promyelocytes % Cancelled Blast Cells % Cancelled Plasma Cell % (Manual) Cancelled Other Cells % Cancelled Nucleated RBC % Cancelled 0 Nucleated RBCs/100 WBC Cancelled Differential Comment Cancelled Diff Path Review Cancelled Hypersegmented Neuts Cancelled Atypical Lymphocytes Cancelled Reactive Lymphocytes Cancelled Smudge Cells Cancelled Toxic Granulation Cancelled Toxic Vacuolation Cancelled Dohle Bodies Cancelled Corine Rods Cancelled Platelet Estimate Cancelled Plt Morphology Comment Cancelled RBC Morphology Cancelled Polychromasia Hypochromasia Basophilic Stippling Anisocytosis Microcytosis Macrocytosis Spherocytes Sickle Cells Target Cells Tear Drop Cells Ovalocytes Stomatocytes [place] Bodies Olga Lidia Cells Bite Cells Crenated Cell Acanthocytes (Spur) Rouleaux Schistocytes Sodium Potassium Chloride Carbon Dioxide Anion Gap BUN Creatinine Estim Creat Clear Calc Est GFR (MDRD) Non-Af BUN/Creatinine Ratio Glucose Calcium Magnesium Troponin T High Sens Troponin T Hi Sens 2 Hr NT pro BNP II TSH Free T4 Free T3 pg/dL 04/04/25 04/04/25 04/04/25 18:02 18:02 18:02 WBC Corrected WBC RBC Hgb Hct MCV MCH MCHC RDW Std Deviation RDW Coeff of Lexus Plt Count MPV Immature Gran % (Auto) Neut % (Auto) Lymph % (Auto) White % (Auto) Eos % (Auto) Baso % (Auto) Absolute Neuts (auto) Absolute Lymphs (auto) Total Counted Neutrophils % (Manual) Band Neutrophils % Lymphocytes % (Manual) Monocytes % (Manual) Eosinophils % (Manual) Basophils % (Manual) Metamyelocytes % Myelocytes % Promyelocytes % Blast Cells % Plasma Cell % (Manual) Other Cells % Nucleated RBC % Nucleated RBCs/100 WBC Differential Comment Diff Path Review Hypersegmented Neuts Atypical Lymphocytes Reactive Lymphocytes Smudge Cells Toxic Granulation Toxic Vacuolation Dohle Bodies Corine Rods Platelet Estimate Plt Morphology Comment RBC Morphology Cancelled Polychromasia Cancelled Hypochromasia Cancelled Basophilic Stippling Cancelled Anisocytosis Cancelled Microcytosis Cancelled Macrocytosis Cancelled Spherocytes Cancelled Sickle Cells Cancelled Target Cells Cancelled Tear Drop Cells Cancelled Ovalocytes Cancelled Stomatocytes Cancelled [place] Bodies Cancelled Olga Lidia Cells Cancelled Bite Cells Cancelled Crenated Cell Cancelled Acanthocytes (Spur) Cancelled Rouleaux Cancelled Schistocytes Cancelled Sodium Cancelled 139 Potassium Cancelled 3.7 Chloride Cancelled Carbon Dioxide Anion Gap BUN Creatinine Estim Creat Clear Calc Est GFR (MDRD) Non-Af BUN/Creatinine Ratio Glucose Calcium Magnesium Troponin T High Sens Troponin T Hi Sens 2 Hr NT pro BNP II TSH Free T4 Free T3 pg/dL 04/04/25 04/04/25 04/04/25 18:02 18:02 18:02 WBC Corrected WBC RBC Hgb Hct MCV MCH MCHC RDW Std Deviation RDW Coeff of Lexus Plt Count MPV Immature Gran % (Auto) Neut % (Auto) Lymph % (Auto) White % (Auto) Eos % (Auto) Baso % (Auto) Absolute Neuts (auto) Absolute Lymphs (auto) Total Counted Neutrophils % (Manual) Band Neutrophils % Lymphocytes % (Manual) Monocytes % (Manual) Eosinophils % (Manual) Basophils % (Manual) Metamyelocytes % Myelocytes % Promyelocytes % Blast Cells % Plasma Cell % (Manual) Other Cells % Nucleated RBC % Nucleated RBCs/100 WBC Differential Comment Diff Path Review Hypersegmented Neuts Atypical Lymphocytes Reactive Lymphocytes Smudge Cells Toxic Granulation Toxic Vacuolation Dohle Bodies Corine Rods Platelet Estimate Plt Morphology Comment RBC Morphology Polychromasia Hypochromasia Basophilic Stippling Anisocytosis Microcytosis Macrocytosis Spherocytes Sickle Cells Target Cells Tear Drop Cells Ovalocytes Stomatocytes [place] Bodies [place] Cells Bite Cells Crenated Cell Acanthocytes (Spur) Rouleaux Schistocytes Sodium Potassium Chloride 103 Carbon Dioxide Cancelled 23.5 Anion Gap Cancelled 13 BUN Cancelled Creatinine Estim Creat Clear Calc Est GFR (MDRD) Non-Af BUN/Creatinine Ratio Glucose Calcium Magnesium Troponin T High Sens Troponin T Hi Sens 2 Hr NT pro BNP II TSH Free T4 Free T3 pg/dL 04/04/25 04/04/25 04/04/25 18:02 18:02 18:02 WBC Corrected WBC RBC Hgb Hct MCV MCH MCHC RDW Std Deviation RDW Coeff of Lexus Plt Count MPV Immature Gran % (Auto) Neut % (Auto) Lymph % (Auto) White % (Auto) Eos % (Auto) Baso % (Auto) Absolute Neuts (auto) Absolute Lymphs (auto) Total Counted Neutrophils % (Manual) Band Neutrophils % Lymphocytes % (Manual) Monocytes % (Manual) Eosinophils % (Manual) Basophils % (Manual) Metamyelocytes % Myelocytes % Promyelocytes % Blast Cells % Plasma Cell % (Manual) Other Cells % Nucleated RBC % Nucleated RBCs/100 WBC Differential Comment Diff Path Review Hypersegmented Neuts Atypical Lymphocytes Reactive Lymphocytes Smudge Cells Toxic Granulation Toxic Vacuolation Dohle Bodies Corine Rods Platelet Estimate Plt Morphology Comment RBC Morphology Polychromasia Hypochromasia Basophilic Stippling Anisocytosis Microcytosis Macrocytosis Spherocytes Sickle Cells Target Cells Tear Drop Cells Ovalocytes Stomatocytes [place] Bodies Olga Lidia Cells Bite Cells Crenated Cell Acanthocytes (Spur) Rouleaux Schistocytes Sodium Potassium Chloride Carbon Dioxide Anion Gap BUN 16 Creatinine Cancelled 0.82 Estim Creat Clear Calc 64.67 Est GFR (MDRD) Non-Af Cancelled 77 BUN/Creatinine Ratio Cancelled Glucose Calcium Magnesium Troponin T High Sens Troponin T Hi Sens 2 Hr NT pro BNP II TSH Free T4 Free T3 pg/dL 04/04/25 04/04/25 04/04/25 18:02 18:02 18:02 WBC Corrected WBC RBC Hgb Hct MCV MCH MCHC RDW Std Deviation RDW Coeff of Lexus Plt Count MPV Immature Gran % (Auto) Neut % (Auto) Lymph % (Auto) White % (Auto) Eos % (Auto) Baso % (Auto) Absolute Neuts (auto) Absolute Lymphs (auto) Total Counted Neutrophils % (Manual) Band Neutrophils % Lymphocytes % (Manual) Monocytes % (Manual) Eosinophils % (Manual) Basophils % (Manual) Metamyelocytes % Myelocytes % Promyelocytes % Blast Cells % Plasma Cell % (Manual) Other Cells % Nucleated RBC % Nucleated RBCs/100 WBC Differential Comment Diff Path Review Hypersegmented Neuts Atypical Lymphocytes Reactive Lymphocytes Smudge Cells Toxic Granulation Toxic Vacuolation Dohle Bodies Corine Rods Platelet Estimate Plt Morphology Comment RBC Morphology Polychromasia Hypochromasia Basophilic Stippling Anisocytosis Microcytosis Macrocytosis Spherocytes Sickle Cells Target Cells Tear Drop Cells Ovalocytes Stomatocytes [place] Bodies Olga Lidia Cells Bite Cells Crenated Cell Acanthocytes (Spur) Rouleaux Schistocytes Sodium Potassium Chloride Carbon Dioxide Anion Gap BUN Creatinine Estim Creat Clear Calc Est GFR (MDRD) Non-Af BUN/Creatinine Ratio 19.3 Glucose Cancelled 136 H Calcium Cancelled 9.9 Magnesium 1.9 Troponin T High Sens Cancelled Troponin T Hi Sens 2 Hr NT pro BNP II TSH Free T4 Free T3 pg/dL 04/04/25 04/04/25 18:02 20:00 WBC Corrected WBC RBC Hgb Hct MCV MCH MCHC RDW Std Deviation RDW Coeff of Lexus Plt Count MPV Immature Gran % (Auto) Neut % (Auto) Lymph % (Auto) White % (Auto) Eos % (Auto) Baso % (Auto) Absolute Neuts (auto) Absolute Lymphs (auto) Total Counted Neutrophils % (Manual) Band Neutrophils % Lymphocytes % (Manual) Monocytes % (Manual) Eosinophils % (Manual) Basophils % (Manual) Metamyelocytes % Myelocytes % Promyelocytes % Blast Cells % Plasma Cell % (Manual) Other Cells % Nucleated RBC % Nucleated RBCs/100 WBC Differential Comment Diff Path Review Hypersegmented Neuts Atypical Lymphocytes Reactive Lymphocytes Smudge Cells Toxic Granulation Toxic Vacuolation Dohle Bodies Corine Rods Platelet Estimate Plt Morphology Comment RBC Morphology Polychromasia Hypochromasia Basophilic Stippling Anisocytosis Microcytosis Macrocytosis Spherocytes Sickle Cells Target Cells Tear Drop Cells Ovalocytes Stomatocytes [place] Bodies [place] Cells Bite Cells Crenated Cell Acanthocytes (Spur) Rouleaux Schistocytes Sodium Potassium Chloride Carbon Dioxide Anion Gap BUN Creatinine Estim Creat Clear Calc Est GFR (MDRD) Non-Af BUN/Creatinine Ratio Glucose Calcium Magnesium Troponin T High Sens 9 Troponin T Hi Sens 2 Hr 10 NT pro BNP II 349 TSH 2.650 Free T4 1.40 Free T3 pg/dL 3.7 Radiography Diagnostic Testing: Clinical Impression(s) from Imaging Studies Chest CTA 04/04/25 18:10 IMPRESSION: Negative study Reading Location: [facility] Discharge Plan Triage Chief Complaint: Chest Pain ED Provider: Miles Boswell Dx/Rx/DC Orders Clinical Impression: Chest pain, Shortness of breath, Fatigue, Abnormal stress test Prescriptions: No Action NK Primary Care Provider: Ga Campbell Referrals: Ga Campbell PA [Primary Care Provider] - Print Language: Maldivian Disposition Disposition: Acute Care Hospital [facility] What to do if you have Problems For any increased pain, shortness of breath, bleeding, nausea or vomiting, chestpain, or any unexpected problems, contact your Primary Care Provider. Call [facility] ([phone]) or report tothe closest Emergency Room. Call 911 if necessary. 04/04/252133 Cosigner Signature (if applicable): CC: TARIQ Medina ~ Signed [facility]07-10-2025 Radiology Diagnostic study note [facility] Imaging Services [address] [place], [place] [id number] CTA Chest W/WO Contrast MR#: [id number] Acct: [id number] Name: VIOLETA ELIZABETH Rep #: [id number] : 1955 F 69 From: Shilpa Kumar MD PCP: TARIQ Medina Status: REG E R Study:CTA Chest W/WO Contrast Date of Exam: 04/04/25 Exam# [id number] Ordering Dr: Ochoa Boswell DO PROCEDURE: CTA CHEST W/WO CONTRAST 04/04/2025 REASON FOR EXAM: SOB, CHEST PAIN TECHNIQUE: CTA CHEST W/WO CONTRAST Multiplanar Sagittal and Coronal images were obtained. CONTRAST: Isovue 370 VOLUME: 100 mL One or more dose reduction techniques were used (e.g., Automated exposure control, adjustment of the mA and/or kV according to patient size, use of iterative reconstruction technique). RADIATION DOSE SUMMARY: CTDlvol: 17 mGy DLP: 207.40 mGycm FINDINGS: Again, scanning has been performed from inferior to superior which is suboptimal. The thoracic aorta exhibits normal caliber without dissection. Mild coronary artery calcification is seen. Examination of the pulmonary arterial tree demonstrates no filling defects to suggest pulmonary embolism. Imaged portions of the upper abdomen are unremarkable. There is no pericardial fluid or mediastinalmass. Although lung windows were not supplied, there is no consolidation, edema or effusion. CT/CTA Chest W/WO Contrast IMPRESSION: Negative study Reading Location: [facility] CC: Dr. Miles Boswell DO; TARIQ Medina ~ Hose Cementer: Signed [facility]07-10-2025 Discharge summary Author Miles Boswell [facility] Note Date/Time April 04, 2025 9:34 pm [facility] Medical Records Department [address] [place] [id number] Emergency Department Summary 04/04/25 MR#: [id number] Acct: [id number] Name: VIOLETA ELIZABETH Rep #:[id number] : 1955 69 From: Miles Boswell DO PCP: TARIQ Medina Status:REG E R Location: ED HPI History of Present Illness Chief Complaint: Chest Pain Narrative Narrative: Patient is a 69-year-old female who presents to the emergency department the chief complaint of chest pain, shortness of breath. Patient states that she March 19, 2025 had a stress test obtained in the outpatient setting and was abnormal she was told. She states that she is having worsening fatigue and shortness of breath with exertion and states that she called warehouse insulation worker Dr. Obrien office and they advised her to come here given her abnormal stress test. She states that she is to have an appointment with him in April but they did not feel that this could wait any longer and sent her to the emergency department. Patient denies any travel history denies any history of blood clots. States that she has been getting chest pain that will radiate to her left arm aswell and gets better with rest. [facility] Medical History Ruptured ovarian cyst Home Medications ?Medication ?Instructions ?Recorded ?Last Taken ?Type NK 04/04/25 Unknown History Allergy/AdvReac Type Severity Reaction Status Date / Time No Known Allergies Allergy Verified 04/04/25 17:46 Surgical History H/O elbow surgery Social History Smoking Status: Former smoker ROS ROS ED ROS Narrative Constitutional: Denies any fevers, chills, headaches Cardiovascular: Complains of chest pain as noted above as well as palpitations Respiratory: Complains of shortness of breath denies coughing Abdomen: Denies abdominal pain nausea vomit diarrhea : Denies urinary symptoms Neurological: Denies any numbness, wheeze, tingling Musculoskeletal: Denies back pain Skin: Denies any rashes or lesions EXAM Physical Exam Narrative Exam Narrative: General: Patient was lying in bed rest comfortably did not appear to be in acutedistress Head: Atraumatic, normocephalic Eyes: PERRL bilaterally, EOMI blood, no conjunctival injection noted Neck: Soft, supple, trachea midline Cardiovascular: Patient is bradycardic with a regular rhythm Respiratory: Clear to auscultation bilaterally Abdomen: No tenderness palpation Extremities: Radial pulses +2/4 in the bilateral extremities, +5/5 strength noted in the bilateral upper and lower extremities Neurological: Patient following commands knew that she was at [facility] year is 2024 Skin: Warm, dry, intact no rashes or lesions noted Const Vital Signs: 04/04/25 17:44 04/04/25 17:56 04/04/25 17:57 Temperature 96.6 F L Temperature Source Oral Pulse Rate 61 Respiratory Rate 18 Respiratory Effort Blood Pressure 157/78 H Blood Pressure Mean 104 Pulse Ox 99 100 97 Oxygen Delivery Method Room Air Room Air Room Air 04/04/25 17:59 04/04/25 18:44 04/04/25 19:00 Temperature Temperature Source Pulse Rate 52 L 56 L Respiratory Rate 23 H 11 L Respiratory Effort Normal Blood Pressure 155/80 H 161/82 H Blood Pressure Mean 105 108 Pulse Ox 100 100 Oxygen Delivery Method Room Air Room Air 04/04/25 20:00 04/04/25 20:58 04/04/25 20:59 Temperature 96.6 F L Temperature Source Pulse Rate 57 L 56 L Respiratory Rate 16 16 Respiratory Effort Blood Pressure 147/82 H 144/79 H 144/79 H Blood Pressure Mean 103 100 100 Pulse Ox 97 96 Oxygen Delivery Method Room Air MDM MDM MDM Narrative Medical decision making narrative: patient is a 69-year-old female who presents to the emergency department chief complaint of worsening chest pain on exertion, fatigue and shortness of breath with worsening fatigue. On the differential diagnose includes but not limited to ACS, dissection, PE. Once workup is obtained reviewed she will be reevaluated. Patient CBC reviewed showed no evidence leukocytosis white blood count 5.6, hemoglobin 14, plate count 178. Patient sodium normal 139, Tessman normal 3.7, creatinine normal 0.82. Patient's troponin was 9 delta troponin of 10. PatientproBNP normal at 349, TSH normal at 2.65, free T4 and T3 were 1.40 and 3.7 respectively. Patient EKG reviewed showed sinus rhythm with a rate of 62 bpm. Patient CTA of the chest reviewed and showed no acute processes. Called and discussed case with on-call warehouse insulation worker Dr. Medina who is recommending admission for heart catheterization as she had an abnormal outpatient stress test with her symptoms. Will discuss case with hospitalist for admission. Patient given 325 mg aspirin Patient's case discussed with hospitalist Dr. Conti who accept patient for admission. Lab Data Labs: Laboratory Results - last 24 hr 04/04/25 04/04/25 04/04/25 18:02 18:02 18:02 WBC Cancelled 5.6 Corrected WBC Cancelled RBC Cancelled 4.25 Hgb Cancelled Hct MCV MCH MCHC RDW Std Deviation RDW Coeff of Lexus Plt Count MPV Immature Gran % (Auto) Neut % (Auto) Lymph % (Auto) White % (Auto) Eos % (Auto) Baso % (Auto) Absolute Neuts (auto) Absolute Lymphs (auto) Total Counted Neutrophils % (Manual) Band Neutrophils % Lymphocytes % (Manual) Monocytes % (Manual) Eosinophils % (Manual) Basophils % (Manual) Metamyelocytes % Myelocytes % Promyelocytes % Blast Cells % Plasma Cell % (Manual) Other Cells % Nucleated RBC % Nucleated RBCs/100 WBC Differential Comment Diff Path Review Hypersegmented Neuts Atypical Lymphocytes Reactive Lymphocytes Smudge Cells Toxic Granulation Toxic Vacuolation Dohle Bodies Corine Rods Platelet Estimate Plt Morphology Comment RBC Morphology Polychromasia Hypochromasia Basophilic Stippling Anisocytosis Microcytosis Macrocytosis Spherocytes Sickle Cells Target Cells Tear Drop Cells Ovalocytes Stomatocytes [place] Bodies [place] Cells Bite Cells Crenated Cell Acanthocytes (Spur) Rouleaux Schistocytes Sodium Potassium Chloride Carbon Dioxide Anion Gap BUN Creatinine Estim Creat Clear Calc Est GFR (MDRD) Non-Af BUN/Creatinine Ratio Glucose Calcium Magnesium Troponin T High Sens Troponin T Hi Sens 2 Hr NT pro BNP II TSH Free T4 Free T3 pg/dL 04/04/25 04/04/25 04/04/25 18:02 18:02 18:02 WBC Corrected WBC RBC Hgb 14.0 Hct Cancelled 40.5 MCV Cancelled 95.3 MCH Cancelled MCHC RDW Std Deviation RDW Coeff of Lexus Plt Count MPV Immature Gran % (Auto) Neut % (Auto) Lymph % (Auto) White % (Auto) Eos % (Auto) Baso % (Auto) Absolute Neuts (auto) Absolute Lymphs (auto) Total Counted Neutrophils % (Manual) Band Neutrophils % Lymphocytes % (Manual) Monocytes % (Manual) Eosinophils % (Manual) Basophils % (Manual) Metamyelocytes % Myelocytes % Promyelocytes % Blast Cells % Plasma Cell % (Manual) Other Cells % Nucleated RBC % Nucleated RBCs/100 WBC Differential Comment Diff Path Review Hypersegmented Neuts Atypical Lymphocytes Reactive Lymphocytes Smudge Cells Toxic Granulation Toxic Vacuolation Dohle Bodies Corine Rods Platelet Estimate Plt Morphology Comment RBC Morphology Polychromasia Hypochromasia Basophilic Stippling Anisocytosis Microcytosis Macrocytosis Spherocytes Sickle Cells Target Cells Tear Drop Cells Ovalocytes Stomatocytes [place] Bodies Olga Lidia Cells Bite Cells Crenated Cell Acanthocytes (Spur) Rouleaux Schistocytes Sodium Potassium Chloride Carbon Dioxide Anion Gap BUN Creatinine Estim Creat Clear Calc Est GFR (MDRD) Non-Af BUN/Creatinine Ratio Glucose Calcium Magnesium Troponin T High Sens Troponin T Hi Sens 2 Hr NT pro BNP II TSH Free T4 Free T3 pg/dL 04/04/25 04/04/25 04/04/25 18:02 18:02 18:02 WBC Corrected WBC RBC Hgb Hct MCV MCH 32.9 H MCHC Cancelled 34.6 RDW Std Deviation Cancelled 45.3 H RDW Coeff of Lexus Cancelled Plt Count MPV Immature Gran % (Auto) Neut % (Auto) Lymph % (Auto) White % (Auto) Eos % (Auto) Baso % (Auto) Absolute Neuts (auto) Absolute Lymphs (auto) Total Counted Neutrophils % (Manual) Band Neutrophils % Lymphocytes % (Manual) Monocytes % (Manual) Eosinophils % (Manual) Basophils % (Manual) Metamyelocytes % Myelocytes % Promyelocytes % Blast Cells % Plasma Cell % (Manual) Other Cells % Nucleated RBC % Nucleated RBCs/100 WBC Differential Comment Diff Path Review Hypersegmented Neuts Atypical Lymphocytes Reactive Lymphocytes Smudge Cells Toxic Granulation Toxic Vacuolation Dohle Bodies Corine Rods Platelet Estimate Plt Morphology Comment RBC Morphology Polychromasia Hypochromasia Basophilic Stippling Anisocytosis Microcytosis Macrocytosis Spherocytes Sickle Cells Target Cells Tear Drop Cells Ovalocytes Stomatocytes [place] Bodies Olga Lidia Cells Bite Cells Crenated Cell Acanthocytes (Spur) Rouleaux Schistocytes Sodium Potassium Chloride Carbon Dioxide Anion Gap BUN Creatinine Estim Creat Clear Calc Est GFR (MDRD) Non-Af BUN/Creatinine Ratio Glucose Calcium Magnesium Troponin T High Sens Troponin T Hi Sens 2 Hr NT pro BNP II TSH Free T4 Free T3 pg/dL 04/04/25 04/04/25 04/04/25 18:02 18:02 18:02 WBC Corrected WBC RBC Hgb Hct MCV MCH MCHC RDW Std Deviation RDW Coeff of Lexus 12.9 Plt Count Cancelled 178 MPV Cancelled 10.7 Immature Gran % (Auto) Cancelled Neut % (Auto) Lymph % (Auto) White % (Auto) Eos % (Auto) Baso % (Auto) Absolute Neuts (auto) Absolute Lymphs (auto) Total Counted Neutrophils % (Manual) Band Neutrophils % Lymphocytes % (Manual) Monocytes % (Manual) Eosinophils % (Manual) Basophils % (Manual) Metamyelocytes % Myelocytes % Promyelocytes % Blast Cells % Plasma Cell % (Manual) Other Cells % Nucleated RBC % Nucleated RBCs/100 WBC Differential Comment Diff Path Review Hypersegmented Neuts Atypical Lymphocytes Reactive Lymphocytes Smudge Cells Toxic Granulation Toxic Vacuolation Dohle Bodies Corine Rods Platelet Estimate Plt Morphology Comment RBC Morphology Polychromasia Hypochromasia Basophilic Stippling Anisocytosis Microcytosis Macrocytosis Spherocytes Sickle Cells Target Cells Tear Drop Cells Ovalocytes Stomatocytes [place] Bodies [place] Cells Bite Cells Crenated Cell Acanthocytes (Spur) Rouleaux Schistocytes Sodium Potassium Chloride Carbon Dioxide Anion Gap BUN Creatinine Estim Creat Clear Calc Est GFR (MDRD) Non-Af BUN/Creatinine Ratio Glucose Calcium Magnesium Troponin T High Sens Troponin T Hi Sens 2 Hr NT pro BNP II TSH Free T4 Free T3 pg/dL 04/04/25 04/04/25 04/04/25 18:02 18:02 18:02 WBC Corrected WBC RBC Hgb Hct MCV MCH MCHC RDW Std Deviation RDW Coeff of Lexus Plt Count MPV Immature Gran % (Auto) 0.200 Neut % (Auto) Cancelled 56.0 Lymph % (Auto) Cancelled 33.3 White % (Auto) Cancelled Eos % (Auto) Baso % (Auto) Absolute Neuts (auto) Absolute Lymphs (auto) Total Counted Neutrophils % (Manual) Band Neutrophils % Lymphocytes % (Manual) Monocytes % (Manual) Eosinophils % (Manual) Basophils % (Manual) Metamyelocytes % Myelocytes % Promyelocytes % Blast Cells % Plasma Cell % (Manual) Other Cells % Nucleated RBC % Nucleated RBCs/100 WBC Differential Comment Diff Path Review Hypersegmented Neuts Atypical Lymphocytes Reactive Lymphocytes Smudge Cells Toxic Granulation Toxic Vacuolation Dohle Bodies Corine Rods Platelet Estimate Plt Morphology Comment RBC Morphology Polychromasia Hypochromasia Basophilic Stippling Anisocytosis Microcytosis Macrocytosis Spherocytes Sickle Cells Target Cells Tear Drop Cells Ovalocytes Stomatocytes [place] Bodies Olga Lidia Cells Bite Cells Crenated Cell Acanthocytes (Spur) Rouleaux Schistocytes Sodium Potassium Chloride Carbon Dioxide Anion Gap BUN Creatinine Estim Creat Clear Calc Est GFR (MDRD) Non-Af BUN/Creatinine Ratio Glucose Calcium Magnesium Troponin T High Sens Troponin T Hi Sens 2 Hr NT pro BNP II TSH Free T4 Free T3 pg/dL 04/04/25 04/04/25 04/04/25 18:02 18:02 18:02 WBC Corrected WBC RBC Hgb Hct MCV MCH MCHC RDW Std Deviation RDW Coeff of Lexus Plt Count MPV Immature Gran % (Auto) Neut % (Auto) Lymph % (Auto) White % (Auto) 8.0 Eos % (Auto) Cancelled 2.0 Baso % (Auto) Cancelled 0.5 Absolute Neuts (auto) Cancelled Absolute Lymphs (auto) Total Counted Neutrophils % (Manual) Band Neutrophils % Lymphocytes % (Manual) Monocytes % (Manual) Eosinophils % (Manual) Basophils % (Manual) Metamyelocytes % Myelocytes % Promyelocytes % Blast Cells % Plasma Cell % (Manual) Other Cells % Nucleated RBC % Nucleated RBCs/100 WBC Differential Comment Diff Path Review Hypersegmented Neuts Atypical Lymphocytes Reactive Lymphocytes Smudge Cells Toxic Granulation Toxic Vacuolation Dohle Bodies Corine Rods Platelet Estimate Plt Morphology Comment RBC Morphology Polychromasia Hypochromasia Basophilic Stippling Anisocytosis Microcytosis Macrocytosis Spherocytes Sickle Cells Target Cells Tear Drop Cells Ovalocytes Stomatocytes [place] Bodies [place] Cells Bite Cells Crenated Cell Acanthocytes (Spur) Rouleaux Schistocytes Sodium Potassium Chloride Carbon Dioxide Anion Gap BUN Creatinine Estim Creat Clear Calc Est GFR (MDRD) Non-Af BUN/Creatinine Ratio Glucose Calcium Magnesium Troponin T High Sens Troponin T Hi Sens 2 Hr NT pro BNP II TSH Free T4 Free T3 pg/dL 04/04/25 04/04/25 04/04/25 18:02 18:02 18:02 WBC Corrected WBC RBC Hgb Hct MCV MCH MCHC RDW Std Deviation RDW Coeff of Lexus Plt Count MPV Immature Gran % (Auto) Neut % (Auto) Lymph % (Auto) White % (Auto) Eos % (Auto) Baso % (Auto) Absolute Neuts (auto) 3.1 Absolute Lymphs (auto) Cancelled 1.87 Total Counted Cancelled Neutrophils % (Manual) Cancelled Band Neutrophils % Cancelled Lymphocytes % (Manual) Cancelled Monocytes % (Manual) Cancelled Eosinophils % (Manual) Cancelled Basophils % (Manual) Cancelled Metamyelocytes % Cancelled Myelocytes % Cancelled Promyelocytes % Cancelled Blast Cells % Cancelled Plasma Cell % (Manual) Cancelled Other Cells % Cancelled Nucleated RBC % Cancelled 0 Nucleated RBCs/100 WBC Cancelled Differential Comment Cancelled Diff Path Review Cancelled Hypersegmented Neuts Cancelled Atypical Lymphocytes Cancelled Reactive Lymphocytes Cancelled Smudge Cells Cancelled Toxic Granulation Cancelled Toxic Vacuolation Cancelled Dohle Bodies Cancelled Corine Rods Cancelled Platelet Estimate Cancelled Plt Morphology Comment Cancelled RBC Morphology Cancelled Polychromasia Hypochromasia Basophilic Stippling Anisocytosis Microcytosis Macrocytosis Spherocytes Sickle Cells Target Cells Tear Drop Cells Ovalocytes Stomatocytes [place] Bodies Olga Lidia Cells Bite Cells Crenated Cell Acanthocytes (Spur) Rouleaux Schistocytes Sodium Potassium Chloride Carbon Dioxide Anion Gap BUN Creatinine Estim Creat Clear Calc Est GFR (MDRD) Non-Af BUN/Creatinine Ratio Glucose Calcium Magnesium Troponin T High Sens Troponin T Hi Sens 2 Hr NT pro BNP II TSH Free T4 Free T3 pg/dL 04/04/25 04/04/25 04/04/25 18:02 18:02 18:02 WBC Corrected WBC RBC Hgb Hct MCV MCH MCHC RDW Std Deviation RDW Coeff of Lexus Plt Count MPV Immature Gran % (Auto) Neut % (Auto) Lymph % (Auto) White % (Auto) Eos % (Auto) Baso % (Auto) Absolute Neuts (auto) Absolute Lymphs (auto) Total Counted Neutrophils % (Manual) Band Neutrophils % Lymphocytes % (Manual) Monocytes % (Manual) Eosinophils % (Manual) Basophils % (Manual) Metamyelocytes % Myelocytes % Promyelocytes % Blast Cells % Plasma Cell % (Manual) Other Cells % Nucleated RBC % Nucleated RBCs/100 WBC Differential Comment Diff Path Review Hypersegmented Neuts Atypical Lymphocytes Reactive Lymphocytes Smudge Cells Toxic Granulation Toxic Vacuolation Dohle Bodies Corine Rods Platelet Estimate Plt Morphology Comment RBC Morphology Cancelled Polychromasia Cancelled Hypochromasia Cancelled Basophilic Stippling Cancelled Anisocytosis Cancelled Microcytosis Cancelled Macrocytosis Cancelled Spherocytes Cancelled Sickle Cells Cancelled Target Cells Cancelled Tear Drop Cells Cancelled Ovalocytes Cancelled Stomatocytes Cancelled [place] Bodies Cancelled [place] Cells Cancelled Bite Cells Cancelled Crenated Cell Cancelled Acanthocytes (Spur) Cancelled Rouleaux Cancelled Schistocytes Cancelled Sodium Cancelled 139 Potassium Cancelled 3.7 Chloride Cancelled Carbon Dioxide Anion Gap BUN Creatinine Estim Creat Clear Calc Est GFR (MDRD) Non-Af BUN/Creatinine Ratio Glucose Calcium Magnesium Troponin T High Sens Troponin T Hi Sens 2 Hr NT pro BNP II TSH Free T4 Free T3 pg/dL 04/04/25 04/04/25 04/04/25 18:02 18:02 18:02 WBC Corrected WBC RBC Hgb Hct MCV MCH MCHC RDW Std Deviation RDW Coeff of Lexus Plt Count MPV Immature Gran % (Auto) Neut % (Auto) Lymph % (Auto) White % (Auto) Eos % (Auto) Baso % (Auto) Absolute Neuts (auto) Absolute Lymphs (auto) Total Counted Neutrophils % (Manual) Band Neutrophils % Lymphocytes % (Manual) Monocytes % (Manual) Eosinophils % (Manual) Basophils % (Manual) Metamyelocytes % Myelocytes % Promyelocytes % Blast Cells % Plasma Cell % (Manual) Other Cells % Nucleated RBC % Nucleated RBCs/100 WBC Differential Comment Diff Path Review Hypersegmented Neuts Atypical Lymphocytes Reactive Lymphocytes Smudge Cells Toxic Granulation Toxic Vacuolation Dohle Bodies Corine Rods Platelet Estimate Plt Morphology Comment RBC Morphology Polychromasia Hypochromasia Basophilic Stippling Anisocytosis Microcytosis Macrocytosis Spherocytes Sickle Cells Target Cells Tear Drop Cells Ovalocytes Stomatocytes [place] Bodies Olga Lidia Cells Bite Cells Crenated Cell Acanthocytes (Spur) Rouleaux Schistocytes Sodium Potassium Chloride 103 Carbon Dioxide Cancelled 23.5 Anion Gap Cancelled 13 BUN Cancelled Creatinine Estim Creat Clear Calc Est GFR (MDRD) Non-Af BUN/Creatinine Ratio Glucose Calcium Magnesium Troponin T High Sens Troponin T Hi Sens 2 Hr NT pro BNP II TSH Free T4 Free T3 pg/dL 04/04/25 04/04/25 04/04/25 18:02 18:02 18:02 WBC Corrected WBC RBC Hgb Hct MCV MCH MCHC RDW Std Deviation RDW Coeff of Lexus Plt Count MPV Immature Gran % (Auto) Neut % (Auto) Lymph % (Auto) White % (Auto) Eos % (Auto) Baso % (Auto) Absolute Neuts (auto) Absolute Lymphs (auto) Total Counted Neutrophils % (Manual) Band Neutrophils % Lymphocytes % (Manual) Monocytes % (Manual) Eosinophils % (Manual) Basophils % (Manual) Metamyelocytes % Myelocytes % Promyelocytes % Blast Cells % Plasma Cell % (Manual) Other Cells % Nucleated RBC % Nucleated RBCs/100 WBC Differential Comment Diff Path Review Hypersegmented Neuts Atypical Lymphocytes Reactive Lymphocytes Smudge Cells Toxic Granulation Toxic Vacuolation Dohle Bodies Corine Rods Platelet Estimate Plt Morphology Comment RBC Morphology Polychromasia Hypochromasia Basophilic Stippling Anisocytosis Microcytosis Macrocytosis Spherocytes Sickle Cells Target Cells Tear Drop Cells Ovalocytes Stomatocytes [place] Bodies Olga Lidia Cells Bite Cells Crenated Cell Acanthocytes (Spur) Rouleaux Schistocytes Sodium Potassium Chloride Carbon Dioxide Anion Gap BUN 16 Creatinine Cancelled 0.82 Estim Creat Clear Calc 64.67 Est GFR (MDRD) Non-Af Cancelled 77 BUN/Creatinine Ratio Cancelled Glucose Calcium Magnesium Troponin T High Sens Troponin T Hi Sens 2 Hr NT pro BNP II TSH Free T4 Free T3 pg/dL 04/04/25 04/04/25 04/04/25 18:02 18:02 18:02 WBC Corrected WBC RBC Hgb Hct MCV MCH MCHC RDW Std Deviation RDW Coeff of Lexus Plt Count MPV Immature Gran % (Auto) Neut % (Auto) Lymph % (Auto) White % (Auto) Eos % (Auto) Baso % (Auto) Absolute Neuts (auto) Absolute Lymphs (auto) Total Counted Neutrophils % (Manual) Band Neutrophils % Lymphocytes % (Manual) Monocytes % (Manual) Eosinophils % (Manual) Basophils % (Manual) Metamyelocytes % Myelocytes % Promyelocytes % Blast Cells % Plasma Cell % (Manual) Other Cells % Nucleated RBC % Nucleated RBCs/100 WBC Differential Comment Diff Path Review Hypersegmented Neuts Atypical Lymphocytes Reactive Lymphocytes Smudge Cells Toxic Granulation Toxic Vacuolation Dohle Bodies Corine Rods Platelet Estimate Plt Morphology Comment RBC Morphology Polychromasia Hypochromasia Basophilic Stippling Anisocytosis Microcytosis Macrocytosis Spherocytes Sickle Cells Target Cells Tear Drop Cells Ovalocytes Stomatocytes [place] Bodies [place] Cells Bite Cells Crenated Cell Acanthocytes (Spur) Rouleaux Schistocytes Sodium Potassium Chloride Carbon Dioxide Anion Gap BUN Creatinine Estim Creat Clear Calc Est GFR (MDRD) Non-Af BUN/Creatinine Ratio 19.3 Glucose Cancelled 136 H Calcium Cancelled 9.9 Magnesium 1.9 Troponin T High Sens Cancelled Troponin T Hi Sens 2 Hr NT pro BNP II TSH Free T4 Free T3 pg/dL 04/04/25 04/04/25 18:02 20:00 WBC Corrected WBC RBC Hgb Hct MCV MCH MCHC RDW Std Deviation RDW Coeff of Lexus Plt Count MPV Immature Gran % (Auto) Neut % (Auto) Lymph % (Auto) White % (Auto) Eos % (Auto) Baso % (Auto) Absolute Neuts (auto) Absolute Lymphs (auto) Total Counted Neutrophils % (Manual) Band Neutrophils % Lymphocytes % (Manual) Monocytes % (Manual) Eosinophils % (Manual) Basophils % (Manual) Metamyelocytes % Myelocytes % Promyelocytes % Blast Cells % Plasma Cell % (Manual) Other Cells % Nucleated RBC % Nucleated RBCs/100 WBC Differential Comment Diff Path Review Hypersegmented Neuts Atypical Lymphocytes Reactive Lymphocytes Smudge Cells Toxic Granulation Toxic Vacuolation Dohle Bodies Corine Rods Platelet Estimate Plt Morphology Comment RBC Morphology Polychromasia Hypochromasia Basophilic Stippling Anisocytosis Microcytosis Macrocytosis Spherocytes Sickle Cells Target Cells Tear Drop Cells Ovalocytes Stomatocytes [place] Bodies [place] Cells Bite Cells Crenated Cell Acanthocytes (Spur) Rouleaux Schistocytes Sodium Potassium Chloride Carbon Dioxide Anion Gap BUN Creatinine Estim Creat Clear Calc Est GFR (MDRD) Non-Af BUN/Creatinine Ratio Glucose Calcium Magnesium Troponin T High Sens 9 Troponin T Hi Sens 2 Hr 10 NT pro BNP II 349 TSH 2.650 Free T4 1.40 Free T3 pg/dL 3.7 Radiography Diagnostic Testing: Clinical Impression(s) from Imaging Studies Chest CTA 04/04/25 18:10 IMPRESSION: Negative study Reading Location: [facility] Discharge Plan Triage Chief Complaint: Chest Pain ED Provider: Miles Boswell Dx/Rx/DC Orders Clinical Impression: Chest pain, Shortness of breath, Fatigue, Abnormal stress test Prescriptions: No Action NK Primary Care Provider: Ga Campbell Referrals: Ga Campbell PA [Primary Care Provider] - Print Language: Maldivian Disposition Disposition: Acute Care Hospital [facility] What to do if you have Problems For any increased pain, shortness of breath, bleeding, nausea or vomiting, chestpain, or any unexpected problems, contact your Primary Care Provider. Call [facility] ([phone]) or report to the closest Emergency Room. Call 911 if necessary. 04/04/252133 <Electronically signed by Miles Boswell DO> Cosigner Signature (if applicable): CC: TARIQ Medina ~ Signed [facility] Work Phone: [phone] [phone] Hospital Discharge instructionsAdditional Instructions You underwent a workup for chest pain. You had a CAT scan of your chest did not show any pulmonary embolism or any pneumonia. Your heart catheterization showed normal coronaries so this is noncardiac. The source of your chest pain is noncardiac nor any other pulmonary issues. This may be more musculoskeletal.[facility] Work Phone: Evaluation noteNo assessment information available [facility] Work Phone: Evaluation note* Diagnosis Polyarthralgia- Primary Pain in joint, multiple sites Weakness generalized Other malaise and fatigue Elevated antinuclear antibody (BRIDGETTE) level Other and unspecified nonspecific immunological findings Elevated sed rate Elevated sedimentation rate Elevated C-reactive protein (CRP) Rash and nonspecific skin eruption Rash and other nonspecific skin eruption Shortness of breath [facility] of COVID[facility] Shortness of breath- Primary Rash and nonspecific skin eruption Rash and other nonspecific skin eruption History of COVID-19 Polyarthralgia Pain in joint, multiple sites Elevated antinuclear antibody (BRIDGETTE) level Other and unspecified nonspecific immunological findings Weakness generalized Other malaise and fatigue [facility] Shortness of breath- Primary Rash and nonspecific skin eruption Rash and other nonspecific skin eruption History of COVID-19 Polyarthralgia Pain in joint, multiple sites Elevated antinuclear antibody (BRIDGETTE) level Other and unspecified nonspecific immunological findings Weakness generalized Other malaise and fatigue [facility] Polyarthralgia- Primary Pain in joint, multiple sites Chronic low back pain, unspecified back pain laterality, unspecified whether sciatica present Chronic neck pain Cervicalgia Rash and nonspecific skin eruption Rash and other nonspecific skin eruption 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) Other specified disorders involving the immune mechanism Immunocompromised (HCC) Unspecified immunity deficiency Giant cell arteritis (HCC) Giant cell arteritis [facility] [place] [facility] Diagnosis Giant cell arteritis (HCC)- Primary Giant cell arteritis [employer] current use of systemic steroids Encounter for long-term (current) use of steroids Thrush Candidiasis of mouth Urinary tract infection without hematuria, site unspecified Scoliosis of thoracolumbar spine, unspecified scoliosis type Thrombocytopenia Thrombocytopenia, unspecified [facility] [place] [facility] Diagnosis Polyarthralgia Pain in joint, multiple sites Chronic low back pain, unspecified back pain laterality, unspecified whether sciatica present Chronic neck pain Cervicalgia [facility] [place] [facility]* Diagnosis Radiculopathy, cervical region- Primary Brachial neuritis or radiculitis nos Rash and nonspecific skin eruption Rash and other nonspecific skin eruption Shortness of breath History of COVID-19 Polyarthralgia Pain in joint, multiple sites Elevated antinuclear antibody (BRIDGETTE) level Other and unspecified nonspecific immunological findings Weakness generalized Other malaise and fatigue Other abnormalities of gait and mobility [facility] [place] [facility] Diagnosis Giant cell arteritis (HCC)- Primary Giant cell arteritis Polyarthralgia Pain in joint, multiple sites Elevated antinuclear antibody (BRIDGETTE) level Other and unspecified nonspecific immunological findings Elevated sed rate Elevated sedimentation rate Elevated C-reactive protein (CRP) Other chest pain [employer] (current) use of systemic steroids [facility] [place] [facility]* Diagnosis Polyarthralgia Pain in joint, multiple sites Weakness generalized Other malaise and fatigue Polymyalgia rheumatica (HCC) Polymyalgia rheumatica [facility] [place] [facility]* Diagnosis 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, unspecified [facility] [place] [facility]* Diagnosis USP current use of systemic steroids- Primary Encounter for long-term (current) use of steroids Epigastric pain Abdominal pain, epigastric Peptic ulcer disease Peptic ulcer, unspecified site, unspecified as acute or chronic, without mention of hemorrhage, perforation, or obstruction [facility] Diagnosis Giant cell arteritis (HCC) Giant cell arteritis [facility] (narrative)No reason for referral information availableWSelect Medical [facility] Work Phone: Reason for visit Narrative* Diagnostic Procedure Only (Routine) - Closed Specialty Diagnoses / Procedures Referred By Contac t Referred To Contact XR IMAGING Diagnoses Chronic neck pain Procedures XR CERVICAL 2V FLEX/EXT RADEX SPINE CERVICAL 2 OR 3 VIEWS Emelyn Michelle PA-C [address] [place] [address] Phone: tel: fax: [place] [address] Referral ID Status Reason Start Date Expiration Date V isits Requested Visits Authorized [id number] Closed Auto-Generate d Referral 04/29/2025 05/29/2026 1 1 [facility]* MRI/CT (Routine) - Closed Specialty Diagnoses / Procedures Referred By [place] t Referred To Contact CT IMAGING Diagnoses Giant cell arteritis (HCC) Procedures CTA CHEST (NONGATED) WO/W IVCON CT ANGIOGRAPHY CHEST W/CONTRAST/NONCONTRAST Silvia Ruiz DO [address] [place] [address] Phone: tel: fax: CT IMAGING [place] [facility] Referral ID Status Reason Start Date Expiration Date V isits Requested Visits Authorized [id number] Closed Auto-Generate d Referral 05/23/2025 06/22/2026 1 1 [facility] Summary Purpose Family History No Family History Records Found Brother 1 Status:Active Comments:[facility] Brother 2 Status:Active Comments:[facility]. Brother 3 Status:Active Comments:[facility]. Sister 1 Status:Active Comments:[facility]. Sister 2 Status:Active Comments: d. Brother 1 Status:Active Comments:[facility]. Brother 2 Status:Active Comments:[facility]. Brother 3 Status:Active Comments:[facility]. Sister 1 Status:Active Comments:[facility]. Sister 2 Status:Active Comments: d. Brother 1 Status:Active Comments:[facility]. Brother 2 Status:Active Comments:[facility]. Brother 3 Status:Active Comments:[facility]. Sister 1 Status:Active Comments:[facility]. Sister 2 Status:Active Comments: d. Brother 1 Status:Active Comments:[facility]. Brother 2 Status:Active Comments:[facility]. Brother 3 Status:Active Comments:[facility]. Sister 1 Status:Active Comments:[facility]. Sister 2 Status:Active Comments: d. Brother 1 Status:Active Comments:[facility]. Brother 2 Status:Active Comments:[facility]. Brother 3 Status:Active Comments:[facility]. Sister 1 Status:Active Comments:[facility]. Sister 2 Status:Active Comments: d. Brother 1 Status:Active Comments:[facility]. Brother 2 Status:Active Comments:[facility]. Brother 3 Status:Active Comments:[facility]. Sister 1 Status:Active Comments:[facility]. Sister 2 Status:Active Comments: d. Brother 1 Status:Active Comments:[facility]. Brother 2 Status:Active Comments:[facility]. Brother 3 Status:Active Comments:[facility]. Sister 1 Status:Active Comments:[facility]. Sister 2 Status:Active Comments: d. Brother 1 Status:Active Comments:[facility]. Brother 2 Status:Active Comments:[facility]. Brother 3 Status:Active Comments:[facility]. Sister 1 Status:Active Comments:[facility]. Sister 2 Status:Active Comments: d. Brother 1 Status:Active Comments:[facility]. Brother 2 Status:Active Comments:[facility]. Brother 3 Status:Active Comments:[facility]. Sister 1 Status:Active Comments:[facility]. Sister 2 Status:Active Comments: d. Brother 1 Status:Active Comments:[facility]. Brother 2 Status:Active Comments:[facility]. Brother 3 Status:Active Comments:[facility]. Sister 1 Status:Active Comments:[facility]. Sister 2 Status:Active Comments: d. Brother 1 Status:Active Comments:[facility]. Brother 2 Status:Active Comments:[facility]. Brother 3 Status:Active Comments:[facility]. Sister 1 Status:Active Comments:[facility]. Sister 2 Status:Active Comments: d. Brother 1 Status:Active Comments:[facility]. Brother 2 Status:Active Comments:[facility]. Brother 3 Status:Active Comments:[facility]. Sister 1 Status:Active Comments:[facility]. Sister 2 Status:Active Comments: d. Brother 1 Status:Active Comments:[facility]. Brother 2 Status:Active Comments:[facility]. Brother 3 Status:Active Comments:[facility]. Sister 1 Status:Active Comments:[facility]. Sister 2 Status:Active Comments: d. Brother 1 Status:Active Comments:[facility]. Brother 2 Status:Active Comments:[facility]. Brother 3 Status:Active Comments:[facility]. Sister 1 Status:Active Comments:[facility]. Sister 2 Status:Active Comments: d. Brother 1 Status:Active Comments:[facility]. Brother 2 Status:Active Comments:[facility]. Brother 3 Status:Active Comments:[facility]. Sister 1 Status:Active Comments:[facility]. Sister 2 Status:Active Comments: d. Brother 1 Status:Active Comments:[facility]. Brother 2 Status:Active Comments:[facility]. Brother 3 Status:Active Comments:[facility]. Sister 1 Status:Active Comments:[facility]. Sister 2 Status:Active Comments: d. Brother 1 Status:Active Comments:[facility]. Brother 2 Status:Active Comments:[facility]. Brother 3 Status:Active Comments:[facility]. Sister 1 Status:Active Comments:[facility]. Sister 2 Status:Active Comments: d. Brother 1 Status:Active Comments:[facility]. Brother 2 Status:Active Comments:[facility]. Brother 3 Status:Active Comments:[facility]. Sister 1 Status:Active Comments:[facility]. Sister 2 Status:Active Comments: d. Brother 1 Status:Active Comments:[facility]. Brother 2 Status:Active Comments:[facility]. Brother 3 Status:Active Comments:[facility]. Sister 1 Status:Active Comments:[facility]. Sister 2 Status:Active Comments: d. Brother 1 Status:Active Comments:[facility]. Brother 2 Status:Active Comments:[facility]. Brother 3 Status:Active Comments:[facility]. Sister 1 Status:Active Comments:[facility]. Sister 2 Status:Active Comments: d. Brother 1 Status:Active Comments:[facility]. Brother 2 Status:Active Comments:[facility]. Brother 3 Status:Active Comments:[facility]. Sister 1 Status:Active Comments:[facility]. Sister 2 Status:Active Comments: d. Brother 1 Status:Active Comments:[facility]. Brother 2 Status:Active Comments:[facility]. Brother 3 Status:Active Comments:[facility]. Sister 1 Status:Active Comments:[facility]. Sister 2 Status:Active Comments: d. Brother 1 Status:Active Comments:[facility]. Brother 2 Status:Active Comments:[facility]. Brother 3 Status:Active Comments:[facility]. Sister 1 Status:Active Comments:[facility]. Sister 2 Status:Active Comments: d. Brother 1 Status:Active Comments:[facility]. Brother 2 Status:Active Comments:[facility]. Brother 3 Status:Active Comments:[facility]. Sister 1 Status:Active Comments:[facility]. Sister 2 Status:Active Comments: d. Brother 1 Status:Active Comments:[facility]. Brother 2 Status:Active Comments:[facility]. Brother 3 Status:Active Comments:[facility]. Sister 1 Status:Active Comments:[facility]. Sister 2 Status:Active Comments: d. Brother 1 Status:Active Comments:[facility]. Brother 2 Status:Active Comments:[facility]. Brother 3 Status:Active Comments:[facility]. Sister 1 Status:Active Comments:[facility]. Sister 2 Status:Active Comments: d. Brother 1 Status:Active Comments:[facility]. Brother 2 Status:Active Comments:[facility]. Brother 3 Status:Active Comments:[facility]. Sister 1 Status:Active Comments:[facility]. Sister 2 Status:Active Comments: d. Brother 1 Status:Active Comments:[facility]. Brother 2 Status:Active Comments:[facility]. Brother 3 Status:Active Comments:[facility]. Sister 1 Status:Active Comments:[facility]. Sister 2 Status:Active Comments: d. Brother 1 Status:Active Comments:[facility]. Brother 2 Status:Active Comments:[facility]. Brother 3 Status:Active Comments:[facility]. Sister 1 Status:Active Comments:[facility]. Sister 2 Status:Active Comments: d. Brother 1 Status:Active Comments:[facility]. Brother 2 Status:Active Comments:[facility]. Brother 3 Status:Active Comments:[facility]. Sister 1 Status:Active Comments:[facility]. Sister 2 Status:Active Comments: d. Brother 1 Status:Active Comments:[facility]. Brother 2 Status:Active Comments:[facility]. Brother 3 Status:Active Comments:[facility]. Sister 1 Status:Active Comments:[facility]. Sister 2 Status:Active Comments: d. Brother 1 Status:Active Comments:[facility]. Brother 2 Status:Active Comments:[facility]. Brother 3 Status:Active Comments:[facility]. Sister 1 Status:Active Comments:[facility]. Sister 2 Status:Active Comments: d. Brother 1 Status:Active Comments:[facility]. Brother 2 Status:Active Comments:[facility]. Brother 3 Status:Active Comments:[facility]. Sister 1 Status:Active Comments:[facility]. Sister 2 Status:Active Comments: d. Brother 1 Status:Active Comments:[facility]. Brother 2 Status:Active Comments:[facility]. Brother 3 Status:Active Comments:[facility]. Sister 1 Status:Active Comments:[facility]. Sister 2 Status:Active Comments: d. Brother 1 Status:Active Comments:[facility]. Brother 2 Status:Active Comments:[facility]. Brother 3 Status:Active Comments:[facility]. Sister 1 Status:Active Comments:[facility]. Sister 2 Status:Active Comments: d. Brother 1 Status:Active Comments:[facility]. Brother 2 Status:Active Comments:[facility]. Brother 3 Status:Active Comments:[facility]. Sister 1 Status:Active Comments:[facility]. Sister 2 Status:Active Comments: d. Brother 1 Status:Active Comments:[facility]. Brother 2 Status:Active Comments:[facility]. Brother 3 Status:Active Comments:[facility]. Sister 1 Status:Active Comments:[facility]. Sister 2 Status:Active Comments: d. Brother 1 Status:Active Comments:[facility]. Brother 2 Status:Active Comments:[facility]. Brother 3 Status:Active Comments:[facility]. Sister 1 Status:Active Comments:[facility]. Sister 2 Status:Active Comments: d. Brother 1 Status:Active Comments:[facility]. Brother 2 Status:Active Comments:[facility]. Brother 3 Status:Active Comments:[facility]. Sister 1 Status:Active Comments:[facility]. Sister 2 Status:Active Comments: d. Brother 1 Status:Active Comments:[facility]. Brother 2 Status:Active Comments:[facility]. Brother 3 Status:Active Comments:[facility]. Sister 1 Status:Active Comments:[facility]. Sister 2 Status:Active Comments: d. Brother 1 Status:Active Comments:In [facility]. Brother 2 Status:Active Comments:[facility]. Brother 3 Status:Active Comments:[facility]. Sister 1 Status:Active Comments:[facility]. Sister 2 Status:Active Comments: d. Brother 1 Status:Active Comments:[facility]. Brother 2 Status:Active Comments:[facility]. Brother 3 Status:Active Comments:[facility]. Sister 1 Status:Active Comments:[facility]. Sister 2 Status:Active Comments: d. Brother 1 Status:Active Comments:[facility]. Brother 2 Status:Active Comments:[facility]. Brother 3 Status:Active Comments:[facility]. Sister 1 Status:Active Comments:[facility]. Sister 2 Status:Active Comments: d. Brother 1 Status:Active Comments:[facility]. Brother 2 Status:Active Comments:[facility]. Brother 3 Status:Active Comments:[facility]. Sister 1 Status:Active Comments:[facility]. Sister 2 Status:Active Comments: d. Brother 1 Status:Active Comments:[facility]. Brother 2 Status:Active Comments:[facility]. Brother 3 Status:Active Comments:[facility]. Sister 1 Status:Active Comments:[facility]. Sister 2 Status:Active Comments: d. Brother 1 Status:Active Comments:[facility]. Brother 2 Status:Active Comments:[facility]. Brother 3 Status:Active Comments:[facility]. Sister 1 Status:Active Comments:[facility]. Sister 2 Status:Active Comments: d. Brother 1 Status:Active Comments:[facility]. Brother 2 Status:Active Comments:[facility]. Brother 3 Status:Active Comments:[facility]. Sister 1 Status:Active Comments:[facility]. Sister 2 Status:Active Comments: d. Brother 1 Status:Active Comments:[facility]. Brother 2 Status:Active Comments:[facility]. Brother 3 Status:Active Comments:[facility]. Sister 1 Status:Active Comments:[facility]. Sister 2 Status:Active Comments: d. Relationship Condition Age at Onset Recorded Date/T cuca father Cardiac disease Unknown Myocardial infarction Unknown mother Cardiac disease Unknown brother Cardiac disease Unknown brother Myocardial infarction Unknown Cerebrovascular accident (CVA) Unknown Brother 1 Status:Active Comments:[facility]. Brother 2 Status:Active Comments:[facility]. Brother 3 Status:Active Comments:[facility]. Sister 1 Status:Active Comments:[facility]. Sister 2 Status:Active Comments: d. Brother 1 Status:Active Comments:[facility]. Brother 2 Status:Active Comments:[facility]. Brother 3 Status:Active Comments:[facility]. Sister 1 Status:Active Comments:[facility]. Sister 2 Status:Active Comments: d. Brother 1 Status:Active Comments:[facility]. Brother 2 Status:Active Comments:[facility]. Brother 3 Status:Active Comments:[facility]. Sister 1 Status:Active Comments:[facility]. Sister 2 Status:Active Comments: d. Brother 1 Status:Active Comments:In [facility]. Brother 2 Status:Active Comments:[facility]. Brother 3 Status:Active Comments:[facility]. Sister 1 Status:Active Comments:[facility]. Sister 2 Status:Active Comments: d. Brother 1 Status:Active Comments:In [facility]. Brother 2 Status:Active Comments:[facility]. Brother 3 Status:Active Comments:[facility]. Sister 1 Status:Active Comments:In [facility]. Sister 2 Status:Active Comments: d. Brother 1 Status:Active Comments:In [facility]. Brother 2 Status:Active Comments:In [facility]. Brother 3 Status:Active Comments:[facility]. Sister 1 Status:Active Comments:In [facility]. Sister 2 Status:Active Comments: d. Brother 1 Status:Active Comments:[facility]. Brother 2 Status:Active Comments:In [facility]. Brother 3 Status:Active Comments:In [facility]. Sister 1 Status:Active Comments:[facility]. Sister 2 Status:Active Comments: d. Brother 1 Status:Active Comments:In [facility]. Brother 2 Status:Active Comments:In [facility]. Brother 3 Status:Active Comments:[facility]. Sister 1 Status:Active Comments:In [facility]. Sister 2 Status:Active Comments: d. Brother 1 Status:Active Comments:[facility]. Brother 2 Status:Active Comments:[facility]. Brother 3 Status:Active Comments:[facility]. Sister 1 Status:Active Comments:[facility]. Sister 2 Status:Active Comments: d. Advance Directives No Advanced Directives Records Found Advance Directive Response Recorded Date/ Time Do you have a Healthcare Power of Head Of Sales And Marketing? No April 04, 2025 5:59pm Advance Directive Response Recorded Date/ Time Do you have a Healthcare Power of Head Of Sales And Marketing? No April 04, 2025 10:14pm Living Will - Effective on . Expiration date unspecified. Scanned Document is available upon request. Effective:10-Apr-2025 Living Will - Effective on . Expiration date unspecified. Scanned Document is available upon request. Effective:10-Apr-2025 Living Will - Effective on . Expiration date unspecified. Scanned Document is available upon request. Effective:10-Apr-2025 Living Will - Effective on . Expiration date unspecified. Scanned Document is available upon request. Effective:10-Apr-2025 Living Will - Effective on . Expiration date unspecified. Scanned Document is available upon request. Effective:10-Apr-2025 Living Will - Effective on . Expiration date unspecified. Scanned Document is available upon request. Effective:10-Apr-2025 Living Will - Effective on . Expiration date unspecified. Scanned Document is available upon request. Effective:10-Apr-2025 Living Will - Effective on . Expiration date unspecified. Scanned Document is available upon request. Effective:10-Apr-2025 Living Will - Effective on . Expiration date unspecified. Scanned Document is available upon request. Effective:10-Apr-2025 Living Will - Effective on . Expiration date unspecified. Scanned Document is available upon request. Effective:10-Apr-2025 Living Will - Effective on . Expiration date unspecified. Scanned Document is available upon request. Effective:10-Apr-2025 Living Will - Effective on . Expiration date unspecified. Scanned Document is available upon request. Effective:10-Apr-2025 Living Will - Effective on . Expiration date unspecified. Scanned Document is available upon request. Effective:10-Apr-2025 Living Will - Effective on . Expiration date unspecified. Scanned Document is available upon request. Effective:10-Apr-2025 Documents on File Type Date Recorded Patient Rn Nursery Expl anation Advance Directive(s) 05/09/2025 5:02 PM Living Will - Effective on . Expiration date unspecified. Scanned Document is available upon request. Effective:10-Apr-2025 Living Will - Effective on . Expiration date unspecified. Scanned Document is available upon request. Effective:10-Apr-2025 Living Will - Effective on . Expiration date unspecified. Scanned Document is available upon request. Effective:10-Apr-2025 Living Will - Effective on . Expiration date unspecified. Scanned Document is available upon request. Effective:10-Apr-2025 Living Will - Effective on . Expiration date unspecified. Scanned Document is available upon request. Effective:10-Apr-2025 Documents on File Type Date Recorded Patient Rn Nursery Expl anation Advance Directive(s) 05/09/2025 5:02 PM Chief Complaint and Reason for Visit Chief Complaint Admit Date CHEST PAIN W/ RECENT ABNORMAL STRESS MITZI T April 04, 2025 9:44pm Chief Complaint Admit Date CHEST PAIN W/RECENT ABNORMAL STRESS TEST April 04, 2025 9:36pm CHEST PAIN W/RECENT ABNORMAL STRESS TEST April 05, 2025 8:09am Reason for Visit Admit Date Abnormal stress test April 04, 2025 9:3 6pm Chest pain April 04, 2025 9:36 pm HTN (hypertension), benign April 04 9:36pm Unstable angina April 04, 2025 9:36 pm Chief Complaint Admit Date CHEST PAIN W/RECENT ABNORMAL STRESS TEST April 04, 2025 9:36pm CP ADMIT April 04, 2025 11:2 2pm AM EKG April 05, 2025 5:59 am HEART CATH April 05, 2025 8:00 am CHEST PAIN W/RECENT ABNORMAL STRESS TEST April 05, 2025 8:09am ABN STRESS/ECHO (ADRIAN) April 3:00pm Reason for Visit Admit Date Abnormal stress test April 04, 2025 9:3 6pm Chest pain April 04, 2025 9:36 pm Unstable angina April 04, 2025 9:36 pm HTN (hypertension), benign April 04 9:36pm Chief Complaint Admit Date CHEST PAIN W/RECENT ABNORMAL STRESS TEST April 04, 2025 9:36pm CP ADMIT April 04, 2025 11:2 2pm AM EKG April 05, 2025 5:59 am HEART CATH April 05, 2025 8:00 am CHEST PAIN W/RECENT ABNORMAL STRESS TEST April 05, 2025 8:09am ABN STRESS/ECHO (ADRIAN) April 3:00pm DIFFICULTY SWALLOWING May 14, 2025 9:25am Reason for Visit Admit Date Chest pain April 04, 2025 9:36 pm Abnormal stress test April 04, 2025 9:3 6pm Unstable angina April 04, 2025 9:36 pm HTN (hypertension), benign April 04 9:36pm Chest pain April 30, 2025 3:0 0pm Dyslipidemia April 30, 2025 3:0 0pm Reason for Visit Admit Date Chest pain April 04, 2025 9:36 pm Abnormal stress test April 04, 2025 9:3 6pm Unstable angina April 04, 2025 9:36 pm HTN (hypertension), benign April 04 9:36pm Chest pain April 30, 2025 3:0 0pm Dyslipidemia April 30, 2025 3:0 0pm Chest pain May 14, 2025 9: 25am Palpitations May 14, 2025 9: 25am Additional Source Comments INFORMATION SOURCE (unrecogn ized section and content) DATE CREATED AUTHOR 05/27/2021 [facility] ([place]) DATE CREATED AUTHOR AUTHOR'S ORGANIZ ATION 06/02/2025 [facility] DATE CREATED AUTHOR AUTHOR'S ORGANIZ ATION 06/04/2025 [facility] DATE CREATED AUTHOR AUTHOR'S ORGANIZ ATION 06/11/2025 [facility] DATE CREATED AUTHOR AUTHOR'S ORGANIZ ATION 06/13/2025 [facility] DATE CREATED AUTHOR AUTHOR'S ORGANIZ ATION 06/13/2025 [facility] Care Teams (unrecognized sec tion and content) Team Status: Active Member Role/Relationship Status Dates TARIQ Medina Primary Care Provider Active Team Status: Active Member Role/Relationship Status Dates TARIQ Medina Primary Care Provider Active Start: April 04, 2025 Dr. Miles Boswell DO Emergency Provider Active Start: April 04, 2025 Dr. Mane Conti DO Admit Provider Active Start: April 04, 2025 Dr. Mane Conti DO Attending Provider Active Start: April 04, 2025 Team Status: Inactive Member Role/Relationship Status Dates TARIQ Medina Primary Care Provider Active Start: April 04, 2025 End: April 05, 2025 Dr. Miles Boswell DO Emergency Provider Active Start: April 04, 2025 End: April 05, 2025 Dr. Mane Conti DO Admit Provider Active Start: April 04, 2025 End: April 05, 2025 Dr. Mane Conti DO Other Provider Active Start: April 04, 2025 End: April 05, 2025 Dr. Matt Boateng DO Attending Provider Active Start: April 04, 2025 End: April 05, 2025 Dr. Louie Medina MD Other Provider Active Start : April 04, 2025 End: April 05, 2025 Team Status: Active Member Role/Relationship Status Dates TARIQ Medina Primary Care Provider Active Start: April 05, 2025 Dr. Miles Boswell DO Emergency Provider Active Start: April 05, 2025 Dr. Mane Conti DO Admit Provider Active Start: April 05, 2025 Dr. Mane Conti DO Other Provider Active Start: April 05, 2025 Dr. Matt Boateng DO Attending Provider Active Start: April 05, 2025 Dr. Matt Boateng DO Other Provider Active Star t: April 05, 2025 Dr. Louie Medina MD Other Provider Active Start : April 05, 2025 Php Developer Relationship Specialty Start Date End Date Ga Campbell PA-C [address] [place] [address] PCP - General Family Medicine 04/29/25 Team Status: Active Member Role/Relationship Status Dates TARIQ Medina Primary Care Provider Active Start: April 04, 2025 End: April 04, 2025 Dr. Louie Medina MD Attending Provider Active S tart: April 04, 2025 End: April 04, 2025 Dr. Louie Medina MD Referring Provider Active S tart: April 04, 2025 End: April 04, 2025 Team Status: Active Member Role/Relationship Status Dates TARIQ Medina Primary Care Provider Active Start: April 05, 2025 End: April 05, 2025 Dr. Louie Medina MD Attending Provider Active S tart: April 05, 2025 End: April 05, 2025 Dr. Louie Medina MD Referring Provider Active S tart: April 05, 2025 End: April 05, 2025 Team Status: Active Member Role/Relationship Status Dates TARIQ Medina Primary Care Provider Active Start: April 05, 2025 Dr. Louie Medina MD Attending Provider Active S tart: April 05, 2025 Dr. Louie Medina MD Referring Provider Active S tart: April 05, 2025 Team Status: Active Member Role/Relationship Status Dates TARIQ Medina Primary Care Provider Active Start: April 05, 2025 Dr. Miles Boswell DO Emergency Provider Active Start: April 05, 2025 Dr. Mane Conti DO Admit Provider Active Start: April 05, 2025 Dr. Mane Conti , Other Provider Active Start: April 05, 2025 Dr. Matt Boateng DO Attending Provider Active Start: April 05, 2025 Dr. Matt Boateng DO Other Provider Active Star t: April 05, 2025 Dr. Louie Medina MD Other Provider Active Start : April 05, 2025 Team Status: Inactive Member Role/Relationship Status Dates TARIQ Medina Primary Care Provider Active Start: April 30, 2025 End: April 30, 2025 TARIQ Medina Referring Provider Active Start: April 30, 2025 End: April 30, 2025 Dr. Yannick Obrien MD Attending Provider Active Start: April 30, 2025 End: April 30, 2025 Php Developer Relationship Specialty Start Date End Date Ga Campbell PA-C [address] [place] [address] PCP - General Family Medicine 04/29/25 Php Developer Relationship Specialty Start Date End Date Ga Campbell PA-C [address] [place] [address] PCP - General Family Medicine 04/29/25 Php Developer Relationship Specialty Start Date End Date Ga Campbell PA-C [address] [place] [address] PCP - General Family Medicine 04/29/25 Php Developer Relationship Specialty Start Date End Date Ga Campbell PA-C [address] [place] [address] PCP - General Family Medicine 04/29/25 Php Developer Relationship Specialty Start Date End Date Ga Campbell PA-C [address] [place] [address] PCP - General Family Medicine 04/29/25 Team Status: Inactive Member Role/Relationship Status Dates TARIQ Medina Primary Care Provider Active Start: May 14, 2025 End: May 14, 2025 TARIQ Medina Referring Provider Active Start: May 14, 2025 End: May 14, 2025 Dr. King Murillo DO Attending Provider Active Start: May 14, 2025 End: May 14, 2025 Php Developer Relationship Specialty Start Date End Date Ga Campbell PA-C [address] [place], [place] [id number] PCP - General Family Medicine 04/29/25 Php Developer Relationship Specialty Start Date End Date Ga Campbell PA-C [address] [place], [place] [id number] PCP - General Family Medicine 04/29/25 Php Developer Relationship Specialty Start Date End Date Ga Campbell PA-C [address] [place], [place] [id number] PCP - General Family Medicine 04/29/25 Php Developer Relationship Specialty Start Date End Date Ga Campbell PA-C [address] [place] [address] PCP - General Family Medicine 04/29/25 Team Status: Inactive Member Role/Relationship Status Dates TARIQ Medina Primary Care Provider Active Start: May 31, 2025 End: May 31, 2025 TARIQ Medina Referring Provider Active Start: May 31, 2025 End: May 31, 2025 Dr. King Murillo , DO Attending Provider Active Start: May 31, 2025 End: May 31, 2025 Php Developer Relationship Specialty Start Date End Date Ga Campbell PA-C [address] [place] [address] PCP - General Family Medicine 04/29/25 Php Developer Relationship Specialty Start Date End Date Ga Campbell PA-C [address] [place] [address] PCP - General Family Medicine 04/29/25 Php Developer Relationship Specialty Start Date End Date Ga Campbell PA-C [address] [place] [address] PCP - General Family Medicine 04/29/25 Php Developer Relationship Specialty Start Date End Date Ga Campbell PA-C [address] [place] [address] PCP - General Family Medicine 04/29/25 Php Developer Relationship Specialty Start Date End Date Ga Campbell PA-C [address] [place], [place] [id number] PCP - General Family [facility] 04/29/25 Goals (unrecognized section and content) Goals may be documented in a n alternate section Source Comments (unrecognize d section and content) In the event this informatio n is protected by the Federal Confidentiality of Alcohol and Drug Abuse Patient Records regulations: The Federal rules restrict any use of the information to criminally investigate or prosecute any alcohol or drug abuse patient.[facility] the event this information is protected by the Federal Confidentiality of Alcohol and Drug Abuse Patient Records regulations: The Federal rules restrict any use of the information to criminally investigate or prosecute any alcohol or drug abuse patient.[facility] the event this information is protected by the Federal Confidentiality of Alcohol and Drug Abuse Patient Records regulations: The Federal rules restrict any use of the information to criminally investigate or prosecute any alcohol or drug abuse patient.[facility] the event this information is protected by the Federal Confidentiality of Alcohol and Drug Abuse Patient Records regulations: The Federal rules restrict any use of the information to criminally investigate or prosecute any alcohol or drug abuse patient.[facility] the event this information is protected by the Federal Confidentiality of Alcohol and Drug Abuse Patient Records regulations: The Federal rules restrict any use of the information to criminally investigate or prosecute any alcohol or drug abuse patient.[facility] the event this information is protected by the Federal Confidentiality of Alcohol and Drug Abuse Patient Records regulations: The Federal rules restrict any use of the information to criminally investigate or prosecute any alcohol or drug abuse patient.[facility] Hospital[facility] the event this information is protected by the Federal Confidentiality of Alcohol and Drug Abuse Patient Records regulations: The Federal rules restrict any use of the information to criminally investigate or prosecute any alcohol or drug abuse patient.[facility] the event this information is protected by the Federal Confidentiality of Alcohol and Drug Abuse Patient Records regulations: The Federal rules restrict any use of the information to criminally investigate or prosecute any alcohol or drug abuse patient.[facility] the event this information is protected by the Federal Confidentiality of Alcohol and Drug Abuse Patient Records regulations: The Federal rules restrict any use of the information to criminally investigate or prosecute any alcohol or drug abuse patient.[facility] the event this information is protected by the Federal Confidentiality of Alcohol and Drug Abuse Patient Records regulations: The Federal rules restrict any use of the information to criminally investigate or prosecute any alcohol or drug abuse patient.[facility] Hospital[facility] the event this information is protected by the Federal Confidentiality of Alcohol and Drug Abuse Patient Records regulations: The Federal rules restrict any use of the information to criminally investigate or prosecute any alcohol or drug abuse patient.[facility] Hospital[facility] the event this information is protected by the Federal Confidentiality of Alcohol and Drug Abuse Patient Records regulations: The Federal rules restrict any use of the information to criminally investigate or prosecute any alcohol or drug abuse patient.[facility] HospitalIn the event this information is protected by the Federal Confidentiality of Alcohol and Drug Abuse Patient Records regulations: The Federal rules restrict any use of the information to criminally investigate or prosecute any alcohol or drug abuse patient.[facility] HospitalIn the event this information is protected by the Federal Confidentiality of Alcohol and Drug Abuse Patient Records regulations: The Federal rules restrict any use of the information to criminally investigate or prosecute any alcohol or drug abuse patient.[facility] HospitalIn the event this information is protected by the Federal Confidentiality of Alcohol and Drug Abuse Patient Records regulations: The Federal rules restrict any use of the information to criminally investigate or prosecute any alcohol or drug abuse patient.[facility] HospitalIn the event this information is protected by the Federal Confidentiality of Alcohol and Drug Abuse Patient Records regulations: The Federal rules restrict any use of the information to criminally investigate or prosecute any alcohol or drug abuse patient.[facility] HospitalIn the event this information is protected by the Federal Confidentiality of Alcohol and Drug Abuse Patient Records regulations: The Federal rules restrict any use of the information to criminally investigate or prosecute any alcohol or drug abuse patient.[facility] HospitalIn the event this information is protected by the Federal Confidentiality of Alcohol and Drug Abuse Patient Records regulations: The Federal rules restrict any use of the information to criminally investigate or prosecute any alcohol or drug abuse patient.[facility] HospitalIn the event this information is protected by the Federal Confidentiality of Alcohol and Drug Abuse Patient Records regulations: The Federal rules restrict any use of the information to criminally investigate or prosecute any alcohol or drug abuse patient.[facility] HospitalIn the event this information is protected by the Federal Confidentiality of Alcohol and Drug Abuse Patient Records regulations: The Federal rules restrict any use of the information to criminally investigate or prosecute any alcohol or drug abuse patient.[facility] HospitalIn the event this information is protected by the Federal Confidentiality of Alcohol and Drug Abuse Patient Records regulations: The Federal rules restrict any use of the information to criminally investigate or prosecute any alcohol or drug abuse patient.[facility] HospitalIn the event this information is protected by the Federal Confidentiality of Alcohol and Drug Abuse Patient Records regulations: The Federal rules restrict any use of the information to criminally investigate or prosecute any alcohol or drug abuse patient.[facility] Reason for Visit (unrecogniz ed section and content) Reason Comments New Patient Reason Comments Spirometry Specialty Diagnoses / Procedures Referred By Contac t Referred To [facility] Diagnoses Rash and nonspecific skin eruption Shortness of breath History of COVID-19 Polyarthralgia Elevated antinuclear antibody (BRIDGETTE) level Weakness generalized Procedures LUNG VOLUMES Emelyn Michelle PA-C [address] [place] [address] Phone: tel: fax: [facility] [place] [id number] [id number] Referral ID Status Reason Start Date Expiration Date V isits Requested Visits Authorized [id number] Closed Auto-Generate d Referral 04/25/2025 05/25/2026 1 1 Specialty Diagnoses / Procedures Referred By Contac t Referred To [facility] [place] Diagnoses Rash and nonspecific skin eruption Shortness of breath History of COVID-19 Polyarthralgia Elevated antinuclear antibody (BRIDGETTE) level Weakness generalized Procedures SPIROMETRY BASELINE ONLY SPMTRY W/VC EXPIRATORY CARLOS W/WO MXML VOL VNTJ Emelyn Michelle PA-C [address] [place] [address] Phone: tel: fax: [facility] [place] [address] [place] [address] Referral ID Status Reason Start Date Expiration Date V isits Requested Visits Authorized [id number] Closed Auto-Generate d Referral 04/25/2025 05/25/2026 1 1 Reason Comments Patient Update Reason Comments follow up questions Reason Comments established patient Reason Onset Date Comments EMG 05/10/2025 Specialty Diagnoses / Procedures Referred By Contac t Referred To Contact [facility] Diagnoses Rash and nonspecific skin eruption Shortness of breath History of COVID-19 Polyarthralgia Elevated antinuclear antibody (BRIDGETTE) level Weakness generalized Procedures EMG(NEURO/NI) NERVE CONDUCTION STUDIES 9-10 STUDIES Emelyn Michelle PA-C [address] [place] [address] Phone: tel: fax: Neurology [address] [place] [address] Phone: tel: Referral ID Status Reason Start Date Expiration Date V isits Requested Visits Authorized [id number] Closed Auto-Generate d Referral 04/25/2025 04/25/2026 1 1 Reason Comments Patient Question Patient Update Reason Comments Arthritis Reason Comments Patient Question Reason Comments Consult Generalized weakness Specialty Diagnoses / Procedures Referred By [place] t Referred To Contact Neurology Diagnoses Rash and nonspecific skin eruption Shortness of breath History of COVID-19 Polyarthralgia Elevated antinuclear antibody (BRIDGETTE) level Weakness generalized Procedures OFFICE/OUTPATIENT NEW HIGH MDM 60 MINUTES Emelyn Michelle PA-C [address] [place] [address] Phone: tel: fax: Referral ID Status Reason Start Date Expiration Date V isits Requested Visits Authorized [id number] Closed PCP Requested Referral 04/25/2025 04/25/2026 1 1 Reason Comments Recieved outside medical Records DXA 04/26 06/20 Reason Comments Patient Question Reason Comments Recieved Outside medical records Pomeren e Mammogram 06/03/25 Reason Comments Patient Update Reason Comments Results FOR RECORDS PERTAINING TO PATIENTS WHO ARE OR HAVE BEEN ENROLLED IN A CHEMICAL DEPENDENCY/SUBSTANCEABUSE PROGRAM, SOME INFORMATION MAY BE OMITTED. This clinical summary was aggregated from multiple sources. Caution should be exercised in using it in the provision of clinical care. This summary normalizes information from multiple sources, and as a consequence, information in this document may materially change the coding, format and clinical context of patient data. In addition, data may be omitted in some cases. CLINICAL DECISIONS SHOULD BE BASED ON THE PRIMARY CLINICAL RECORDS. [employer] provides no warranty or guarantee of the accuracy or completeness of information in this document.
[2025-06-13] MEDS: Lactated Ringers 1,000 ML 15 ML IV (07:22)
--- NOTE | 2025-06-13 07:53 | HP.PCM_ITS ---
HPI - General General Date of Admission: 06/13/25 Date of Service: 06/13/25 Chief Complaint: chest pain HPI Narrative VIOLETA ELIZABETH, is a 69 F who presents for the evaluation of chest pain *BGI established 8.. 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 Pt reports she has chest pain, has had cardiac testing and is now trying to rule out if this is a musculoskeletal issue or a GI issue. Pt had EGD a few years ago. [facility] Medical History Wears contact lenses Post-menopausal Alcohol use History of steroid therapy Bladder disease Arthritis Low iron Back pain Restless legs Scoliosis DDD (degenerative disc disease), lumbar DDD (degenerative disc disease), cervical Syncope Difficulty swallowing PMR (polymyalgia rheumatica) Shortness of breath on exertion Former smoker Leg cramps History of pain when walking History of edema History of pain when walking Cardiology follow-up encounter History of stress test Chest pain Palpitations Home Medications ?Medication ?Instructions ?Recorded ?Last Taken ?Type prednisone 20 mg tablet 40 mg PO QDAY 05/14/2506/12 08:00 History cholecalciferol (vitamin D3) 25 25 mcg PO DAILY 06/09/25 History mcg (1,000 unit) capsule (Vitamin D3) multivitamin (Daily Multi-Vitamin 1 tab PO DAILY 06/1206/09/25 History tablet) Allergy/AdvReac Type Severity Reaction Status Date / Time No Known Allergies Allergy Verified 06/13/25 07:16 Family History Father Heart disease CABG Myocardial infarction Mother Heart disease Brother Heart disease CABG Brother Myocardial infarction CVA (cerebral vascular accident) Surgical History History of cardiac catheterization History of esophagogastroduodenoscopy (EGD) History of bunionectomy of left great toe Hx of ovarian cystectomy H/O elbow surgery Social History Smoking Status: Former smoker alcohol intake: never substance use type: does not use caffeine: No ROS Constitutional Constitutional: Denies fatigue, fever(s), poor appetite, weight gain or weight loss Gastrointestinal Gastrointestinal: Denies belching, bloating, change in bowel habits, change in stool character, chewing difficulty, coffee ground emesis, constipation, cramping, diarrhea, dyspepsia, dysphagia, early satiety, excessive flatus, fecal incontinence, heartburn, hematemesis, hematochezia, hemorrhoids, loose stools, melena, nausea, odynophagia, rectal bleeding, tenesmus, vomiting or weight changes Vital Signs Vital Signs Vital Signs: 06/13/25 07:18 06/13/25 07:18 Temperature 97.4 F L Temperature Source Temporal Pulse Rate 57 L Respiratory Rate 16 Respiratory Pattern Normal Blood Pressure 149/81 H Blood Pressure Mean 103 Blood Pressure Source Monitor Blood Pressure Position Sitting Blood Pressure Location Right Arm Pulse Ox 100 Oxygen Delivery Method Room Air Weight Weight: 125 lb 10.616 oz Body Mass Index (BMI) 20.9 Physical Exam Const alert, oriented x3, no apparent distress and healthy appearing General Appearance: cooperative GI normal to inspection, nondistended, normoactive bowel sounds, soft to palpation, non-tender and non-distended Percussion: normal to percussion Rectal Exam: deferred Assessment & Plan Assessment/Plan (1) Chest pain: QUALIFIERS: Chest pain type: unspecified Qualified Code(s): R07.9 - Chest pain, unspecified PLAN: Assessment and Plan Assessment and Plan (1) Chest pain: Status: Acute Qualifiers: Chest pain type: unspecified Qualified Code(s): R07.9 - Chest pain, unspecified (2) Palpitations: Status: Acute Plan: 69-year-old female presenting with a chief complaint of recurrent chest pain over the past 3 months. She describes the pain as sharp, localized primarily to the right side of her chest, sometimes radiating to her back. The pain is intermittent and she rates it as a 6/10 on the pain scale during episodes. She notes that the pain is worse with deep inspiration and certain movements, and sometimes wakes her from sleep. She denies any associated symptoms such as shortness of breath, nausea, sweating, dizziness,?or lightheadedness. She denies any recent trauma or strenuous physical activity. She reports a history of heartburn and states the chest pain is sometimes preceded by heartburn,?which is worse after meals or when lying down. She reports trying gubi-jqv-ubzrbsc antacids which provide some temporary relief of the heartburn and sometimes the chest pain. The pain is reproducible on palpation and with certain movements, suggesting a musculoskeletal origin, specifically likely costochondritis given the tenderness over the costochondral junction and the exacerbation with inspiration. The patient's history of heartburn and reports of the pain sometimes being preceded by heartburn also raise concern for a possible gastroesophageal reflux disease component to her chest pain, which can mimic cardiac pain. Her anxiety may also be contributing to her symptoms. Differential diagnoses: * Costochondritis. * Gastroesophageal reflux disease (GERD). * Esophageal spasm. * Musculoskeletal strain. * Anxiety/panic disorder.Plan Rule out cardiac causes:?She underwent cardiac workup in she has no signs of coronary artery disease on cardiac catheterization. amily history. * cardiac enzymes were normal * Consider stress testing was normal Manage musculoskeletal pain: * Recommend warm compresses to the affected area. * Cjox-csj-zotywee NSAIDs (e.g., ibuprofen) as needed and tolerated. * Instruct patient to avoid activities that worsen the pain. * Consider referral to physical therapy for evaluation and treatment of musculoskeletal chest wall pain if pain persists. Address potential GERD: * Recommend lifestyle modifications, such as avoiding late-night eating, trigger foods (spicy, fatty, acidic), caffeine, and alcohol. * She will undergo EGD with Fernández and possible manometry. As a trial of acid reduction and lifestyle changes have not made any improvement in her symptoms. Manage anxiety: * Discuss the connection between anxiety and physical symptoms, including chest pain in the future * Recommend stress reduction techniques (e.g., breathing exercises, relaxation techniques). * Consider referral for counseling or cognitive behavioral therapy (CBT) if anxiety is significant.
--- NOTE | 2025-06-13 07:54 | PCM.PRE.AN2 ---
ASA Classification* ASA Classification ASA Classification: 3 Assessment & Plan Anesthesia* Anesthesia Assessment Anesthesia Assessment: Discussed sedation and/or anesthesia options, risks, benefits, and alternatives with patient/parents/legal guardian/POA. Questions invited. The patient/parents/legal guardian/POA seems to understand and agrees to proceed with anesthesia plan. Reviewed the physical assessment, medical history, allergy history and patient home medications list prior to surgery/procedure/anesthetic and documented any changes. Performed airway and anesthesia risk assessments. Anesthesia Type Anesthesia Type: MAC History Source History Obtained from:: Patient and Chart Anesthesia Focused Assessment* Temperature: 97.4 F Pulse Rate: 57 Blood Pressure: 149/81 Respiratory Rate: 16 Pulse Ox: 100 Oxygen Delivery Method: Room Air Airway Assessment Mouth opens: >3 cm Mallampati Score: I Teeth Condition: Intact Neck Range of motion (ROM): Full ROM Labs Anesthesia Preop lab: CBC WBC, (4.4-11.0) 4.4 K/mm3 04/05/25, 05:15 RBC, (4.2-5.4) 3.86 M/mm3 L 04/05/25, 05:15 Hgb, (12.0-15.0) 12.7 g/dL 04/05/25, 05:15 Hct, (37-47) 37.2 % 04/05/25, 05:15 Plt Count, (150-450) 160 K/mm3 04/05/25, 05:15 CHEMISTRY Potassium, (3.3-5.1) 3.8 mmol/L 04/05/25, 05:15 Sodium, (133-145) 140 mmol/L 04/05/25, 05:15 Magnesium, (1.5-2.2) 1.9 mg/dL 04/04/25, 18:02 BUN, (4-19) 15 mg/dL 04/05/25, 05:15 Creatinine, (0.70-1.20) 0.64 mg/dL L 04/05/25, 05:15 Glucose, (70-99) 101 mg/dL H 04/05/25, 05:15 TSH, (0.300-4.200) 2.650 uIU/mL 04/04/25, 18:02 COAG Pre-Assessment Diagnosis/Proposed Procedure Planned Operative Procedure(s): EGD PH PROBE Anesthesia History 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 When Was Last Pacemaker Check QUESTION #4 FULL TEXT: You/Your Family Experience fever (hyperthermia) with Anesthesia Last Oral Intake Last Oral intake: Last Oral Intake NPO since 23:00 06/13/25 07:18 Meds taken in AM with sips of No 06/13/25 07:18 water? Meds patient instructed to take am of surgery PONV PONV - cutter grind tool technician: PONV - cutter grind tool technician Female Yes 06/12/25 08:44 HX of Motion Sickness Yes 06/12/25 08:44 HX of N/V After Surgery No 06/12/25 08:44 Non-Smoker Yes 06/12/25 08:44 Duration of Surgery greater No 06/12/25 08:44 than 60 minutes Number of Risk Factors 3 06/12/25 08:44 PONV Score Moderate Risk 06/12/25 08:44 Height & Weight Height & Weight: Anesthesia: Height & Weight Height 5 ft 5 in 06/13/25 07:18 Weight: 57 kg 06/13/25 07:18 Body Mass Index (BMI) 20.9 06/13/25 07:18 Respiratory Assessment Respiratory Assessment - cutter grind tool technician: Respiratory Tract Infection Hx - cutter grind tool technician Hx Respiratory Tract Infection No 06/12/25 08:44 Any additional information?: Yes Hx Respiratory Tract Infection: Yes History of Anesthesia Respiratory Infection details: Patient has had COVID in October 2024. Currently has no respiratory symptoms. She is a long-hauler and has chronic pain throughout her body ever since. STOP Sleep Apnea STOP Sleep Apnea - cutter grind tool technician: STOP Sleep Apnea - cutter grind tool technician Hx Hypertension No 06/12/25 08:44 Hx Sleep Apnea No 06/12/25 08:44 CPAP BIPAP Do you snore loudly (louder No 06/12/25 08:44 than talking or can be heard Do you often feel tired/ Yes 06/12/25 08:44 fatigued/ sleepy during daytime? Has anyone observed you stop No 06/12/25 08:44 breathing during sleep? STOP Results Negative 06/12/25 08:44 QUESTION #5 FULL TEXT : Do you snore loudly (louder than talking or can be heard through closed doors)? 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 Specify any problems Hx of Preganancy in last 3 No 06/12/25 08:44 Months Nurse Filling Out Transfusion DSCHRIBER 06/12/25 08:44 & Questions: Date: 06/12/25 06/12/25 08:44 Time: 08:46 06/12/25 08:44 Patient unable to answer at this time (ie. confused, unrespo /Reproduction History /Reproductive History - cutter grind tool technician: /Reproductive Hx- cutter grind tool technician Hx Now No 06/12/25 08:44 Gestational Age (in weeks): EDC: Hx Hx Para Hx Section SAB No 06/12/25 08:44 Active Medications Active Medications: Current Medications Generic Name Dose Route Start Last Admin Trade Name Freq PRN Reason Stop Dose Admin Lactated Ringer's 1,000 mls @ 15 mls/hr 06/13/25 07:00 06/13/25 07:22 IV 15 mls/hr .Q48H JOSÉ ANTONIO Administration PFSH Medical History (Updated 06/13/25 @ 08:[address] Mau Wood MD) COVID-19 zana lopez manifesting chronic muscle pain COVID-19 zana lopez Wears contact lenses Post-menopausal Alcohol use History of steroid therapy Bladder disease Arthritis Low iron Back pain Restless legs Scoliosis DDD (degenerative disc disease), lumbar DDD (degenerative disc disease), cervical Syncope Difficulty swallowing PMR (polymyalgia rheumatica) Shortness of breath on exertion Former smoker Leg cramps History of pain when walking History of edema History of pain when walking Cardiology follow-up encounter History of stress test Chest pain Palpitations Home Medications ?Medication ?Instructions ?Recorded ?Last Taken ?Type prednisone 20 mg tablet 40 mg PO QDAY 05/14/25 06/12/25 08:00 History cholecalciferol (vitamin D3) 25 25 mcg PO DAILY 06/12/25 06/09/25 History mcg (1,000 unit) capsule (Vitamin D3) multivitamin (Daily Multi-Vitamin 1 tab PO DAILY 06/12/25 06/09/25 History tablet) Allergy/AdvReac Type Severity Reaction Status Date / Time No Known Allergies Allergy Verified 06/13/25 07:16 Family History Father Heart disease CABG Myocardial infarction Mother Heart disease Brother Heart disease CABG Brother Myocardial infarction CVA (cerebral vascular accident) Surgical History History of cardiac catheterization History of esophagogastroduodenoscopy (EGD) History of bunionectomy of left great toe Hx of ovarian cystectomy H/O elbow surgery Social History Smoking Status: Former smoker alcohol intake: never substance use type: does not use caffeine: No Review of Systems (Anesthesia) ROS Narrative System reviewed and no additional complaints, except as documented.
--- NOTE | 2025-06-13 08:00 | EGD_PTH ---
PATIENT: VIOLETA ELIZABETH LOC: EN U#:[id number] AGE/SX: 69/F ROOM: RE06/13/[address]: Dr. King Murillo DO : 1955 BED: DIS: 06/13/2025 SPEC #: [id number] RECD: 06/13/25 09:37 STATUS: PRAVIN REQ #: [id number] MOISES: 06/13/25 08:[address]: King Murillo DEPT: SURGICAL PATHOLOGY RECD BY: Miguel A Nava ENTERED: 06/13/25 10:32 SP TYPE: EGD BIOPSY MOIRA DR: TARIQ Medina Tissues: A - Esophagus, NOS Procedures: Special Stain Group I Surgery Specimen Level IV GMS Stain (control) HEADER OPERATION: EGD- PH probe placement, biopsy PRE-OP DIAGNOSIS: Chest pain, palpitation TISSUE SUBMITTED: A- Distal esophagus biopsy MICROSCOPIC DIAGNOSIS A. Distal esophagus, biopsy: * Squamous mucosa with reactive changes and mild acute inflammation. * Negative for eosinophils. * PASD stain is negative for fungal organisms. MICROSCOPIC DESCRIPTION Slides are reviewed. Slides are reviewed. All matched controls reacted appropriately. These tests were developed and their performance characteristics determined by [facility]. They may not have been cleared or approved by the U.S. Food and Drug Administration. The FDA has determined that such clearance or approval is not necessary. The above immunohistochemical markers and/or special stains have been reviewed by the Pathologist. GROSS DESCRIPTION A. Received in fixative is one container labeled with the patient's name and designated Distal esophagus biopsy. The specimen consists of two irregular fragments of light pederson soft tissue that measure 0.6 and 0.8 cm. The specimen is totally submitted in one cassette. CO 06/13/2025 CPT:16217,91361
[2025-06-13] MEDS: Lidocaine 1% (5 ml sdv) 5 ML Vial 4 ML IV (08:10)
--- NOTE | 2025-06-13 08:23 | PCM.POST.ANE ---
Anesthesia: Postop Eval I Current Vital Signs Temperature: 97.2 F Pulse Rate: 76 Blood Pressure: 136/76 Respiratory Rate: 14 Pulse Ox: 99 Oxygen Delivery Method: Room Air Assessment Airway patent: Yes Spontaneous unlabored respirations: Yes Mental status: Awake nausea: No Vomiting: No Anesthesia Complication: No Fluid Hydration Crystalloid volume administer (ml): 400 Total IV fluid infused: 400 Progress Note Anesthesia document: Postop Eval 1 completed: Yes
--- NOTE | 2025-06-13 08:32 | OP.EGD_ITS ---
Patient Name: Kaila Ceja Procedure Date: 06/13/2025 8:08 AM Date of : 1955 Age: 69 Procedure: Upper GI endoscopy Indications: Epigastric abdominal pain, Functional Dyspepsia, Failure to respond to medical treatment Providers: King Murillo DO Referring MD: Nazario Medina Medicines: Monitored Anesthesia Care Patient Profile: This is a 69 year old female. Refer to note in patient chart for documentation of history and physical. Patient has symptoms of chronic abdominal cramping, chronic abdominal distention and chronic chest pain. Complications: No immediate complications. Procedure: Pre-Anesthesia Assessment: - Prior to the procedure, a History and Physical was performed, and patient medications and allergies were reviewed. The patient is competent. The risks and benefits of the procedure and the sedation options and risks were discussed with the patient. All questions were answered and informed consent was obtained. Patient identification and proposed procedure were verified by the physician in the pre-procedure area. Mental Status Examination: alert and oriented. Airway Examination: normal oropharyngeal airway and neck mobility. Respiratory Examination: clear to auscultation. CV Examination: normal. Prophylactic Antibiotics: The patient does not require prophylactic antibiotics. Prior Anticoagulants: The patient has taken no anticoagulant or antiplatelet agents except for NSAID medication. ASA Grade Assessment: II - A patient with mild systemic disease. After reviewing the risks and benefits, the patient was deemed in satisfactory condition to undergo the procedure. The anesthesia plan was to use monitored anesthesia care (MAC). Immediately prior to administration of medications, the patient was re-assessed for adequacy to receive sedatives. The heart rate, respiratory rate, oxygen saturations, blood pressure, adequacy of pulmonary ventilation, and response to care were monitored throughout the procedure. The physical status of the patient was re-assessed after the procedure. After obtaining informed consent, the endoscope was passed under direct vision. Throughout the procedure, the patient's blood pressure, pulse, and oxygen saturations were monitored continuously. The Endoscope was introduced through the mouth, and advanced to the third part of the duodenum. Small bowel enteroscopy was deemed necessary. The upper GI endoscopy was accomplished without difficulty. The patient tolerated the procedure well. Scope In: 8:15:12 AM Scope Out: 8:21:52 AM Total Procedure Duration Time 0 hours 6 minutes 40 seconds Findings: Abnormal motility was noted in the esophagus. The cricopharyngeus was abnormal. There are extra peristaltic waves in the esophageal body. The distal esophagus/lower esophageal sphincter is spastic, but gives up passage to the endoscope. Tertiary peristaltic waves are noted. Biopsies were taken with a cold forceps for histology. Verification of patient identification for the specimen was done. Estimated blood loss was minimal. The LU capsule with delivery system was introduced through the mouth and advanced into the esophagus, such that the LU pH capsule was positioned 40 cm from the incisors, which was 6 cm proximal to the GE junction. Suction was applied to the well of the LU pH capsule to suck in the adjacent mucosa of the esophagus using the external vacuum pump set at a minimum vacuum pressure of 550 mmHg for 30 seconds. The LU pH capsule was then deployed by depressing the plunger on top of the handle to advance the locking pin into the mucosa, thereby attaching the capsule to the esophagus. The plunger was then rotated a quarter turn clockwise to release the capsule from the delivery system. The delivery system was then withdrawn. Endoscopy was utilized for probe placement and diagnostic evaluation. The entire examined stomach was normal. The examined duodenum was normal. Impression: - Abnormal esophageal motility. Biopsied. - Normal stomach. - Normal examined duodenum. - The LU pH capsule was positioned 40 cm from the incisors, which was 6 cm proximal to the GE junction. Recommendation: - Discharge patient to home. - Resume previous diet. - Continue present medications. - Await pathology results. Procedure Code(s): --- Professional --- 21856, Small intestinal endoscopy, enteroscopy beyond second portion of duodenum, not including ileum; with biopsy, single or multiple CPT copyright 2021 [employer]. All rights reserved. The codes documented in this report are preliminary and upon steeplechase jockey review may be revised to meet current compliance requirements. King Murillo DO 06/13/2025 8:31:43 AM This report has been signed electronically. Number of Addenda: 0 Note Initiated On: 06/13/2025 8:08 AM
--- NOTE | 2025-06-13 08:32 | OP.PROVAT_ITS ---
06/13/2025 Nazario Medina Re : Upper GI endoscopy procedure for Kaila Ceja Dear Mikey This procedure was performed on May. My impressions and recommendations are as follows: Impressions : - Abnormal esophageal motility. Biopsied. - Normal stomach. - Normal examined duodenum. - The LU pH capsule was positioned 40 cm from the incisors, which was 6 cm proximal to the GE junction. Recommendations : - Discharge patient to home. - Resume previous diet. - Continue present medications. - Await pathology results. My findings are described in the full procedure note, which is enclosed. If I can be of further assistance, please feel free to contact me at . Sincerely, King Murillo, 06/13/2025 8:31:43 AM This report has been signed electronically.
--- NOTE | 2025-06-13 12:49 | POSTOPAN2_ITS ---
Anesthesia Postop Eval I Sum Postop Eval Completion status Anesthesia document: Postop Eval 1 completed: Yes Anesthesia Postop Eval I Summary Anesthesia Postop Eval I Summary: Anesthesia Postop Eval I: Assessment Summary Airway patent Yes 06/13/25 08:24 MANAGER [employer][email or web address] Spontaneous unlabored Yes 06/13/25 08:24 MANAGER [employer] respirations Mental status Awake 06/13/25 08:24 MANAGER [employer]OTT nausea No 06/13/25 08:24 MANAGER [employer]GDOTT Vomiting No 06/13/25 08:24 MANAGER [employer].GDOTT Anesthesia Postop Eval I: Fluid Summary Crystalloid volume administer 400 06/13/25 08:24 MANAGER [employer]GDOTT (ml) Colloids volume administered ( ml) Blood Product volume administered (ml) Total IV fluid infused 400 06/13/25 08:24 MANAGER [employer]GDOTT Anesthesia Postop Eval I: Summary Notes Anesthesia Complication No 06/13/25 08:24 MANAGER [employer].GDOTT Anesthesia Complication Comment: Post-operative progress note Anesthesia: Postop Eval II Evaluation Mental status: Awake and Calm Pain Level: 0 nausea: No Vomiting: No Complications Anesthesia Complication: No
--- NOTE | 2025-06-13 12:49 | PCM.POSTANE2 ---
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.GDOTT Spontaneous unlabored Yes 06/13/25 08:24 BOWLING BALL GRADER.GDOTT respirations Mental status Awake 06/13/25 08:24 BOWLING BALL GRADER.GDOTT nausea No 06/13/25 08:24 BOWLING BALL GRADER.GDOTT Vomiting No 06/13/25 08:24 BOWLING BALL GRADER.GDOTT Anesthesia Postop Eval I: Fluid Summary Crystalloid volume administer 400 06/13/25 08:24 BOWLING BALL GRADER.GDOTT (ml) Colloids volume administered ( ml) Blood Product volume administered (ml) Total IV fluid infused 400 06/13/25 08:24 BOWLING BALL GRADER.GDOTT Anesthesia Postop Eval I: Summary Notes Anesthesia Complication No 06/13/25 08:24 BOWLING BALL GRADER.GDOTT Anesthesia Complication Comment: Post-operative progress note Anesthesia: Postop Eval II Evaluation Mental status: Awake and Calm Pain Level: 0 nausea: No Vomiting: No Complications Anesthesia Complication: No
== END 2025-06-13 09:01 | disposition home or self-care (01) ==
LOC: EN 06:50 → AC 06:51
PROVIDERS: PCP Physician Assistant; Referring Provider Physician Assistant; Visit Provider Internal Medicine Gastroenterology
PROC: (CPT 43235; principal; 2025-06-13 07:55)
DX: R07.9 Chest pain, unspecified (principal); R00.2 Palpitations; Z87.891 Personal history of nicotine dependence; Z90.6 Acquired absence of other parts of urinary tract; K22.89 Other specified disease of esophagus; K20.90 Esophagitis, unspecified without bleeding
CPT/HCPCS: 43235; 88305; 88312; J2405